=== PATIENT | male | born 1935 | race Caucasian/White ===

== ENCOUNTER 2016-07-23 10:57 | Observation (INO) | payer MEDICARE ==
[~2016-07-23] VITALS: Ht 170.2 cm; Wt 74.2 kg
[~2016-07-23 10:57] MED LIST: ACET325T PO; CARV3.12 PO; COUM5TAB PO; DHA100CA PO; LIPI20TA PO; MULT-135 PO; NIAC500T18 PO; PREV30CA11 PO; SYNT25TA PO; [UNRECOGNIZED DRUG - CODE] PO
[2016-07-23 10:58] VITALS: BP 136/75; PULSE 80; RESP 18; TEMP 98.3; O2SAT 98
[2016-07-23] MEDS ORDERED: ASPI1TAB69 PO (11:14)
--- NOTE | 2016-07-23 11:39 | PD ---
HPI Chief Complaint: Hip Injury Time Seen by Provider: 11:20 Travel History International Travel<30 days: No Contact w/Intl Traveler<30days: No Traveled to known affect area: No History of Present Illness HPI 81-year-old male complains of right hip pain. Patient states that the pain started about 2 months ago. Patient was seen by personal physician and had MRI done on the right hip. MRI shows mild arthritic pain. Patient was seen subsequently by Dr. Mcnamara for right hip injection and epidural injection without success of controlling the pain. Patient states the pain is sharp stabbing pain burning pain localized to posterior lateral aspect the right hip. Patient denies any pain radiation. Patient denies any direct trauma to right hip. Patient denies fever chills. Patient has history of atrial fibrillation and CAD and on Coumadin. Patient also has history of dyslipidemia and on Lipitor. Patient awaiting appointment with Dr. Everett for possible lumbar spine is the etiology of the right hip pain. On a scale of 1-10 the pain is a 10. Patient had CT scan of the lumbar spine and MRI of lumbar spine in May 2016 as outpatient. PFSH Past Medical History Anemia: Yes Arthritis: Yes Atrial Fibrillation: Yes Heart Rhythm Problems: Yes Cancer: Yes (PROSTATE ; COLON, BASAL CELL CARCINOMA FACE) Cardiac Catheterization: Yes Cardiovascular Problems: Yes (A FIB, CAD) High Cholesterol: Yes Chest Pain: Yes Coronary Artery Disease: Yes Diabetes: No Diminished Hearing: No Endocrine: Yes Gastrointestinal Disorders: Yes GERD: Yes Glaucoma: No Genitourinary: Yes Hepatitis: No Hypertension: Yes Immune Disorder: No Implanted Vascular Access Dvce: Yes Medical other: Yes (GERD) Musculoskeletal: Yes Neurologic: No Psychiatric: No Reproductive: No Respiratory: Yes Myocardial Infarction: Yes Thyroid Disease: Yes (HYPOTHYROIDISM) Influenza Vaccination: Yes PNEUMOCCOCAL Vaccine (Year): 2003 Past Surgical History Abdominal Surgery: Yes (COLON RESECTION) Cardiac Surgery: Yes (CABG, MITRAL VALVE REPAIR, CARDIAC ABLATION, PACEMAKER) Coronary Artery Bypass Graft: Yes (x 5) Ear Surgery: No Eye Surgery: No Genitourinary Surgery: Yes (PROSTATE SX ; SX ON TESTICLE (NOT SURE WHAT)) Gynecologic Surgery: Yes (PROSTATE SX ; SX ON TESTICLE (NOT SURE WHAT)) Oral Surgery: No Pacemaker: Yes Tonsillectomy: Yes Other Surgery: Yes (VARICOSE VEINS, BACK SURGERY) Social History Alcohol Use: Yes (DAILY) Tobacco Use: No Substance Use: No Allergies-Medications (Allergen,Severity, Reaction): Coded Allergies: Morphine (Unverified Allergy, Severe, Confusion, 07/23/16) Reported Meds & Prescriptions Reported Meds & Active Scripts Active Reported Aspirin 81 Mg Tabdr 81 Mg PO HS Lipitor (Atorvastatin Calcium) 20 Mg Tab 20 Mg PO HS Carvedilol 3.125 Mg Tab 3.125 Mg PO BID Dha [place] 3 (Docosahexaenoic Acid) 100 Mg Cap 1 Cap PO DAILY Synthroid (Levothyroxine Sodium) 25 Mcg Tab 25 Mcg PO DAILY Multi Vitamin (Multiple Vitamin) 1 Tab Tab 1 Tab PO DAILY Niacin (Niacinamide) 500 Mg Tab 1,000 Mg PO DAILY Betapace (Sotalol HCl) 120 Mg Tab 120 Mg PO BID Coumadin (Warfarin) 5 Mg Tab 6 Mg PO DAILY Review of Systems General / Constitutional: No: Fever Eyes: No: Visual changes HENT: No: Headaches Cardiovascular: No: Chest Pain or Discomfort Respiratory: No: Shortness of Breath Gastrointestinal: No: Abdominal Pain Genitourinary: No: Dysuria Musculoskeletal: Positive: Pain Skin: No Rash Neurologic: No: Weakness Psychiatric: No: Depression Endocrine: No: Polydipsia Hematologic/Lymphatic: No: Easy Bruising Physical Exam Narrative GENERAL: Well-nourished, well-developed patient. SKIN: Focused skin assessment warm/dry. HEAD: Normocephalic. EYES: No scleral icterus. No injection or drainage. NECK: Supple, trachea midline. No JVD or lymphadenopathy. CARDIOVASCULAR: Regular rate and rhythm without murmurs, gallops, or rubs. RESPIRATORY: Breath sounds equal bilaterally. No accessory muscle use. GASTROINTESTINAL: Abdomen soft, non-tender, nondistended. MUSCULOSKELETAL: No cyanosis, or edema. BACK: Nontender without obvious deformity. No CVA tenderness. Patient has moderate tenderness of patient lateral posterior aspect the right hip joint. Full range motion of right hip. Sensorimotor function distally intact. Data Data Last Documented VS Vital Signs Date Time Temp Pulse Resp B/P Pulse Ox O2 Delivery O2 Flow Rate FiO2 07/23/16 12:10 16 97 Room Air 07/23/16 10:58 98.3 80 136/75 Orders Electrocardiogram (07/23/16 11:32) Complete Blood Count With Diff (07/23/16 11:32) Comprehensive Metabolic Panel (07/23/16 11:32) Prothrombin Time / Inr (Pt) (07/23/16 11:32) Act Partial Throm Time (Ptt) (07/23/16 11:32) C-Reactive Protein (Crp) (07/23/16 11:32) Urinalysis - C+S If Indicated (07/23/16 11:32) Westergren Sedimentation Rate (07/23/16 11:32) Chest, Single Ap (07/23/16 11:32) Iv Access Insert/Monitor (07/23/16 11:32) Ecg Monitoring (07/23/16 11:32) Oximetry (07/23/16 11:32) Hydromorphone Pf Inj (Dilaudid Pf Inj) (07/23/16 11:45) Ondansetron Inj (Zofran Inj) (07/23/16 11:45) Ct Hip W/O Contrast (07/23/16 ) Consult Neurosurgery (07/23/16 ) (Hub Use Only)Inp Phy Cons/Ref (07/23/16 ) Labs Laboratory Tests Test 07/23/16 07/23/16 12:00 13:42 White Blood Count 6.9 TH/MM3 Red Blood Count 5.14 MIL/MM3 Hemoglobin 15.2 GM/DL Hematocrit 44.3 % Mean Corpuscular Volume 86.1 FL Mean Corpuscular Hemoglobin 29.6 PG Mean Corpuscular Hemoglobin 34.3 % Concent Red Cell Distribution Width 14.9 % Platelet Count 169 TH/MM3 Mean Platelet Volume 8.0 FL Neutrophils (%) (Auto) 74.7 % Lymphocytes (%) (Auto) 9.1 % Monocytes (%) (Auto) 15.8 % Eosinophils (%) (Auto) 0.2 % Basophils (%) (Auto) 0.2 % Neutrophils # (Auto) 5.1 TH/MM3 Lymphocytes # (Auto) 0.6 TH/MM3 Monocytes # (Auto) 1.1 TH/MM3 Eosinophils # (Auto) 0.0 TH/MM3 Basophils # (Auto) 0.0 TH/MM3 CBC Comment DIFF FINAL Differential Comment Erythrocyte Sedimentation Rate 2 mm/hr Prothrombin Time 28.3 SEC Prothromb Time International 2.5 RATIO Ratio Activated Partial 34.1 SEC Thromboplast Time Sodium Level 129 MEQ/L Potassium Level 4.3 MEQ/L Chloride Level 95 MEQ/L Carbon Dioxide Level 25.8 MEQ/L Anion Gap 8 MEQ/L Blood Urea Nitrogen 19 MG/DL Creatinine 0.79 MG/DL Estimat Glomerular Filtration 94 ML/MIN Rate Random Glucose 97 MG/DL Calcium Level 9.0 MG/DL Total Bilirubin 0.7 MG/DL Aspartate Amino Transf 21 U/L (AST/SGOT) Alanine Aminotransferase 35 U/L (ALT/SGPT) Alkaline Phosphatase 55 U/L C-Reactive Protein LESS THAN 0.29 MG/DL Total Protein 6.9 GM/DL Albumin 3.8 GM/DL Urine Color YELLOW Urine Turbidity CLEAR Urine pH 6.0 Urine Specific [place] 1.015 Urine Protein NEG mg/dL Urine Glucose (UA) NEG mg/dL Urine Ketones NEG mg/dL Urine Occult Blood NEG Urine Nitrite NEG Urine Bilirubin NEG Urine Urobilinogen LESS THAN 2.0 MG/DL Urine Leukocyte Esterase NEG Urine RBC 1 /hpf Urine WBC LESS THAN 1 /hpf Urine Bacteria RARE /hpf Urine Mucus FEW /lpf Microscopic Urinalysis Comment CULT NOT INDICATED MDM Medical Decision Making Medical Screen Exam Complete: Yes Emergency Medical Condition: Yes Interpretation(s) Last Impressions Chest X-Ray 07/23/16 1132 Signed Impressions: Service Date/Time: Saturday, July 23, 2016 11:42 - CONCLUSION: 1. Cardiomegaly. No acute pulmonary disease. Alhaji Hernandez MD 1538 PM. CBC within normal limit. Sedimentation rate 2. Sodium 129. C- reactive protein less than 0.29. INR 2.5. UA negative. Differential Diagnosis Differential diagnosis including bursitis, tendinitis, fracture, dislocation, radiculopathy. Narrative Course 81-year-old male with severe right hip pain. Dilaudid 0.5 mg IV. Zofran 4 mg IV. Diagnosis Primary Impression: Arthralgia of right hip Additional Impression: Lumbosacral radiculopathy due to degenerative joint disease of spine Admitting Information Admitting Physician Requests: Observation Anton Keller MD Jul 23, 2016 11:39
[2016-07-23] MEDS ORDERED: ONDANSETRON HCL 4 MG/2 ML VIAL IV PUSH ONE (11:45)
[2016-07-23] MEDS ORDERED: HYDROmorphone HCL PF 1 MG/ML VIAL IV PUSH ONE (11:45)
[2016-07-23 12:10] VITALS: RESP 16; O2SAT 97
[2016-07-23 12:21] LABS: AUTOMATED NEUTROPHIL # 5.1 TH/MM3 (1.8-7.7); BASOPHIL % 0.2 % (0.0-2.0); EOSINOPHIL % 0.2 % (0.0-4.0); HEMATOCRIT 44.3 % (39.0-51.0); HEMO FLAGS DIFF FINAL; LYMPH % 9.1 % (9.0-44.0); LYMPHOCYTE # 0.6 TH/MM3 (1.0-4.8); MEAN CELL VOLUME 86.1 FL (80.0-100.0); MEAN CORPUSCULAR HEMOGLOBIN 29.6 PG (27.0-34.0); MEAN CORPUSCULAR HGB CONC 34.3 % (32.0-36.0); MONO % 15.8 % (0.0-8.0); NEUT % 74.7 % (16.0-70.0); PLATELET COUNT 169 TH/MM3 (150-450); RED BLOOD COUNT 5.14 MIL/MM3 (4.50-5.90); RED CELL DISTRIBUTION WIDTH 14.9 % (11.6-17.2); WHITE BLOOD COUNT 6.9 TH/MM3 (4.0-11.0)
[2016-07-23 12:29] LABS: APTT (PATIENT) 34.1 SEC (24.3-30.1); INTERNATIONAL NORMALIZED RATIO 2.5 RATIO; PROTHROMBIN TIME - PATIENT 28.3 SEC (9.8-11.6)
--- NOTE | 2016-07-23 12:58 | RADRPT ---
EXAM DATE/TIME: 07/23/2016 11:42 [facility] COMPARISON: No previous studies available for comparison. INDICATIONS : Shortness of breath and right hip pain following lumbar injections. MEDICAL HISTORY : None. SURGICAL HISTORY : Pacemaker. Heart. ENCOUNTER: Initial ACUITY: 3 weeks PAIN SCORE: 0/10 LOCATION: Bilateral chest FINDINGS: The cardiac silhouette is normal in transverse diameter. Median sternotomy wires are present. A bipol ar pacemaker is in place via a left sided approach. The lungs are free of acute parenchymal opacity. No effusions are identified. CONCLUSION: 1. Cardiomegaly. No acute pulmonary disease. Alhaji Hernandez MD on July 23, 2016 at 12:54 Board Certified Radiologist. This report was verified electronically.
[2016-07-23 13:00] VITALS: BP 132/76; PULSE 72; RESP 16; O2SAT 95
[2016-07-23 13:06] LABS: ALT (GPT) 35 U/L (12-78); ANION GAP 8 MEQ/L (5-15); AST (GOT) 21 U/L (15-37); BICARBONATE 25.8 MEQ/L (21.0-32.0); BLOOD UREA NITROGEN 19 MG/DL (7-18); CHLORIDE 95 MEQ/L (98-107); GLOMERULAR FILTRATION RATE 94 ML/MIN (>89); POTASSIUM 4.3 MEQ/L (3.5-5.1); SODIUM (NA) 129 MEQ/L (136-145)
[2016-07-23 13:07] LABS: ALKALINE PHOSPHATASE 55 U/L (45-117); TOTAL BILIRUBIN ADULT 0.7 MG/DL (0.2-1.0)
--- NOTE | 2016-07-23 13:19 | PD.CONS ---
(Cornell Everett MD) HPI Consult Requested By Primary Care Physician Corazon Bearden MD (Cornell Everett MD) Service NRS Consult Requested By ED Physician Reason for Consult possible radiculopathy History of Present Illness Mr. Arteaga is a 81-year-old male who presents to the emergency department with intractable right hip pain. Mr. Arteaga has a history of previous L4 5 fusion and had done well following his surgery. He then developed progressive pain located in the right lateral hip. He recently underwent lumbar epidural steroid injections as well as right hip injections with his pain specialist Dr. Mcnamara without any improvement. Mr. Arteaga denies any recent falls or trauma. He reports his pain is located in the right lateral hip and slightly in the right upper thigh. He denies lumbar pain, paresthesias, bowel or bladder incontinence. He reports of generalized proximal weakness in the right leg due to his right hip pain. He underwent an MRI of the lumbar spine at [facility] in [facility] on 05/30/16 which showed multiple chronic compression fractures, and multilevel spondylosis. Neurosurgical evaluation was requested for possible radiculopathy. (Aishwarya Ramirez) Review of Systems Constitutional: DENIES: Fever Eyes: DENIES: Diplopia, Eye pain Respiratory: DENIES: Hemoptysis, Shortness of breath Cardiovascular: DENIES: Chest pain, Palpitations Genitourinary: DENIES: Urinary incontinence Musculoskeletal: COMPLAINS OF: Joint pain, DENIES: Back pain Neurologic: COMPLAINS OF: Abnormal gait, DENIES: Paresthesias Psychiatric: DENIES: Hallucinations (Aishwarya Ramirez) Past Family Social History Allergies: Coded Allergies: Morphine (Unverified Allergy, Severe, Confusion, 07/23/16) Past Medical History Hypertension Hyperlipidemia A. Fib Coronary Artery Disease Osteoarthritis Prostate CA Colon CA Skin CA GRED Hypothyroidism Past Surgical History Pacemaker CABG x 5 Mitral Valve repair Prostate surgery L4-5 fusion Reported Medications reviewed in EMR Family History noncontributory Social History daily alcohol use, denies tobacco or illicit drug use (Aishwarya Ramirez) Physical Exam Vital Signs Vital Signs Date Time Temp Pulse Resp B/P Pulse Ox O2 Delivery O2 Flow Rate FiO2 07/23/16 12:10 16 97 Room Air 07/23/16 10:58 98.3 80 18 136/75 98 Room Air Laboratory Laboratory Tests Test 07/23/16 12:00 White Blood Count 6.9 Red Blood Count 5.14 Hemoglobin 15.2 Hematocrit 44.3 Mean Corpuscular Volume 86.1 Mean Corpuscular Hemoglobin 29.6 Mean Corpuscular Hemoglobin 34.3 Concent Red Cell Distribution Width 14.9 Platelet Count 169 Mean Platelet Volume 8.0 Neutrophils (%) (Auto) 74.7 Lymphocytes (%) (Auto) 9.1 Monocytes (%) (Auto) 15.8 Eosinophils (%) (Auto) 0.2 Basophils (%) (Auto) 0.2 Neutrophils # (Auto) 5.1 Lymphocytes # (Auto) 0.6 Monocytes # (Auto) 1.1 Eosinophils # (Auto) 0.0 Basophils # (Auto) 0.0 CBC Comment DIFF FINAL Differential Comment Erythrocyte Sedimentation Rate 2 Prothrombin Time 28.3 Prothromb Time International 2.5 Ratio Activated Partial 34.1 Thromboplast Time Sodium Level 129 Potassium Level 4.3 Chloride Level 95 Carbon Dioxide Level 25.8 Anion Gap 8 Blood Urea Nitrogen 19 Creatinine 0.79 Estimat Glomerular Filtration 94 Rate Random Glucose 97 Calcium Level 9.0 Total Bilirubin 0.7 Aspartate Amino Transf 21 (AST/SGOT) Alanine Aminotransferase 35 (ALT/SGPT) Alkaline Phosphatase 55 C-Reactive Protein LESS THAN 0.29 Total Protein 6.9 Albumin 3.8 (Cornell Everett MD) Physical Exam Mr. Arteaga is alert, awake and oriented to time, place and person. Speech is fluent. Higher cognitive functions are normal. Cranial nerve examination demonstrates the pupils equal, round, and reactive to light. Extra-ocular movements are intact. Facial motor are normal and symmetrical. Sternocleidomastoid and trapezius muscles have normal and symmetrical strength. Other cranial nerves are intact. Neck is soft and supple. Muscle testing reveals normal bulk and tone overall without rigidity, spasticity , fasciculations, or atrophy. Muscle strength is 5/5 in all muscle groups of both upper extremities including deltoid, biceps, triceps, and process stripper. In the lower extremities, exam limited to right proximal lower extremity due to right hip pain, grossly 3/5 right iliopsoas, 5/5 left iliopsoas, 5/5 both quadriceps, hamstrings, plantar flexion, dorsiflexion, and extensor hallicus longus. Sensory examination is intact to light touch in both the upper and lower extremities, symmetrically. Severe pain elicited with palpation of the right lateral hip as well as range of motion examination. Deep tendon reflexes are 2+ and symmetrical in the biceps, triceps, and brachioradialis, bilaterally, in the upper extremities. In the lower extremities, the patellar and Achilles are 1+, bilaterally. There is a bilateral plantar flexion response. Hoffmanns sign is negative. There is no clonus or other abnormal reflexes noted. Cerebellar examination is intact to [id number] test. (Aishwarya Ramirez) Result Diagram: 07/23/16 1200 07/23/16 1200 Imaging Last Impressions Chest X-Ray 07/23/16 1132 Signed Impressions: Service Date/Time: Saturday, July 23, 2016 11:42 - CONCLUSION: 1. Cardiomegaly. No acute pulmonary disease. Alhaji Hernandez MD (Aishwarya Ramirez) Attending Statement I have reviewed his clinical and further studies. neuro checks in a serial fashion. Recommend CT or MRI of the hip to evaluate for fracture or ligamentous injury Respiratory. pulmonary toilette, nasotracheal suction, and breathing treatments with nebulizers. PT and OT eval Pneumonia. IV ABx permedical team Ileus NPO. Follow up xrays Nutrition. NPO Renal. monitor closely urine output, BUN and creatinine Endocrine. Monitor serial Acu checks and SSI for tight control ID monitor for signs of infection Protonix for stress ulcer prophylaxis Reyes hose and SCD's for DVT prophylaxis The exam, history, and the medical decision-making described in the above note were completed with the assistance of the mid-level provider. I reviewed and agree with the findings presented. I attest that I had a [id number] encounter with the patient on the same day, and personally performed and documented my assessment and findings in the medical record. (Cornell Everett MD) Cornell Everett MD Jul 23, 2016 13:19 Aishwarya Ramirez Jul 23, 2016 15:00
--- NOTE | 2016-07-23 13:37 | RADRPT ---
EXAM DATE/TIME: 07/23/2016 12:50 [facility] COMPARISON: No previous studies available for comparison. INDICATIONS : Right hip pain. No known trauma. RADIATION DOSE: 29.25 CTDIvol (mGy) MEDICAL HISTORY : Cardiovascular disease. Carcinoma, prostate. SURGICAL HISTORY : Fusion, lumbar. Pacemaker. Colon resection. CABG ENCOUNTER: Initial ACUITY: 3 weeks PAIN SCALE: 10/10 LOCATION: Right hip TECHNIQUE: Volumetric scanning of the hip was performed. Using automated exposure control and adjustment of the mA and/or kV according to patient size, radiation dose was kept as low as reasonably achievable to o btain optimal diagnostic quality images. FINDINGS: There is transpedicular fixation in the lower lumbar spine. Pelvis is osteopenic. There are degenerative changes present about both hips. There is a very small joint effusion on the right. Bone is articulating with bone with subchondral cyst formation evident. Moderate vascular calcifications are noted. CONCLUSION: Degenerative changes about the right hip without fracture. Jarvis Erwin MD FACR on July 23, 2016 at 13:31 Board Certified Radiologist. This report was verified electronically.
[2016-07-23 13:56] LABS: BACTERIA, URINE RARE /hpf; BLOOD, URINE NEG (NEG); COMMENT (UR) CULT NOT INDICATED; CULTURE IF INDICATED CULT NOT INDICATED; GLUCOSE,URINE NEG (NEG); KETONE, URINE NEG (NEG); MUCUS URINE FEW /lpf (OCC); NITRITE,URINE NEG (NEG); URINE COLOR YELLOW (YELLW/STRAW)
--- NOTE | 2016-07-23 16:01 | HHI.HP ---
[facility] Service Family Medicine Primary Care Physician Corazon Bearden MD Admission Diagnosis Diagnoses: International Travel<30 Days: No Contact w/Intl Traveler<30days: No Known Affected Area: No History of Present Illness Patient is a 81 year old male with a PMH significant for atrial fibrillation, CAD/CABG, hypothyroidism prostate cancer, colon cancer, who presents with chronic worsening right hip pain. Onset of pain was in March 2016; he states that he was coughing the day before and felt a twinge in his back which went away. The next day he woke up with excruciating right buttock and hip pain. Location: right buttock, goes down into groin around, and stops right above the knee. Is described as constant 10/10 pain. It sometimes last through the night but patient is able to sleep if he takes medication. He has tried hot and cold compresses, a TENS unit, Tylenol, NSAIDs. He has been seeing Dr. Mcnamara for workup of this pain recently. He has seen Dr. Mcnamara for work-up, has undergone "medication" by injection to right hip and subsequently lower back. Cortisone injection into the right hip was 9 days, cortisone injection into the spine was 7 days today. He was given a prescription for hydrocodone which does help the pain some. No recent falls or trauma remotely or acutely. The pain itself is better now than it was one week ago, but it sporadically worsens and makes him unable to walk.. He is able to walk around fine sometimes and then the pain "hits" him. Sometimes the pain lasts all day. It is worse when he walks around, and he requires a cane and states he drags the leg. Denies any back pain. Pain does not go down the back of the legs but does radiate to the front thigh sometimes. No bowel or bladder retention or incontinence. No numbness or tingling in the body. He does note night sweats for a while, not every day, not since the pain worsened. In the ED he was given Dilaudid 0.5 mg IV and this helped his pain. Has not been to Dr. Everett as outpatient, but Dr. Everett evaluated patient in ED for possible radiculopathy. Per notes in EMR, he underwent an MRI of the lumbar spine at [facility] in [facility] on 05/30/16 which showed multiple chronic compression fractures, and multilevel spondylosis. (Marily Lomas MD R1) Review of Systems Constitutional: DENIES: Fever, Chills Eyes: DENIES: Blurred vision, Vision loss Ears, nose, mouth, throat: DENIES: Tinnitus, Hearing loss Respiratory: DENIES: Cough Cardiovascular: DENIES: Chest pain, Palpitations Gastrointestinal: DENIES: Abdominal pain, Black stools, Bloody stools, Constipation, Diarrhea Genitourinary: DENIES: Urinary frequency, Urinary incontinence Musculoskeletal: COMPLAINS OF: Joint pain, Stiffness, DENIES: Back pain Integumentary: DENIES: Rash Neurologic: COMPLAINS OF: Paresthesias (numbness right hip), DENIES: Headache Psychiatric: DENIES: Confusion (Marily Lomas MD R1) Past Family Social History Past Medical History CAD - CABG x 5 2006 --> Pacemaker Atrial Fibrillation Colon Cancer - Resection Prostate Cancer - resection, reports normal PSA atrial fibrillation, CAD/CABG, hypothyroidism prostate cancer, colon cancer Past Surgical History CABG Pacemaker Reported Medications Reported Meds & Active Scripts Active Reported Aspirin 81 Mg Tabdr 81 Mg PO HS Lipitor (Atorvastatin Calcium) 20 Mg Tab 20 Mg PO HS Carvedilol 3.125 Mg Tab 3.125 Mg PO BID Dha [place] 3 (Docosahexaenoic Acid) 100 Mg Cap 1 Cap PO DAILY Synthroid (Levothyroxine Sodium) 25 Mcg Tab 25 Mcg PO DAILY Multi Vitamin (Multiple Vitamin) 1 Tab Tab 1 Tab PO DAILY Niacin (Niacinamide) 500 Mg Tab 1,000 Mg PO DAILY Betapace (Sotalol HCl) 120 Mg Tab 120 Mg PO BID Coumadin (Warfarin) 5 Mg Tab 6 Mg PO DAILY (Marily Lomas MD R1) Allergies: Coded Allergies: Morphine (Unverified Allergy, Severe, Confusion, 07/23/16) Active Ordered Medications Inpatient Medications Hydromorphone HCl (Dilaudid Pf Inj) 0.5 mg ONCE ONCE IV PUSH Last administered on 07/23/16 12:43; Start 07/23/16 at 11:45; Stop 07/23/16 at 11:46 ; Status DC Ondansetron HCl (Zofran Inj) 4 mg ONCE ONCE IV PUSH Last administered on 12:41; Start 07/23/16 at 11:45; Stop 07/23/16 at 11:46; Status DC Family History Family with "Heart, Cancer " Pancreatic cancer - sister Father - kidney disease "Brights" Social History Cigarettes = quit 53 years ago Alcohol = Daily 2-3 beers Illicits = None Uses walker to get pressure off Played golf up into March 2016 (Marily Lomas MD R1) Physical Exam Vital Signs Vital Signs Date Time Temp Pulse Resp B/P Pulse Ox O2 Delivery O2 Flow Rate FiO2 07/23/16 12:10 16 97 Room Air 07/23/16 10:58 98.3 80 18 136/75 98 Room Air Physical Exam GENERAL: This is a well-nourished, well-developed patient, in no apparent distress. SKIN: No rashes, ecchymoses or lesions. Warm and dry. HEAD: Atraumatic. Normocephalic. No temporal or scalp tenderness. EYES: Pupils equal round and reactive. Extraocular motions intact. No scleral icterus. No injection or drainage. ENT: Nose without bleeding, purulent drainage or septal hematoma. Throat without erythema, tonsillar hypertrophy or exudate. Uvula midline. Airway patent. NECK: Trachea midline. No JVD or lymphadenopathy. Supple, nontender, no meningeal signs. CARDIOVASCULAR: Irregularly irregular rhythm. No murmurs, gallops, or rubs. RESPIRATORY: Clear to auscultation. Breath sounds equal bilaterally. No wheezes , rales, or rhonchi. BACK: No spinal or paraspinal tenderness. No obvious bony abnormalities. GASTROINTESTINAL: Abdomen soft, non-tender, nondistended. No hepato-splenomegaly , or palpable masses. No guarding. MUSCULOSKELETAL: Kyphosis cervical spine. Strength normal aside from 4/5 with hip extension. Extremities without clubbing, cyanosis, or edema. No joint tenderness, effusion, or edema noted. No calf tenderness. Negative Homans sign bilaterally. NEUROLOGICAL: Awake and alert. Cranial nerves II through XII intact. Motor and sensory grossly within normal limits. Normal speech. Laboratory Laboratory Tests Test 07/23/16 07/23/16 12:00 13:42 White Blood Count 6.9 Red Blood Count 5.14 Hemoglobin 15.2 Hematocrit 44.3 Mean Corpuscular Volume 86.1 Mean Corpuscular Hemoglobin 29.6 Mean Corpuscular Hemoglobin 34.3 Concent Red Cell Distribution Width 14.9 Platelet Count 169 Mean Platelet Volume 8.0 Neutrophils (%) (Auto) 74.7 Lymphocytes (%) (Auto) 9.1 Monocytes (%) (Auto) 15.8 Eosinophils (%) (Auto) 0.2 Basophils (%) (Auto) 0.2 Neutrophils # (Auto) 5.1 Lymphocytes # (Auto) 0.6 Monocytes # (Auto) 1.1 Eosinophils # (Auto) 0.0 Basophils # (Auto) 0.0 CBC Comment DIFF FINAL Differential Comment Erythrocyte Sedimentation Rate 2 Prothrombin Time 28.3 Prothromb Time International 2.5 Ratio Activated Partial 34.1 Thromboplast Time Sodium Level 129 Potassium Level 4.3 Chloride Level 95 Carbon Dioxide Level 25.8 Anion Gap 8 Blood Urea Nitrogen 19 Creatinine 0.79 Estimat Glomerular Filtration 94 Rate Random Glucose 97 Calcium Level 9.0 Total Bilirubin 0.7 Aspartate Amino Transf 21 (AST/SGOT) Alanine Aminotransferase 35 (ALT/SGPT) Alkaline Phosphatase 55 C-Reactive Protein LESS THAN 0.29 Total Protein 6.9 Albumin 3.8 Urine Color YELLOW Urine Turbidity CLEAR Urine pH 6.0 Urine Specific [place] 1.015 Urine Protein NEG Urine Glucose (UA) NEG Urine Ketones NEG Urine Occult Blood NEG Urine Nitrite NEG Urine Bilirubin NEG Urine Urobilinogen LESS THAN 2.0 Urine Leukocyte Esterase NEG Urine RBC 1 Urine WBC LESS THAN 1 Urine Bacteria RARE Urine Mucus FEW Microscopic Urinalysis Comment CULT NOT INDICATED (Marily Lomas MD R1) Result Diagram: 07/23/16 1200 07/23/16 1200 Imaging Last Impressions Chest X-Ray 07/23/16 1132 Signed Impressions: Service Date/Time: Saturday, July 23, 2016 11:42 - CONCLUSION: 1. Cardiomegaly. No acute pulmonary disease. Alhaji Hernandez MD (Marily Lomas MD R1) Assessment and Plan Assessment and Plan 81-year-old male with a history of atrial fibrillation, CAD/CABG, pacemaker, hypothyroidism, prostate cancer, colon cancer who presents with acute on chronic right hip pain. He was admitted to observation for further workup. Code Status Full Code Discussed Condition With Dr. Atkins, Dr. Souza (Marily Lomas MD R1) Attending Attestation THIS CASE WAS DISCUSSED WITH THE RESIDENT PHYSICIAN. I HAVE REVIEWED THE RECORD AND AGREE WITH THE ABOVE NOTE AND PLAN OF CARE WAS DISCUSSED. I HAVE AUTHORIZED THE ORDER FOR PLACEMENT IN OUT-PATIENT OBSERVATION STATUS. (Michael Atkins MD) Problem List: (1) Right hip pain Status: Acute Plan: Patient with an acute exacerbation of right hip pain without evidence of trauma. Exam significant for pain, decreased pain. Neurosurgery evaluated patient, report low suspicion for radicular etiology. Orthopedic surgery consult per request of neurosurgery/ED physician for further evaluation. Notably , patient does have a history of prostate and colon cancer, and metastases cannot be definitively excluded without further workup. Differential diagnosis includes avascular necrosis, septic joint, bursitis. -Pain control with Percocet 5/325 for pain 15, Percocet 10/325 for pain 610 Dilaudid 0.5mg IV q4hr hours for breakthrough -MRI hip without contrast ordered - MRI safe pacemaker, needs [employer] rep evaluation -Right femur x-ray ordered -Neurosurgery consulted -Orthopedic consulted (2) Atrial fibrillation Status: Acute Plan: Continue home Coumadin at 6 mg, continue Sotalol outpatient dose -Atrial pacemaker noted on EKG, rate 73, QT 453, no evidence of ischemic event. -We will continue telemetry given cardiac history -Monitor INR (3) Hypothyroidism Status: Chronic Plan: Continue home dose Synthroid 25 g daily (4) Fluids/Electrolytes/Nutrition/Prophylaxis Status: Acute Plan: Fluids: tolerating PO Electrolytes: monitor and replete as needed, will monitor hyponatremia Nutrition: heart-healthy diet DVT Prophylaxis: On Coumadin GI Prophylaxis: Not indicated (Marily Lomas MD R1) Marily Lomas MD R1 Jul 23, 2016 16:01 Michael Atkins MD Jul 23, 2016 19:19
[2016-07-23] MEDS ORDERED: SODIUM CHLORIDE 0.9% FLUSH 10 ML FLUSH IV FLUSH PRN (16:45)
[2016-07-23] MEDS ORDERED: NALOXONE HCL 0.4 MG/ML AMP IV PRN ×2 (16:45→19:15)
[2016-07-23] MEDS ORDERED: PILL SPLITTER OTHER PRN (16:45)
[2016-07-23 17:00] VITALS: BP 134/78; PULSE 75; RESP 16; O2SAT 97
[2016-07-23] MEDS: WARFARIN SOD 6 MG TAB PO SCH (17:00)
[2016-07-23 17:35] VITALS: O2SAT 94
[2016-07-23] MEDS ORDERED: COUM3TAB PO (17:45)
--- NOTE | 2016-07-23 17:57 | RADRPT ---
EXAM DATE/TIME: 07/23/2016 17:46 [place] COMPARISON: No previous studies available for comparison. INDICATIONS : Right femur pain with no known injury. MEDICAL HISTORY : None. SURGICAL HISTORY : None. ENCOUNTER: Initial ACUITY: 3 months PAIN SCORE: 7/10 LOCATION: Right proximal femur. FINDINGS: Extensive vascular calcifications are seen. Degenerative changes are seen about the hip with bone ar ticulating with bone. There is no evidence for fracture or joint effusion. CONCLUSION: 1. Extensive vascular calcifications. 2. Bone articulating with bone right hip. Jarvis Erwin MD FACR on July 23, 2016 at 17:55 Board Certified Radiologist. This report was verified electronically.
--- NOTE | 2016-07-23 19:19 | HHI.HP ---
[facility] Service Family Medicine Primary Care Physician Corazon Bearden MD Admission Diagnosis Diagnoses: (1) Right hip pain (2) Atrial fibrillation (3) Hypothyroidism (4) Fluids/Electrolytes/Nutrition/Prophylaxis International Travel<30 Days: No Contact w/Intl Traveler<30days: No Known Affected Area: No History of Present Illness 81 yo M presenting to the ED with intractable right hip and thigh pain. He has been evaluated for this pain as an outpatient with a lumbar MRI and eventually receiving both epidural steroid injections and right hip injection without any benefit. His pain continued and progressed to the point that he has difficulty bearing weight due to the pain. The onset of this pain was 3 months ago and has slowly been progressing. He denies any trauma or injury, denies any trauma , denies any sudden worsening of pain. He also denies any saddle paresthesia or bowel/bladder incontinence or retention This pain is described as constant and rated as a 10 out of 10 at its worst. It sometimes lasts through the night but has been controlled with Ibuprofen and Hydrocodone. He has a PMH significant for atrial fibrillation, CAD/CABG, hypothyroidism prostate cancer, colon cancer, Per notes in EMR, he underwent an MRI of the lumbar spine at [facility] in [facility] on 05/30/16 which showed multiple chronic compression fractures, and multilevel spondylosis In the ED he was given Dilaudid 0.5 mg IV and this helped his pain. He was then evaluated by Dr. Everett of neurosurgery and this pain was not felt to be originating from his back. It was recommended that he be admitted for pain control and evaluation by orthopedics. Past Family Social History Past Medical History CAD - CABG x 5 2006 --> Pacemaker Atrial Fibrillation Colon Cancer - Resection Prostate Cancer - resection, reports normal PSA atrial fibrillation, CAD/CABG, hypothyroidism prostate cancer, colon cancer Past Surgical History CABG Pacemaker Allergies: Coded Allergies: Morphine (Unverified Allergy, Severe, Confusion, 07/23/16) Family History Family with "Heart, Cancer " Pancreatic cancer - sister Father - kidney disease "Brights Social History Cigarettes = quit 53 years ago Alcohol = Daily 2-3 beers Illicits = None Uses walker to get pressure off Played golf up into March 2016 Physical Exam Vital Signs Vital Signs Date Time Temp Pulse Resp B/P Pulse Ox O2 Delivery O2 Flow Rate FiO2 07/23/16 17:35 94 21 07/23/16 17:00 75 16 134/78 97 Room Air 07/23/16 13:00 72 16 132/76 95 Room Air 07/23/16 12:10 16 97 Room Air 07/23/16 10:58 98.3 80 18 136/75 98 Room Air Physical Exam GENERAL: Uncomfortable appearing male laying on his left side in bed SKIN: No rashes, ecchymoses or lesions. Warm and dry. NECK: No JVD or lymphadenopathy. Supple, nontender, no meningeal signs. CARDIOVASCULAR: Regular rate and rhythm with 2/6 systolic murmur RESPIRATORY: Clear to auscultation. Breath sounds equal bilaterally. No wheezes , rales, or rhonchi. BACK: No spinal or paraspinal tenderness. No obvious bony abnormalities. MUSCULOSKELETAL: Kyphosis cervical spine. Strength normal aside from 4/5 with hip extension due to pain. Extremities without clubbing, cyanosis, or edema. No joint tenderness, effusion, or edema noted. Limited exam for right hip flexion due to pain, but able to flex hip to 70 degrees and internally rotate with moderate pain. He does have some tenderness to palpation over anterior mid- thigh NEUROLOGICAL: Awake and alert. Laboratory Laboratory Tests Test 07/23/16 07/23/16 12:00 13:42 White Blood Count 6.9 Red Blood Count 5.14 Hemoglobin 15.2 Hematocrit 44.3 Mean Corpuscular Volume 86.1 Mean Corpuscular Hemoglobin 29.6 Mean Corpuscular Hemoglobin 34.3 Concent Red Cell Distribution Width 14.9 Platelet Count 169 Mean Platelet Volume 8.0 Neutrophils (%) (Auto) 74.7 Lymphocytes (%) (Auto) 9.1 Monocytes (%) (Auto) 15.8 Eosinophils (%) (Auto) 0.2 Basophils (%) (Auto) 0.2 Neutrophils # (Auto) 5.1 Lymphocytes # (Auto) 0.6 Monocytes # (Auto) 1.1 Eosinophils # (Auto) 0.0 Basophils # (Auto) 0.0 CBC Comment DIFF FINAL Differential Comment Erythrocyte Sedimentation Rate 2 Prothrombin Time 28.3 Prothromb Time International 2.5 Ratio Activated Partial 34.1 Thromboplast Time Sodium Level 129 Potassium Level 4.3 Chloride Level 95 Carbon Dioxide Level 25.8 Anion Gap 8 Blood Urea Nitrogen 19 Creatinine 0.79 Estimat Glomerular Filtration 94 Rate Random Glucose 97 Calcium Level 9.0 Total Bilirubin 0.7 Aspartate Amino Transf 21 (AST/SGOT) Alanine Aminotransferase 35 (ALT/SGPT) Alkaline Phosphatase 55 C-Reactive Protein LESS THAN 0.29 Total Protein 6.9 Albumin 3.8 Urine Color YELLOW Urine Turbidity CLEAR Urine pH 6.0 Urine Specific [place] 1.015 Urine Protein NEG Urine Glucose (UA) NEG Urine Ketones NEG Urine Occult Blood NEG Urine Nitrite NEG Urine Bilirubin NEG Urine Urobilinogen LESS THAN 2.0 Urine Leukocyte Esterase NEG Urine RBC 1 Urine WBC LESS THAN 1 Urine Bacteria RARE Urine Mucus FEW Microscopic Urinalysis Comment CULT NOT INDICATED Result Diagram: 07/23/16 1200 07/23/16 1200 Imaging Last 48 hours Impressions Chest X-Ray 07/23/16 1132 Signed Impressions: Service Date/Time: Saturday, July 23, 2016 11:42 - CONCLUSION: 1. Cardiomegaly. No acute pulmonary disease. Alhaji Hernandez MD Lower Extremity CT 07/23/16 0000 Signed Impressions: Service Date/Time: Saturday, July 23, 2016 12:50 - CONCLUSION: Degenerative changes about the right hip without fracture. Jarvis Erwin MD FACR Assessment and Plan Assessment and Plan 81-year-old male with a history of atrial fibrillation, CAD/CABG, pacemaker, hypothyroidism, prostate cancer, colon cancer who presents with acute on chronic right hip pain. He was admitted to observation for further workup. Problem List: (1) Right hip pain Status: Acute Plan: Patient with an acute exacerbation of right hip pain without evidence of trauma. Exam significant for pain, decreased pain. Neurosurgery evaluated patient, report low suspicion for radicular etiology. Orthopedic surgery consult per request of neurosurgery/ED physician for further evaluation. Notably , patient does have a history of prostate and colon cancer, and metastases cannot be definitively excluded without further workup. Differential diagnosis includes avascular necrosis, septic joint, bursitis. -Pain control with Percocet 5/325 for pain 15, Percocet 10/325 for pain 610 Dilaudid 0.5mg IV q4hr hours for breakthrough -MRI hip without contrast ordered - MRI safe pacemaker, needs [employer] rep evaluation -Right femur x-ray ordered -Neurosurgery consulted and recommend evaluation by orthopedics -Orthopedic consulted (2) Atrial fibrillation Status: Acute Plan: Continue home Coumadin at 6 mg, continue Sotalol outpatient dose -Atrial pacemaker noted on EKG, rate 73, QT 453, no evidence of ischemic event. -We will continue telemetry given cardiac history -Monitor INR (3) Hypothyroidism Status: Chronic Plan: Continue home dose Synthroid 25 g daily (4) Fluids/Electrolytes/Nutrition/Prophylaxis Status: Acute Plan: Fluids: tolerating PO Electrolytes: monitor and replete as needed, will monitor hyponatremia Nutrition: heart-healthy diet DVT Prophylaxis: On Coumadin GI Prophylaxis: Not indicated Michael Atkins MD Jul 23, 2016 19:19
[2016-07-23] MEDS: oxyCODONE/ACETAMINOPHEN 10 MG/325 MG TAB PO PRN (20:17)
[2016-07-23] MEDS: SOTALOL HCL 80 MG TAB PO SCH (20:34)
[2016-07-23] MEDS: ASPIRIN EC 81 MG TABEC PO SCH (20:35)
[2016-07-23] MEDS: NIACIN 500 MG EXTENDED RELEASE TAB PO SCH (20:35)
[2016-07-23] MEDS: ATORVASTATIN 20 MG TAB PO SCH (20:35)
[2016-07-23] MEDS: CARVEDILOL 3.125 MG TAB PO SCH (20:36)
[2016-07-23 20:45] VITALS: BP 126/70; PULSE 76; RESP 16; TEMP 97.9; O2SAT 95
[2016-07-23] MEDS: SODIUM CHLORIDE 0.9% FLUSH 10 ML FLUSH IV FLUSH SCH (21:00)
[2016-07-23] MEDS: HYDROmorphone HCL PF 1 MG/ML VIAL IV PRN (21:22)
[2016-07-24] VITALS (11 sets, daily range): BP systolic 131–165; BP diastolic 73–90; PULSE 79–97; RESP 16–22; TEMP 96.8–97.8; O2SAT 94–97
[2016-07-24] MEDS: oxyCODONE/ACETAMINOPHEN 10 MG/325 MG TAB PO PRN ×3 (05:44→17:46)
[2016-07-24] MEDS: LEVOTHYROXINE SODIUM 25 MCG TAB PO SCH (05:44)
[2016-07-24] MEDS: SOTALOL HCL 80 MG TAB PO SCH ×2 (08:46→20:36)
[2016-07-24] MEDS: CARVEDILOL 3.125 MG TAB PO SCH ×2 (08:46→20:36)
[2016-07-24] MEDS: MULTIVITAMIN TAB PO SCH (08:46)
[2016-07-24] MEDS: SODIUM CHLORIDE 0.9% FLUSH 10 ML FLUSH IV FLUSH SCH ×2 (08:47→20:37)
--- NOTE | 2016-07-24 08:47 | PD.ORT.PN ---
Subjective Subjective Remarks C4 dictated note. Intractable right hip pain, almost unable to ambulate Objective Vitals Vital Signs Date Time Temp Pulse Resp B/P Pulse Ox O2 Delivery O2 Flow Rate FiO2 07/24/16 08:22 96.8 79 20 158/81 96 07/24/16 04:59 97.5 79 16 142/90 94 07/24/16 01:13 82 07/24/16 00:13 97.7 88 16 165/89 97 07/23/16 20:45 97.9 76 16 126/70 95 07/23/16 17:35 94 21 07/23/16 17:00 75 16 134/78 97 Room Air 07/23/16 13:00 72 16 132/76 95 Room Air 07/23/16 12:10 16 97 Room Air 07/23/16 10:58 98.3 80 18 136/75 98 Room Air I/O 07/23/16 07/23/16 07/23/16 07/24/16 07/24/16 07/24/16 07:00 15:00 23:00 07:00 15:00 23:00 Intake Total 240 ml Output Total 300 ml 600 ml Balance -300 ml -360 ml Intake Oral 240 ml Output Urine Total 300 ml 600 ml # Bowel Movements 0 Result Diagram: 07/23/16 1200 07/23/16 1200 Other Results Laboratory Tests Test 07/23/16 12:00 Prothrombin Time 28.3 SEC (9.8-11.6) Prothromb Time International 2.5 RATIO Ratio Imaging Last 24 hours Impressions Chest X-Ray 07/23/16 1132 Signed Impressions: Service Date/Time: Saturday, July 23, 2016 11:42 - CONCLUSION: 1. Cardiomegaly. No acute pulmonary disease. Alhaji Hernandez MD Objective Remarks Right hip 10 flexion contracture. Severe pain with range of motion, especially with internal and external rotation. Pain is in the groin, lateral right hip and posterior right hip. Pain radiates toward the right knee. Straight leg raise negative. Motor examination 5/5. No calf tenderness. Negative Homans sign. Dorsalis pedis 2+ posterior tibialis 1+ Assessment & Plan Assessment and Plan Osteoarthritis right hip, severe. Status post lumbar laminectomy and fusion, stable. PLAN: I have reviewed x-rays showing severe arthritis of the right hip. This patient has had appropriate conservative care including anti-inflammatory medications, altered activity, injections of cortisone into the hip joint. He has failed now 3-4 months of conservative care. This patient is a candidate for right total hip replacement arthroplasty. We will tentatively scheduled for next Thursday. We will request cardiology evaluation while he is in the hospital. Possibly discharge later today or tomorrow. We will electively admit him on Thursday for anterior right total hip replacement arthroplasty, pending medical evaluation and clearance. Consent: There are risks with surgery including infection bleeding loss of motion, continued pain, need for further surgery, dislocation, neurologic or vascular injury. Walker and limited weightbearing on the right leg Rehan Sullivan MD Jul 24, 2016 08:47
[2016-07-24] MEDS ORDERED: DOCOSAHEXAENOIC ACID PO SCH (09:00)
[2016-07-24 09:06] LABS: AUTOMATED NEUTROPHIL # 3.6 TH/MM3 (1.8-7.7); BASOPHIL % 0.2 % (0.0-2.0); EOSINOPHIL % 0.2 % (0.0-4.0); HEMATOCRIT 46.7 % (39.0-51.0); HEMO FLAGS DIFF FINAL; LYMPH % 13.5 % (9.0-44.0); LYMPHOCYTE # 0.7 TH/MM3 (1.0-4.8); MEAN CELL VOLUME 86.2 FL (80.0-100.0); MEAN CORPUSCULAR HEMOGLOBIN 29.4 PG (27.0-34.0); MEAN CORPUSCULAR HGB CONC 34.1 % (32.0-36.0); MONO % 13.7 % (0.0-8.0); NEUT % 72.4 % (16.0-70.0); PLATELET COUNT 164 TH/MM3 (150-450); RED BLOOD COUNT 5.41 MIL/MM3 (4.50-5.90); RED CELL DISTRIBUTION WIDTH 15.2 % (11.6-17.2)
--- NOTE | 2016-07-24 09:23 | MB ---
cc: RIAZ ZAMBRANO M.D. DATE OF CONSULTATION 07/24/2016 REQUESTING PHYSICIAN MD Marguerite. REASON FOR CONSULTATION Severe right hip pain. HISTORY This is an 81-year-old white male who, over the last [id number] months, has had severe increasing right hip pain. The patient had an MRI scan of the right hip showing arthritic change in the right hip. The patient had previous surgical treatment by Dr. Everett for lumbar laminectomy and fusion at the L4-5 level. The patient has done well with that. The patient was admitted because he is having such severe pain. He was almost unable to ambulate. He is under the care of Dr. Franz from Cardiology. He has been treated for atrial fibrillation and is on Coumadin. The patient states his pain is at 10/10. He was admitted having had an MRI scan and CT of the lumbar spine recently as an outpatient. I have been asked see the patient in consultation regarding the same. PAST MEDICAL HISTORY 1. Anemia. 2. Arthritis. 3. Atrial fibrillation. 4. Dysrhythmia. 5. Prostate cancer. 6. Basal cell carcinoma of the face. 7. Cardiac catheterization. 8. Hypercholesterolemia. 9. History of chest pain. 10. Coronary artery disease. 11. Gastrointestinal disease/GERD. 12. Hypothyroid disease. PAST SURGICAL HISTORY 1. Previous colon resection. 2. Cardiac surgery with CABG. 3. Mitral valve repair. 4. Cardiac ablation surgery now with a pacemaker. 5. Coronary bypass surgery x 5. 6. Previous prostate surgery. 7. Surgery on the testicle. 8. Previous back surgery. 9. Varicose vein surgery. SOCIAL HISTORY Notes daily ethanol. Denies tobacco or substance abuse. ALLERGIES MORPHINE with confusion. MEDICATIONS BEFORE ADMISSION 1. Aspirin. 2. Lipitor. 3. Carvedilol. 4. [facility] 3. 5. Synthroid. 6. Multivitamin. 7. Niacin. 8. Coumadin. 9. Betapace. REVIEW OF SYSTEMS Essentially negative except for musculoskeletal with severe pain in the right hip. PHYSICAL EXAMINATION GENERAL: Alert, cooperative white male. He is almost unable to stand because of pain in the groin, lateral aspect of the hip and radiation toward the knee. He needs assistance to get out of the bed. THORACOLUMBAR SPINE: Well-healed incision, restricted motion. RIGHT HIP: Severe restricted range of motion with a 10-degree reflex contracture, severe pain with internal and external rotation. NEUROLOGIC EXAMINATION: Straight leg raise negative. Motor examination is 5/5. Sensation is normal. Dorsalis pedis 2+, posterior tibialis 1+. X-RAYS Reviewed. MRI SCAN Reviewed, shows evidence of severe osteoarthritis of the right hip. Periarticular osteophytes are seen. Some subtle changes of inflammatory changes were noted. IMPRESSION 1. Status post lumbar laminectomy and fusion, stable. 2. Osteoarthritis right hip, severe. PLAN This patient clearly is not going to well with nonsurgical care. He has had extensive care which includes altered activities, use of a gait aid, oral medications, injection of corticosteroids into the hip joint. The patient has failed conservative care and likely will come to hip replacement surgery. Consultation with Dr. Franz to evaluate the patient. We sort out whether he is a candidate for surgery for next week. The patient is on Coumadin, would have to come off that Coumadin and have the pro time checked the night before surgery. CONSENT There are risks with injury and surgery including infection, bleeding, loss of motion, continued pain, need for further surgery, neurologic or vascular injury, dislocation. The patient understands these issues and wishes to press on with the surgery as outlined above. MD IVONNE Light/PRANAV /8:52 AM /9:09 AM
[2016-07-24 09:27] LABS: BICARBONATE 27.5 MEQ/L (21.0-32.0); POTASSIUM 4.1 MEQ/L (3.5-5.1)
[2016-07-24] MEDS: HYDROmorphone HCL PF 1 MG/ML VIAL IV PRN (13:08)
--- NOTE | 2016-07-24 13:38 | RADRPT ---
EXAM DATE/TIME: 07/24/2016 11:24 [facility] COMPARISON: No previous studies available for comparison. INDICATIONS : Right hip pain. MEDICAL HISTORY : None. SURGICAL HISTORY : Colon resection. Pacemaker. Prostatectomy. Cataract and disc fusion. ENCOUNTER: Initial ACUITY: 3 months PAIN SCORE: 8/10 LOCATION: Right Hip. TECHNIQUE: Multiplanar, multisequence MRI examination was performed without contrast. FINDINGS: BONE/CARTILAGE: Moderate-sized osteophytes of the right hip. Moderate to severe diffuse superior articular cartilage thinning. LABRUM: Within normal limits. MUSCLES/TENDONS: All of the visualized muscles and tendons are intact. MISCELLANEOUS: No evidence of joint effusion. Postsurgical findings of the lumbar spine. CONCLUSION: Moderate severity right hip osteoarthritic findings. Rio Aldrich MD on July 24, 2016 at 13:18 Board Certified Radiologist. This report was verified electronically.
--- NOTE | 2016-07-24 13:39 | EKG ---
Date Performed: 07/23/2016 Time Performed: 12:41:49 PTAGE: 81 years EKG: ELECTRONIC ATRIAL PACEMAKER ELECTRONIC VENTRICULAR PACEMAKER ABNORMAL RHYTHM ECG PREVIOUS TRACING : 01/14/2007 11.19 Compared to prior tracing no significant change DOCTOR: Alhaji Lomas Interpretating Date/Time 07/24/2016 13:36:11
--- NOTE | 2016-07-24 15:20 | HHI.FPPN ---
Subjective Remarks Patient was seen and examined this afternoon. He feels great after taking IV pain medications. He worked with PT this morning. He denies fevers, chills, nausea, vomiting, shortness of breath, chest pain. MRI results were reviewed with patient and family. They are wondering when they will be able to go home. Objective Vitals Vital Signs Date Time Temp Pulse Resp B/P Pulse Ox O2 Delivery O2 Flow Rate FiO2 07/24/16 12:47 97.8 97 20 153/73 97 07/24/16 10:13 94 21 07/24/16 08:22 96.8 79 20 158/81 96 07/24/16 04:59 97.5 79 16 142/90 94 07/24/16 01:13 82 07/24/16 00:13 97.7 88 16 165/89 97 07/23/16 20:45 97.9 76 16 126/70 95 07/23/16 17:35 94 21 07/23/16 17:00 75 16 134/78 97 Room Air I/O 07/23/16 07/23/16 07/23/16 07/24/16 07/24/16 07/24/16 07:00 15:00 23:00 07:00 15:00 23:00 Intake Total 240 ml 600 ml Output Total 300 ml 600 ml Balance -300 ml -360 ml 600 ml Intake Oral 240 ml 600 ml Output Urine Total 300 ml 600 ml # Voids 6 # Bowel Movements 0 Result Diagram: 07/24/16 0755 07/24/16 0755 Objective Remarks GENERAL: Well-appearing male sitting up in bed. Family at bedside. SKIN: No rashes, ecchymoses or lesions. Warm and dry. NECK: No JVD or lymphadenopathy. Supple, nontender, no meningeal signs. CARDIOVASCULAR: Regular rate and rhythm with 2/6 systolic murmur RESPIRATORY: Clear to auscultation. Breath sounds equal bilaterally. No wheezes , rales, or rhonchi. BACK: No spinal or paraspinal tenderness. No obvious bony abnormalities. MUSCULOSKELETAL: Kyphosis cervical spine. Patient stands without pain. Extremities without clubbing, cyanosis, or edema. No joint tenderness, effusion , or edema noted. Minimal tenderness to palpation over lateral and anterior thigh. NEUROLOGICAL: Awake and alert. Medications and IVs Inpatient Medications Aspirin (Ecotrin Ec) 81 mg HS PO Last administered on 07/23/16 20:35; Start at 21:00 Atorvastatin Calcium (Lipitor) 20 mg HS PO Last administered on 07/23/16 20:35 ; Start 07/23/16 at 21:00 Carvedilol (Coreg) 3.125 mg BID PO Last administered on 07/24/16 08:46; Start 07/23/16 at 21:00 Hydromorphone HCl (Dilaudid Pf Inj) 0.5 mg Q4H PRN IV BREAKTHROUGH PAIN Last administered on 07/24/16 13:08; Start 07/23/16 at 19:15 Levothyroxine Sodium (Synthroid) 25 mcg DAILY@06 PO Last administered on 05:44; Start 07/24/16 at 06:00 Miscellaneous (Pill Splitter) 1 ea UNSCH PRN OTHER SEE LABEL COMMENTS; Start at 16:45 Multivitamins (Theragran) 1 tab DAILY PO Last administered on 07/24/16 08:46; Start 07/24/16 at 09:00 Naloxone HCl (Narcan Inj) 0.4 mg UNSCH PRN IV SEE LABEL COMMENTS; Start at 19:15 Niacin (Slo-Niacin) 1,000 mg DAILY@2100 PO Last administered on 07/23/16 20:35 ; Start 07/23/16 at 21:00 Non-Formulary Medication 1 cap DAILY PO ; Start 07/24/16 at 09:00; Stop at 09:00; Status DC Ondansetron HCl (Zofran Inj) 4 mg ONCE ONCE IV PUSH Last administered on 12:41; Start 07/23/16 at 11:45; Stop 07/23/16 at 11:46; Status DC Oxycodone/ Acetaminophen (Percocet 5-325 Mg) 1 tab Q6H PRN PO PAIN SCALE 3 TO 5; Start 07/23/16 at 19:15 Oxycodone/ Acetaminophen (Percocet 10-325 Mg) 1 tab Q6H PRN PO PAIN SCALE 6 TO 10 Last administered on 07/24/16 12:09; Start 07/23/16 at 19:15 Patient Medication Teaching (Coumadin Booklet) 1 ONCE ONCE OTHER ; Start at 16:00; Stop 07/24/16 at 16:01 Sodium Chloride (NS Flush) 2 ml BID IV FLUSH Last administered on 07/24/16 08: 47; Start 07/23/16 at 21:00 Sotalol HCl (Betapace) 120 mg BID PO Last administered on 07/24/16 08:46; Start 07/23/16 at 21:00 Warfarin Sodium (Coumadin) 6 mg DAILY@1600 PO ; Start 07/23/16 at 17:00 A/P Assessment and Plan 81-year-old male with a history of atrial fibrillation, CAD/CABG, pacemaker, hypothyroidism, prostate cancer, colon cancer who presents with acute on chronic right hip pain. He was admitted to observation for further workup. Discharge Planning Today vs. tomorrow. Pending cardiology inpatient consult with Dr. Gama Problem List: (1) Right hip pain Status: Acute Plan: Patient with an acute exacerbation of right hip pain without evidence of trauma. Exam significant for pain, decreased pain. Neurosurgery evaluated patient, report low suspicion for radicular etiology. Orthopedic surgery consult per request of neurosurgery/ED physician for further evaluation. Notably , patient does have a history of prostate and colon cancer, and metastases cannot be definitively excluded without further workup. Differential diagnosis includes avascular necrosis, septic joint, bursitis. -Continue Pain control with Percocet 5/325 for pain 15, Percocet 10/325 for pain 610 Dilaudid 0.5mg IV q4hr hours for breakthrough -MRI hip without contrast ordered (MRI safe pacemaker [employer]): showing moderate to severe osteoarthritis -Right femur x-ray ordered: no fractures, notable for osteoarthritis -Neurosurgery consulted and recommend evaluation by orthopedics -Orthopedic consulted; recommend preop evaluation for right hip replacement, possibly early next week, requires cardiology consult (2) Atrial fibrillation Status: Acute Plan: Continue home Coumadin at 6 mg, continue Sotalol outpatient dose -Atrial pacemaker noted on EKG, rate 73, QT 453, no evidence of ischemic event. -We will continue telemetry given cardiac history - no acute events -Monitor INR (3) Hypothyroidism Status: Chronic Plan: Continue home dose Synthroid 25 mcg daily (4) Fluids/Electrolytes/Nutrition/Prophylaxis Status: Acute Plan: Fluids: tolerating PO Electrolytes: monitor and replete as needed, will monitor hyponatremia Nutrition: heart-healthy diet DVT Prophylaxis: On Coumadin GI Prophylaxis: Not indicated Marily Lomas MD R1 Jul 24, 2016 15:20
[2016-07-24] MEDS: WARFARIN SOD 6 MG TAB PO SCH (16:30)
--- NOTE | 2016-07-24 16:50 | HHI.NSPN ---
(Aishwarya Ramirez) Note Status Status: Progress Note (Aishwarya Ramirez) Interval History Interval History Mr. Arteaga is a 81-year-old male who presents to the emergency department with intractable right hip pain. Mr. Arteaga has a history of previous L4 5 fusion and had done well following his surgery. He then developed progressive pain located in the right lateral hip. He recently underwent lumbar epidural steroid injections as well as right hip injections with his pain specialist Dr. Mcnamara without any improvement. Mr. Arteaga denies any recent falls or trauma. He reports his pain is located in the right lateral hip and slightly in the right upper thigh. He denies lumbar pain, paresthesias, bowel or bladder incontinence. He reports of generalized proximal weakness in the right leg due to his right hip pain. He underwent an MRI of the lumbar spine at [facility] in [facility] on 05/30/16 which showed multiple chronic compression fractures, and multilevel spondylosis. Neurosurgical evaluation was requested for possible radiculopathy. 07/24: orthopedic evaluation recommending right hip replacement (Aishwarya Ramirez) Labs, Micro, & Vital Signs Results Date Time Temp Pulse Resp B/P Pulse Ox O2 Delivery O2 Flow Rate FiO2 07/24/16 16:24 97.2 88 20 134/81 97 07/24/16 15:27 93 07/24/16 12:47 97.8 97 20 153/73 97 07/24/16 10:13 94 21 07/24/16 08:22 96.8 79 20 158/81 96 07/24/16 04:59 97.5 79 16 142/90 94 07/24/16 01:13 82 07/24/16 00:13 97.7 88 16 165/89 97 07/23/16 20:45 97.9 76 16 126/70 95 07/23/16 17:35 94 21 07/23/16 17:00 75 16 134/78 97 Room Air 07/24/16 07:00 Intake Total 240 ml Output Total 900 ml Balance -660 ml Constitutional Vital Signs Date Time Temp Pulse Resp B/P Pulse Ox O2 Delivery O2 Flow Rate FiO2 07/24/16 16:24 97.2 88 20 134/81 97 07/24/16 15:27 93 07/24/16 12:47 97.8 97 20 153/73 97 07/24/16 10:13 94 21 07/24/16 08:22 96.8 79 20 158/81 96 07/24/16 04:59 97.5 79 16 142/90 94 07/24/16 01:13 82 07/24/16 00:13 97.7 88 16 165/89 97 07/23/16 20:45 97.9 76 16 126/70 95 07/23/16 17:35 94 21 07/23/16 17:00 75 16 134/78 97 Room Air 07/24/16 07:00 Intake Total 240 ml Output Total 900 ml Balance -660 ml (Aishwarya Ramirez) Review of Systems/Exam Exam Mr. Arteaga is alert and oriented to time, place and person. Speech is fluent. Cranial nerve examination: pupils equal, round, and reactive to light. Extra- ocular movements are intact. Facial motor are normal and symmetrical. Neck is soft and supple. Motor: exam limited to right proximal lower extremity due to right hip pain, grossly 3/5 right iliopsoas, 5/5 left iliopsoas, 5/5 both quadriceps, hamstrings , plantar flexion, dorsiflexion, and extensor hallicus longus. Sensory examination is intact to light touch in lower extremities, symmetrically. Severe pain elicited with palpation of the right lateral hip as well as range of motion examination. Deep tendon reflexes: In the lower extremities, the patellar and Achilles are 1+ , bilaterally. There is a bilateral plantar flexion response. There is no clonus or other abnormal reflexes noted. (Aishwarya Ramirez) Medications Current Medications Current Medications Medications (Trade) Dose Ordered Sig/Fran Route PRN Reason Start Time Stop Time Status Last Admin Dose Admin Aspirin (Ecotrin Ec) 81 mg HS PO 07/23/16 21:00 07/23/16 20:35 Atorvastatin Calcium (Lipitor) 20 mg HS PO 07/23/16 21:00 07/23/16 20:35 Carvedilol (Coreg) 3.125 mg BID PO 07/23/16 21:00 07/24/16 08:46 Levothyroxine Sodium (Synthroid) 25 mcg DAILY@06 PO 07/24/16 06:00 07/24/16 05:44 Multivitamins (Theragran) 1 tab DAILY PO 07/24/16 09:00 07/24/16 08:46 Sotalol HCl (Betapace) 120 mg BID PO 07/23/16 21:00 07/24/16 08:46 Warfarin Sodium (Coumadin) 6 mg DAILY@1600 PO 07/23/16 17:00 07/24/16 16:30 Niacin (Slo-Niacin) 1,000 mg DAILY@2100 PO 07/23/16 21:00 07/23/16 20:35 Miscellaneous (Pill Splitter) 1 ea UNSCH PRN OTHER SEE LABEL COMMENTS 07/23/16 16:45 Sodium Chloride (NS Flush) 2 ml UNSCH PRN IV FLUSH FLUSH AFTER USING IV ACCESS 07/23/16 16:45 Sodium Chloride (NS Flush) 2 ml BID IV FLUSH 07/23/16 21:00 07/24/16 08:47 Oxycodone/ Acetaminophen (Percocet 5-325 Mg) 1 tab Q6H PRN PO PAIN SCALE 3 TO 5 07/23/16 19:15 Hydromorphone HCl (Dilaudid Pf Inj) 0.5 mg Q4H PRN IV BREAKTHROUGH PAIN 07/23/16 19:15 07/24/16 13:08 Naloxone HCl (Narcan Inj) 0.4 mg UNSCH PRN IV SEE LABEL COMMENTS 07/23/16 19:15 Oxycodone/ Acetaminophen (Percocet 10-325 Mg) 1 tab Q6H PRN PO PAIN SCALE 6 TO 10 07/23/16 19:15 07/24/16 12:09 (Aishwarya Ramirez) Medical Decision Making MDM Remarks 81 y/o male with intractable right hip pain (Aishwarya Ramirez) Plan Plan Remarks orthopedic eval appreciated recommending hip replacement tentative for early next week defer mgt of hip pain to orthopedics no NRS intervention planned at this time will sign off, call prn (Aishwarya Ramirez) Attending Statement The exam, history, and the medical decision-making described in the above note were completed with the assistance of the mid-level provider. I reviewed and agree with the findings presented. I attest that I had a [id number] encounter with the patient on the same day, and personally performed and documented my assessment and findings in the medical record. (Cornell Everett MD) Aishwarya Ramirez Jul 24, 2016 16:50 Cornell Everett MD Jul 31, 2016 11:18
[2016-07-24] MEDS: NIACIN 500 MG EXTENDED RELEASE TAB PO SCH (20:36)
[2016-07-24] MEDS: ASPIRIN EC 81 MG TABEC PO SCH (20:36)
[2016-07-24] MEDS: ATORVASTATIN 20 MG TAB PO SCH (20:36)
--- NOTE | 2016-07-24 22:16 | MB ---
cc: ALBA MANZANO,RIAZ WEBB,ALEX Gill MD DATE OF CONSULTATION 07/24/16 REASON FOR CONSULTATION Cardiac clearance for right hip surgery. HISTORY OF PRESENT ILLNESS Mr. Arteaga is a pleasant 80-year-old gentleman known to our practice with history of coronary artery disease, mitral regurgitation status post carotid artery bypass graft surgery, mitral valve repair and atrial fibrillation ablation in 2006, history of sick sinus syndrome status post permanent pacemaker placement in 2006 and a generator change in July of 2014. He comes in with intractable right hip pains and led to admission to the hospital and was found to have significant degenerative joint disease of the right hip and he is being planned for right hip surgery next week. Denies chest pain or shortness of breath. Denies palpitations, dizziness or syncope. Denies orthopnea, PND or leg swellings. He was playing golf up to 2 1/2 to 3 months ago with no chest pain or cardiac symptoms. PAST MEDICAL AND SURGICAL HISTORY As mentioned above. 1. Carotid artery disease. 2. Atrial fibrillation. 3. Sick sinus syndrome. 4. Coronary artery bypass graft and mitral valve repair and ablation 2006. 5. Pacemaker placement in 2006 and generator change July 2014. 6. Colon resection 1995. 7. Varicose vein surgery 1995. 8. Prostate CA prostatectomy in 1996. 9. Trigger finger surgery 1998. 10. Bilateral cataract surgery 2013. 11. Total meniscus of left knee surgery in 1999 SOCIAL HISTORY Used to smoke but stopped in 1962. He has nine pack year history of smoking. Denies ETOH abuse or recreational drug use. He drinks about two scotch daily, however. ALLERGIES "COQ 10". FAMILY HISTORY Positive for cancer and coronary artery disease. Negative for diabetes or hypertension. MEDICATIONS At home 1. Ecotrin 81 mg by mouth daily 2. Atorvastatin 20 mg by mouth q.h.s. 3. Carvedilol 3.125 mg by mouth b.i.d. 4. Centrum Silver multivitamins once daily 5. Ferrous fumarate 300 p.o. daily. 6. Levothyroxine 0.025 mg p.o. daily. 7. Niaspan ER 1000 mg p.o. daily, 8. Prevacid 30 mg by mouth daily, 9. Sotalol 120 mg by mouth b.i.d., 10. Warfarin 5 mg daily. REVIEW OF SYSTEMS 12-point system review was unremarkable except what is mentioned in the history of present illness. PHYSICAL EXAMINATION GENERAL: An 81-year-old gentleman lying in bed in no apparent distress, alert and oriented x3 answers questions appropriately. VITAL SIGNS: Blood pressure is 134/81 mmHg, pulse of 88 beats per minute and regular, respirations 14 per minute, afebrile. HEENT: Head is normocephalic. Pupils equal, active. Throat is within normal limits. NECK: Supple. No carotid bruit. No thyromegaly or jugular venous distension noted. LUNGS: Clear to auscultation and percussion. CARDIOVASCULAR: S1, S2 normal with an S4 gallop and 2/6 somewhat harsh systolic murmur across the precordium more at the left sternal border at right second intercostal space and that is unchanged from before. ABDOMEN: Lax, nontender. Normoactive bowel sounds. No organomegaly or masses felt. EXTREMITIES: No clubbing, cyanosis or edema. Varicose venules noted on both lower extremities. Pulses 2+ bilaterally and no bruit noted. NEUROLOGIC: Grossly intact with no focal deficits. RECTAL: Exam deferred. CARDIOLOGY STUDIES EKG shows dual-chamber pacing and capturing at 73 beats per minute unchanged from before. O2 sats of 94-97% on room air. LABORATORY DATA White count of 5.0, hemoglobin 15.9, platelets of 164. INR was 2.5. Chemistry shows a BUN of 20, creatinine 0.86, sodium 130 and potassium 4.1. LFTs are within normal limits. Carotid ultrasound February 2016 showed mild disease bilaterally, not hemodynamically significant. Pharmacological nuclear stress study March 2016 showed an LVEF 47% with mid to distal inferior distal lateral and apical scar. Mild ischemia in the anterolateral ladd which has not changed from his prior nuclear stress study of three years prior to that. Echocardiogram February 2016 showed borderline mild LVH and LVEF of 50%, mild aortic stenosis and trace to mild aortic insufficiency, status post mitral valve repair with no stenosis and trace to mild regurgitation. Mild pulmonary insufficiency and mild to moderate tricuspid regurgitation with a PA systolic pressure of 44 mmHg with linear echodensity in the right heart reflecting the pacemaker leads. ASSESSMENT/RECOMMENDATION 1. Coronary artery disease status post coronary artery bypass graft in 2006 with a mildly abnormal stress test four months ago. However, asymptomatic with low normal to slightly reduced LV systolic function stable on the current medical therapy that he is on and would continue. He was asymptomatic when he was ambulating prior to his hip problem which should lower his cardiac risks for postoperative cardiac events and with his current therapy of beta blockers he should be at an acceptable risks for postoperative cardiac events. Efforts, however, should be made to minimize excess IV fluid intake intraoperatively and in the postoperative period. Continue on the sotalol and the carvedilol through his surgery. His aspirin can be stopped if needed seven days prior. His Coumadin can be stopped 3-4 days prior and both should be resumed afterwards if deemed safe from the surgical standpoint. 2. Carotid disease, mild. 3. Status post mitral valve repair/mitral regurgitation and mild to moderate valvular heart disease. He is a candidate for SBE prophylaxis, stable. 4. Sick sinus syndrome status post permanent pacemaker placement. Has appropriate pacemaker function. 5. Atrial fibrillation status post ablation and now in sinus rhythm on sotalol, stable QTC interval (453 milliseconds on the EKG done on July 23, 2016 which is not significantly changed from his prior April 24, 2016 465 milliseconds. 6. Hyperlipidemia to be followed as an outpatient. I thank you for the consultation. MD RISHI Lee/ /7:32 PM /9:45 PM
[2016-07-25] VITALS: BP 132/72; PULSE 91; RESP 18; TEMP 98.8; O2SAT 98
[2016-07-25] MEDS: oxyCODONE/ACETAMINOPHEN 5 MG/325 MG TAB PO PRN ×2 (01:55→08:46)
[2016-07-25 04:00] VITALS: BP 104/79; PULSE 74; RESP 18; TEMP 97.7; O2SAT 97
[2016-07-25] MEDS: HYDROmorphone HCL PF 1 MG/ML VIAL IV PRN (04:53)
[2016-07-25] MEDS: LEVOTHYROXINE SODIUM 25 MCG TAB PO SCH (04:53)
[2016-07-25] MEDS ORDERED: OXYC1TAB63 PO (06:41)
--- NOTE | 2016-07-25 06:42 | HHI.DCPOC ---
Discharge Care Plan Diagnosis: (1) Right hip pain (2) Hypothyroidism (3) Atrial fibrillation (4) Arthralgia of right hip Goals to Promote Your Health Follow instructions of potato peeling machine operator regarding medication holds prior to surgery. Take all other medications as prescribed. Continue to eat a heart-healthy diet and ambulate as tolerated using assistive devices. Directions to Meet Your Goals Take your medications as prescribed Follow your dietary instruction Follow activity as directed Keep your appointments as scheduled Take your immunizations and boosters as scheduled If your symptoms worsen call your PCP, if no PCP go to Urgent Care Center or Emergency Room Smoking is Dangerous to Your Health. Avoid second hand smoke Call the 24-hour hour crisis hotline for domestic abuse at Marily Lomas MD R1 Jul 25, 2016 06:42
--- NOTE | 2016-07-25 06:47 | HHI.DS ---
Discharge Summary Admission Date Jul 23, 2016 at 16:11 Discharge Date: Jul 25, 2016 Admitting Diagnosis Right hip pain (1) Right hip pain Diagnosis: Principal Plan: Patient with an acute exacerbation of right hip pain without evidence of trauma. Exam significant for pain, decreased pain. Neurosurgery evaluated patient, report low suspicion for radicular etiology. Orthopedic surgery consult per request of neurosurgery/ED physician for further evaluation. Notably , patient does have a history of prostate and colon cancer, and metastases cannot be definitively excluded without further workup. Differential diagnosis includes avascular necrosis, septic joint, bursitis. -Continue Pain control with Percocet 5/325 for pain 15, Percocet 10/325 for pain 610 Dilaudid 0.5mg IV q4hr hours for breakthrough -MRI hip without contrast ordered (MRI safe pacemaker [employer]): showing moderate to severe osteoarthritis -Right femur x-ray ordered: no fractures, notable for osteoarthritis -Neurosurgery consulted and recommend evaluation by orthopedics -Orthopedic consulted; recommend preop evaluation for right hip replacement, possibly early next week, requires cardiology consult (2) Atrial fibrillation Diagnosis: Secondary Plan: Continue home Coumadin at 6 mg, continue Sotalol outpatient dose -Atrial pacemaker noted on EKG, rate 73, QT 453, no evidence of ischemic event. -We will continue telemetry given cardiac history - no acute events -Monitor INR (3) Hypothyroidism Diagnosis: Secondary Plan: Continue home dose Synthroid 25 mcg daily [facility], [facility] Brief History 81 yo M presenting to the ED with intractable right hip and thigh pain. He has been evaluated for this pain as an outpatient with a lumbar MRI and eventually receiving both epidural steroid injections and right hip injection without any benefit. His pain continued and progressed to the point that he has difficulty bearing weight due to the pain. The onset of this pain was 3 months ago and has slowly been progressing. He denies any trauma or injury, denies any trauma , denies any sudden worsening of pain. He also denies any saddle paresthesia or bowel/bladder incontinence or retention This pain is described as constant and rated as a 10 out of 10 at its worst. It sometimes lasts through the night but has been controlled with Ibuprofen and Hydrocodone. He has a PMH significant for atrial fibrillation, CAD/CABG, hypothyroidism prostate cancer, colon cancer, Per notes in EMR, he underwent an MRI of the lumbar spine at [facility] in [facility] on 05/30/16 which showed multiple chronic compression fractures, and multilevel spondylosis In the ED he was given Dilaudid 0.5 mg IV and this helped his pain. He was then evaluated by Dr. Everett of neurosurgery and this pain was not felt to be originating from his back. It was recommended that he be admitted for pain control and evaluation by orthopedics. CBC/BMP: 07/24/16 0755 07/24/16 0755 Significant Findings Laboratory Tests Test 07/23/16 07/23/16 07/24/16 12:00 13:42 07:55 Neutrophils (%) (Auto) 74.7 % 72.4 % (16.0-70.0) (16.0-70.0) Monocytes (%) (Auto) 15.8 % 13.7 % (0.0-8.0) (0.0-8.0) Lymphocytes # (Auto) 0.6 TH/MM3 0.7 TH/MM3 (1.0-4.8) (1.0-4.8) Monocytes # (Auto) 1.1 TH/MM3 (0-0.9) Prothrombin Time 28.3 SEC (9.8-11.6) Activated Partial 34.1 SEC Thromboplast Time (24.3-30.1) Sodium Level 129 MEQ/L 130 MEQ/L (136-145) (136-145) Chloride Level 95 MEQ/L 94 MEQ/L (98-107) (98-107) Blood Urea Nitrogen 19 MG/DL (7-18) 20 MG/DL (7-18) Urine Bacteria RARE /hpf (NONE) Urine Mucus FEW /lpf (OCC) Estimat Glomerular Filtration 85 ML/MIN (>89) Rate Imaging Last Impressions Hip MRI 07/24/16 0000 Signed Impressions: Service Date/Time: June 11:24 - CONCLUSION: Moderate severity right hip osteoarthritic findings. Rio Aldrich MD Chest X-Ray 07/23/16 1132 Signed Impressions: Service Date/Time: Saturday, July 23, 2016 11:42 - CONCLUSION: 1. Cardiomegaly. No acute pulmonary disease. Alhaji Hernandez MD Lower Extremity CT 07/23/16 0000 Signed Impressions: Service Date/Time: Saturday, July 23, 2016 12:50 - CONCLUSION: Degenerative changes about the right hip without fracture. Jarvis Erwin MD FACR PE at Discharge GENERAL: Well-appearing male sitting up in bed. Family at bedside. SKIN: No rashes, ecchymoses or lesions. Warm and dry. NECK: No JVD or lymphadenopathy. Supple, nontender, no meningeal signs. CARDIOVASCULAR: Regular rate and rhythm with 2/6 systolic murmur RESPIRATORY: Clear to auscultation. Breath sounds equal bilaterally. No wheezes , rales, or rhonchi. BACK: No spinal or paraspinal tenderness. No obvious bony abnormalities. MUSCULOSKELETAL: Kyphosis cervical spine. Patient stands without pain. Extremities without clubbing, cyanosis, or edema. No joint tenderness, effusion , or edema noted. Minimal tenderness to palpation over lateral and anterior thigh. NEUROLOGICAL: Awake and alert. Hospital Course 81 year old male with atrial fibrillation on ASA and sotalol and hypothyroidism admitted for work-up of worsening chronic right hip pain. ED work-up including labs which were unremarkable and imaging of the hip. Hip X-ray and MRI were performed; x-ray negative for fracture, MRI notable for moderate severity hip OA. Neurosurgery was consulted in ED and recommended ortho consult as pain not evidently neurological in etiology. Orthopedic surgery consult was place; Dr. Sullivan evaluated patient and recommended work-up and pre-operative planning for hip arthroplasty. Cardiology consult was placed by Orthopedic Surgery for medical clearance. Patient is known to Dr. Gama, and notation was placed in chart clearing him for surgery with recommendations regarding management of antiarrhythmics, fluids, and anticoagulation prior to and after surgery. He was discharged in stable condition to home on July 25. He required both IV and PO narcotics (i.e. Percocet and Dilaudid) for pain control. Pt Condition on Discharge: Stable Discharge Disposition: Discharge Home Discharge Instructions DIET: Follow Instructions for: Heart Healthy Diet Follow up Referrals: Orthopedics - 1 Week with Rehan Sullivan MD Continued Medications: Aspirin (Aspirin) 81 Mg Tabdr 81 MG PO HS TAB Atorvastatin (Lipitor) 20 Mg Tab 20 MG PO HS Cholesterol Management #30 Ref 0 TAB Carvedilol (Carvedilol) 3.125 Mg Tab 3.125 MG PO BID #60 Ref 0 TAB Levothyroxine (Synthroid) 25 Mcg Tab 25 MCG PO DAILY Thyroid #30 Ref 0 TAB Multiple Vitamin (Multi Vitamin) 1 Tab Tab 1 TAB PO DAILY TAB Sotalol (Betapace) 120 Mg Tab 120 MG PO BID Regulate Heart Beat #60 Ref 0 TAB Marily Lomas MD R1 Jul 25, 2016 06:47
--- NOTE | 2016-07-25 07:58 | PD.ORT.PN ---
Subjective Subjective Remarks MRI of the right hip is reviewed Intractable right hip pain, almost unable to ambulate Using a walker Objective Vitals Vital Signs Date Time Temp Pulse Resp B/P Pulse Ox O2 Delivery O2 Flow Rate FiO2 07/25/16 04:00 97.7 74 18 104/79 97 07/25/16 00:00 98.8 91 18 132/72 98 07/24/16 21:06 95 07/24/16 20:15 84 07/24/16 20:00 97.5 81 22 131/78 96 07/24/16 16:24 97.2 88 20 134/81 97 07/24/16 15:27 93 07/24/16 12:47 97.8 97 20 153/73 97 07/24/16 10:13 94 21 07/24/16 08:22 96.8 79 20 158/81 96 I/O 07/24/16 07/24/16 07/24/16 07/25/16 07/25/16 07/25/16 07:00 15:00 23:00 07:00 15:00 23:00 Intake Total 240 ml 600 ml 480 ml Output Total 600 ml Balance -360 ml 600 ml 480 ml Intake Oral 240 ml 600 ml 480 ml Output Urine Total 600 ml # Voids 6 1 4 # Bowel Movements 0 0 Result Diagram: 07/24/16 0755 07/24/16 0755 Imaging Last 24 hours Impressions Chest X-Ray 07/23/16 1132 Signed Impressions: Service Date/Time: Saturday, July 23, 2016 11:42 - CONCLUSION: 1. Cardiomegaly. No acute pulmonary disease. Alhaji Hernandez MD Objective Remarks Right hip 10 flexion contracture. Severe pain with range of motion, especially with internal and external rotation. Pain is in the groin, lateral right hip and posterior right hip. Pain radiates toward the right knee. Straight leg raise negative. Motor examination 5/5. No calf tenderness. Negative Homans sign. Dorsalis pedis 2+ posterior tibialis 1+ Assessment & Plan Assessment and Plan Osteoarthritis right hip, severe. Status post lumbar laminectomy and fusion, stable. PLAN: Cardiology evaluation reviewed. Stop Coumadin today. Discharge to home. Office visit on Thursday. We will review potential for surgical treatment at that time. Discussed the possibility of right total hip replacement arthroplasty on Xin Walker and limited weightbearing on the right leg Rehan Sullivan MD Jul 25, 2016 07:58
[2016-07-25] MEDS ORDERED: OXYC1TAB36 PO (08:14)
--- NOTE | 2016-07-25 08:15 | HHI.FPPN ---
Subjective Remarks Doing well pain is controlled with meds. Going to schedule for surgery on 2016. No fevers chills back pain or SOB. (Chip Souza MD R2) Objective Vitals Vital Signs Date Time Temp Pulse Resp B/P Pulse Ox O2 Delivery O2 Flow Rate FiO2 07/25/16 04:00 97.7 74 18 104/79 97 07/25/16 00:00 98.8 91 18 132/72 98 07/24/16 21:06 95 07/24/16 20:15 84 07/24/16 20:00 97.5 81 22 131/78 96 07/24/16 16:24 97.2 88 20 134/81 97 07/24/16 15:27 93 07/24/16 12:47 97.8 97 20 153/73 97 07/24/16 10:13 94 21 07/24/16 08:22 96.8 79 20 158/81 96 I/O 07/24/16 07/24/16 07/24/16 07/25/16 07/25/16 07/25/16 07:00 15:00 23:00 07:00 15:00 23:00 Intake Total 240 ml 600 ml 480 ml Output Total 600 ml Balance -360 ml 600 ml 480 ml Intake Oral 240 ml 600 ml 480 ml Output Urine Total 600 ml # Voids 6 1 4 # Bowel Movements 0 0 (Chip Souza MD R2) Result Diagram: 07/24/16 0755 07/24/16 0755 Imaging Last Impressions Hip MRI 07/24/16 0000 Signed Impressions: Service Date/Time: June 11:24 - CONCLUSION: Moderate severity right hip osteoarthritic findings. Rio Aldrich MD Chest X-Ray 07/23/16 1132 Signed Impressions: Service Date/Time: Saturday, July 23, 2016 11:42 - CONCLUSION: 1. Cardiomegaly. No acute pulmonary disease. Alhaji Hernandez MD Lower Extremity CT 07/23/16 0000 Signed Impressions: Service Date/Time: Saturday, July 23, 2016 12:50 - CONCLUSION: Degenerative changes about the right hip without fracture. Jarvis Erwin MD FACR Objective Remarks GENERAL: Well-appearing male sitting up in bed. Family at bedside. SKIN: No rashes, ecchymoses or lesions. Warm and dry. NECK: No JVD or lymphadenopathy. Supple, nontender, no meningeal signs. CARDIOVASCULAR: Regular rate and rhythm with 2/6 systolic murmur RESPIRATORY: Clear to auscultation. Breath sounds equal bilaterally. No wheezes , rales, or rhonchi. BACK: No spinal or paraspinal tenderness. No obvious bony abnormalities. MUSCULOSKELETAL: Kyphosis cervical spine. Patient stands without pain. Extremities without clubbing, cyanosis, or edema. No joint tenderness, effusion , or edema noted. Minimal tenderness to palpation over lateral and anterior thigh. NEUROLOGICAL: Awake and alert. (Chip Souza MD R2) A/P Assessment and Plan 81-year-old male with a history of atrial fibrillation, CAD/CABG, pacemaker, hypothyroidism, prostate cancer, colon cancer who presents with acute on chronic right hip pain. He was admitted to observation for further workup. Discharge Planning Today. Pending cardiology inpatient consult with Dr. Gama. (Chip Souza MD R2) Attending Attestation Pt. examined and case discussed with resident physicians I have read the above note and agree with the assessment/plan as discussed with me I was involved in all medical decision making for this patient Michael Atkins MD (Michael Atkins MD) Problem List: (1) Right hip pain Status: Acute Plan: Patient with an acute exacerbation of right hip pain without evidence of trauma. Exam significant for pain, decreased pain. Neurosurgery evaluated patient, report low suspicion for radicular etiology. Orthopedic surgery consult per request of neurosurgery/ED physician for further evaluation. Notably , patient does have a history of prostate and colon cancer, and metastases cannot be definitively excluded without further workup. Differential diagnosis includes avascular necrosis, septic joint, bursitis. -Continue Pain control with Percocet 5/325 for pain 15, Percocet 10/325 for pain 610 Dilaudid 0.5mg IV q4hr hours for breakthrough -MRI hip without contrast ordered (MRI safe pacemaker [employer]): showing moderate to severe osteoarthritis -Right femur x-ray ordered: no fractures, notable for osteoarthritis -Neurosurgery consulted and recommend evaluation by orthopedics -Orthopedic consulted; recommend preop evaluation for right hip replacement, possibly early next week, requires cardiology consult (2) Atrial fibrillation Status: Acute Plan: Continue home Coumadin at 6 mg, continue Sotalol and cearvedilol at outpatient dose -Atrial pacemaker noted on EKG, rate 73, QT 453, no evidence of ischemic event. -We will continue telemetry given cardiac history - no acute events -Monitor INR Dr. Franz recommended stopping anti-plt therapy (ASA) 7 days pre op and Coumadin 3-4 days pre-op COntinue with Sotalol and carvedilol throughout surgery, minimize IVF during post op period. We appreciate cardiology's advice and management. (3) Hypothyroidism Status: Chronic Plan: Continue home dose Synthroid 25 mcg daily (4) Fluids/Electrolytes/Nutrition/Prophylaxis Status: Acute Plan: Fluids: tolerating PO Electrolytes: monitor and replete as needed, will monitor hyponatremia Nutrition: heart-healthy diet DVT Prophylaxis: On Coumadin GI Prophylaxis: Not indicated wdw Dr. Atkins (Chip Souza MD R2) Chip Souza MD R2 Jul 25, 2016 08:15 Michael Atkins MD Jul 25, 2016 18:15
[2016-07-25 08:35] VITALS: BP 137/92; PULSE 87; RESP 18; TEMP 98; O2SAT 97
[2016-07-25] MEDS: MULTIVITAMIN TAB PO SCH (08:42)
[2016-07-25] MEDS: CARVEDILOL 3.125 MG TAB PO SCH (08:43)
[2016-07-25] MEDS: SOTALOL HCL 80 MG TAB PO SCH (08:43)
[2016-07-25] MEDS: SODIUM CHLORIDE 0.9% FLUSH 10 ML FLUSH IV FLUSH SCH (08:44)
[2016-07-25 10:29] VITALS: O2SAT 95
[2016-07-28] MEDS ORDERED: HYDR-3516 PO (09:04)
[2016-07-28] MEDS ORDERED: OMEGCAP PO (09:04)
[2016-07-28] MEDS ORDERED: LANS30CA PO (09:04)
== END 2016-07-25 10:58 | disposition home or self-care (01) ==
LOC: NEPE 10:57 → INTOOBSV 16:11 → NEDA 16:11 → N05B 20:02
PROVIDERS: ADMIT Family Medicine; ATTEND Family Medicine
DX: M16.11 Unilateral primary osteoarthritis, right hip (principal); G89.29 Other chronic pain; I48.91 Unspecified atrial fibrillation; E03.9 Hypothyroidism, unspecified; I25.10 Atherosclerotic heart disease of native coronary artery without angina pectoris; D64.9 Anemia, unspecified; K21.9 Gastro-esophageal reflux disease without esophagitis; M47.26 Other spondylosis with radiculopathy, lumbar region; I10 Essential (primary) hypertension; I25.2 Old myocardial infarction; E78.5 Hyperlipidemia, unspecified; Z95.1 Presence of aortocoronary bypass graft; Z85.46 Personal history of malignant neoplasm of prostate; Z85.038 Personal history of other malignant neoplasm of large intestine; Z79.82 Long term (current) use of aspirin; Z79.01 Long term (current) use of anticoagulants; Z87.891 Personal history of nicotine dependence; Z79.02 Long term (current) use of antithrombotics/antiplatelets; Z85.828 Personal history of other malignant neoplasm of skin; E78.00 Pure hypercholesterolemia, unspecified; Z88.5 Allergy status to narcotic agent; Z90.49 Acquired absence of other specified parts of digestive tract; Z95.0 Presence of cardiac pacemaker; Z98.1 Arthrodesis status
CPT/HCPCS: 71010; 73552; 73700; 73721; 80048; 80053; 81001; 82948; 85025; 85610; 85652; 85730; 86140; 93005; 96374; 96375; 97161; 97166; 99285; G0378; G8987; G8988; G8989; J1170; J2405

== ENCOUNTER 2016-07-28 16:41 | Inpatient (IN) | payer MEDICARE ==
[~2016-07-28] VITALS: Ht 170.2 cm; Wt 76.7 kg
[~2016-07-28 16:41] MED LIST changes: -DHA100CA PO; -HYDR-3583 PO; -MISC-163; -NIAC1TAB5 PO; -OXYC1TAB36 PO; -OXYC1TAB63 PO; -WALKER WHEELS/F1 MIS; -WARF-60 PO
[2016-07-29] MEDS ORDERED: NIAC1TAB5 PO (06:11)
[2016-07-29] MEDS ORDERED: WARF-60 PO ×2 (06:13)
[2016-07-29 06:21] VITALS: BP 151/86; PULSE 76; RESP 18; TEMP 98.1; O2SAT 97
[2016-07-29] MEDS ORDERED: SODIUM CHLOR 0.9% 250 ML INJ 250 ML ONE ×2 (06:22→06:29)
[2016-07-29] MEDS ORDERED: VANCOMYCIN HCL 1000 MG VIAL ONE ×2 (06:22→06:31)
--- NOTE | 2016-07-29 06:36 | MH ---
cc: RIAZ ZAMBRANO M.D. DATE OF ADMISSION: 07/29/2016 ADMISSION DIAGNOSIS Osteoarthritis right hip. HISTORY This patient is an 81-year-old white male who has had a previous lumbar fusion by another physician and had done well. Over the last four or five months he had begun to develop significant radiating right hip and leg pain. Investigative studies show evidence of advanced arthritis of the right hip. He was treated conservatively with medications and altered activities. He did not do well. He came to an injection of cortisone in the right hip which helped but very temporarily, only for a few days or so. Recently, the patient was admitted to [facility] and evaluated. The patient was almost unable to ambulate. Studies show evidence of severe arthritis of the right hip. Despite conservative care, he now presents for surgical treatment. PAST MEDICAL HISTORY, SOCIAL HISTORY, FAMILY HISTORY, REVIEW OF SYSTEMS See attached notes. PHYSICAL EXAMINATION GENERAL: An 81-year-old male in moderate distress with his right hip. HEENT: Normocephalic, atraumatic. Pupils equal, round, reactive to light and accommodation. Extraocular motions intact. NECK: Supple. CHEST: Clear. HEART: Regular rate and rhythm. ABDOMEN: Soft, nontender with normoactive bowel sounds. MUSCULOSKELETAL EXAMINATION: Right hip pain with range of motion, especially with internal and external rotation. Severe pain in the groin. Lateral hip discomfort is seen. NEUROLOGIC AND VASCULAR EXAMINATION: Within normal limits. IMAGING STUDIES MRI scan of the right hip shows moderate to advanced arthritis of the right hip. X-rays show evidence of the same. IMPRESSION Osteoarthritis of the right hip. PLAN Right total hip replacement arthroplasty, posterior exposure. CONSENT There are risks with surgery including infection, bleeding, loss of motion, continued pain, need for further surgery, neurologic and vascular injury. The patient understands these issues and wishes to press on with surgery as outlined above. MD IVONNE Light/PRANAV /9:37 PM /6:31 AM
[2016-07-29] MEDS ORDERED: LACTATED RINGER'S 1000 ML INJ 1,000 ML ONE (06:45)
[2016-07-29] MEDS ORDERED: GENTAMICIN SULFATE 80 MG/2 ML VIAL ONE (07:08)
[2016-07-29] MEDS ORDERED: MIDAZOLAM HCL 2 MG/2 ML VIAL ONE (07:09)
[2016-07-29] MEDS ORDERED: FAMOTIDINE 20 MG/2 ML VIAL ONE (07:09)
[2016-07-29] MEDS ORDERED: DEXAMETHASONE SOD PHOS 4 MG/ML VIAL ONE (07:09)
[2016-07-29] MEDS ORDERED: ACETAMINOPHEN 1000 MG/100 ML VIAL IV ONE (07:31)
[2016-07-29] MEDS ORDERED: ceFAZolin 2 GM PREMIX 50 ML ONE (07:35)
[2016-07-29] MEDS ORDERED: MISCELLANEOUS PHARMACY INFORMATION XX ONE (08:00)
[2016-07-29] MEDS ORDERED: ALUMINUM/MAGNESIUM/SIMETH 30 ML CUP PO PRN (08:00)
[2016-07-29] MEDS ORDERED: SODIUM CHLORIDE 0.9% IV SCH (08:00)
[2016-07-29] MEDS ORDERED: SODIUM CHLORIDE 0.9% FLUSH 5 ML FLUSH IVF PRN (08:00)
[2016-07-29] MEDS ORDERED: TRANEXAMIC ACID IV SCH (08:00)
[2016-07-29] MEDS ORDERED: MISCELLANEOUS NURSING INFORMATION XX PRN (08:00)
[2016-07-29] MEDS ORDERED: TEMAZEPAM 15 MG CAP PO PRN (08:00)
[2016-07-29] MEDS ORDERED: EXPAREL PERI-ARTICULAR INJECTION (TOTAL VOL. 60 ML) P-ARTICULR SCH ×4 (08:00→08:15)
[2016-07-29] MEDS ORDERED: POVIDONE IODINE 7.5% SCRUB 118 ML BOTTLE TOPICAL SCH (08:00)
[2016-07-29] MEDS ORDERED: ceFAZolin 2 GM PREMIX 50 ML IV SCH (08:00)
[2016-07-29] MEDS ORDERED: ACETAMINOPHEN/HYDROcodone 325 MG/10 MG TAB PO PRN (08:00)
[2016-07-29] MEDS ORDERED: NALOXONE HCL 0.4 MG/ML AMP IV PRN ×2 (08:00)
[2016-07-29] MEDS ORDERED: ONDANSETRON HCL 4 MG/2 ML VIAL IVP PRN (08:00)
[2016-07-29] MEDS ORDERED: Post-op Orders (for Pharmacy) MISC XX ONE (08:00)
[2016-07-29] MEDS ORDERED: VANCOMYCIN 1000 MG/NS 250 ML (for <70 kg) IV SCH ×2 (08:30)
[2016-07-29] MEDS ORDERED: WARFARIN SOD 5 MG TAB PO SCH ×2 (09:00→16:00)
[2016-07-29] MEDS ORDERED: HYDROmorphone HCL PCA 6 MG/30 ML IV SCH (09:00)
--- NOTE | 2016-07-29 09:12 | PD.OP ---
cc: Rehan Sullivan MD Operative Report Date of Surgery: Jul 29, 2016 Preoperative Diagnosis: Osteoarthritis right hip, severe Postoperative Diagnosis: Same. Fracture right acetabular rim Procedure: Right total hip replacement arthroplasty, posterior exposure Anesthesia: Gen. Surgeon: Rehan Sullivan Head Of Strategy(s): CLAUDIA Tierney Operation and Findings: EBL: 100 cc INDICATION: Gene is an 81-year-old male with debilitating right hip pain related to what is felt to be osteoarthritis. He's had conservative care including medications, altered activity, physical therapy, injection of cortisone. The patient is not doing well and presents now for surgical treatment. NOTE: Jana Tierney PA-C was present for the entire surgical procedure as my cutter first. In my medical opinion her skill and care was necessary for the proper management of this patient. COMPONENTS: COMPANY: [employer] CUP: [place], 54 mm, 100 series STEM: Size 7, high offset, Columbia pressfit HEAD: 36 mm, +5 12/14 taper ALTRX: 36, neutral PROCEDURE: This patient was brought to the operating room and anesthetized in the supine position and positioned on the routine table in the clean air suite. The patient was then rolled to a right side up lateral position and held with a Biomet hip positioner. The hip and leg was scrubbed with alcohol followed by Hibiclens followed by chloro prep and draped sterilely. A timeout was done and antibiotics were given within a routine time window. A 4 inch incision was made starting along the posterior one third of the greater trochanter. The iliotibial band was opened in line with the incision. The Charnley retractors were positioned. The posterior capsule and external rotators were taken down together in a sleeve. The neck was cut at the right location. The head was removed from the wound. The acetabulum was inspected. Deep retractors were positioned. There was evidence of a fracture of the cephalad rim of the acetabulum which was loose. This was excised creating an acetabular deficit. We placed a drill hole to the very bottom of the acetabulum and deepened as far as possible to the floor of the acetabulum, more than usual. The acetabulum was deepened down to the floor and started with a proper size reamer and reaming up to 53 mm. This was trialed with the same size trial. The overall fit was satisfactory. The rim was touched with the next size reamer. The cup was placed in approximately 40 of abduction and 30 of forward flexion. The final liner was positioned. Retractors were positioned allowing good visualization of the proximal femur. A box osteotome was utilized followed by a taper pin reamer followed by progressive broaching for the [place] stem. This was reamed and broached and eventually advanced to a size 7, high offset stem. A trial reduction showed satisfactory stability. Offset was satisfactory. Leg length was reestablished. At 90 of flexion it was stable to 50 of internal rotation. The hip could not be subluxed anteriorly. The final stem was inserted in approximately 15 of anteversion. The final head was impacted. The hip was reduced and stability, offset and leg length was as previously noted. The posterior capsule and external rotators were repaired through bone with interrupted #2 Tycron sutures. The piriformis muscle was repaired with the same. The iliotibial band with interrupted #1 Vicryl sutures. Subcutaneous tissue was approximated with 2-0 Vicryl suture and skin with running intradermal 3-0 Vicryl followed by Steri-Strips and benzoin. A sterile dressing was applied.. The sponge count needle counts and instrument counts were all correct. The patient was awakened and taken to the recovery room in satisfactory condition FINDINGS: There was evidence of a fracture of the acetabulum. Clearly that contributed to the patient's hip pathology. There was severe osteoarthritis with no articular cartilage left in the cephalad portion of the femoral head. The final solution was excellent. No complication was appreciated. Rehan Sullivan MD Jul 29, 2016 09:12
[2016-07-29] MEDS ORDERED: HYDR-3583 PO (09:14)
[2016-07-29] MEDS ORDERED: PILL SPLITTER OTHER PRN (09:30)
[2016-07-29] MEDS ORDERED: fentaNYL CITRATE 250 MCG/5 ML AMP ONE (09:51)
[2016-07-29] MEDS ORDERED: DO NOT ADM ANY ANTICOAGULANT DRUGS PRN (10:00)
[2016-07-29] MEDS: PANTOPRAZOLE SOD 40 MG DELAYED RELEASE TAB PO SCH (10:00)
[2016-07-29] MEDS: LACTATED RINGER'S 1000 ML INJ 1,000 ML IV SCH ×2 (10:00→20:57)
[2016-07-29] MEDS ORDERED: *HYDROmorphone PF 1 MG VIAL PERIprocedural Use ONLY ONE (10:16)
[2016-07-29 11:00] VITALS: BP 145/76; PULSE 81; RESP 18; TEMP 96.5; O2SAT 97
--- NOTE | 2016-07-29 11:44 | RADRPT ---
EXAM DATE/TIME: 07/29/2016 11:05 [facility] COMPARISON: FEMUR RIGHT (AP & LAT/2VWS), July 23, 2016, 17:46. INDICATIONS : Post op right hip replacement MEDICAL HISTORY : None. SURGICAL HISTORY : colon resection, prostatectomy, lumbar spine ENCOUNTER: Subsequent ACUITY: 1 day PAIN SCORE: 7/10 LOCATION: Right hip FINDINGS: The patient is status post right hip arthroplasty. The orthopedic hardware is in excellent position. There is no evidence of fracture. CONCLUSION: Right hip arthroplasty in excellent position. Carroll Erwin MD on July 29, 2016 at 11:42 Board Certified Radiologist. This report was verified electronically.
[2016-07-29] MEDS ORDERED: ePHEDrine/NS 25 MG/5 ML SYR IV ONE (12:00)
[2016-07-29] MEDS ORDERED: NEOSTIGMINE 3 MG/3 ML SYR IV ONE (12:00)
[2016-07-29] MEDS ORDERED: PHENYLEPH/NS 1000 MCG/10 ML SYR IV ONE (12:00)
[2016-07-29] MEDS ORDERED: SODIUM CHLORID 0.9% 500 ML INJ 500 ML IV ONE (12:00)
[2016-07-29] MEDS ORDERED: LACTATED RINGER'S 1000 ML INJ 1,000 ML IV ONE (12:00)
[2016-07-29] MEDS ORDERED: ONDANSETRON HCL 4 MG/2 ML VIAL IV PUSH ONE (12:00)
[2016-07-29] MEDS ORDERED: PROPOFOL 200 MG/20 ML AMP IV ONE (12:00)
[2016-07-29 13:05] LABS: PROTHROMBIN TIME - PATIENT 11.5 SEC (9.8-11.6)
[2016-07-29] MEDS: PCA - TOTAL MG DILAUDID DELIVERED PER SHIFT OTHER SCH ×2 (14:00→21:00)
[2016-07-29 14:56] VITALS: O2SAT 99
[2016-07-29 16:00] VITALS: BP 121/69; PULSE 79; RESP 18; TEMP 96; O2SAT 99
[2016-07-29] MEDS ORDERED: WARFARIN SOD 7.5 MG TAB PO SCH (16:00)
[2016-07-29] MEDS ORDERED: MISC-163 (16:09)
[2016-07-29] MEDS ORDERED: WALKER WHEELS/F1 MIS (16:09)
--- NOTE | 2016-07-29 16:11 | HHI.FF ---
Face to Face Verification Diagnosis: (1) Right hip pain (2) Osteoarthritis of right hip Physical Therapy Gait training, Safety evaluation, Transfer training, bed to chair Hip: Total hip, Protocol: Right, Progress to weight bearing Right LE Weight Bearing: WB as tolerated Additional Instructions PT 5 days/wk for 2 weeks. WBAT RLE. anterior COLIN protocol. Walker as needed. Gait training. Nursing RN Days per Week: 3 x Week(s): 1 Dressing Changes: Do not change dressing Additional Instructions vitals assessment, dressing assessment - do not change unless saturated. I have seen patient Rolando Arteaga on 07/29/16. My clinical findings support the need for the requested home health care services because: Limited ability to care for self High risk of falls I certify that my clinical findings support that this patient is homebound because: Post-op weakness Unsteady gait/balance Fawn Graves Jul 29, 2016 16:11
[2016-07-29 16:52] VITALS: O2SAT 99
[2016-07-29] MEDS ORDERED: BENZOCAINE 6 MG/MENTHOL 10 MG LOZENGE BUCCAL PRN (18:30)
[2016-07-29 20:50] VITALS: BP 124/72; PULSE 81; RESP 17; TEMP 97; O2SAT 96
[2016-07-29] MEDS: SENNOSIDES 8.6 MG TAB PO SCH (20:53)
[2016-07-29] MEDS: SOTALOL HCL 80 MG TAB PO SCH (20:54)
[2016-07-29] MEDS: SODIUM CHLORIDE 0.9% FLUSH 10 ML FLUSH IV FLUSH SCH (20:54)
[2016-07-29] MEDS: ATORVASTATIN 20 MG TAB PO SCH (20:55)
[2016-07-29] MEDS: MAGNESIUM HYDROXIDE SUSP 30 ML CUP PO SCH (20:55)
[2016-07-29] MEDS: CARVEDILOL 3.125 MG TAB PO SCH (20:57)
[2016-07-30 00:26] VITALS: BP 132/72; PULSE 83; RESP 17; TEMP 97.9; O2SAT 97
[2016-07-30 04:55] VITALS: BP 129/74; PULSE 79; RESP 17; TEMP 99.1; O2SAT 96
[2016-07-30] MEDS: LEVOTHYROXINE SODIUM 25 MCG TAB PO SCH (06:00)
[2016-07-30] MEDS: PCA - TOTAL MG DILAUDID DELIVERED PER SHIFT OTHER SCH (06:00)
[2016-07-30 07:08] LABS: HEMATOCRIT 38.6 % (39.0-51.0); REVIEW FLAG FINAL
[2016-07-30 07:16] LABS: PROTHROMBIN TIME - PATIENT 11.4 SEC (9.8-11.6)
[2016-07-30] MEDS: PANTOPRAZOLE SOD 40 MG DELAYED RELEASE TAB PO SCH (07:44)
[2016-07-30] MEDS: RIVAROXABAN 10 MG TAB PO SCH (07:46)
[2016-07-30] MEDS: MAGNESIUM HYDROXIDE SUSP 30 ML CUP PO SCH ×2 (07:46→20:46)
[2016-07-30] MEDS: CARVEDILOL 3.125 MG TAB PO SCH ×2 (07:46→20:45)
[2016-07-30] MEDS: SOTALOL HCL 80 MG TAB PO SCH ×2 (07:47→20:45)
--- NOTE | 2016-07-30 07:48 | PD.ORT.PN ---
Subjective Subjective Remarks Doing 'fairly well'. Moderate right hip pain but states its well controlled. No new radiating leg pain. No other concerns. Questions about discharge. No new CP or SOB. Objective Vitals Vital Signs Date Time Temp Pulse Resp B/P Pulse Ox O2 Delivery O2 Flow Rate FiO2 07/30/16 04:55 99.1 79 17 129/74 96 07/30/16 00:26 97.9 83 17 132/72 97 07/29/16 21:00 19 07/29/16 20:50 97.0 81 17 124/72 96 07/29/16 16:52 99 Nasal Cannula 3.00 07/29/16 16:00 96.0 79 18 121/69 99 07/29/16 14:56 99 Nasal Cannula 3.00 07/29/16 11:00 Nasal Cannula 2.00 07/29/16 11:00 96.5 81 18 145/76 97 07/29/16 10:35 98.1 74 17 119/72 99 Nasal Cannula 2 07/29/16 10:23 17 07/29/16 10:15 81 17 121/43 96 Nasal Cannula 2 07/29/16 10:00 76 15 119/71 96 Nasal Cannula 2 07/29/16 09:45 79 15 101/67 96 Nasal Cannula 3 07/29/16 09:42 98.2 88 15 109/74 97 Nasal Cannula 3 I/O 07/29/16 07/29/16 07/29/16 07/30/16 07/30/16 07/30/16 07:00 15:00 23:00 07:00 15:00 23:00 Intake Total 1752 ml 240 ml 120 ml Output Total 350 ml 1400 ml 1200 ml Balance 1402 ml -1160 ml -1080 ml Intake Oral 480 ml 240 ml 120 ml IV Total 772 ml Other 500 ml Output Urine Total 350 ml 1400 ml 1200 ml # Bowel Movements 0 0 Result Diagram: 07/30/16 0634 Other Results Laboratory Tests Test 07/29/16 07/30/16 12:41 06:23 Prothrombin Time 11.5 SEC 11.4 SEC (9.8-11.6) (9.8-11.6) Prothromb Time International 1.0 RATIO 1.0 RATIO Ratio Objective Remarks Sitting up in bed, NAD VSS RLE Dressing c/d/i, no new drainage, mild swelling, no erythema +motor at, +sens, +nvi calf supple, neg homans Assessment & Plan Ortho Post Op Day #: 1 Problem List: Assessment and Plan pod#1 s/p R COLIN, anterior 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 PT - WBAT RLE. Anterior colin precautions. Hold dressing changes unless saturated. Coumadin/xarelto for dvt prophylaxis D/C planning, [facility] or thu. DME written. Fawn Graves Jul 30, 2016 07:48
[2016-07-30 07:55] VITALS: BP 156/76; PULSE 68; RESP 16; TEMP 96.5; O2SAT 95
[2016-07-30] MEDS: SODIUM CHLORIDE 0.9% FLUSH 10 ML FLUSH IV FLUSH SCH ×2 (09:00→20:46)
[2016-07-30 11:50] VITALS: BP 121/66; PULSE 74; RESP 17; TEMP 98.5; O2SAT 96
[2016-07-30 16:15] VITALS: BP 144/63; PULSE 78; RESP 16; TEMP 97.4; O2SAT 98
[2016-07-30] MEDS: WARFARIN SOD 5 MG TAB PO SCH (16:40)
[2016-07-30] MEDS ORDERED: ACETAMINOPHEN/HYDROcodone 325 MG/5 MG TAB PO PRN (18:30)
[2016-07-30 19:51] VITALS: BP 138/63; PULSE 71; RESP 18; TEMP 98.5; O2SAT 96
[2016-07-30] MEDS: ATORVASTATIN 20 MG TAB PO SCH (20:45)
[2016-07-30] MEDS: SENNOSIDES 8.6 MG TAB PO SCH (20:46)
[2016-07-31] MEDS: ACETAMINOPHEN/HYDROcodone 325 MG/5 MG TAB PO PRN ×5 (00:13→21:50)
[2016-07-31 01:00] VITALS: BP 118/62; PULSE 78; RESP 18; TEMP 99.6; O2SAT 95
[2016-07-31 04:15] VITALS: BP 122/61; PULSE 79; RESP 17; TEMP 97.8; O2SAT 97
[2016-07-31 05:18] LABS: INTERNATIONAL NORMALIZED RATIO 1.3 RATIO; PROTHROMBIN TIME - PATIENT 14.6 SEC (9.8-11.6)
[2016-07-31] MEDS: LEVOTHYROXINE SODIUM 25 MCG TAB PO SCH (05:52)
[2016-07-31 07:46] VITALS: BP 133/70; PULSE 75; RESP 16; TEMP 98.8; O2SAT 94
[2016-07-31] MEDS: RIVAROXABAN 10 MG TAB PO SCH (08:02)
[2016-07-31] MEDS: CARVEDILOL 3.125 MG TAB PO SCH ×2 (08:02→20:20)
[2016-07-31] MEDS: SOTALOL HCL 80 MG TAB PO SCH ×2 (08:03→20:20)
[2016-07-31] MEDS: PANTOPRAZOLE SOD 40 MG DELAYED RELEASE TAB PO SCH (08:03)
[2016-07-31] MEDS: MAGNESIUM HYDROXIDE SUSP 30 ML CUP PO SCH ×2 (08:03→20:21)
[2016-07-31] MEDS: SODIUM CHLORIDE 0.9% FLUSH 10 ML FLUSH IV FLUSH SCH ×2 (09:00→20:20)
--- NOTE | 2016-07-31 09:22 | PD.ORT.PN ---
Subjective Subjective Remarks He continues to progress. He states his pain in bed is a '2' and when in chair a '4'. There was some concern over change in affect and forgetfullness yesterday so pain medication was decreased. He believes he is doing fine though he states his told him he was repeating himself yesterday. No new radiating leg pain. No other concerns. Questions about discharge, prefers home today. No new CP or SOB. Objective Vitals Vital Signs Date Time Temp Pulse Resp B/P Pulse Ox O2 Delivery O2 Flow Rate FiO2 07/31/16 07:46 98.8 75 16 133/70 94 07/31/16 04:15 97.8 79 17 122/61 97 07/31/16 01:00 99.6 78 18 118/62 95 07/30/16 19:51 98.5 71 18 138/63 96 07/30/16 16:15 97.4 78 16 144/63 98 07/30/16 11:50 98.5 74 17 121/66 96 I/O 07/30/16 07/30/16 07/30/16 07/31/16 07/31/16 07/31/16 07:00 15:00 23:00 07:00 15:00 23:00 Intake Total 120 ml 600 ml 240 ml 240 ml Output Total 1200 ml 150 ml 300 ml 800 ml Balance -1080 ml 450 ml -60 ml -560 ml Intake Oral 120 ml 600 ml 240 ml 240 ml Output Urine Total 1200 ml 150 ml 300 ml 800 ml # Voids 1 1 # Bowel Movements 0 0 0 Result Diagram: 07/30/16 0634 Other Results Laboratory Tests Test 07/31/16 04:39 Prothrombin Time 14.6 SEC (9.8-11.6) Prothromb Time International 1.3 RATIO Ratio Objective Remarks Sitting up in chair at bedside, NAD VSS RLE Dressing c/d/i, no new drainage, mild swelling, no erythema +motor at, +sens, +nvi calf supple, neg homans Assessment & Plan Ortho Post Op Day #: 2 Problem List: Assessment and Plan pod#2 s/p R COLIN, anterior He appears stable. He converses appropriately with no sign of irritability, forgetfullness or inappropriate commentary. Ok to d/c home w c later today after PT. PO pain meds as needed. PT - WBAT RLE. Anterior colin precautions. Hold dressing changes unless saturated. Coumadin/xarelto for dvt prophylaxis. INR was 1.3 today. Likely will dose with coumadin and xarelto today and tomorrow then coumadin only. F/U in 2 weeks as scheduled. DME written. Fawn Graves Jul 31, 2016 09:21
[2016-07-31] MEDS ORDERED: COUM5TAB PO (09:33)
--- NOTE | 2016-07-31 09:34 | HHI.DCPOC ---
Discharge Care Plan Diagnosis: (1) Right hip pain (2) Osteoarthritis of right hip Your Health Problems Are: Incision/Drains Swelling Goals to Promote Your Health * To prevent worsening of your condition and complications * To maintain your health at the optimal level Directions to Meet Your Goals Take your medications as prescribed Follow your dietary instruction Follow activity as directed Keep your appointments as scheduled Take your immunizations and boosters as scheduled If your symptoms worsen call your PCP, if no PCP go to Urgent Care Center or Emergency Room Smoking is Dangerous to Your Health. Avoid second hand smoke Call the 24-hour hour crisis hotline for domestic abuse at Fawn Graves Jul 31, 2016 09:34
--- NOTE | 2016-07-31 09:38 | HHI.DS ---
Discharge Summary Admission Date Jul 29, 2016 at 05:26 Discharge Date: Jul 31, 2016 Admitting Diagnosis see below Diagnosis: (1) Right hip pain Diagnosis: Principal (2) Osteoarthritis of right hip Diagnosis: Principal Procedures Right total hip arthroplasty, Anterior approach Brief History This is a 81 year old male patient who present to the ER a week ago for intractable right hip pain. He was seen by orthopaedics who diagnosed severe osteoarthritis right hip. He had been treated in the past with medications and injections. He was nonambulatory due to the pain. Surgical treatment was recommended on an outpatient basis. He presents now for surgical treatment. CBC/BMP: 07/30/16 0634 Significant Findings Laboratory Tests Test 07/30/16 07/31/16 06:34 04:39 Hematocrit 38.6 % (39.0-51.0) Prothrombin Time 14.6 SEC (9.8-11.6) PE at Discharge Sitting up in chair at bedside, NAD VSS RLE Dressing c/d/i, no new drainage, mild swelling, no erythema +motor at, +sens, +nvi calf supple, neg [facility] Course Surgical treatment was performed on the day of admission without complication. He recovered well in PACU and was transferred to the orthopaedic floor. Pain was controlled with IV and oral medications. DVT prophylaxis was initiated with coumadin and xarelto as he was on coumadin preop. He was compliant with physical therapy and all restrictions. After 2 days he was found to be stable and discharged home with home health care and instructed to take 5mg of coumadin daily and have his INR checked qmon/weds and also to continue PT and pursue a high fiber diet for 3-5 days. Pt Condition on Discharge: Stable Discharge Disposition: Disch w/ Home Health Serv Discharge Instructions Diet Instructions: As Tolerated, No Restrictions, High Fiber Diet Activities You Can Perform: Weight Bearing as Gustavo Additional Activity Instruc.: Anterior COLIN precautions New Medications: 3-in-1 Bedside Toilet (3-in-1 Bedside Toilet) 1 Mis Mis 1 EA .ROUTE DIRECTED #1 EA Walker with Front Wheels (Walker with Front Wheels) 1 Mis Mis 1 EA .ROUTE DIRECTED #1 Ref 0 EA Hydrocodone-Acetaminophen (Hydrocodone-Acetaminophen) 10-325 mg Tab 1 TAB PO Q4H PRN PAIN LESS THAN 5 ON SCALE #50 TAB Warfarin (Coumadin) 5 Mg Tab 5 MG PO DAILY@1600 dvt prophylaxis Days 30 TAB Continued Medications: Aspirin (Aspirin) 81 Mg Tabdr 81 MG PO HS TAB Atorvastatin (Lipitor) 20 Mg Tab 20 MG PO HS Cholesterol Management #30 Ref 0 TAB Carvedilol (Carvedilol) 3.125 Mg Tab 3.125 MG PO BID #60 Ref 0 TAB Fish Oil-Cholecalciferol ([place]-3 Fish Oil/Vitamin) 1,000-1,000 Mg Cap 1 CAP PO BID Nutritional Supplement Ref 0 CAP Hydrocodone-Acetaminophen (Hydrocodone-Acetaminophen) 5-325 mg Tab 1 TAB PO Q6H PRN PAIN Ref 0 TAB Lansoprazole (Lansoprazole) 30 Mg Capdr 30 MG PO DAILY Heartburn Management Ref 0 CAP Levothyroxine (Synthroid) 25 Mcg Tab 25 MCG PO DAILY Thyroid #30 Ref 0 TAB Multiple Vitamin (Multi Vitamin) 1 Tab Tab 1 TAB PO DAILY TAB Niacin ER (Niacin ER) 1,000 Mg Tab 1000 MG PO HS Cholesterol Management #30 Ref 0 TAB Sotalol (Betapace) 120 Mg Tab 120 MG PO BID Regulate Heart Beat #60 Ref 0 TAB Discontinued Medications: Warfarin (Warfarin) 6 Mg Tab 6 MG PO SUTUTHSA Blood Clot Prevention #30 Ref 0 TAB Warfarin (Warfarin) 6 Mg Tab 3 MG PO MOWEFR Blood Clot Prevention #30 Ref 0 TAB Fawn Graves Jul 31, 2016 09:38
[2016-07-31 12:56] VITALS: BP 110/59; PULSE 76; RESP 16; TEMP 99.3; O2SAT 97
[2016-07-31 16:00] VITALS: BP 106/64; PULSE 78; RESP 16; TEMP 98.9; TEMP 99.4; O2SAT 98
[2016-07-31] MEDS: WARFARIN SOD 5 MG TAB PO SCH (17:15)
[2016-07-31 19:56] VITALS: BP 127/70; PULSE 75; RESP 18; TEMP 99; O2SAT 96
[2016-07-31] MEDS: ATORVASTATIN 20 MG TAB PO SCH (20:20)
[2016-07-31] MEDS: SENNOSIDES 8.6 MG TAB PO SCH (20:21)
[2016-07-31] MEDS: LACTATED RINGER'S 1000 ML INJ 1,000 ML IV SCH (20:21)
[2016-08-01] VITALS: BP 112/58; PULSE 78; RESP 18; TEMP 99; O2SAT 98
[2016-08-01 04:00] VITALS: TEMP 98.8
[2016-08-01 04:02] LABS: INTERNATIONAL NORMALIZED RATIO 1.5 RATIO; PROTHROMBIN TIME - PATIENT 16.7 SEC (9.8-11.6)
[2016-08-01] MEDS: LEVOTHYROXINE SODIUM 25 MCG TAB PO SCH (05:14)
[2016-08-01] MEDS: ACETAMINOPHEN/HYDROcodone 325 MG/5 MG TAB PO PRN (05:14)
--- NOTE | 2016-08-01 07:56 | PD.ORT.PN ---
Subjective Subjective Remarks He ended up staying last night. His and daughter want him to go to SNF. His PT notes look positive but family has concerns over being able to help him. He continues to state his pain is well controlled on po pain meds. No new radiating leg pain. No other concerns. No new CP or SOB. Objective Vitals Vital Signs Date Time Temp Pulse Resp B/P Pulse Ox O2 Delivery O2 Flow Rate FiO2 08/01/16 04:00 Room Air 08/01/16 04:00 98.8 08/01/16 00:00 Room Air 08/01/16 00:00 99.0 78 18 112/58 98 07/31/16 20:00 Room Air 07/31/16 19:56 99.0 75 18 127/70 96 07/31/16 16:00 98.9 78 16 106/64 98 07/31/16 12:56 99.3 76 16 110/59 97 I/O 07/31/16 07/31/16 07/31/16 08/01/16 08/01/16 08/01/16 07:00 15:00 23:00 07:00 15:00 23:00 Intake Total 240 ml 720 ml 240 ml 240 ml Output Total 800 ml 300 ml 600 ml Balance -560 ml 420 ml 240 ml -360 ml Intake Oral 240 ml 720 ml 240 ml 240 ml Output Urine Total 800 ml 300 ml 600 ml # Voids 2 3 # Bowel Movements 0 4 3 0 Result Diagram: 07/30/16 0634 Other Results Laboratory Tests Test 08/01/16 03:42 Prothrombin Time 16.7 SEC (9.8-11.6) Prothromb Time International 1.5 RATIO Ratio Procedures Right total hip arthroplasty, Anterior approach Objective Remarks Sitting up in bed, NAD VSS RLE Dressing c/d/i, no new drainage, mild swelling, no erythema +motor at, +sens, +nvi calf supple, neg homans Assessment & Plan Ortho Post Op Day #: 3 Problem List: (1) Right hip pain (2) Osteoarthritis of right hip Assessment and Plan pod#3 s/p R COLIN, anterior Ortho stable. Ok to d/c to SNF today. PO pain meds as needed. PT - WBAT RLE. Anterior colin precautions. Hold dressing changes unless saturated. Coumadin/xarelto for dvt prophylaxis. INR was 1.5 today. Coumadin 5mg outpatient. F/U in 2 weeks as scheduled. DME written. [id number] signed. Fawn Graves Aug 01, 2016 07:56
[2016-08-01 08:00] VITALS: BP 128/65; PULSE 73; RESP 16; TEMP 99; O2SAT 94
[2016-08-01] MEDS: PANTOPRAZOLE SOD 40 MG DELAYED RELEASE TAB PO SCH (08:43)
[2016-08-01] MEDS: SOTALOL HCL 80 MG TAB PO SCH (08:44)
[2016-08-01] MEDS: RIVAROXABAN 10 MG TAB PO SCH (08:44)
[2016-08-01] MEDS: CARVEDILOL 3.125 MG TAB PO SCH (08:44)
== END 2016-08-01 13:11 | disposition home health service (06) | DRG 469 ==
LOC: HSDI 07-29 05:26 → EDSTATUS 07-29 09:30 → N06B 07-29 10:48
PROVIDERS: ADMIT Orthopaedic Surgery Orthopaedic Surgery of the Spine; ATTEND Orthopaedic Surgery Orthopaedic Surgery of the Spine
PROC: 0SR90JA Replacement of Right Hip Joint with Synthetic Substitute, Uncemented, Open Approach (ICD-10-PCS; principal; 2016-07-29 07:32)
DX: M16.11 Unilateral primary osteoarthritis, right hip (principal); S32.491A Other specified fracture of right acetabulum, initial encounter for closed fracture; Z95.1 Presence of aortocoronary bypass graft; I10 Essential (primary) hypertension; X58.XXXA Exposure to other specified factors, initial encounter; Y92.9 Unspecified place or not applicable; E78.5 Hyperlipidemia, unspecified; I25.10 Atherosclerotic heart disease of native coronary artery without angina pectoris; Z95.0 Presence of cardiac pacemaker; Z79.01 Long term (current) use of anticoagulants
CPT/HCPCS: 36415; 73502; 85014; 85018; 85610; 86850; 86900; 86901; 86920; 94150; C1776; C9290; J0131; J0690; J1100; J1170; J1580; J2250; J2370; J2405; J2710; J3010; J3370; J7040; J7050; J7120

== ENCOUNTER → 2016-07-28 | Outpatient (CLI) | payer MEDICARE ==
[~2016-07-28] MED LIST changes: -ACET325T PO; +ASPI1TAB69 PO; +COUM3TAB PO; +HYDR-3516 PO; +HYDR-3583 PO; +LANS30CA PO; +MISC-163; +NIAC1TAB5 PO; +OMEGCAP PO; +OXYC1TAB36 PO; +OXYC1TAB63 PO; -PREV30CA11 PO; +WALKER WHEELS/F1 MIS; +WARF-60 PO
[2016-07-28 15:48] LABS: INTERNATIONAL NORMALIZED RATIO 1.1 RATIO; PROTHROMBIN TIME - PATIENT 11.9 SEC (9.8-11.6)
== END ==
LOC: CLAB 15:09
PROVIDERS: ATTEND Orthopaedic Surgery Orthopaedic Surgery of the Spine
DX: Z79.01 Long term (current) use of anticoagulants (principal)
CPT/HCPCS: 36415; 85610

== ENCOUNTER 2018-01-21 10:38 | Inpatient (IN) ==
[2018-01-21] MEDS ORDERED: Sodium Chlor 0.9% Inj 500 ML IV.SIG ONE (11:39)
--- NOTE | 2018-01-21 11:46 | ED ---
HPI General Chief complaint: Back Pain/Injury Stated complaint: Back pain Time Seen by Provider: 01/21/18 11:11 Source: patient, family, RN notes reviewed and old records reviewed Mode of arrival: EMS Limitations: no limitations History of Present Illness HPI narrative: 82 year old male presents to the emergency department via EMS. Patient was taken first to triage and then brought back to the medical bed. Apparently, the patient was answering questions appropriately in triage. However, upon my exam, the patient is altered. He is consistently asking for his . He does not know his where he is and is rambling and not making sense. He will answer his name, but no other questions appropriately. He complains of pain. He does push my hand away when I palpate his belly. He had surgery on his lower back by Dr. Sullivan on January 14, 2018. Once his comes at bedside, more information is obtained. She states that he was not altered this morning, but this is new for him. She states that he has history of pacemaker, hypertension, colon resection, bypass surgery. He also has history of A. fib and is on Coumadin. He restarted his Coumadin on Thursday. The patient moves all extremities and follows commands. He denies any chest pain or shortness of breath. Moderate severity. Related Data Home Medications Medication Instructions Recorded Confirmed aspirin 81 mg PO DAILY 01/01/18 01/21/18 atorvastatin 20 mg PO DAILY 01/01/18 01/21/18 carvedilol 3.125 mg PO BID 01/01/18 01/21/18 levothyroxine 25 mcg PO DAILY 01/01/18 01/21/18 multivitamin 1 tab PO DAILY 01/01/18 01/21/18 sotalol 120 mg PO BID 01/01/18 01/21/18 calcium carbonate-vitamin D3 1 tab PO DAILY 01/12/18 01/21/18 [Calcium 600 + D(3)] [id number] oil [[place]-3 1 cap PO DAILY 01/12/18 01/21/18 Fish Oil] omeprazole 20 mg PO 3XW 01/12/18 01/21/18 warfarin [Coumadin] 3 mg PO 2XWEEK 01/12/18 01/21/18 warfarin [Coumadin] 6 mg PO [id number] 01/12/18 01/21/18 Previous Rx's Medication Instructions Recorded hydrocodone-acetaminophen [Cic[place]] 1 tab PO Q4H PRN #42 tab 01/14/18 Allergies Allergy/AdvReac Type Severity Reaction Status Date / Time morphine Allergy Severe Confusion Verified 01/21/18 11:27 Review of Systems ROS: all other systems reviewed are negative PMFSH Social History Social History Substance History: No History of Abuse Second Hand Smoke Exposure: No Smoking Status: Never smoker How Often Do You Have a Drink Containing Alcohol: Never Recent Travel in [facility] within the Last 8 Weeks: No Recent Out of Country Travel within the Last 8 Weeks: No Immunization History Tetanus Immunization: >5 Years Hx Influenza Vaccine This Season: Yes Exam Narrative Exam Narrative: GENERAL: Well-nourished, well-developed elderly male patient, afebrile. Patient appears confused, rambling, not making any sense. He will answer his name, but does not answer any other questions correctly. SKIN: Focused skin assessment warm/dry. HEAD: Normocephalic. Atraumatic peer EYES: No scleral icterus. No injection or drainage. NECK: Supple, trachea midline. No JVD or lymphadenopathy. CARDIOVASCULAR: Regular rate and rhythm without murmurs, gallops, or rubs. RESPIRATORY: Breath sounds equal bilaterally. No accessory muscle use. Lung sounds are clear to auscultation. GASTROINTESTINAL: Abdomen soft, non-tender, nondistended. MUSCULOSKELETAL: No cyanosis, or edema. Patient's right leg drifts within 5 seconds. Normal hand grasp bilaterally. Possible right arm slight drift. BACK: Nontender without obvious deformity. No CVA tenderness. Course Initial Documented Vital Signs Temperature 98.1 F 01/21/18 10:53 Pulse Rate 80 01/21/18 10:53 Respiratory Rate 19 01/21/18 10:53 Blood Pressure 137/71 01/21/18 10:53 Pulse Oximetry 97 01/21/18 10:53 Last Documented Vital Signs Temperature 98.1 F 01/21/18 16:20 Pulse Rate 75 01/21/18 20:00 Respiratory Rate 16 01/21/18 17:57 Blood Pressure 145/90 H 01/21/18 17:57 Pulse Oximetry 97 01/21/18 17:57 Critical Care Time Critical Care Time: Yes Total Critical Care Time: 35 Attestation: Aggregate critical care time was 35 minutes. Time to perform other separately billable procedures was not included in the critical care time. My time did not include minutes spent treating any other patients simultaneously or on activities that did not directly contribute to the patient's treatment. I did spend time speaking with consultants, the patient's , my MAJOR ASSEMBLER, spent some time at the bedside reassessing patient is well per The services I provided to this patient were to treat and/or prevent clinically significant deterioration that could result in: , disability, organ failure I provided critical care services requiring my management, as noted below: Chart data review, documentation time, medication orders and management, vital sign assessments/reviewing monitor data, ordering and reviewing lab tests, ordering and interpreting/reviewing x-rays and diagnostic studies, care of the patient and discussion of the patient with the admitting physicians. NIH Stroke Scale NIH Stroke Scale Level of Consciousness: 0-Alert Orientation Questions: 1-One task correct Responds to Commands: 0-Both tasks correct Gaze Eye Movement: 0-Horizontal movement WNL Visual Morrison: 0-No visual field defect Facial Movement: 0-Normal Motor Functions Arm LEFT: 0-No drift Motor Functions Arm RIGHT: 0-No drift Motor Functions Leg LEFT: 0-No drift Motor Functions Leg RIGHT: 2-Falls before 5 seconds Limb Ataxia: 0-No ataxia Sensory Loss: 0-No sensory loss Best Language: 0-Normal Articulation: 1-Mild dysarthia Extinction or Inattention Sensory: 0-Absent Total: 4 Medical Decision Making TRISTAN Attestation TRISTAN supervised visit: Yes Attestation: I, Dr. Hickey, have reviewed the advance practice practitioner's documentation and am in agreement, met with the patient face to face, made the diagnosis, and the medical decision making was done by me. *My assessment and Findings: Patient seen and examined by me in addition to Rylee BUSTAMANTE. This is a 82-year-old male on Coumadin for atrial fibrillation recently stopped his Coumadin for a laminectomy of his lumbar spine. He initially complained for back pain. He was triaged about 11:00 and was alert and awake and oriented and is able to speak in full sentences. I am being roomed into the emergency department the patient is now having difficulty finding words and speaking in full sentences. He certainly has an aphasia. Despite the patient being a poor candidate for TPA a stroke alert was activated on this patient. His total NIH stroke scale was 3. He was taken to CT scan under my eschar, a noncontrast CT of the head was negative. CTA was negative as well. He continued to have slurred speech. However the patient does have recent surgery and is on Coumadin his INR is 2.5 which are contraindications to TPA. He was evaluated by Dr. Ryder who agrees. The patient will be admitted to the hospital for further evaluation. GENERAL: Well-nourished, well-developed patient. SKIN: Focused skin assessment warm/dry. HEAD: Normocephalic. EYES: No scleral icterus. No injection or drainage. NECK: Supple, trachea midline. No JVD or lymphadenopathy. CARDIOVASCULAR: Regular rate and rhythm without murmurs, gallops, or rubs. RESPIRATORY: Breath sounds equal bilaterally. No accessory muscle use. GASTROINTESTINAL: Abdomen soft, non-tender, nondistended. MUSCULOSKELETAL: No cyanosis, or edema. BACK: Nontender without obvious deformity. No CVA tenderness. NEUROLOGIC: Patient is very dysarthric and difficulty speaking and finding words. Cranial nerves II through XII are grossly intact, some limitation of the exam secondary to the patient's ability to understand words. There certainly is some receptive aphasia as well. He moves all 4 extremities on command there is no drift. He does have some painful flexion of the hip. Total NIH stroke scale is 3 per MDM Narrative Medical decision making narrative: 82-year-old male presents to the emergency department, originally via EMS for back pain. He was seen in triage where he apparently answer questions appropriately. However, between triage and writing in his exam room, he became confused, rambling, not making any sense. The patient did have back surgery 1 week ago and was off his Coumadin. He restarted this on Thursday. His comes to bedside and states that this is not his baseline and not what he has been already. I spoke to my attending physician, Dr. Hickey, who also spoke to the patient. A stroke alert was called. He spoke to Dr. yRder at 1149 and the patient was taken to CT scan. EKG shows AV paced rhythm, heart rate 83. CBC shows no acute abnormality. CMP shows no acute abnormality. CK is 51. Troponin is less than 0.02. Magnesium is 1.7. PTT is 38.7. PT is 25.5. INR is 2.5. CT the brain shows no acute intracranial abnormality. CT of the neck shows no hemodynamically significant carotid artery stenosis identified, diminutive left vertebral which terminates in a PICA. CTA of the head shows intracranial vessels are all patent without aneurysmal or embolic disease. Chest x-ray shows basilar atelectasis, no effusion or pneumothorax, cardiomegaly, previous mitral valve replacement. CT abdomen/pelvis shows no acute findings. Nonacute findings include hiatal hernia , mild constipation, advanced degenerative disease of the spine with mild stable compression deformities, stable bilateral renal cyst, pacer leads in the right atrium and right ventricle. CT of the lumbar spine shows previous lumbar fusion across the L4-5 level stable compared to previous, Mild compression fractures involving T12, L1, L2, L3, L4 and L5. These are all stable compared to previous examination dated 09/13/2010.3, Degenerated disc with facet arthritis and disc bulges as above. Dr. Ryder, neurologist has examined patient in the ED. Possible CVA. Patient will be admitted. Medical Screen Exam Complete: Yes Emergency Medical Condition: Yes Lab Data Result diagrams: 01/21/18 11:40 01/21/18 11:40 Lab Results 01/21/18 01/21/18 01/21/18 Range/Units 11:40 11:40 11:40 WBC 6.5 (4.0-11.0) th/mm3 RBC 4.45 L (4.50-5.90) mil/mm3 Hgb 13.7 (13.0-17.0) gm/dL POC Hgb (Calc) (13.0-17.0) g/dL Hct 40.2 (39.0-51.0) % POC Hct (39-51.0) % MCV 90.3 (80.0-100.0) fL MCH 30.8 (27.0-34.0) pg MCHC 34.1 (32.0-36.0) % RDW 15.6 (11.6-17.2) % Plt Count 216 (150-450) th/mm3 MPV 7.4 (7.0-11.0) fL Neut % (Auto) 72.5 H (16.0-70.0) % Lymph % (Auto) 13.0 (9.0-44.0) % [place] % (Auto) 13.4 H (0.0-8.0) % Eos % (Auto) 0.8 (0.0-4.0) % Baso % (Auto) 0.3 (0.0-2.0) % Neut # (Auto) 4.7 (1.8-7.7) th/mm3 Lymph # (Auto) 0.8 L (1.0-4.8) th/mm3 [place] # (Auto) 0.9 (0.0-0.9) th/mm3 Eos # (Auto) 0.1 (0.0-0.4) th/mm3 Baso # (Auto) 0.0 (0.0-0.2) th/mm3 WBC Differential . Differential Comment Auto diff final PT 25.5 H D (9.8-11.6) sec INR 2.5 Ratio APTT 38.7 H (24.3-30.1) sec POC Sodium (137-144) mmol/L Sodium (136-145) meq/L POC Potassium (3.6-5.0) mmol/L Potassium (3.5-5.1) meq/L POC Chloride (102-111) mmol/L Chloride (98-107) meq/L Carbon Dioxide (21.0-32.0) meq/L Anion Gap (5-15) meq/L POC BUN (5-21) mg/dL BUN (7-18) mg/dL Creatinine (0.60-1.30) mg/dL POC Creatinine (0.6-1.3) mg/dL Estimated GFR (>89) mL/min POC Glucose (68-110) mg/dL Random Glucose (74-106) mg/dL Lactic Acid 1.5 (0.4-2.0) mmol/L Calcium (8.5-10.1) mg/dL Magnesium (1.5-2.5) mg/dL Total Bilirubin (0.2-1.0) mg/dL AST (15-37) U/L ALT (12-78) U/L Alkaline Phosphatase (45-117) U/L Total Creatine Kinase (39-308) U/L Troponin I (0.02-0.05) ng/mL Total Protein (6.4-8.2) g/dL Albumin (3.4-5.0) g/dL Urine Color (Yellw/Straw) Urine Clarity (Clear) Urine pH (5.0-8.5) Ur Specific [place] (1.002-1.035) Urine Protein (Neg-Trace) mg/dL Urine Glucose (UA) (Negative) mg/dL Urine Ketones (Negative) mg/dL Urine Occult Blood (Negative) Urine Nitrate (Negative) Urine Bilirubin (Negative) Urine Urobilinogen (Less than 2) mg/dL Ur Leukocyte Esterase (Negative) Urine RBC (0-3) /hpf Urine WBC (0-5) /hpf Urine Mucus (Occasional) /lpf Micro UA Comment Ur Microscopic Review Urine Culture Comments 01/21/18 01/21/18 01/21/18 Range/Units 11:40 11:40 11:40 WBC (4.0-11.0) th/mm3 RBC (4.50-5.90) mil/mm3 Hgb (13.0-17.0) gm/dL POC Hgb (Calc) 13.3 (13.0-17.0) g/dL Hct (39.0-51.0) % POC Hct 39.0 (39-51.0) % MCV (80.0-100.0) fL MCH (27.0-34.0) pg MCHC (32.0-36.0) % RDW (11.6-17.2) % Plt Count (150-450) th/mm3 MPV (7.0-11.0) fL Neut % (Auto) (16.0-70.0) % Lymph % (Auto) (9.0-44.0) % [place] % (Auto) (0.0-8.0) % Eos % (Auto) (0.0-4.0) % Baso % (Auto) (0.0-2.0) % Neut # (Auto) (1.8-7.7) th/mm3 Lymph # (Auto) (1.0-4.8) th/mm3 [place] # (Auto) (0.0-0.9) th/mm3 Eos # (Auto) (0.0-0.4) th/mm3 Baso # (Auto) (0.0-0.2) th/mm3 WBC Differential Differential Comment PT (9.8-11.6) sec INR Ratio APTT (24.3-30.1) sec POC Sodium 134 L (137-144) mmol/L Sodium 133 L (136-145) meq/L POC Potassium 3.5 L (3.6-5.0) mmol/L Potassium 3.5 (3.5-5.1) meq/L POC Chloride 94 L (102-111) mmol/L Chloride 95 L (98-107) meq/L Carbon Dioxide 26.1 (21.0-32.0) meq/L Anion Gap 12 (5-15) meq/L POC BUN 13 (5-21) mg/dL BUN 14 (7-18) mg/dL Creatinine 0.85 (0.60-1.30) mg/dL POC Creatinine 0.8 (0.6-1.3) mg/dL Estimated GFR 86 L (>89) mL/min POC Glucose 94 (68-110) mg/dL Random Glucose 89 (74-106) mg/dL Lactic Acid (0.4-2.0) mmol/L Calcium 9.4 (8.5-10.1) mg/dL Magnesium 1.7 (1.5-2.5) mg/dL Total Bilirubin 1.5 H (0.2-1.0) mg/dL AST 21 (15-37) U/L ALT 31 (12-78) U/L Alkaline Phosphatase 61 (45-117) U/L Total Creatine Kinase 51 (39-308) U/L Troponin I Less than 0.02 L (0.02-0.05) ng/mL Total Protein 7.5 (6.4-8.2) g/dL Albumin 4.0 (3.4-5.0) g/dL Urine Color (Yellw/Straw) Urine Clarity (Clear) Urine pH (5.0-8.5) Ur Specific [place] (1.002-1.035) Urine Protein (Neg-Trace) mg/dL Urine Glucose (UA) (Negative) mg/dL Urine Ketones (Negative) mg/dL Urine Occult Blood (Negative) Urine Nitrate (Negative) Urine Bilirubin (Negative) Urine Urobilinogen (Less than 2) mg/dL Ur Leukocyte Esterase (Negative) Urine RBC (0-3) /hpf Urine WBC (0-5) /hpf Urine Mucus (Occasional) /lpf Micro UA Comment Ur Microscopic Review Urine Culture Comments 01/21/18 01/21/18 Range/Units 11:49 12:45 WBC (4.0-11.0) th/mm3 RBC (4.50-5.90) mil/mm3 Hgb (13.0-17.0) gm/dL POC Hgb (Calc) (13.0-17.0) g/dL Hct (39.0-51.0) % POC Hct (39-51.0) % MCV (80.0-100.0) fL MCH (27.0-34.0) pg MCHC (32.0-36.0) % RDW (11.6-17.2) % Plt Count (150-450) th/mm3 MPV (7.0-11.0) fL Neut % (Auto) (16.0-70.0) % Lymph % (Auto) (9.0-44.0) % [place] % (Auto) (0.0-8.0) % Eos % (Auto) (0.0-4.0) % Baso % (Auto) (0.0-2.0) % Neut # (Auto) (1.8-7.7) th/mm3 Lymph # (Auto) (1.0-4.8) th/mm3 [place] # (Auto) (0.0-0.9) th/mm3 Eos # (Auto) (0.0-0.4) th/mm3 Baso # (Auto) (0.0-0.2) th/mm3 WBC Differential Differential Comment PT (9.8-11.6) sec INR Ratio APTT (24.3-30.1) sec POC Sodium (137-144) mmol/L Sodium (136-145) meq/L POC Potassium (3.6-5.0) mmol/L Potassium (3.5-5.1) meq/L POC Chloride (102-111) mmol/L Chloride (98-107) meq/L Carbon Dioxide (21.0-32.0) meq/L Anion Gap (5-15) meq/L POC BUN (5-21) mg/dL BUN (7-18) mg/dL Creatinine (0.60-1.30) mg/dL POC Creatinine (0.6-1.3) mg/dL Estimated GFR (>89) mL/min POC Glucose 103 (68-110) mg/dL Random Glucose (74-106) mg/dL Lactic Acid (0.4-2.0) mmol/L Calcium (8.5-10.1) mg/dL Magnesium (1.5-2.5) mg/dL Total Bilirubin (0.2-1.0) mg/dL AST (15-37) U/L ALT (12-78) U/L Alkaline Phosphatase (45-117) U/L Total Creatine Kinase (39-308) U/L Troponin I (0.02-0.05) ng/mL Total Protein (6.4-8.2) g/dL Albumin (3.4-5.0) g/dL Urine Color Yellow (Yellw/Straw) Urine Clarity Clear (Clear) Urine pH 8.0 (5.0-8.5) Ur Specific [place] 1.015 (1.002-1.035) Urine Protein Negative (Neg-Trace) mg/dL Urine Glucose (UA) Negative (Negative) mg/dL Urine Ketones Trace H (Negative) mg/dL Urine Occult Blood Negative (Negative) Urine Nitrate Negative (Negative) Urine Bilirubin Negative (Negative) Urine Urobilinogen Less than 2 (Less than 2) mg/dL Ur Leukocyte Esterase Negative (Negative) Urine RBC Less than 1 (0-3) /hpf Urine WBC Less than 1 (0-5) /hpf Urine Mucus Few H (Occasional) /lpf Micro UA Comment Cath-culture not ind Ur Microscopic Review Not Reportable Urine Culture Comments Cath-cult not ind Imaging Data Radiologist's impression: Abdomen/Pelvis CT 01/21/18 11:31 CONCLUSION: 1. No acute findings. Nonacute findings include hiatal hernia, mild constipation, advanced degenerative disease in the spine with stable mild compression deformities. 2. Stable bilateral renal cysts. Pacer leads in right atrium and right ventricle. Chest X-Ray 01/21/18 11:31 CONCLUSION: Basilar atelectasis. No effusion or pneumothorax. Cardiomegaly. Previous mitral valve replacement. Head CT 01/21/18 11:31 CONCLUSION: 1. No acute intracranial abnormality. Report was called by [Dr. Deepak Erwin to Dr. Perdomo ] Lumbar Spine CT 01/21/18 11:39 CONCLUSION: 1. Previous lumbar fusion across the L4-5 level stable compared to previous. 2. Mild compression fractures involving T12, L1, L2, L3, L4 and L5. These are all stable compared to previous examination dated 09/13/2010. 3. Degenerated disc with facet arthritis and disc bulges as above. Head CTA 01/21/18 12:01 CONCLUSION: Intracranial vessels are all patent without aneurysmal or embolic disease. Neck CTA 01/21/18 12:01 CONCLUSION: 1. No hemodynamically significant carotid artery stenosis identified. 2. Diminutive left vertebral which terminates in a PICA. Discharge Plan Discharge Disposition Patient Disposition: 30 Still Patient Discharge Details Diagnosis: Altered mental status Physicians Team ED Provider: Uday Hickey ED Midlevel Provider: Rylee Dacosta Primary Care Provider: Corazon Peck Attending Provider: Brady Hamilton Other Providers: Zelalem Ryder Mark C Status ED Status: Left Department Discharge Information Discharge Date/Time: 01/21/18 19:21
[2018-01-21 12:03] LABS: Baso % (Auto) 0.3 % (0.0-2.0); Eos # (Auto) 0.1 th/mm3 (0.0-0.4); Eos % (Auto) 0.8 % (0.0-4.0); Hematocrit 40.2 % (39.0-51.0); Hemoglobin 13.7 gm/dL (13.0-17.0); Lymph # (Auto) 0.8 th/mm3 (1.0-4.8); Mean Corpuscular HGB Conc 34.1 % (32.0-36.0); Mean Corpuscular Hemoglobin 30.8 pg (27.0-34.0); Mean Corpuscular Volume 90.3 fL (80.0-100.0); Mean Platelet Volume 7.4 fL (7.0-11.0); Mono # (Auto) 0.9 th/mm3 (0.0-0.9); Mono % (Auto) 13.4 % (0.0-8.0); Neut # (Auto) 4.7 th/mm3 (1.8-7.7); Neut % (Auto) 72.5 % (16.0-70.0); Platelet Count 216 th/mm3 (150-450); Red Blood Count 4.45 mil/mm3 (4.50-5.90); Red Cell Distribution Width 15.6 % (11.6-17.2); White Blood Count 6.5 th/mm3 (4.0-11.0)
[2018-01-21 12:14] LABS: Activated Partial Thrombo Time 38.7 sec (24.3-30.1); INR 2.5 Ratio; Prothrombin Time 25.5 sec (9.8-11.6)
--- NOTE | 2018-01-21 12:15 | CT ---
EXAM DATE: 01/21/2018 11:57 AM EDT AGE/SEX: 82 years / Male INDICATIONS: Sudden onset difficulty speaking CLINICAL DATA: This is the patient's initial encounter. Patient reports that signs and symptoms have been present for 1 day and indicates a pain score of 0/10. MEDICAL/SURGICAL HISTORY: Non-responsive. Non-responsive. RADIATION DOSE: 57.94 CTDI (mGy) COMPARISON: No prior exams available for comparison. TECHNIQUE: CT of the head without contrast. Using automated exposure control and adjustment of the mA and/or kV according to patient size, radiation dose was kept as low as reasonably achievable to ob tain optimal diagnostic quality images. DICOM format image data is available electronically for revi ew and comparison. FINDINGS: Cerebrum: The ventricles are normal for age. No evidence of midline shift, mass lesion, hemorrhage or acute infarction. No extraaxial fluid collections are seen. Posterior Fossa: The cerebellum and brainstem are intact. The 4th ventricle is midline. The cerebe llopontine angle is unremarkable. Extracranial: The visualized portion of the orbits is intact. Skull: The calvaria is intact. No evidence of skull fracture. CONCLUSION: 1. No acute intracranial abnormality. Report was called by [Dr. Deepak Erwin to Dr. Perdomo ] Electronically signed by: Carroll Erwin MD 01/21/2018 12:13 PM EDT
--- NOTE | 2018-01-21 12:36 | CT ---
EXAM DATE: 01/21/2018 12:03 PM EDT AGE/SEX: 82 years / Male INDICATIONS: Stroke alert, sudden onset of difficulty speaking. CLINICAL DATA: This is the patient's initial encounter. Patient reports that signs and symptoms have been present for 1 day and indicates a pain score of Nonresponsive. MEDICAL/SURGICAL HISTORY: Non-responsive. Non-responsive. RADIATION DOSE: 28.21 CTDI (mGy) ; Combined studies COMPARISON: [facility] [place], CT HEAD W/O CONTRAST, 01/21/2018. . TECHNIQUE: Volumetric scanning was performed using a multi-row detector CT scanner during bolus infu gisela of 100 ml Visipaque 320 (iodixanol) nonionic water-soluble contrast as a cumulative dose for mu ltiple exams. The data was post processed with a variety of visualization algorithms including full volume maximum intensity projection, multi-planar sliding thin slab reformation, curved planar refor mation, and surface rendering techniques. Using automated exposure control and adjustment of the mA and/or kV according to patient size, radiation dose was kept as low as reasonably achievable to obtai n optimal diagnostic quality images. DICOM format image data is available electronically for review and comparison. FINDINGS: There is excellent visualization of the major intracranial arteries out to the second-order branch ve ssels. There is no evidence for aneurysm, vessel truncation or stenosis, and no evidence for vascula r malformation. CONCLUSION: Intracranial vessels are all patent without aneurysmal or embolic disease. Electronically signed by: Aleksey Waite MD 01/21/2018 12:34 PM EDT
[2018-01-21 12:41] LABS: Alanine Aminotransferase 31 U/L (12-78); Anion Gap 12 meq/L (5-15); Aspartate Aminotransferase 21 U/L (15-37); Blood Urea Nitrogen 14 mg/dL (7-18); Calcium 9.4 mg/dL (8.5-10.1); Carbon Dioxide 26.1 meq/L (21.0-32.0); Chloride 95 meq/L (98-107); Glomerular Filtration Rate 86 mL/min (>89); Glucose,Random 89 mg/dL (74-106); Potassium 3.5 meq/L (3.5-5.1); Sodium 133 meq/L (136-145)
[2018-01-21 12:45] LABS: Alkaline Phosphatase 61 U/L (45-117); Total Protein 7.5 g/dL (6.4-8.2)
[2018-01-21 12:52] LABS: Creatine Kinase 51 U/L (39-308)
--- NOTE | 2018-01-21 13:00 | CT ---
EXAM DATE: 01/21/2018 12:03 PM EDT AGE/SEX: 82 years / Male INDICATIONS: Stroke alert, sudden onset of difficulty speaking. CLINICAL DATA: This is the patient's initial encounter. Patient reports that signs and symptoms have been present for 1 day and indicates a pain score of Nonresponsive. MEDICAL/SURGICAL HISTORY: Non-responsive. Non-responsive. RADIATION DOSE: 28.21 CTDI (mGy) ; Combined studies COMPARISON: No prior exams available for comparison. TECHNIQUE: Volumetric scanning was performed using a multirow detector CT scanner during bolus infus ion of 100 ml Visipaque 320 (iodixanol) nonionic water-soluble contrast as a cumulative dose for mul tiple exams. The data was postprocessed with a variety of visualization algorithms including full-v olume maximum intensity projection, multiplanar sliding thin-slab reformation, curved-planar reformat ion, and surface-rendering techniques. Using automated exposure control and adjustment of the mA and /or kV according to patient size, radiation dose was kept as low as reasonably achievable to obtain o ptimal diagnostic quality images. DICOM format image data is available electronically for review and comparison. Percent stenosis is calculated using the diameter of the stenotic region over the diameter of the nor mal distal internal carotid artery. FINDINGS: Aortic arch: There is normal anatomic branching of the great vessels from the arch. The origins of th e great vessels are widely patent. Right carotid: The right common carotid is widely patent. There is mild atherosclerotic plaquing at t he bifurcation. The internal carotid and external carotid appear adequate in caliber throughout their course. There is some mild motion artifact just above the bifurcation. Left carotid: The left common carotid is widely patent. There is mild calcified plaquing at the bifur cation. The internal carotid Carotid appear widely patent throughout their course. Vertebral circulation: The left vertebral is diminutive in caliber. The right vertebral is dominant b lood supply to the posterior fossa. It is widely patent. The left vertebral terminates in a PICA. The basilar is widely patent. CONCLUSION: 1. No hemodynamically significant carotid artery stenosis identified. 2. Diminutive left vertebral which terminates in a PICA. Electronically signed by: Carroll Erwin MD 01/21/2018 12:58 PM EDT
--- NOTE | 2018-01-21 13:14 | CT ---
EXAM DATE: 01/21/2018 11:57 AM EDT AGE/SEX: 82 years / Male INDICATIONS: Abdominal and back pain. CLINICAL DATA: This is the patient's initial encounter. Patient reports that signs and symptoms have been present for 1 day and indicates a pain score of 10/10. MEDICAL/SURGICAL HISTORY: Non-responsive. Non-responsive. ORAL CONTRAST: No oral contrast ingested. RADIATION DOSE: 15.21 CTDI (mGy) COMPARISON: [facility], CT ABDOMEN AND PELVIS W/ CONTRAST, 05/02/2016. . TECHNIQUE: Multiple contiguous axial images were obtained through the abdomen and pelvis following b olus infusion of 100 ml Visipaque 320 (iodixanol) nonionic water-soluble contrast as a cumulative d ose for multiple exams. No oral contrast ingested. Using automated exposure control and adjustment o f the mA and/or kV according to patient size, radiation dose was kept as low as reasonably achievable to obtain optimal diagnostic quality images. DICOM format image data is available electronically fo r review and comparison. FINDINGS: Lung bases clear except for some dependent atelectasis. Pacer leads in right atrium and right ventric le. Bilateral renal cysts measuring up to 7.5 cm on the right and 3 cm on the left similar to prior CT fr om April 2016. No acute findings in the liver, spleen, adrenals or pancreas. No calcified gallstones or biliary duct al dilatation. No pelvic mass or adenopathy. Mild constipation. Previous right hip replacement. Previous fusion lowe r lumbar spine at L4 and L5. Mild compression deformities in the lumbar spine not significantly yuen ed since April 2016. CONCLUSION: 1. No acute findings. Nonacute findings include hiatal hernia, mild constipation, advanced degenerat mingo disease in the spine with stable mild compression deformities. 2. Stable bilateral renal cysts. Pacer leads in right atrium and right ventricle. Electronically signed by: Elian Renner MD 01/21/2018 1:13 PM EDT
--- NOTE | 2018-01-21 13:15 | XR ---
EXAM DATE: 01/21/2018 11:31 AM EDT AGE/SEX: 82 years / Male INDICATIONS: Stroke alert. CLINICAL DATA: This is the patient's initial encounter. Patient reports that signs and symptoms have been present for 1 day and indicates a pain score of 0/10. MEDICAL/SURGICAL HISTORY: None. None. COMPARISON: [facility] [place], CHEST SINGLE AP, 07/23/2016. . FINDINGS: Pacer leads in right atrium and right ventricle. Previous sternotomy and valve replacement. Basilar a telectasis. No effusion or pneumothorax. CONCLUSION: Basilar atelectasis. No effusion or pneumothorax. Cardiomegaly. Previous mitral valve replacement. Electronically signed by: Elian Renner MD 01/21/2018 1:13 PM EDT
--- NOTE | 2018-01-21 13:28 | CT ---
EXAM DATE: 01/21/2018 11:57 AM EDT AGE/SEX: 82 years / Male INDICATIONS: Abdominal and back pain. CLINICAL DATA: This is the patient's initial encounter. Patient reports that signs and symptoms have been present for 1 day and indicates a pain score of 10/10. MEDICAL/SURGICAL HISTORY: Non-responsive. Non-responsive. RADIATION DOSE: . CTDI (mGy) ; Reconstructed from previous dataset, no dose COMPARISON: [facility] – [place], [place] LUMBAR SPINE W CONTRAST, 09/13/2010. . TECHNIQUE: Contiguous axial images were acquired with a multirow detector CT scanner after intraveno us administration of 100 ml Omnipaque 350 (iohexol) nonionic water-soluble contrast as a cumulative dose for multiple exams. Multiplanar reconstructions in the sagittal and coronal plane were also per formed. Using automated exposure control and adjustment of the mA and/or kV according to patient size , radiation dose was kept as low as reasonably achievable to obtain optimal diagnostic quality images . DICOM format image data is available electronically for review and comparison. FINDINGS: Sagittal and coronal reformats demonstrate previous lumbar fusion across the L4/5 level. There are pa ired transpedicular screws. The hardware appears well positioned. There are mild compression fractures involving L1, L2 and L3. There is no evidence of bony retropulsi on. Comparison is made to a previous dated 09/13/2010. The mild compression fractures are unchanged. T he hardware is unchanged in alignment. T12-L1: There is minimal disc bulge. There is mild facet arthritis bilaterally. The thecal space and foramina are adequate. L1-L2: There is a degenerated disc with broad-based disc bulge and osteophytic ridging. This effaces the ventral thecal sac. There is moderate facet arthritis bilaterally with degenerative facet hypert rophy. The exam would suggest at least a mild degree of spinal stenosis at this level. L2-L3: There is a degenerated disc with broad-based disc bulge and osteophytic ridging which effaces the ventral thecal sac. There is moderate facet arthritis bilaterally. There has been laminectomy on the right side at this level. L3-L4: There is a degenerated disc with broad-based disc protrusion and osteophytic ridging effacing the ventral thecal sac. The facet joints demonstrate moderate arthritic changes bilaterally. There h as been decompressive laminotomy on the right. There is encroachment of disc bulge on the lateral rec ess and foramina bilaterally. L4-L5: This level is fused. The spacing material hardware appear intact. L5-S1: There is a small broad-based, predominantly right-sided disc bulge. This effaces the ventral thecal sac. There is encroachment of disc bulge on the lateral recess and foraminal on the right. The re is mild facet arthritis bilaterally. CONCLUSION: 1. Previous lumbar fusion across the L4-5 level stable compared to previous. 2. Mild compression fractures involving T12, L1, L2, L3, L4 and L5. These are all stable compared to previous examination dated 09/13/2010. 3. Degenerated disc with facet arthritis and disc bulges as above. Electronically signed by: Carroll Erwin MD 01/21/2018 1:26 PM EDT
[2018-01-21 13:30] LABS: Bilirubin,Urine Negative (Negative); Clarity,Urine Clear (Clear); Color,Urine Yellow (Yellw/Straw); Glucose,Urine (UA) Negative (Negative); Leukocyte Esterase,Urine Negative (Negative); Mucus,Urine Few /lpf (Occasional); Nitrite,Urine Negative (Negative); Specific Gravity,Urine 1.015 (1.002-1.035)
[2018-01-21] MEDS ORDERED: Bisacodyl 10 MG Supp RECTAL PRN (14:06)
[2018-01-21] MEDS ORDERED: Warfarin Consult Pharmacy OTHER PRN (14:15)
--- NOTE | 2018-01-21 14:25 | MB ---
cc: Zelalem Ryder MD, PhD DATE: 01/21/2018 REASON FOR CONSULTATION: Stroke alert. HISTORY OF PRESENT ILLNESS: Mr. Arteaga is an 82-year-old right-handed white male who had lumbar surgery about a week ago. He has atrial fibrillation. He was in the emergency room today because of severe low back pain. While in the ER, suddenly had a change in mental status, became very confused with difficulty with his speech. A stroke alert was called. Initial NIH stroke scale was 3. Serum glucose is normal. The patient has since gone for a CT of the brain as well as CT angiogram. PAST MEDICAL HISTORY: Remarkable for atrial fibrillation. He has a history of recent lumbar spine surgery about a week ago. His Coumadin was on hold for that, but has resumed his Coumadin. INR about a week ago was 1.4. He has a pacemaker, hypertension, colon resection, cardiac bypass surgery. MEDICATIONS: 1. Omeprazole 20 mg daily. 2. Coumadin 6 mg Thursday, , Thursday, Thursday, 3 mg 2 days a week. 3. Calcium carbonate. 4. Hydrocodone as needed for pain. 5. Multivitamin. 6. Atorvastatin 20 mg daily. 7. Sotalol 120 mg b.i.d. 8. Carvedilol 3.125 mg b.i.d. 9. Aspirin 81 mg daily. 10. Levothyroxine 25 mcg daily. PHYSICAL EXAMINATION: VITAL SIGNS: Blood pressure 137/71, pulse is 80, respirations are 19, temperature 98.1 degrees. NEUROLOGIC: Higher cortical function, the patient is alert. He has got right-sided neglect. Orients mainly to the left. He has what appears to be mainly a receptive aphasia. Has difficulty following commands. He makes paraphasic errors with his speech. He cannot repeat simple phrases. Cranial nerves are intact. Again, he has got more orientation to the left. On motor exam, he appears to have some weakness in the right arm compared with the left with a mild drift, although difficult to fully ascertain because of the comprehension deficit. Reflexes are symmetric. IMAGING STUDIES: CT of the brain, no acute change. CT angiogram of the brain shows no evidence of any large vessel occlusion. LABORATORY DATA: His INR currently is 2.5. His PT 25.5, APTT 38.7. Sodium is 134, potassium 3.5, chloride is 94, CO2 is 26.1, the BUN is 13, creatinine 0.85, glucose is 103, AST is 21, ALT 31. CPK less than 0.29. His white count is 6500, hemoglobin 13.7, hematocrit 40.2%, platelet count 216,000. Sedimentation rate is 2. IMPRESSION: Probable left hemisphere stroke with Wernicke's aphasia. He appears to have some mild right-sided weakness. He is not a TPA candidate because of the INR being 2.5 as well as the recent lumbar surgery. There is no evidence of any large vessel occlusion for intervention. This was discussed with interventional radiology. RECOMMENDATION: Continue Coumadin, IV fluids, normal saline 70 mL an hour. Maintain bedrest with head of bed flat status. Zelalem Ryder MD, PhD ASAF/james , 12:45 PM , 12:54 PM
--- NOTE | 2018-01-21 14:47 | P.HP ---
History of Present Illness Service: Hospitalist Primary Care Physician: Corazon Peck MD Chief Complaint: Altered mental status. History of Present Illness: Mr. Arteaga is an 82-year-old male with a recent history of laminectomy, mitral valve repair, CABG x5, atrial fibrillation who presents to the emergency department for back pain evaluation. Per [facility], patient was initially alert and oriented. However, later on patient was found to have difficulty finding words and speaking in full sentences. He had expressive dysphasia. Stroke alert was activated. Patient was evaluated by neurologist. Patient is not a candidate for TPA administration. Patient underwent CT studies which did not reveal any acute hemorrhage. Patient's INR is 2.5. Other studies including UA , chest x-ray are unremarkable for any acute findings. At the time of this interview, patient wakes up on verbal commands but not very cooperative. He is somewhat annoyed by my questions. However he follows commands appropriately. No chest pain, shortness of breath, fever or chills. No changes in bowel or bladder habits. Past medical history: CAD status post CABG x5, mitral valve repair, atrial fibrillation, colon cancer, prostate cancer. Past surgical history: Mitral valve repair, colon cancer surgery, prostate cancer surgery, hip replacement. Social history: Patient denies using tobacco. He drinks about 1-2 drinks per night per his . No illicit drug use. Family history: No family history of Alzheimer's or Parkinson's. - Diagnosis (1) Atrial fibrillation (2) CAD (coronary artery disease) (3) Lumbar spinal stenosis (4) Altered mental status Review of Systems All other systems reviewed negative except as stated in HPI ON LICENSE OF [facility] - History History Provided By: Patient - Medical History Medical History: Medical History (Last Reviewed 01/21/18 @ 11:29 by Kate Nunes) Atrial fibrillation GERD (gastroesophageal reflux disease) Hearing loss History of Clostridium difficile infection History of cellulitis History of sepsis Hypercholesteremia Hypothyroid Osteoarthritis - Surgical History Surgical History: Surgical History (Last Reviewed 01/21/18 @ 11:29 by Kate Nunes) H/O heart bypass surgery History of arthroscopic knee surgery History of back surgery History of cataract extraction with lens replacement History of colon resection History of prostatectomy Hx of CABG S/P hip replacement - Tobacco History Second Hand Smoke Exposure: No Smoking Status: Never smoker - Alcohol History How Often Do You Have a Drink Containing Alcohol: Never - Substance Use History Substance History: No History of Abuse - Travel History Recent Travel in the [place] Within the Last 8 Weeks: No Recent Travel Out of the Country Within the Last 8 Weeks: No - Immunization History Tetanus Immunization: >5 Years Hx Influenza Vaccine This Season: Yes Medications and Allergies Active Medications: Active Medications Acetaminophen (Tylenol) 650 mg PO Q4H PRN PRN Reason: Headache, fever, pain 1-4 Al Hydroxide/Mg Hydroxide (Milk Of Magnesia Liq) 30 ml PO Q12H PRN PRN Reason: Mild Constipation Aspirin (Aspirin Chew) 81 mg PO DAILY YANNA Atorvastatin Calcium (Lipitor) 20 mg PO DAILY YANNA Bisacodyl (Dulcolax Supp) 10 mg RECTAL DAILY PRN PRN Reason: SEVERE CONSITIPATION Carvedilol (Coreg) 3.125 mg PO BID YANNA Lactulose (Lactulose Liq) 30 ml PO DAILY PRN PRN Reason: SEVERE CONSITIPATION Non-Formulary Medication (Calcium Carbonate-Vitamin D3 [Calcium 600 + D(3)]) 1 tab PO DAILY YANNA Non-Formulary Medication (Levothyroxine [Levothyroxine]) 25 mcg PO DAILY YANNA Non-Formulary Medication (Sotalol [Sotalol]) 120 mg PO BID YANNA Non-Formulary Medication (Omeprazole [Omeprazole]) 20 mg PO 3XW YANNA Ondansetron HCl (Zofran Inj) 4 mg IV.PUSH Q6H PRN PRN Reason: NAUSEA OR VOMITING Pharmacy Profile Note (Coumadin Consult Pharmacy) 1 each OTHER UNSCH PRN PRN Reason: PHARMACY DOCUMENTATION Sennosides (Senokot) 17.2 mg PO Q12H PRN PRN Reason: Moderate Constipation Sodium Chloride (Ns Flush) 2 ml IV.FLUSH PRN PRN PRN Reason: FLUSH AFTER USING IV ACCESS Allergies Allergy/AdvReac Type Severity Reaction Status Date / Time morphine Allergy Severe Confusion Verified 01/21/18 11:27 Home Medications Medication Instructions Recorded Confirmed Type aspirin 81 mg PO DAILY 01/01/18 01/21/18 History atorvastatin 20 mg PO DAILY 01/01/18 01/21/18 History carvedilol 3.125 mg PO BID 01/01/18 01/21/18 History levothyroxine 25 mcg PO DAILY 01/01/18 01/21/18 History multivitamin 1 tab PO DAILY 01/01/18 01/21/18 History sotalol 120 mg PO BID 01/01/18 01/21/18 History calcium carbonate-vitamin D3 1 tab PO DAILY 01/12/18 01/21/18 History [Calcium 600 + D(3)] [id number] oil [Alba-3 1 cap PO DAILY 01/12/18 01/21/18 History Fish Oil] omeprazole 20 mg PO 3XW 01/12/18 01/21/18 History warfarin [Coumadin] 3 mg PO 2XWEEK 01/12/18 01/21/18 History warfarin [Coumadin] 6 mg PO [id number] 01/12/18 01/21/18 History Exam Vital signs: Vital Signs 01/21/18 10:53 01/21/18 11:24 01/21/18 11:42 Temperature 98.1 F Pulse Rate 80 85 80 Respiratory Rate 19 18 Blood Pressure 137/71 174/85 H Pulse Oximetry 97 99 97 01/21/18 11:51 01/21/18 12:30 01/21/18 13:54 Temperature Pulse Rate 84 76 Respiratory Rate 20 18 Blood Pressure 184/69 H 137/90 Pulse Oximetry 98 99 97 Intake & Output 01/20/18 01/21/18 01/21/18 18:59 06:59 18:59 Intake Total 500 / 500 Output Total 700 / 700 Balance -200 / -200 Weight 74.843 kg Intake: IV 500 / 500 NS Inj 500 ML @ Wide Open IV. 500 / 500 SIG BOLUS ONE Rx#:[id number] Output: Urine Amount (Catheter) 700 / 700 Straight 700 / 700 Narrative: GENERAL: This is a well-nourished, well-developed patient, in no apparent distress. SKIN: No rashes, ecchymoses or lesions. Warm and dry. HEAD: Atraumatic. Normocephalic. No temporal or scalp tenderness. EYES: Pupils equal round and reactive. No injection or drainage. ENT: Nose without bleeding, purulent drainage or septal hematoma. Airway patent. NECK: Trachea midline. No lymphadenopathy. Supple, nontender, no meningeal signs. CARDIOVASCULAR: Regular rate and rhythm without murmurs, gallops, or rubs. No JVD. RESPIRATORY: Clear to auscultation. Breath sounds equal bilaterally. No wheezes , rales, or rhonchi. GASTROINTESTINAL: Abdomen soft, non-tender, nondistended. No guarding. MUSCULOSKELETAL: Extremities without clubbing, cyanosis, or edema. NEUROLOGICAL: Awake and alert. Cranial nerves II through XII intact. No focal neurological deficits. Normal speech. Results - Labs CBC & Chem 7: 01/21/18 11:40 01/21/18 11:40 Labs: Laboratory Results - last 24 hr 01/21/18 01/21/18 01/21/18 11:40 11:40 11:40 WBC 6.5 RBC 4.45 L Hgb 13.7 POC Hgb (Calc) Hct 40.2 POC Hct MCV 90.3 MCH 30.8 MCHC 34.1 RDW 15.6 Plt Count 216 MPV 7.4 Neut % (Auto) 72.5 H Lymph % (Auto) 13.0 [place] % (Auto) 13.4 H Eos % (Auto) 0.8 Baso % (Auto) 0.3 Neut # (Auto) 4.7 Lymph # (Auto) 0.8 L [place] # (Auto) 0.9 Eos # (Auto) 0.1 Baso # (Auto) 0.0 WBC Differential . Differential Comment Auto diff final PT 25.5 H D INR 2.5 APTT 38.7 H POC Sodium Sodium POC Potassium Potassium POC Chloride Chloride Carbon Dioxide Anion Gap POC BUN BUN Creatinine POC Creatinine Estimated GFR POC Glucose Random Glucose Lactic Acid 1.5 Calcium Magnesium Total Bilirubin AST ALT Alkaline Phosphatase Total Creatine Kinase Troponin I Total Protein Albumin Urine Color Urine Clarity Urine pH Ur Specific [place] Urine Protein Urine Glucose (UA) Urine Ketones Urine Occult Blood Urine Nitrate Urine Bilirubin Urine Urobilinogen Ur Leukocyte Esterase Urine RBC Urine WBC Urine Mucus Micro UA Comment Ur Microscopic Review Urine Culture Comments 01/21/18 01/21/18 01/21/18 11:40 11:40 11:40 WBC RBC Hgb POC Hgb (Calc) 13.3 Hct POC Hct 39.0 MCV MCH MCHC RDW Plt Count MPV Neut % (Auto) Lymph % (Auto) [place] % (Auto) Eos % (Auto) Baso % (Auto) Neut # (Auto) Lymph # (Auto) [place] # (Auto) Eos # (Auto) Baso # (Auto) WBC Differential Differential Comment PT INR APTT POC Sodium 134 L Sodium 133 L POC Potassium 3.5 L Potassium 3.5 POC Chloride 94 L Chloride 95 L Carbon Dioxide 26.1 Anion Gap 12 POC BUN 13 BUN 14 Creatinine 0.85 POC Creatinine 0.8 Estimated GFR 86 L POC Glucose 94 Random Glucose 89 Lactic Acid Calcium 9.4 Magnesium 1.7 Total Bilirubin 1.5 H AST 21 ALT 31 Alkaline Phosphatase 61 Total Creatine Kinase 51 Troponin I Less than 0.02 L Total Protein 7.5 Albumin 4.0 Urine Color Urine Clarity Urine pH Ur Specific [place] Urine Protein Urine Glucose (UA) Urine Ketones Urine Occult Blood Urine Nitrate Urine Bilirubin Urine Urobilinogen Ur Leukocyte Esterase Urine RBC Urine WBC Urine Mucus Micro UA Comment Ur Microscopic Review Urine Culture Comments 01/21/18 01/21/18 11:49 12:45 WBC RBC Hgb POC Hgb (Calc) Hct POC Hct MCV MCH MCHC RDW Plt Count MPV Neut % (Auto) Lymph % (Auto) [place] % (Auto) Eos % (Auto) Baso % (Auto) Neut # (Auto) Lymph # (Auto) [place] # (Auto) Eos # (Auto) Baso # (Auto) WBC Differential Differential Comment PT INR APTT POC Sodium Sodium POC Potassium Potassium POC Chloride Chloride Carbon Dioxide Anion Gap POC BUN BUN Creatinine POC Creatinine Estimated GFR POC Glucose 103 Random Glucose Lactic Acid Calcium Magnesium Total Bilirubin AST ALT Alkaline Phosphatase Total Creatine Kinase Troponin I Total Protein Albumin Urine Color Yellow Urine Clarity Clear Urine pH 8.0 Ur Specific [place] 1.015 Urine Protein Negative Urine Glucose (UA) Negative Urine Ketones Trace H Urine Occult Blood Negative Urine Nitrate Negative Urine Bilirubin Negative Urine Urobilinogen Less than 2 Ur Leukocyte Esterase Negative Urine RBC Less than 1 Urine WBC Less than 1 Urine Mucus Few H Micro UA Comment Cath-culture not ind Ur Microscopic Review Not Reportable Urine Culture Comments Cath-cult not ind - Imaging Impressions Abdomen/Pelvis CT 01/21/18 11:31 CONCLUSION: 1. No acute findings. Nonacute findings include hiatal hernia, mild constipation, advanced degenerative disease in the spine with stable mild compression deformities. 2. Stable bilateral renal cysts. Pacer leads in right atrium and right ventricle. Chest X-Ray 01/21/18 11:31 CONCLUSION: Basilar atelectasis. No effusion or pneumothorax. Cardiomegaly. Previous mitral valve replacement. Head CT 01/21/18 11:31 CONCLUSION: 1. No acute intracranial abnormality. Report was called by [Dr. Deepak Erwin to Dr. Perdomo ] Lumbar Spine CT 01/21/18 11:39 CONCLUSION: 1. Previous lumbar fusion across the L4-5 level stable compared to previous. 2. Mild compression fractures involving T12, L1, L2, L3, L4 and L5. These are all stable compared to previous examination dated 09/13/2010. 3. Degenerated disc with facet arthritis and disc bulges as above. Head CTA 01/21/18 12:01 CONCLUSION: Intracranial vessels are all patent without aneurysmal or embolic disease. Neck CTA 01/21/18 12:01 CONCLUSION: 1. No hemodynamically significant carotid artery stenosis identified. 2. Diminutive left vertebral which terminates in a PICA. Caprini VTE Risk Assessment Caprini VTE Risk Assessment: Moderate/High Risk (score >= 2) Caprini Risk Assessment Model: Point Value = 1 Point Value = 2 Point Value = 3 Point Value = 5 Age 41-60 Minor surgery BMI > 25 kg/m2 Swollen legs Varicose veins or History of unexplained or recurrent spontaneous Oral contraceptives or hormone replacement Sepsis (< 1 month) Serious lung disease, including pneumonia (< 1 month) Abnormal pulmonary function Acute myocardial infarction Congestive heart failure (< 1 month) History of inflammatory bowel disease Medical patient at bed rest Age 61-74 Arthroscopic surgery Major open surgery (> 45 min) Laparoscopic surgery (> 45 min) Malignancy Confined to bed (> 72 hours) Immobilizing plaster cast Central venous access Age >= 75 History of VTE Family history of VTE Factor V Leiden Prothrombin [id number] Lupus anticoagulant Anticardiolipin antibodies Elevated serum homocysteine Heparin-induced thrombocytopenia Other congenital or acquired thrombophilia Stroke (< 1 month) Elective arthroplasty Hip, pelvis, or leg fracture Acute spinal cord injury (< 1 month) Prophylaxis Regimen: Total Risk Factor Score Risk Level Prophylaxis Regimen 0-1 Low Early ambulation 2 Moderate Order ONE of the following: *Sequential Compression Device (SCD) *Heparin 5000 units SQ BID 3-4 Higher Order ONE of the following medications: *Heparin 5000 units SQ TID *Enoxaparin/Lovenox 40 mg SQ daily (WT < 150 kg, CrCl > 30 mL/min) *Enoxaparin/Lovenox 30 mg SQ daily (WT < 150 kg, CrCl > 10-29 mL/min) *Enoxaparin/Lovenox 30 mg SQ BID (WT < 150 kg, CrCl > 30 mL/min) AND/OR *Sequential Compression Device (SCD) 5 or more Highest Order ONE of the following medications: *Heparin 5000 units SQ TID (Preferred with Epidurals) *Enoxaparin/Lovenox 40 mg SQ daily (WT < 150 kg, CrCl > 30 mL/min) *Enoxaparin/Lovenox 30 mg SQ daily (WT < 150 kg, CrCl > 10-29 mL/min) *Enoxaparin/Lovenox 30 mg SQ BID (WT < 150 kg, CrCl > 30 mL/min) AND *Sequential Compression Device (SCD) Assessment and Plan - Assessment (1) Atrial fibrillation Code(s): I48.91 - Unspecified atrial fibrillation Status: Acute (2) CAD (coronary artery disease) Code(s): I25.10 - Atherosclerotic heart disease of [place] coronary artery without angina pectoris Status: Acute (3) Lumbar spinal stenosis Code(s): M48.061 - Spinal stenosis, lumbar region without neurogenic claudication Status: Acute (4) Altered mental status Code(s): R41.82 - Altered mental status, unspecified Status: Acute - Plan Mr. Arteaga is a pleasant 82-year-old male with a history of CAD status post CABG x5, mitral valve repair, atrial fibrillation on Coumadin who presents to the emergency department today due to intractable back pain. Patient recently underwent laminectomy by Dr. Rehan Jarrell. During ED evaluation, patient was found to have altered mental status. He displayed expressive dysphasia as well as disorientation. Stroke alert was not initiated. Patient was evaluated by neurology. Acute intractable pain -Recent laminectomy. -Pt is allergic to Morphine. Will give him Dilaudid 0.5mg IV now. -Will keep patient on PO and IV pain meds. -Will consult Dr. Jarrell. Acute encephalopathy Possible ischemic stroke -Appreciate neurology evaluation. Patient is not a candidate for TPA. -May need MRI studies. -Patient's encephalopathy could also be related to pain. CAD s/p CABG x 5 Atrial fibrillation Hx of Mitral valve repair -Currently on Warfarin. INR today 2.5. -Will continue carvedilol 3.125 mg p.o. twice daily, sotalol 120 mg p.o. twice daily. -Patient follows up with photostatic copy maker Dr. Jackson. -Continue aspirin 81 mg, Lipitor 20mg Qday. Hypothyroidism GERD -continue levothyroxine 25 mcg p.o. daily. -Continue Protonix 20 mg p.o. q. other day. Full code. Warfarin. INR 2.5. (4) Altered mental status Qualifiers: Altered mental status type: unspecified Qualified Code(s): R41.82 - Altered mental status, unspecified
[2018-01-21] MEDS ORDERED: HYDROmorphone PF Inj 0.5 MG/0.5 ML Syringe IV.PUSH PRN ×2 (15:12→16:24)
[2018-01-21] MEDS: HYDROmorphone PF Inj 2 MG/ML Vial IV.PUSH PRN (22:54)
[2018-01-22] MEDS: HYDROmorphone PF Inj 2 MG/ML Vial IV.PUSH PRN (04:03)
--- NOTE | 2018-01-22 08:04 | P.CONOP ---
[facility] Orthopedics Consult Note - [facility] Consult date: 01/22/18 Consult reason: low back pain Chief complaint: ams Narrative: Mr. Arteaga is an 82-year-old male with a recent history of laminectomy at L2-3 and L3-4. The patient had a previous laminectomy fusion at L4-5 which is stable. 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 In addition, mitral valve repair, CABG x5, atrial fibrillation who presents to the emergency department for back pain evaluation. Per [facility], patient was initially alert and oriented. However, later on patient was found to have difficulty finding words and speaking in full sentences. He had expressive dysphasia. Stroke alert was activated. Patient was evaluated by neurologist. Patient is not a candidate for TPA administration. Patient underwent CT studies which did not reveal any acute hemorrhage. Patient's INR is 2.5. Other studies including UA , chest x-ray are unremarkable for any acute findings. At the time of this interview, patient wakes up on verbal commands but not very cooperative. He is somewhat annoyed by my questions. However he follows commands appropriately. No chest pain, shortness of breath, fever or chills. No changes in bowel or bladder habits. Past medical history: CAD status post CABG x5, mitral valve repair, atrial fibrillation, colon cancer, prostate cancer. Past surgical history: Mitral valve repair, colon cancer surgery, prostate cancer surgery, hip replacement. Social history: Patient denies using tobacco. He drinks about 1-2 drinks per night per his . No illicit drug use. Family history: No family history of Alzheimer's or Parkinson's. Review of Systems All other systems reviewed negative except as stated in [facility] - History History Provided By: Patient - Medical History Medical History: Medical History (Last Reviewed 01/21/18 @ 11:29 by Kate Nunes) Atrial fibrillation GERD (gastroesophageal reflux disease) Hearing loss History of Clostridium difficile infection History of cellulitis History of sepsis Hypercholesteremia Hypothyroid Osteoarthritis - Surgical History Surgical History: Surgical History (Last Reviewed 01/21/18 @ 11:29 by Kate Nunes) H/O heart bypass surgery History of arthroscopic knee surgery History of back surgery History of cataract extraction with lens replacement History of colon resection History of prostatectomy Hx of CABG S/P hip replacement - Tobacco History Second Hand Smoke Exposure: No Smoking Status: Never smoker - Alcohol History How Often Do You Have a Drink Containing Alcohol: Never - Substance Use History Substance History: No History of Abuse - Travel History Recent Travel in the [place] Within the Last 8 Weeks: No Recent Travel Out of the Country Within the Last 8 Weeks: No - Immunization History Tetanus Immunization: >5 Years Hx Influenza Vaccine This Season: Yes Medications and Allergies Active Medications: Active Medications Acetaminophen (Tylenol) 650 mg PO Q4H PRN PRN Reason: Headache, fever, pain 1-4 Hydrocodone Bitart/Acetaminophen ([place] 5/325) 1 tab PO Q6H PRN PRN Reason: Pain 5-10 Last Admin: 01/22/18 02:15 Dose: 1 tab Al Hydroxide/Mg Hydroxide (Milk Of Magnesia Liq) 30 ml PO Q12H PRN PRN Reason: Mild Constipation Aspirin (Aspirin Chew) 81 mg PO DAILY [facility] Atorvastatin Calcium (Lipitor) 20 mg PO DAILY [facility] Bisacodyl (Dulcolax Supp) 10 mg RECTAL DAILY PRN PRN Reason: SEVERE CONSITIPATION Calcium/Vitamin D (Oscal With D 250/125 Mg) 2 tab PO DAILY [facility] Carvedilol (Coreg) 3.125 mg PO BID [facility] Last Admin: 01/21/18 20:35 Dose: 3.125 mg Hydromorphone HCl (Dilaudid Pf Inj) 0.5 mg IV.PUSH Q4H PRN PRN Reason: BREAKTHROUGH PAIN Last Admin: 01/22/18 04:03 Dose: 0.5 mg Lactulose (Lactulose Liq) 30 ml PO DAILY PRN PRN Reason: SEVERE CONSITIPATION Levothyroxine Sodium (Synthroid) 25 mcg PO DAILY@0600 [facility] Last Admin: 01/22/18 05:55 Dose: 25 mcg Miscellaneous (Pill Splitter) 1 each OTHER DAILY [facility] Ondansetron HCl (Zofran Inj) 4 mg IV.PUSH Q6H PRN PRN Reason: NAUSEA OR VOMITING Pantoprazole Sodium (Protonix) 20 mg PO EVERY OTHER DAY [facility] Pharmacy Profile Note (Coumadin Consult Pharmacy) 1 each OTHER UNSCH PRN PRN Reason: PHARMACY DOCUMENTATION Sennosides (Senokot) 17.2 mg PO Q12H PRN PRN Reason: Moderate Constipation Sodium Chloride (Ns Flush) 2 ml IV.FLUSH PRN PRN PRN Reason: FLUSH AFTER USING IV ACCESS Sotalol HCl (Betapace) 120 mg PO BID [facility] Last Admin: 01/21/18 20:34 Dose: 120 mg Warfarin Sodium (Coumadin) 5 mg PO DAILY@1600 [facility] Last Admin: 01/21/18 18:10 Dose: Not Given Allergies Allergy/AdvReac Type Severity Reaction Status Date / Time morphine Allergy Severe Confusion Verified 01/21/18 11:27 Home Medications Medication Instructions Recorded Confirmed Type aspirin 81 mg PO DAILY 01/01/18 01/21/18 History atorvastatin 20 mg PO DAILY 01/01/18 01/21/18 History carvedilol 3.125 mg PO BID 01/01/18 01/21/18 History levothyroxine 25 mcg PO DAILY 01/01/18 01/21/18 History multivitamin 1 tab PO DAILY 01/01/18 01/21/18 History sotalol 120 mg PO BID 01/01/18 01/21/18 History calcium carbonate-vitamin D3 1 tab PO DAILY 01/12/18 01/21/18 History [Calcium 600 + D(3)] [id number] oil [Usk-3 1 cap PO DAILY 01/12/18 01/21/18 History Fish Oil] omeprazole 20 mg PO 3XW 01/12/18 01/21/18 History warfarin [Coumadin] 3 mg PO 2XWEEK 01/12/18 01/21/18 History warfarin [Coumadin] 6 mg PO [id number] 01/12/18 01/21/18 History Exam Vital signs: Vital Signs 01/21/18 10:53 01/21/18 11:24 01/21/18 11:42 Temperature 98.1 F Pulse Rate 80 85 80 Respiratory Rate 19 18 Blood Pressure 137/71 174/85 H Pulse Oximetry 97 99 97 01/21/18 11:51 01/21/18 12:30 01/21/18 13:54 Temperature Pulse Rate 84 76 Respiratory Rate 20 18 Blood Pressure 184/69 H 137/90 Pulse Oximetry 98 99 97 01/21/18 16:20 01/21/18 17:57 01/21/18 20:00 Temperature 98.1 F 96.4 F L Pulse Rate 76 78 74 Respiratory Rate 18 16 20 Blood Pressure 154/70 H 145/90 H 141/69 H Pulse Oximetry 96 97 95 01/22/18 00:00 01/22/18 04:00 Temperature 98.0 F 98.0 F Pulse Rate 80 83 Respiratory Rate 20 20 Blood Pressure 126/66 131/64 Pulse Oximetry 95 96 Intake & Output 01/21/18 01/22/18 01/22/18 18:59 06:59 18:59 Intake Total 500 / 500 240 / 240 Output Total 1500 / 1500 800 / 800 Balance -1000 / -1000 -560 / -560 Weight 0 g 78.6 kg Intake: IV 500 / 500 NS Inj 500 ML @ Wide Open IV. 500 / 500 SIG BOLUS ONE Rx#:[id number] Oral 240 / 240 Output: Urine 800 / 800 Urine Amount (Catheter) 1500 / 1500 Straight 1500 / 1500 Other: Weight On Admission 0 g Narrative: HEENT: Normocephalic atraumatic pupils equal round reactive. NECK: Supple. No abnormal masses. Full range of motion. CHEST: Clear to auscultation with no rales or rhonchi's or wheezes. HEART: Regular rate and irregular rhythm. No murmurs. ABDOMEN: Soft, nontender, no masses. Normal active bowel sounds. GENITOURINARY: Deferred MUSCULOSKELETAL: Incision looks fine. No signs of infection. Significant swelling and ecchymosis surrounding his entire low lumbar spine consistent with postoperative bleeding. Lower extremity: Motor examination 5/5 for quadriceps, anterior tibialis, extensor houses longus and gastrocsoleus. No radiating leg pain Results - Labs Result Diagrams: 01/21/18 11:40 01/21/18 11:40 Labs: Laboratory Results - last 24 hr 01/21/18 01/21/18 01/21/18 11:40 11:40 11:40 WBC 6.5 RBC 4.45 L Hgb 13.7 POC Hgb (Calc) Hct 40.2 POC Hct MCV 90.3 MCH 30.8 MCHC 34.1 RDW 15.6 Plt Count 216 MPV 7.4 Neut % (Auto) 72.5 H Lymph % (Auto) 13.0 [place] % (Auto) 13.4 H Eos % (Auto) 0.8 Baso % (Auto) 0.3 Neut # (Auto) 4.7 Lymph # (Auto) 0.8 L [place] # (Auto) 0.9 Eos # (Auto) 0.1 Baso # (Auto) 0.0 WBC Differential . Differential Comment Auto diff final PT 25.5 H D INR 2.5 APTT 38.7 H POC Sodium Sodium POC Potassium Potassium POC Chloride Chloride Carbon Dioxide Anion Gap POC BUN BUN Creatinine POC Creatinine Estimated GFR POC Glucose Random Glucose Lactic Acid 1.5 Calcium Magnesium Total Bilirubin AST ALT Alkaline Phosphatase Total Creatine Kinase Troponin I Total Protein Albumin Urine Color Urine Clarity Urine pH Ur Specific [place] Urine Protein Urine Glucose (UA) Urine Ketones Urine Occult Blood Urine Nitrate Urine Bilirubin Urine Urobilinogen Ur Leukocyte Esterase Urine RBC Urine WBC Urine Mucus Micro UA Comment Ur Microscopic Review Urine Culture Comments 01/21/18 01/21/18 01/21/18 11:40 11:40 11:40 WBC RBC Hgb POC Hgb (Calc) 13.3 Hct POC Hct 39.0 MCV MCH MCHC RDW Plt Count MPV Neut % (Auto) Lymph % (Auto) [place] % (Auto) Eos % (Auto) Baso % (Auto) Neut # (Auto) Lymph # (Auto) [place] # (Auto) Eos # (Auto) Baso # (Auto) WBC Differential Differential Comment PT INR APTT POC Sodium 134 L Sodium 133 L POC Potassium 3.5 L Potassium 3.5 POC Chloride 94 L Chloride 95 L Carbon Dioxide 26.1 Anion Gap 12 POC BUN 13 BUN 14 Creatinine 0.85 POC Creatinine 0.8 Estimated GFR 86 L POC Glucose 94 Random Glucose 89 Lactic Acid Calcium 9.4 Magnesium 1.7 Total Bilirubin 1.5 H AST 21 ALT 31 Alkaline Phosphatase 61 Total Creatine Kinase 51 Troponin I Less than 0.02 L Total Protein 7.5 Albumin 4.0 Urine Color Urine Clarity Urine pH Ur Specific [place] Urine Protein Urine Glucose (UA) Urine Ketones Urine Occult Blood Urine Nitrate Urine Bilirubin Urine Urobilinogen Ur Leukocyte Esterase Urine RBC Urine WBC Urine Mucus Micro UA Comment Ur Microscopic Review Urine Culture Comments 01/21/18 01/21/18 11:49 12:45 WBC RBC Hgb POC Hgb (Calc) Hct POC Hct MCV MCH MCHC RDW Plt Count MPV Neut % (Auto) Lymph % (Auto) [place] % (Auto) Eos % (Auto) Baso % (Auto) Neut # (Auto) Lymph # (Auto) [place] # (Auto) Eos # (Auto) Baso # (Auto) WBC Differential Differential Comment PT INR APTT POC Sodium Sodium POC Potassium Potassium POC Chloride Chloride Carbon Dioxide Anion Gap POC BUN BUN Creatinine POC Creatinine Estimated GFR POC Glucose 103 Random Glucose Lactic Acid Calcium Magnesium Total Bilirubin AST ALT Alkaline Phosphatase Total Creatine Kinase Troponin I Total Protein Albumin Urine Color Yellow Urine Clarity Clear Urine pH 8.0 Ur Specific [place] 1.015 Urine Protein Negative Urine Glucose (UA) Negative Urine Ketones Trace H Urine Occult Blood Negative Urine Nitrate Negative Urine Bilirubin Negative Urine Urobilinogen Less than 2 Ur Leukocyte Esterase Negative Urine RBC Less than 1 Urine WBC Less than 1 Urine Mucus Few H Micro UA Comment Cath-culture not ind Ur Microscopic Review Not Reportable Urine Culture Comments Cath-cult not ind - Diagnostic results Imaging: Impressions Abdomen/Pelvis CT 01/21/18 11:31 CONCLUSION: 1. No acute findings. Nonacute findings include hiatal hernia, mild constipation, advanced degenerative disease in the spine with stable mild compression deformities. 2. Stable bilateral renal cysts. Pacer leads in right atrium and right ventricle. Chest X-Ray 01/21/18 11:31 CONCLUSION: Basilar atelectasis. No effusion or pneumothorax. Cardiomegaly. Previous mitral valve replacement. Head CT 01/21/18 11:31 CONCLUSION: 1. No acute intracranial abnormality. Report was called by [Dr. Deepak Erwin to Dr. Perdomo ] Lumbar Spine CT 01/21/18 11:39 CONCLUSION: 1. Previous lumbar fusion across the L4-5 level stable compared to previous. 2. Mild compression fractures involving T12, L1, L2, L3, L4 and L5. These are all stable compared to previous examination dated 09/13/2010. 3. Degenerated disc with facet arthritis and disc bulges as above. My review of the CT shows evidence of decompression bilaterally from the right at L2-3 and L3-4. The decompression appears to be satisfactory. No obvious instability. There has been a previous decompression and fusion at L4-5 which is unchanged compared to previous studies no complication is appreciated Head CTA 01/21/18 12:01 CONCLUSION: Intracranial vessels are all patent without aneurysmal or embolic disease. Neck CTA 01/21/18 12:01 CONCLUSION: 1. No hemodynamically significant carotid artery stenosis identified. 2. Diminutive left vertebral which terminates in a PICA. Assessment and Plan - Assessment and Plan Status post lumbar laminectomy L2-3 and L3-4, stable. Coumadin coagulopathy. History of atrial fibrillation. Likely TIA versus CVA. PLAN: I reviewed his CT of the lumbar spine which looks fine. I would recommend decreasing INR to below 2.0 for 1 week and then resume to his normal preoperative dose. The patient is having bleeding related to Coumadin coagulopathy. Likely that bleeding has caused this patient's severe back pain for which he presented to the emergency room. I will defer to medical with regard to treatment of TIA versus CVA. If it is not advisable to decrease Coumadin, consider using ice and other conservative measures to control bleeding from region of recent surgery from Coumadin coagulopathy. Lumbar brace when out of bed. The patient should have this but I did not see that when I examined the patient today. No further studies from orthopedic surgical standpoint. Allowed to be out of bed with assistance and ambulating as tolerated. Stable orthopedically
[2018-01-22 08:14] LABS: INR 2.3 Ratio
--- NOTE | 2018-01-22 09:00 | P.PNIM ---
Subjective Interval history: in no acute distress. has some back pain. no focal weakness. Physical Exam Vital signs: Vital Signs 01/21/18 10:53 01/21/18 11:24 01/21/18 11:42 Temperature 98.1 F Pulse Rate 80 85 80 Respiratory Rate 19 18 Blood Pressure 137/71 174/85 H Pulse Oximetry 97 99 97 01/21/18 11:51 01/21/18 12:30 01/21/18 13:54 Temperature Pulse Rate 84 76 Respiratory Rate 20 18 Blood Pressure 184/69 H 137/90 Pulse Oximetry 98 99 97 01/21/18 16:20 01/21/18 17:57 01/21/18 20:00 Temperature 98.1 F 96.4 F L Pulse Rate 76 78 74 Respiratory Rate 18 16 20 Blood Pressure 154/70 H 145/90 H 141/69 H Pulse Oximetry 96 97 95 01/22/18 00:00 01/22/18 04:00 01/22/18 08:00 Temperature 98.0 F 98.0 F 98.2 F Pulse Rate 80 83 80 Respiratory Rate 20 20 22 Blood Pressure 126/66 131/64 142/93 H Pulse Oximetry 95 96 98 Intake & Output 01/21/18 01/22/18 01/22/18 18:59 06:59 18:59 Intake Total 500 / 500 240 / 240 Output Total 1500 / 1500 800 / 800 Balance -1000 / -1000 -560 / -560 Weight 0 g 78.6 kg Intake: IV 500 / 500 NS Inj 500 ML @ Wide Open IV. 500 / 500 SIG BOLUS ONE Rx#:[id number] Oral 240 / 240 Output: Urine 800 / 800 Urine Amount (Catheter) 1500 / 1500 Straight 1500 / 1500 Other: Weight On Admission 0 g - Constitutional no acute distress - Routine Respiratory Exam Present: CTA bilaterally - Routine Cardiovascular Exam Present: RRR - Routine Abdominal Exam Present: soft - Routine Extremities Exam Comments: no pedal edema. - Routine Neurological Exam Present: alert, oriented X3 (with no focal weakness.) - Urinary Catheter Management Straight Cath placed during this visit: yes Reason for continuing: Acute urinary retention Insertion date: 01/21/18 Insertion time: 14:10 Indwelling Urethral Catheter Cath placed during this visit: no Reason for continuing: Acute urinary retention Results - Labs CBC & Chem 7: 01/21/18 11:40 01/21/18 11:40 Laboratory Results - last 24 hr 01/21/18 01/21/18 01/21/18 11:40 11:40 11:40 WBC 6.5 RBC 4.45 L Hgb 13.7 POC Hgb (Calc) Hct 40.2 POC Hct MCV 90.3 MCH 30.8 MCHC 34.1 RDW 15.6 Plt Count 216 MPV 7.4 Neut % (Auto) 72.5 H Lymph % (Auto) 13.0 [place] % (Auto) 13.4 H Eos % (Auto) 0.8 Baso % (Auto) 0.3 Neut # (Auto) 4.7 Lymph # (Auto) 0.8 L [place] # (Auto) 0.9 Eos # (Auto) 0.1 Baso # (Auto) 0.0 WBC Differential . Differential Comment Auto diff final PT 25.5 H D INR 2.5 APTT 38.7 H POC Sodium Sodium POC Potassium Potassium POC Chloride Chloride Carbon Dioxide Anion Gap POC BUN BUN Creatinine POC Creatinine Estimated GFR POC Glucose Random Glucose Lactic Acid 1.5 Calcium Magnesium Total Bilirubin AST ALT Alkaline Phosphatase Total Creatine Kinase Troponin I Total Protein Albumin Urine Color Urine Clarity Urine pH Ur Specific [place] Urine Protein Urine Glucose (UA) Urine Ketones Urine Occult Blood Urine Nitrate Urine Bilirubin Urine Urobilinogen Ur Leukocyte Esterase Urine RBC Urine WBC Urine Mucus Micro UA Comment Ur Microscopic Review Urine Culture Comments 01/21/18 01/21/18 01/21/18 11:40 11:40 11:40 WBC RBC Hgb POC Hgb (Calc) 13.3 Hct POC Hct 39.0 MCV MCH MCHC RDW Plt Count MPV Neut % (Auto) Lymph % (Auto) [place] % (Auto) Eos % (Auto) Baso % (Auto) Neut # (Auto) Lymph # (Auto) [place] # (Auto) Eos # (Auto) Baso # (Auto) WBC Differential Differential Comment PT INR APTT POC Sodium 134 L Sodium 133 L POC Potassium 3.5 L Potassium 3.5 POC Chloride 94 L Chloride 95 L Carbon Dioxide 26.1 Anion Gap 12 POC BUN 13 BUN 14 Creatinine 0.85 POC Creatinine 0.8 Estimated GFR 86 L POC Glucose 94 Random Glucose 89 Lactic Acid Calcium 9.4 Magnesium 1.7 Total Bilirubin 1.5 H AST 21 ALT 31 Alkaline Phosphatase 61 Total Creatine Kinase 51 Troponin I Less than 0.02 L Total Protein 7.5 Albumin 4.0 Urine Color Urine Clarity Urine pH Ur Specific [place] Urine Protein Urine Glucose (UA) Urine Ketones Urine Occult Blood Urine Nitrate Urine Bilirubin Urine Urobilinogen Ur Leukocyte Esterase Urine RBC Urine WBC Urine Mucus Micro UA Comment Ur Microscopic Review Urine Culture Comments 01/21/18 01/21/18 01/22/18 11:49 12:45 06:40 WBC RBC Hgb POC Hgb (Calc) Hct POC Hct MCV MCH MCHC RDW Plt Count MPV Neut % (Auto) Lymph % (Auto) [place] % (Auto) Eos % (Auto) Baso % (Auto) Neut # (Auto) Lymph # (Auto) [place] # (Auto) Eos # (Auto) Baso # (Auto) WBC Differential Differential Comment PT 23.0 H INR 2.3 APTT POC Sodium Sodium POC Potassium Potassium POC Chloride Chloride Carbon Dioxide Anion Gap POC BUN BUN Creatinine POC Creatinine Estimated GFR POC Glucose 103 Random Glucose Lactic Acid Calcium Magnesium Total Bilirubin AST ALT Alkaline Phosphatase Total Creatine Kinase Troponin I Total Protein Albumin Urine Color Yellow Urine Clarity Clear Urine pH 8.0 Ur Specific [place] 1.015 Urine Protein Negative Urine Glucose (UA) Negative Urine Ketones Trace H Urine Occult Blood Negative Urine Nitrate Negative Urine Bilirubin Negative Urine Urobilinogen Less than 2 Ur Leukocyte Esterase Negative Urine RBC Less than 1 Urine WBC Less than 1 Urine Mucus Few H Micro UA Comment Cath-culture not ind Ur Microscopic Review Not Reportable Urine Culture Comments Cath-cult not ind - Imaging Impressions Abdomen/Pelvis CT 01/21/18 11:31 CONCLUSION: 1. No acute findings. Nonacute findings include hiatal hernia, mild constipation, advanced degenerative disease in the spine with stable mild compression deformities. 2. Stable bilateral renal cysts. Pacer leads in right atrium and right ventricle. Chest X-Ray 01/21/18 11:31 CONCLUSION: Basilar atelectasis. No effusion or pneumothorax. Cardiomegaly. Previous mitral valve replacement. Head CT 01/21/18 11:31 CONCLUSION: 1. No acute intracranial abnormality. Report was called by [Dr. Deepak Erwin to Dr. Perdomo ] Lumbar Spine CT 01/21/18 11:39 CONCLUSION: 1. Previous lumbar fusion across the L4-5 level stable compared to previous. 2. Mild compression fractures involving T12, L1, L2, L3, L4 and L5. These are all stable compared to previous examination dated 09/13/2010. 3. Degenerated disc with facet arthritis and disc bulges as above. Head CTA 01/21/18 12:01 CONCLUSION: Intracranial vessels are all patent without aneurysmal or embolic disease. Neck CTA 01/21/18 12:01 CONCLUSION: 1. No hemodynamically significant carotid artery stenosis identified. 2. Diminutive left vertebral which terminates in a PICA. Assessment and Plan - Assessment (1) Atrial fibrillation Code(s): I48.91 - Unspecified atrial fibrillation Status: Acute (2) CAD (coronary artery disease) Code(s): I25.10 - Atherosclerotic heart disease of [place] coronary artery without angina pectoris Status: Acute (3) Lumbar spinal stenosis Code(s): M48.061 - Spinal stenosis, lumbar region without neurogenic claudication Status: Acute (4) Altered mental status Code(s): R41.82 - Altered mental status, unspecified Status: Acute - Plan Acute intractable pain -Recent laminectomy. -Pt is allergic to Morphine. on Dilaudid 0.5mg IV now. -Will keep patient on PO and IV pain meds. - consulted Dr. Jarrell; stable from orthopaedic surgery. Acute encephalopathy Possible ischemic stroke -Appreciate neurology evaluation. Patient was not a candidate for TPA. -Patient's encephalopathy could also be related to pain. -continue Coumadin CAD s/p CABG x 5 Atrial fibrillation Hx of Mitral valve repair -Currently on Warfarin. -Will continue carvedilol 3.125 mg p.o. twice daily, sotalol 120 mg p.o. twice daily. -Patient follows up with lens coater Dr. Jackson. -Continue aspirin 81 mg, Lipitor 20mg Qday. Hypothyroidism GERD -continue levothyroxine 25 mcg p.o. daily. -Continue Protonix 20 mg p.o. q. other day. Full code. Warfarin. INR 2.5. Discharge Planning: awaiting PT evaluation and neurology f/u and recommendations. (4) Altered mental status Qualifiers: Altered mental status type: unspecified Qualified Code(s): R41.82 - Altered mental status, unspecified
[2018-01-22] MEDS: Calcium/Vitamin D 250/125 MG Tablet PO SCH (09:32)
--- NOTE | 2018-01-22 15:24 | ECG ---
Date Performed: 01/21/2018 Time Performed: 11:51:35 PTAGE: 82 years EKG: ELECTRONIC ATRIAL PACEMAKER ELECTRONIC VENTRICULAR PACEMAKER ABNORMAL RHYTHM ECG Since the PREVIOUS TRACING , no significant change noted PREVIOUS TRACIN01/14/2018 08.41 DOCTOR: Herminia Suero Interpretating Date/Time 01/22/2018 15:17:37
--- NOTE | 2018-01-22 18:48 | P.PNNEU ---
Subjective Subjective Comments: speech improved, but still confused Active Medications: Active Medications Acetaminophen (Tylenol) 650 mg PO Q4H PRN PRN Reason: Headache, fever, pain 1-4 Hydrocodone Bitart/Acetaminophen ([place] 5/325) 1 tab PO Q6H PRN PRN Reason: Pain 5-10 Last Admin: 01/22/18 11:47 Dose: 1 tab Al Hydroxide/Mg Hydroxide (Milk Of Magnesia Liq) 30 ml PO Q12H PRN PRN Reason: Mild Constipation Aspirin (Aspirin Chew) 81 mg PO DAILY [facility] Last Admin: 01/22/18 09:32 Dose: 81 mg Atorvastatin Calcium (Lipitor) 20 mg PO DAILY [facility] Last Admin: 01/22/18 09:32 Dose: 20 mg Bisacodyl (Dulcolax Supp) 10 mg RECTAL DAILY PRN PRN Reason: SEVERE CONSITIPATION Calcium/Vitamin D (Oscal With D 250/125 Mg) 2 tab PO DAILY [facility] Last Admin: 01/22/18 09:32 Dose: 2 tab Carvedilol (Coreg) 3.125 mg PO BID [facility] Last Admin: 01/22/18 09:32 Dose: 3.125 mg Hydromorphone HCl (Dilaudid Pf Inj) 0.5 mg IV.PUSH Q4H PRN PRN Reason: BREAKTHROUGH PAIN Last Admin: 01/22/18 04:03 Dose: 0.5 mg Lactulose (Lactulose Liq) 30 ml PO DAILY PRN PRN Reason: SEVERE CONSITIPATION Levothyroxine Sodium (Synthroid) 25 mcg PO DAILY@0600 [facility] Last Admin: 01/22/18 05:55 Dose: 25 mcg Miscellaneous (Pill Splitter) 1 each OTHER DAILY [facility] Last Admin: 01/22/18 09:34 Dose: 1 each Ondansetron HCl (Zofran Inj) 4 mg IV.PUSH Q6H PRN PRN Reason: NAUSEA OR VOMITING Pantoprazole Sodium (Protonix) 20 mg PO EVERY OTHER DAY [facility] Pharmacy Profile Note (Coumadin Consult Pharmacy) 1 each OTHER UNSCH PRN PRN Reason: PHARMACY DOCUMENTATION Sennosides (Senokot) 17.2 mg PO Q12H PRN PRN Reason: Moderate Constipation Sodium Chloride (Ns Flush) 2 ml IV.FLUSH PRN PRN PRN Reason: FLUSH AFTER USING IV ACCESS Sotalol HCl (Betapace) 120 mg PO BID [facility] Last Admin: 01/22/18 09:32 Dose: 120 mg Warfarin Sodium (Coumadin) 5 mg PO DAILY@1600 [facility] Last Admin: 01/22/18 17:20 Dose: 5 mg Allergies/Adverse Reactions: Allergies Allergy/AdvReac Type Severity Reaction Status Date / Time morphine Allergy Severe Confusion Verified 01/21/18 11:27 Physical Exam Vital signs: Vital Signs 01/21/18 20:00 01/22/18 00:00 01/22/18 04:00 Temperature 96.4 F L 98.0 F 98.0 F Pulse Rate 74 80 83 Respiratory Rate 20 20 20 Blood Pressure 141/69 H 126/66 131/64 Pulse Oximetry 95 95 96 01/22/18 08:00 01/22/18 12:00 01/22/18 13:50 Temperature 98.2 F 98.2 F Pulse Rate 83 75 Respiratory Rate 22 22 Blood Pressure 142/93 H 97/64 L Pulse Oximetry 98 98 98 01/22/18 16:00 Temperature 98.0 F Pulse Rate 77 Respiratory Rate 22 Blood Pressure 103/66 Pulse Oximetry 98 Intake & Output 01/21/18 01/22/18 01/22/18 18:59 06:59 18:59 Intake Total 500 / 500 240 / 240 720 / 720 Output Total 1500 / 1500 800 / 800 1100 / 1100 Balance -1000 / -1000 -560 / -560 -380 / -380 Weight 0 g 78.6 kg Intake: IV 500 / 500 NS Inj 500 ML @ Wide Open IV. 500 / 500 SIG BOLUS ONE Rx#:[id number] Oral 240 / 240 720 / 720 Output: Urine 800 / 800 1100 / 1100 Urine Amount (Catheter) 1500 / 1500 Straight 1500 / 1500 Other: Weight On Admission 0 g - Routine Neurological Exam alert, speech is now fluent, but he is disoriented to [place] and place. follows commands CN intact MOTOR 5/5 BUE and BLE - Urinary Catheter Management Straight Cath placed during this visit: yes Reason for continuing: Acute urinary retention Insertion date: 01/21/18 Insertion time: 14:10 Indwelling Urethral Catheter Cath placed during this visit: no Reason for continuing: Acute urinary retention Objective Laboratory Results - last 24 hr 01/22/18 06:40 PT 23.0 H INR 2.3 Review/Management - Diagnosis (1) CVA (cerebral vascular accident) Code(s): I63.9 - Cerebral infarction, unspecified Status: Acute Current Visit: Yes - Review/Management Plan: continue coumadin MRI brain. He has Pacemaker that is MRI compatible. WIll need to coordinate MRI with pacemaker tech
[2018-01-22] MEDS ORDERED: Haloperidol Inj 5 MG/ML Ampul IV.PUSH ONE (21:20)
[2018-01-23 06:36] LABS: INR 2.6 Ratio; Prothrombin Time 26.2 sec (9.8-11.6)
--- NOTE | 2018-01-23 08:08 | P.PNOP ---
Subjective Interval history: No new complaints. Neurology notes reviewed. MRI brain pending. A little confused today Physical Exam Vital signs: Vital Signs 01/22/18 12:00 01/22/18 13:50 01/22/18 16:00 Temperature 98.2 F 98.0 F Pulse Rate 75 77 Respiratory Rate 22 22 Blood Pressure 97/64 L 103/66 Pulse Oximetry 98 98 98 01/22/18 20:00 01/23/18 00:00 01/23/18 04:00 Temperature 98.7 F 97.9 F 97.9 F Pulse Rate 76 73 82 Respiratory Rate 17 18 18 Blood Pressure 154/68 H 125/78 130/76 Pulse Oximetry 98 95 Intake & Output 01/22/18 01/23/18 01/23/18 18:59 06:59 18:59 Intake Total 720 / 720 Output Total 1100 / 1100 900 / 900 Balance -380 / -380 -900 / -900 Weight 78.5 kg Intake: Oral 720 / 720 Output: Urine 1100 / 1100 900 / 900 Narrative: MUSCULOSKELETAL: Incision looks fine. No signs of infection. Significant swelling and ecchymosis surrounding his entire low lumbar spine consistent with postoperative bleeding. Lower extremity: Motor examination 5/5 for quadriceps, anterior tibialis, extensor houses longus and gastrocsoleus. No radiating leg pain - Urinary Catheter Management Straight Cath placed during this visit: yes Reason for continuing: Acute urinary retention Insertion date: 01/21/18 Insertion time: 14:10 Indwelling Urethral Catheter Cath placed during this visit: no Reason for continuing: Acute urinary retention Results - Labs CBC & Chem 7: 01/21/18 11:40 01/21/18 11:40 Laboratory Results - last 24 hr 01/22/18 01/23/18 06:40 05:50 PT 23.0 H 26.2 H INR 2.3 2.6 Assessment and Plan - Assessment and Plan Status post lumbar laminectomy L2-3 and L3-4, stable. Coumadin coagulopathy. History of atrial fibrillation. Likely TIA versus CVA. PLAN: INR 2.6. Would prefer to keep INR at 2.0. Ecchymosis and swelling and back pain is related to Coumadin coagulopathy. Out of bed with brace. Dressing change daily. Orthopedically stable
[2018-01-23] MEDS: Calcium/Vitamin D 250/125 MG Tablet PO SCH (09:07)
[2018-01-23] MEDS: Pantoprazole Sodium 20 MG DR Tablet PO SCH (09:07)
--- NOTE | 2018-01-23 09:54 | P.PNIM ---
Subjective Interval history: in no acute distress. but confused. reportedly had a fall earlier this morning- but with no obvious injury. placed on restraints. d/w the RN. Physical Exam Vital signs: Vital Signs 01/22/18 12:00 01/22/18 13:50 01/22/18 16:00 Temperature 98.2 F 98.0 F Pulse Rate 75 77 Respiratory Rate 22 22 Blood Pressure 97/64 L 103/66 Pulse Oximetry 98 98 98 01/22/18 20:00 01/23/18 00:00 01/23/18 04:00 Temperature 98.7 F 97.9 F 97.9 F Pulse Rate 76 73 82 Respiratory Rate 17 18 18 Blood Pressure 154/68 H 125/78 130/76 Pulse Oximetry 98 95 01/23/18 08:00 01/23/18 08:31 Temperature 98.3 F 98.3 F Pulse Rate 75 75 Respiratory Rate 22 22 Blood Pressure 150/72 H 150/72 H Pulse Oximetry 97 97 Intake & Output 01/22/18 01/23/18 01/23/18 18:59 06:59 18:59 Intake Total 720 / 720 Output Total 1100 / 1100 900 / 900 Balance -380 / -380 -900 / -900 Weight 78.5 kg Intake: Oral 720 / 720 Output: Urine 1100 / 1100 900 / 900 - Constitutional no acute distress - Routine Respiratory Exam Present: CTA bilaterally - Routine Cardiovascular Exam Present: RRR - Routine Abdominal Exam Present: soft - Routine Extremities Exam Comments: no pedal edema. - Routine Neurological Exam Present: alert (but confused.) - Urinary Catheter Management Straight Cath placed during this visit: yes Reason for continuing: Acute urinary retention Insertion date: 01/21/18 Insertion time: 14:10 Indwelling Urethral Catheter Cath placed during this visit: no Reason for continuing: Acute urinary retention Results - Labs CBC & Chem 7: 01/21/18 11:40 01/21/18 11:40 Laboratory Results - last 24 hr 01/23/18 05:50 PT 26.2 H INR 2.6 Assessment and Plan - Assessment (1) Atrial fibrillation Code(s): I48.91 - Unspecified atrial fibrillation Status: Acute (2) CAD (coronary artery disease) Code(s): I25.10 - Atherosclerotic heart disease of [place] coronary artery without angina pectoris Status: Acute (3) Lumbar spinal stenosis Code(s): M48.061 - Spinal stenosis, lumbar region without neurogenic claudication Status: Acute (4) Altered mental status Code(s): R41.82 - Altered mental status, unspecified Status: Acute - Plan Acute intractable pain -Recent laminectomy. -Pt is allergic to Morphine. on Dilaudid 0.5mg IV now. -Will keep patient on PO and IV pain meds. - consulted Dr. Jarrell; stable from orthopaedic surgery. Acute encephalopathy Possible ischemic stroke fall ( 01/23) -Appreciate neurology evaluation. Patient was not a candidate for TPA. -Patient's encephalopathy could also be related to pain. -MRI brain pending. -check echo. -continue Coumadin -fall precautions CAD s/p CABG x 5 Atrial fibrillation Hx of Mitral valve repair -Currently on Warfarin. -Will continue carvedilol 3.125 mg p.o. twice daily, sotalol 120 mg p.o. twice daily. -Patient follows up with gyn physician Dr. Jackson. -Continue aspirin 81 mg, Lipitor 20mg Qday. Hypothyroidism GERD -continue levothyroxine 25 mcg p.o. daily. -Continue Protonix 20 mg p.o. q. other day. Full code. Warfarin. Discharge Planning: dc planning; SNF-awaiting work-up. (4) Altered mental status Qualifiers: Altered mental status type: unspecified Qualified Code(s): R41.82 - Altered mental status, unspecified
[2018-01-24 04:33] LABS: INR 3.1 Ratio; Prothrombin Time 31.4 sec (9.8-11.6)
[2018-01-24 05:03] LABS: Chol/HDL Ratio 2.84 Ratio; HDL Cholesterol 44.6 mg/dL (40.0-60.0)
[2018-01-24] MEDS ORDERED: Ketorolac Inj 30 MG/ML (IVP) Vial IV.PUSH ONE (05:35)
--- NOTE | 2018-01-24 08:19 | P.PNOP ---
Subjective Interval history: pt confused and not responding appropriately tech at bedside to perform echo Physical Exam Vital signs: Vital Signs 01/23/18 08:31 01/23/18 09:31 01/23/18 10:31 Temperature 98.3 F 98.1 F 98.4 F Pulse Rate 75 77 75 Respiratory Rate 22 23 20 Blood Pressure 150/72 H 160/74 H 150/76 H Pulse Oximetry 97 96 95 01/23/18 11:31 01/23/18 12:00 01/23/18 15:31 Temperature 97.9 F 98.2 F 97.7 F Pulse Rate 76 75 80 Respiratory Rate 20 23 Blood Pressure 147/78 H 112/59 L 142/77 H Pulse Oximetry 97 97 97 01/23/18 16:00 01/23/18 20:00 01/24/18 00:00 Temperature 97.8 F 98.5 F 97.9 F Pulse Rate 74 98 H 88 Respiratory Rate 22 20 20 Blood Pressure 105/64 146/91 H 149/92 H Pulse Oximetry 97 97 96 01/24/18 04:00 Temperature 97.9 F Pulse Rate 90 Respiratory Rate 20 Blood Pressure 123/72 Pulse Oximetry 96 Intake & Output 01/23/18 01/24/18 01/24/18 18:59 06:59 18:59 Intake Total 480 / 480 630 / 630 Output Total 400 / 400 Balance 480 / 480 230 / 230 Intake: Oral 480 / 480 630 / 630 Output: Urine 400 / 400 Other: Post Void Residual 600 Date of Last Bowel Movement 01/23/18 # Bowel Movements 1 Narrative: also seen and examined by Dr. Rehan Sullivan lumbar wound healing well, moderate degree of ecchymosis to lower back, no active drainage - Urinary Catheter Management Straight Cath placed during this visit: yes Reason for continuing: Acute urinary retention Insertion date: 01/21/18 Insertion time: 14:10 Indwelling Urethral Catheter Cath placed during this visit: yes, but has since been removed by the nurse Reason for continuing: Acute urinary retention Insertion date: 01/23/18 Insertion time: 22:45 Removal date: 01/24/18 Removal time: 04:30 Results - Labs CBC & Chem 7: 01/21/18 11:40 01/21/18 11:40 Laboratory Results - last 24 hr 01/24/18 01/24/18 03:55 03:55 PT 31.4 H INR 3.1 Triglycerides 72 Cholesterol 127 LDL Cholesterol, Calc 68 HDL Cholesterol 44.6 Cholesterol/HDL Ratio 2.84 Assessment and Plan - Assessment and Plan Status post lumbar laminectomy L2-3 and L3-4, stable. Coumadin coagulopathy. History of atrial fibrillation. Likely TIA versus CVA. PLAN: continue cardiology management- patient was about to undergo echocardiogram at bedside Would prefer to keep INR at 2.0. Ecchymosis and swelling and back pain is related to Coumadin coagulopathy. Out of bed with brace. Dressing change daily. Orthopedically stable
--- NOTE | 2018-01-24 09:01 | P.PNIM ---
Subjective Interval history: in no acute distress. mildly lethargic and easily arousable. noted that still on restraints. no fever. reportedly had some hematuria earlier which has improved. Physical Exam Vital signs: Vital Signs 01/23/18 09:31 01/23/18 10:31 01/23/18 11:31 Temperature 98.1 F 98.4 F 97.9 F Pulse Rate 77 75 76 Respiratory Rate 23 20 20 Blood Pressure 160/74 H 150/76 H 147/78 H Pulse Oximetry 96 95 97 01/23/18 12:00 01/23/18 15:31 01/23/18 16:00 Temperature 98.2 F 97.7 F 97.8 F Pulse Rate 75 80 74 Respiratory Rate 23 22 Blood Pressure 112/59 L 142/77 H 105/64 Pulse Oximetry 97 97 97 01/23/18 20:00 01/24/18 00:00 01/24/18 04:00 Temperature 98.5 F 97.9 F 97.9 F Pulse Rate 98 H 88 90 Respiratory Rate 20 20 20 Blood Pressure 146/91 H 149/92 H 123/72 Pulse Oximetry 97 96 96 Intake & Output 01/23/18 01/24/18 01/24/18 18:59 06:59 18:59 Intake Total 480 / 480 630 / 630 Output Total 400 / 400 Balance 480 / 480 230 / 230 Intake: Oral 480 / 480 630 / 630 Output: Urine 400 / 400 Other: Post Void Residual 600 Date of Last Bowel Movement 01/23/18 # Bowel Movements 1 - Constitutional no acute distress - Routine Respiratory Exam Present: CTA bilaterally - Routine Cardiovascular Exam Present: RRR - Routine Abdominal Exam Present: soft - Routine Extremities Exam Comments: no pedal edema. - Routine Neurological Exam mildly lethargic but easily arousable. - Urinary Catheter Management Straight Cath placed during this visit: yes Reason for continuing: Acute urinary retention Insertion date: 01/21/18 Insertion time: 14:10 Indwelling Urethral Catheter Cath placed during this visit: yes, but has since been removed by the nurse Reason for continuing: Acute urinary retention Insertion date: 01/23/18 Insertion time: 22:45 Removal date: 01/24/18 Removal time: 04:30 Results - Labs CBC & Chem 7: 01/21/18 11:40 01/21/18 11:40 Laboratory Results - last 24 hr 01/24/18 01/24/18 03:55 03:55 PT 31.4 H INR 3.1 Triglycerides 72 Cholesterol 127 LDL Cholesterol, Calc 68 HDL Cholesterol 44.6 Cholesterol/HDL Ratio 2.84 Assessment and Plan - Assessment (1) Atrial fibrillation Code(s): I48.91 - Unspecified atrial fibrillation Status: Acute (2) CAD (coronary artery disease) Code(s): I25.10 - Atherosclerotic heart disease of [place] coronary artery without angina pectoris Status: Acute (3) Lumbar spinal stenosis Code(s): M48.061 - Spinal stenosis, lumbar region without neurogenic claudication Status: Acute (4) Altered mental status Code(s): R41.82 - Altered mental status, unspecified Status: Acute - Plan Acute intractable pain -Recent laminectomy. -Pt is allergic to Morphine. on Dilaudid 0.5mg IV now. -Will continue with pain control. - consulted Dr. Jarrell; stable from orthopaedic surgery. Acute encephalopathy Possible ischemic stroke fall ( 01/23) -Appreciate neurology evaluation. Patient was not a candidate for TPA. -Patient's encephalopathy could also be related to pain. -MRI brain pending. -echo pending. -continue Coumadin ( hold today and repeat the INR tomorrow) -repeat UA today. -fall precautions CAD s/p CABG x 5 Atrial fibrillation- s/p pacemaker placement Hx of Mitral valve repair -Currently on Warfarin. -Will continue carvedilol 3.125 mg p.o. twice daily, sotalol 120 mg p.o. twice daily. -Patient follows up with wood crew supervisor Dr. Jackson. -Continue aspirin 81 mg, Lipitor . Hypothyroidism GERD -continue levothyroxine 25 mcg p.o. daily. -Continue Protonix 20 mg p.o. q. other day. Hematuria; urology consulted- coumadin on hold today. Full code. Warfarin. Discharge Planning: dc planning; SNF-awaiting work-up/ neurology f/u. still on restraints. (4) Altered mental status Qualifiers: Altered mental status type: unspecified Qualified Code(s): R41.82 - Altered mental status, unspecified
[2018-01-24] MEDS: Calcium/Vitamin D 250/125 MG Tablet PO SCH (10:34)
--- NOTE | 2018-01-24 14:50 | P.PNADD ---
Addendum to Inpatient Note Reason for Addendum: Additional Documentation (d/w the family at the bedside; they were given an update; per my d/w the and the daughter, code status will be changed to DNR and palliative care will be consulted. will hold oral meds for today and start on IV fluid- MRI brain pending.)
[2018-01-24] MEDS: Sod Chloride 0.9% Inj 1,000 ML IV.CONT SCH (18:21)
[2018-01-24] MEDS: Sodium Chloride 0.9% 2 ML Flush BID IV.FLUSH SCH (22:41)
[2018-01-24 23:56] LABS: Bilirubin,Urine Negative (Negative); Clarity,Urine Cloudy (Clear); Color,Urine Red (Yellw/Straw); Glucose,Urine (UA) Negative (Negative); Hyaline Casts,Urine 18 /lpf (0-3); Leukocyte Esterase,Urine Negative (Negative); Mucus,Urine Few /lpf (Occasional); Nitrite,Urine Negative (Negative); Specific Gravity,Urine 1.025 (1.002-1.035)
[2018-01-25 05:02] LABS: Baso % (Auto) 0.5 % (0.0-2.0); Eos % (Auto) 0.4 % (0.0-4.0); Hematocrit 37.3 % (39.0-51.0); Hemoglobin 12.9 gm/dL (13.0-17.0); Lymph # (Auto) 0.8 th/mm3 (1.0-4.8); Lymph % (Auto) 11.7 % (9.0-44.0); Mean Corpuscular HGB Conc 34.5 % (32.0-36.0); Mean Corpuscular Hemoglobin 31.2 pg (27.0-34.0); Mean Corpuscular Volume 90.5 fL (80.0-100.0); Mean Platelet Volume 7.4 fL (7.0-11.0); Mono # (Auto) 0.9 th/mm3 (0.0-0.9); Mono % (Auto) 12.8 % (0.0-8.0); Neut % (Auto) 74.6 % (16.0-70.0); Platelet Count 168 th/mm3 (150-450); Red Blood Count 4.12 mil/mm3 (4.50-5.90); Red Cell Distribution Width 15.2 % (11.6-17.2); White Blood Count 6.6 th/mm3 (4.0-11.0)
[2018-01-25 05:07] LABS: INR 3.5 Ratio; Prothrombin Time 34.8 sec (9.8-11.6)
[2018-01-25 05:16] LABS: Anion Gap 11 meq/L (5-15); Blood Urea Nitrogen 21 mg/dL (7-18); Calcium 8.5 mg/dL (8.5-10.1); Carbon Dioxide 23.8 meq/L (21.0-32.0); Chloride 100 meq/L (98-107); Glomerular Filtration Rate Greater Than 89 mL/min (>89); Glucose,Random 81 mg/dL (74-106); Potassium 3.9 meq/L (3.5-5.1); Sodium 135 meq/L (136-145)
[2018-01-25] MEDS: Sod Chloride 0.9% Inj 1,000 ML IV.CONT SCH ×2 (05:27→17:32)
[2018-01-25] MEDS: Calcium/Vitamin D 250/125 MG Tablet PO SCH (08:39)
[2018-01-25] MEDS: Sodium Chloride 0.9% 2 ML Flush BID IV.FLUSH SCH ×2 (08:40→20:48)
[2018-01-25] MEDS: Pantoprazole Sodium 20 MG DR Tablet PO SCH (08:40)
--- NOTE | 2018-01-25 10:48 | P.CONPAL ---
Consult Service: Palliative Care Requesting Physician: Le Doan Reason for Consult: a. To assist with evaluation and management of symptoms including: Altered mental status, pain b. To assist medical decision maker(s) with: better understanding of current medical conditions; weighing benefits/burdens of medical treatment options; making medical treatment decisions. Primary Care Provider: Corazon Bearden MD History of Present Illness History of Present Illness: Mr. Arteaga is a 82-year-old male with a medical history of atrial fibrillation on Coumadin, coronary artery disease S/P CABG x5 vessels, mitral valve repair and pacemaker, hypertension, cellulitis, history of colon cancer, prostate cancer, hypothyroidism and hearing loss. Patient recently underwent laminectomy surgery in his lower back by Dr. Garza on January 14, 2018 and his Coumadin was stopped at that time for procedure. Patient presented to the emergency room on 01/21/18 complaining of back pain. Upon arrival to the ER patient was awake and oriented and later on developed altered mentation, difficulty finding words and slurred speech. Stroke alert was initiated. Neurologist Dr. Ryder was consulted on 01/21/18. Patient was not a candidate of TPA due to INR of 2.5 which is a contraindication and recent lumbar surgery. ER course: * Vital signs: Temperature 98.1 F, pulse 80, respiration 19, BP 137/71, O2 saturation 97% * Laboratory workup revealed WBC 6.5, hemoglobin 13.7, hematocrit 40.2, platelet count 216, PT 25.5, INR 2.5, APTT 38.7, sodium 133, potassium 3.4, BUN/ creatinine 14/0.85, troponin less than 0.02, total protein 7.5, albumin 4.0 * EKG-electronic atrial pacemaker electronic ventricular pacemaker. * Chest x-ray revealed basilar atelectasis. Cardiomegaly and no effusion or pneumothorax. Previous mitral valve replacement. * Urinalysis negative for leukocyte esterase and nitrates, culture not indicated * Head CT revealed no acute intracranial abnormality * Head CTA revealed patent intracranial vessels with aneurysmal or embolic disease. * Next CTA revealed no hemodynamically significant carotid artery stenosis and diminutive left vertebral which terminates in a PICA. * Abdomen/pelvis CT revealed no acute findings-noted was a hiatal hernia, mild constipation, advanced degenerative disease in the spine with stable mild compression deformities. * Lumbar spine CT revealed previous lumbar fusion across 11 4-5 level stable, mild compression fracture involving T12, L1, L2, L3, L4 and L5-which appear stable. Neurologist recommended continuing Coumadin and maintenance IV fluids and maintain bedrest with head of bed flat status. Orthopedic consulted on 01/22/18 for management of patient with low back pain status post 2 recent laminectomy, recommending decreasing INR to below 2.0 for 1 week and then resume to his normal preoperative dose. Per orthopedic surgeon, ecchymosis , swelling and pain is related to Coumadin coagulopathy. Patient fell on 01/23 and required temporary use of soft restraints. Family () changed CODE STATUS to DNR on 01/24/18. Clinical course complicated with altered mental status, slurred speech and pain. MRI brain pending. Palliative care consulted to assist with symptom management and establishment of goals of medical treatment. Patient seen and examined in his room in the presence of his , son and daughter. ECG been done. Patient is sitting up in a recliner - has brace on. Patient is alert, oriented to self, place, time and partly situation. Patient endorsing achy back pain, aggravated with movement, denies numbness or tingling sensation to his lower extremities. Family acknowledges that patient`s mentation has significantly improved though they still remained concerned about what caused metal changes in the first place. During this first visit, introduced palliative care and its role in symptom management and establishment of goals of medical treatment. Obtained psychosocial, past medical history and events leading to this hospitalization. Per patient`s spouse, and son -patient has completed advance directives in the past. He has Durable Power of [place] including Healthcare (DPOA) and he designated his Rocío Arteaga as his DPOA and his son Rolando Arteaga as his alternate DPOA. Family also mentioned that patient has a living will. Patient`s states that she has discussed in the past with patient and he has expressed that he would not want to be kept alive on mentions and have prolonged suffering. Patient`s spouse with the support of her children made patient DNR/DNI on 01/24/18. At this time family is hoping for patient`s recovery and maybe rehabilitation. Patient has been independent of all his ADLs and started ambulating with a walker 2 weeks prior to his recent back surgery. Palliative care contact information provided to patient`s family. Function/Cognitive Trajectory: Patient lives at home with his . Prior to recent surgery, patient was independent of all his ADLs-played golf. He started using a walker approximately 2-3 weeks ago due to back pain. Patient was also able to make his needs known. Review of Systems Constitutional: Reports weakness, Denies fatigue, Denies increased appetite, Denies lack of energy, Denies weight loss Eyes: Denies blurry vision, Denies loss of vision Ears, Nose, Mouth, and Throat: Denies difficulty swallowing, Denies hearing loss , Denies sore throat Cardiovascular: Reports rapid, pounding, or irregular heartbeat, Denies chest pain, Denies leg swelling, Denies shortness of breath Respiratory: Denies chest congestion, Denies shortness of breath Gastrointestinal: Denies abdominal pain, Denies constipation, Denies difficulty swallowing, Denies loose stools, Denies nausea, Denies vomiting Genitourinary: Denies blood in urine, Denies urinary incontinence Musculoskeletal: Reports back pain Skin/Breast: Reports unusual bruising Neurologic: Reports frequent falls (recently fell ), Reports lack of coordination, Denies abnormal speech, Denies headache(s), Denies loss of vision , Denies seizure-like activity, Denies tingling/numbness/burning sensations Psychiatric: Reports confusion, Denies anxiety Endocrine: Denies increased thirst, Denies increased urination Hematologic/Lymphatic: Reports easy bruising PMFSH - History History Provided By: Patient - Medical History Medical History: Medical History (Last Reviewed 01/25/18 @ 09:08 by [employer]) Atrial fibrillation GERD (gastroesophageal reflux disease) Hearing loss History of Clostridium difficile infection History of cellulitis History of sepsis Hypercholesteremia Hypothyroid Osteoarthritis - Surgical History Surgical History: Surgical History (Last Reviewed 01/25/18 @ 09:08 by [employer]) H/O heart bypass surgery History of arthroscopic knee surgery History of back surgery History of cataract extraction with lens replacement History of colon resection History of prostatectomy Hx of CABG S/P hip replacement - Family History Family History: Family History (Last Updated 01/25/18 @ 13:04 by Sylvia Ortega) Brother Heart attack Sister Pancreatic cancer Alcohol abuse Father Kidney disease - Social History I have reviewed the patient's Social History: Yes - Tobacco History Second Hand Smoke Exposure: No Smoking Status: Never smoker - Alcohol History How Often Do You Have a Drink Containing Alcohol: 4 or more times a week (has not drank since 2 weeks prior to back surgery) - Substance Use History Substance History: No History of Abuse - Travel History Recent Travel in the [place] Within the Last 8 Weeks: No Recent Travel Out of the Country Within the Last 8 Weeks: No - Immunization History Tetanus Immunization: >5 Years Hx Influenza Vaccine This Season: Yes Medications and Allergies Active Medications: Active Medications Acetaminophen (Tylenol) 650 mg PO Q4H PRN PRN Reason: Headache, fever, pain 1-4 Hydrocodone Bitart/Acetaminophen ([place] 5/325) 1 tab PO Q6H PRN PRN Reason: Pain 5-10 Last Admin: 01/23/18 21:10 Dose: 1 tab Al Hydroxide/Mg Hydroxide (Milk Of Magnesia Liq) 30 ml PO Q12H PRN PRN Reason: Mild Constipation Aspirin (Aspirin Chew) 81 mg PO DAILY [facility] Last Admin: 01/25/18 08:40 Dose: 81 mg Atorvastatin Calcium (Lipitor) 20 mg PO DAILY [facility] Last Admin: 01/25/18 08:40 Dose: 20 mg Bisacodyl (Dulcolax Supp) 10 mg RECTAL DAILY PRN PRN Reason: SEVERE CONSITIPATION Calcium/Vitamin D (Oscal With D 250/125 Mg) 2 tab PO DAILY [facility] Last Admin: 01/25/18 08:39 Dose: 2 tab Carvedilol (Coreg) 3.125 mg PO BID [facility] Last Admin: 01/25/18 08:40 Dose: 3.125 mg Hydromorphone HCl (Dilaudid Pf Inj) 0.5 mg IV.PUSH Q4H PRN PRN Reason: BREAKTHROUGH PAIN Last Admin: 01/22/18 04:03 Dose: 0.5 mg Sodium Chloride (Ns Inj) 1,000 mls @ 84 mls/hr IV.CONT .[id number] [facility] Last Admin: 01/25/18 05:27 Dose: 84 mls/hr Lactulose (Lactulose Liq) 30 ml PO DAILY PRN PRN Reason: SEVERE CONSITIPATION Levothyroxine Sodium (Synthroid) 25 mcg PO DAILY@0600 [facility] Last Admin: 01/25/18 05:27 Dose: 25 mcg Miscellaneous (Pill Splitter) 1 each OTHER DAILY [facility] Last Admin: 01/25/18 08:40 Dose: 1 each Ondansetron HCl (Zofran Inj) 4 mg IV.PUSH Q6H PRN PRN Reason: NAUSEA OR VOMITING Pantoprazole Sodium (Protonix) 20 mg PO EVERY OTHER DAY [facility] Last Admin: 01/25/18 08:40 Dose: 20 mg Pharmacy Profile Note (Coumadin Consult Pharmacy) 1 each OTHER UNSCH PRN PRN Reason: PHARMACY DOCUMENTATION Sennosides (Senokot) 17.2 mg PO Q12H PRN PRN Reason: Moderate Constipation Sodium Chloride (Ns Flush) 2 ml IV.FLUSH PRN PRN PRN Reason: FLUSH AFTER USING IV ACCESS Sodium Chloride (Ns Flush) 2 ml IV.FLUSH BID [facility] Last Admin: 01/25/18 08:40 Dose: 2 ml Sotalol HCl (Betapace) 120 mg PO BID [facility] Last Admin: 01/25/18 08:39 Dose: 120 mg Warfarin Sodium (Coumadin) 5 mg PO DAILY@1600 [facility] Last Admin: 01/23/18 16:09 Dose: 5 mg Allergies Allergy/AdvReac Type Severity Reaction Status Date / Time morphine Allergy Severe Confusion Verified 01/21/18 11:27 Home Medications Medication Instructions Recorded Confirmed Type aspirin 81 mg PO DAILY 01/01/18 01/21/18 History atorvastatin 20 mg PO DAILY 01/01/18 01/21/18 History carvedilol 3.125 mg PO BID 01/01/18 01/21/18 History levothyroxine 25 mcg PO DAILY 01/01/18 01/21/18 History multivitamin 1 tab PO DAILY 01/01/18 01/21/18 History sotalol 120 mg PO BID 01/01/18 01/21/18 History calcium carbonate-vitamin D3 1 tab PO DAILY 01/12/18 01/21/18 History [Calcium 600 + D(3)] [id number] oil [[place]-3 1 cap PO DAILY 01/12/18 01/21/18 History Fish Oil] omeprazole 20 mg PO 3XW 01/12/18 01/21/18 History warfarin [Coumadin] 3 mg PO 2XWEEK 01/12/18 01/21/18 History warfarin [Coumadin] 6 mg PO [id number] 01/12/18 01/21/18 History Advance Directives Living Will: Yes (Not made available) Power of [place]: Yes Power of [place] Name: Stated by family: DPOA-Rocío Arteaga(spouse) Alt DPOA: Rolando Arteaga(son) Power of [place] Relationship to Patient: Spouse ( will bring copy of DPOA , Living will) Physical Exam Vital Signs: Vital Signs - 24 hr 01/24/18 12:00 01/24/18 16:00 01/24/18 20:00 Temperature 99.0 F 99.2 F 98.5 F Pulse Rate 81 79 83 Respiratory Rate 22 21 18 Blood Pressure 97/57 L 150/65 H 129/61 Pulse Oximetry 94 L 97 94 L 01/24/18 20:27 01/24/18 22:40 01/25/18 00:00 Temperature 98.8 F Pulse Rate 82 Respiratory Rate 18 19 Blood Pressure 126/74 Pulse Oximetry 94 L 97 01/25/18 04:00 01/25/18 08:00 Temperature 99.4 F 98.1 F Pulse Rate 80 69 Respiratory Rate 19 17 Blood Pressure 150/82 H 157/97 H Pulse Oximetry 94 L 96 I&O: Intake & Output 01/23/18 01/24/18 01/25/18 01/26/18 06:59 06:59 06:59 06:59 Intake Total 720 / 720 1110 / 1110 1240 / 1240 Output Total 1999 / 1999 400 / 400 450 / 450 Balance -1280 / -1280 710 / 710 790 / 790 Weight 78.5 kg 73.9 kg Physical Exam: CONSTITUTIONAL/GENERAL: This is an adequately nourished patient, in no apparent distress. TUBES/LINES/DRAINS: SKIN: No jaundice, rashes, or lesions. Ecchymoses on upper extremities. Posterior Surgical wound to lower back with dressing intact. Skin temperature appropriate. Not diaphoretic. HEAD: Atraumatic. Normocephalic. EYES: Pupils equal and round and reactive. Extraocular motions intact. No scleral icterus. No injection or drainage. Fundi not examined. ENT: Hearing grossly normal. Nose without bleeding or purulent drainage. Moist oral mucosa. NECK: Trachea midline. Supple, nontender. CARDIOVASCULAR: Irregular rate and rhythm without murmurs, gallops, or rubs. No JVD. Peripheral pulses symmetric. RESPIRATORY/CHEST: Symmetric, unlabored respirations. Clear to auscultation. Breath sounds equal bilaterally. No wheezes, rales, or rhonchi. GASTROINTESTINAL: Abdomen soft, non-tender, nondistended. No guarding. Bowel sounds present. GENITOURINARY: Without palpable bladder distension. MUSCULOSKELETAL: Extremities without clubbing, cyanosis, or edema. No joint tenderness or effusion noted. No calf tenderness. No mottling or clubbing. NEUROLOGICAL: Awake, alert and partially oriented. Motor and sensory grossly within normal limits. Follows commands. Moves all extremities. PSYCHIATRIC: No obvious anxiety/depression. no apparent hallucinations or other psychotic thought process. Diagnostic Tests Laboratory: Laboratory Results - last 72 hr 01/23/18 01/24/18 01/24/18 05:50 03:55 03:55 WBC RBC Hgb Hct MCV MCH MCHC RDW Plt Count MPV Neut % (Auto) Lymph % (Auto) [place] % (Auto) Eos % (Auto) Baso % (Auto) Neut # (Auto) Lymph # (Auto) [place] # (Auto) Eos # (Auto) Baso # (Auto) WBC Differential Differential Comment PT 26.2 H 31.4 H INR 2.6 3.1 Sodium Potassium Chloride Carbon Dioxide Anion Gap BUN Creatinine Estimated GFR Random Glucose Calcium Triglycerides 72 Cholesterol 127 LDL Cholesterol, Calc 68 HDL Cholesterol 44.6 Cholesterol/HDL Ratio 2.84 Urine Color Urine Clarity Urine pH Ur Specific [place] Urine Protein Urine Glucose (UA) Urine Ketones Urine Occult Blood Urine Nitrate Urine Bilirubin Urine Urobilinogen Ur Leukocyte Esterase Urine RBC Urine WBC Hyaline Casts Urine Mucus Micro UA Comment Ur Microscopic Review Urine Culture Comments 01/24/18 01/25/18 01/25/18 22:30 04:15 04:15 WBC 6.6 RBC 4.12 L Hgb 12.9 L Hct 37.3 L MCV 90.5 MCH 31.2 MCHC 34.5 RDW 15.2 Plt Count 168 MPV 7.4 Neut % (Auto) 74.6 H Lymph % (Auto) 11.7 [place] % (Auto) 12.8 H Eos % (Auto) 0.4 Baso % (Auto) 0.5 Neut # (Auto) 5.0 Lymph # (Auto) 0.8 L [place] # (Auto) 0.9 Eos # (Auto) 0.0 Baso # (Auto) 0.0 WBC Differential . Differential Comment Auto diff final PT 34.8 H INR 3.5 Sodium Potassium Chloride Carbon Dioxide Anion Gap BUN Creatinine Estimated GFR Random Glucose Calcium Triglycerides Cholesterol LDL Cholesterol, Calc HDL Cholesterol Cholesterol/HDL Ratio Urine Color Red Urine Clarity Cloudy H Urine pH 5.0 Ur Specific [place] 1.025 Urine Protein 100 H Urine Glucose (UA) Negative Urine Ketones 20 Urine Occult Blood Moderate H Urine Nitrate Negative Urine Bilirubin Negative Urine Urobilinogen Less than 2 Ur Leukocyte Esterase Negative Urine RBC Urine WBC 9 H Hyaline Casts 18 Urine Mucus Few H Micro UA Comment Culture indicated Ur Microscopic Review Not Reportable Urine Culture Comments Culture indicated 01/25/18 04:15 WBC RBC Hgb Hct MCV MCH MCHC RDW Plt Count MPV Neut % (Auto) Lymph % (Auto) [place] % (Auto) Eos % (Auto) Baso % (Auto) Neut # (Auto) Lymph # (Auto) [place] # (Auto) Eos # (Auto) Baso # (Auto) WBC Differential Differential Comment PT INR Sodium 135 L Potassium 3.9 Chloride 100 Carbon Dioxide 23.8 Anion Gap 11 BUN 21 H Creatinine 0.55 L Estimated GFR Greater than 89 Random Glucose 81 Calcium 8.5 Triglycerides Cholesterol LDL Cholesterol, Calc HDL Cholesterol Cholesterol/HDL Ratio Urine Color Urine Clarity Urine pH Ur Specific [place] Urine Protein Urine Glucose (UA) Urine Ketones Urine Occult Blood Urine Nitrate Urine Bilirubin Urine Urobilinogen Ur Leukocyte Esterase Urine RBC Urine WBC Hyaline Casts Urine Mucus Micro UA Comment Ur Microscopic Review Urine Culture Comments Result Diagrams: 01/25/18 04:15 01/25/18 04:15 Imaging: Abdomen/Pelvis CT 01/21/18 11:31 CONCLUSION: 1. No acute findings. Nonacute findings include hiatal hernia, mild constipation, advanced degenerative disease in the spine with stable mild compression deformities. 2. Stable bilateral renal cysts. Pacer leads in right atrium and right ventricle. Chest X-Ray 01/21/18 11:31 CONCLUSION: Basilar atelectasis. No effusion or pneumothorax. Cardiomegaly. Previous mitral valve replacement. Head CT 01/21/18 11:31 CONCLUSION: 1. No acute intracranial abnormality. Report was called by [Dr. Deepak Erwin to Dr. Perdomo ] Lumbar Spine CT 01/21/18 11:39 CONCLUSION: 1. Previous lumbar fusion across the L4-5 level stable compared to previous. 2. Mild compression fractures involving T12, L1, L2, L3, L4 and L5. These are all stable compared to previous examination dated 09/13/2010. 3. Degenerated disc with facet arthritis and disc bulges as above. Head CTA 01/21/18 12:01 CONCLUSION: Intracranial vessels are all patent without aneurysmal or embolic disease. Neck CTA 01/21/18 12:01 CONCLUSION: 1. No hemodynamically significant carotid artery stenosis identified. 2. Diminutive left vertebral which terminates in a PICA. Patient/Family Conference Family Conference Location: Bedside Issues Discussed: * Palliative care role, purpose, approach * Additional medical, psychosocial, and spiritual history * Patients general health, functional status, and cognitive changes in the months leading up to the current hospitalization * Patient/family understanding of the current medical problems * Patient/family understanding of prognosis * Patients goals of care as best understood from advance directives and/or conversations and/or values * Current medical treatment options and benefits/burdens of those options * Likely scenarios comparing ongoing aggressive care with a transition to comfort measures only * Questions answered to the best of my ability * Palliative care contact information provided Assessment and Plan - Disease Oriented Problem List (1) Lumbar spinal stenosis (2) Atrial fibrillation (3) CAD (coronary artery disease) (4) Hypertension (5) Hypothyroidism - Symptom Scale (1) Pain 0-10 Scale: 4 Comment: Recent laminectomy on 01/14/18. Patient complaining of achy lower back pain. (2) Altered mental status 0-10 Scale: Unable to quantify Comment: Developed altered mentation in the emergency room. 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 Pertinent Non-Medical Issues: Psychosocial:Patient is originally from [place]. 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 He moved to [place] temporarily in 1991 and permanently in 2001. Patient has been to his Rocío Arteaga for 60 years. They have 3 adult children 2 daughters and 1 son. Patient served in the [employer]. Patient enjoys playing golf. Spiritual: Patient is Mandaen-Family would like a roofing subcontractor to visit with patient during hospitalization. Legal:Per , patient has Durable Power of [place] including Healthcare. Ethical issues impacting care: None identified at this time Important Contacts: Spouse- ANA LAURAOA- ArteagaSepidehRocío [phone] home/[phone] cellphone Son- Alternate DPOA-Rolando Arteaga [phone] Prognosis: Mr. Arteaga is a 82-year-old male with a medical history of atrial fibrillation on Coumadin, coronary artery disease S/P CABG x5 vessels, mitral valve repair and pacemaker, hypertension, cellulitis, history of colon cancer, prostate cancer, hypothyroidism and hearing loss. Patient recently underwent laminectomy surgery in his lower back by Dr. Garza on January 14, 2018 and his Coumadin was stopped at that time for procedure. Patient presented to the emergency room on 01/21/18 complaining of back pain. Clinical course complicated with altered mental status, slurred speech and pain. Given multiple ongoing comorbidities, patient remains at risk for further complications, deterioration and decline. Code Status: No Code DNR Plan: PLAN: Legal decision maker: Patient is currently oriented to self and partly situation with some confusion. At this time it is unknown if he will regain capacity to participate in medical decision making. Patient's self stated DPOA is his spouse Rocío Arteaga and his alternate DPOA is his son Rolando Arteaga. Goals: Aggressive short of no code. Patient`s spouse with the support of her children made patient DNR/DNI on 01/24/18. At this time family is hoping for patient`s recovery and maybe rehabilitation. Patient has been independent of all his ADLs and started ambulating with a walker 2 weeks prior to his recent back surgery. CODE STATUS: No code DNR/DNI SYMPTOMS: * Altered mental status: Patient developed altered mentation in the emergency room after coming in with a complain of back pain s/p laminectomy on 01/14. 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 MRI brain pending. Per family patient`s mentation has significantly improved though he still has some confusion. Continue with neuro assessments. * Pain: Patient recently had laminectomy surgery on 01/14/18. Developed achy pain to his back. 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 Pain managed with Hydrocodone/acetaminophen 5/ 325 every 6 hours as needed pain. Pain appears to be adequately managed at this time. Palliative care will continue to follow the patient during hospital course as condition evolves, to assist patient/decision-maker with understanding of their medical conditions, weighing benefits/burdens of treatment options, for clarification of goals of treatment. Additionally will assist with any symptoms of palliative concern Appreciation Thank you for the opportunity to participate in the care of Rolando Arteaga. Attestation Attestation: To help prompt me to consider important information that might be impacting today's encounter and assessment, information from prior notes written by myself or my colleagues may have been "brought forward" into today's note. My signature on this note, however, is an attestation that I personally performed the exam, history, and/or decision-making noted today, and, unless otherwise indicated, the interactions with patient, family, and staff as well as the review of records all occurred today. I also attest that the listed assessment and stated plan reflect my best clinical judgment today based on the combination of historical information, prior notes, and today's exam/ interactions. When time spent is documented, it refers only to time spent today by the signer, or if indicated, combined time spent today by collaborating physician/nurse practitioner.
--- NOTE | 2018-01-25 14:27 | CT ---
EXAM DATE: 01/25/2018 1:07 PM EDT AGE/SEX: 82 years / Male INDICATIONS: Falls Altered mental status CLINICAL DATA: This is the patient's initial encounter. Patient reports that signs and symptoms have been present for 1 day and indicates a pain score of 7/10. MEDICAL/SURGICAL HISTORY: Cardiovascular disease. A-fib CABG. Pacemaker. RADIATION DOSE: 56.35 CTDI (mGy) COMPARISON: [facility] [place], CTA HEAD W CONTRAST W 3D, 01/21/2018. [facility] [place], [place] HEAD W/O CONTRAST, 01/21/2018. . TECHNIQUE: CT of the head without contrast. Using automated exposure control and adjustment of the mA and/or kV according to patient size, radiation dose was kept as low as reasonably achievable to ob tain optimal diagnostic quality images. DICOM format image data is available electronically for revi ew and comparison. FINDINGS: Cerebrum: Diffuse cerebral atrophy is noted. Moderate periventricular and subcortical white matter s mall vessel ischemic changes are noted. There is no acute infarct, acute hemorrhage, mass effect or e xtra-axial fluid collections. Posterior Fossa: The brainstem is intact. Old lacunar infarct is noted within the right cerebral he misphere. The 4th ventricle is midline. The cerebellopontine angle is unremarkable. Extracranial: The visualized portion of the orbits is intact. Mild mucosal thickening is noted withi n the maxillary sinuses bilaterally. Skull: The calvaria is intact. No evidence of skull fracture. CONCLUSION: 1. Moderate periventricular and subcortical white matter small vessel ischemic changes bilaterally. 2. Diffuse cerebral atrophy. 3. 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 4. Mild mucosal thickening within maxillary sinuses bilaterally. . Electronically signed by: Uday Singh MD 01/25/2018 2:26 PM EDT
--- NOTE | 2018-01-25 14:29 | ECHRPT ---
Indication: CVA/TIA CONCLUSIONS The left ventricular systolic function is rdxizcpw-nx-izlarub reduced with an estimated ejection fra ction in the range of 35-40%. Normal left ventricular size. Moderate concentric left ventricular hypertrophy. No regional wall motion abnormalities are present. The left atrial size is mildly dilated. Moderate thickening of the mitral valve leaflets. Calcification of both mitral valve leaflets. Trace mitral valve regurgitation. Moderate mitral annular calcification. Mild mitral valve stenosis. Mitral valve mean gradient is 3 mmHg. The mitral valve area by Pressure Halftime Method is 1.21 cm. Mild thickening of the aortic valve leaflets. Diffuse calcification of the aortic valve. Mild aortic valve stenosis. Aortic valve area is 0.79 cm. Aortic valve mean gradient is 21 mmHg. There is trace tricuspid valve regurgitation. The estimated pulmonary arterial pressure is 29.5 mmHg. The inferior vena cava was not well visualized. BP: / HR: Rhythm: Sinus MEASUREMENTS (Male / Female) Normal Values Technical Quality:Good 2D ECHO LV Diastolic Diameter PLAX 4.7 cm 4.2 - 5.9 / 3.9 - 5.3 cm LV Systolic Diameter PLAX 4.0 cm IVS Diastolic Thickness 1.5 cm 0.6 - 1.0 / 0.6 - 0.9 cm LVPW Diastolic Thickness 1.5 cm 0.6 - 1.0 / 0.6 - 0.9 cm LV Relative Wall Thickness 0.6 RV Internal Dim ED PLAX 3.2 cm LVOT Diameter 2.1 cm LA Systolic Diameter LX 4.2 cm 3.0 - 4.0 / 2.7 - 3.8 cm LV Ejection Fraction MOD 4C 44.3 % LV Ejection Fraction 4C AL 44.2 % M-MODE Aortic Root Diameter MM 2.2 cm LA Systolic Diameter MM 4.2 cm LA Ao Ratio MM 1.9 AV Cusp Separation MM 1.0 cm DOPPLER AV Peak Velocity 314.0 cm/s AV Peak Gradient 39.4 mmHg AV Mean Gradient 21.0 mmHg AV Velocity Time Integral 65.7 cm LVOT Peak Velocity 91.7 cm/s LVOT Peak Gradient 3.4 mmHg LVOT Velocity Time Integral 15.0 cm AV Area Cont Eq vti 0.8 cm AV Area Cont Eq pk 1.0 cm MV Peak Velocity 152.0 cm/s MV Peak Gradient 9.2 mmHg MV Mean Velocity 85.0 cm/s MV Mean Gradient 3.0 mmHg MV Area PHT 2.0 cm Mitral E Point Velocity 138.0 cm/s Mitral A Point Velocity 65.2 cm/s Mitral E to A Ratio 2.1 LV E' Lateral Velocity 7.0 cm/s Mitral E to LV E' Lateral Ratio 19.7 LV E' Septal Velocity 4.0 cm/s Mitral E to LV E' Septal Ratio 34.5 TR Peak Velocity 221.0 cm/s TR Peak Gradient 19.5 mmHg Right Atrial Pressure 10.0 mmHg Pulmonary Artery Systolic Pressu 29.5 mmHg Right Ventricular Systolic Press 29.5 mmHg PV Peak Velocity 141.0 cm/s PV Peak Gradient 8.0 mmHg FINDINGS LEFT VENTRICLE The left ventricular systolic function is phosbtsq-km-nyrqkwp reduced with an estimated ejection fra ction in the range of 35-40%. Normal left ventricular size. Moderate concentric left ventricular hypertrophy. No regional wall motion abnormalities are present. RIGHT VENTRICLE Normal right ventricular size and systolic function. LEFT ATRIUM The left atrial size is mildly dilated. RIGHT ATRIUM The right atrial size is normal. ATRIAL SEPTUM Normal atrial septal thickness without atrial level shunting by limited color doppler interrogation. AORTA The aortic root and proximal ascending aorta are normal in size on limited imaging. MITRAL VALVE Moderate thickening of the mitral valve leaflets. Calcification of both mitral valve leaflets. Trace mitral valve regurgitation. Moderate mitral annular calcification. Mild mitral valve stenosis. Mitral valve mean gradient is 3 mmHg. The mitral valve area by Pressure Halftime Method is 121 cm. AORTIC VALVE Trileaflet aortic valve. Mild thickening of the aortic valve leaflets. Diffuse calcification of the aortic valve. Mild aortic valve stenosis. Aortic valve area is 0.79 cm. Aortic valve mean gradient is 21 mmHg. TRICUSPID VALVE Structurally normal tricuspid valve. There is trace tricuspid valve regurgitation. The estimated pulmonary arterial pressure is 29.5 mmHg. PULMONARY VALVE No pulmonary valve regurgitation or stenosis. VESSELS The inferior vena cava was not well visualized. PERICARDIUM No pericardial effusion. Al Walls MD, FACC, [facility] [place] (Electronically Signed) Final Date:25 January 2018 14:27
[2018-01-25] MEDS ORDERED: Phytonadione 5 MG/SWFI 5 ML Oral Syringe PO ONE (15:00)
--- NOTE | 2018-01-25 15:22 | P.PNIM ---
Subjective Interval history: Patient says he is feeling right. Denies any chest pain shortness of breath. He reports back pain continues. at bedside, says that his mental status is 80% back to normal. Physical Exam Vital signs: Vital Signs 01/24/18 16:00 01/24/18 20:00 01/24/18 20:27 Temperature 99.2 F 98.5 F Pulse Rate 79 83 Respiratory Rate 21 18 Blood Pressure 150/65 H 129/61 Pulse Oximetry 97 94 L 94 L 01/24/18 22:40 01/25/18 00:00 01/25/18 04:00 Temperature 98.8 F 99.4 F Pulse Rate 82 80 Respiratory Rate 18 19 19 Blood Pressure 126/74 150/82 H Pulse Oximetry 97 94 L 01/25/18 08:00 01/25/18 12:00 Temperature 98.1 F 97.8 F Pulse Rate 73 76 Respiratory Rate 17 17 Blood Pressure 157/97 H 100/61 Pulse Oximetry 96 99 Intake & Output 01/24/18 01/25/18 01/25/18 18:59 06:59 18:59 Intake Total 0 / 0 1240 / 1240 Output Total 450 / 450 Balance 0 / 0 790 / 790 Weight 73.9 kg Intake: IV 1000 / 1000 NS Inj 1,000 ML @ 84 mls/hr IV. 1000 / 1000 CONT .[id number] [facility] Rx#:[id number] Oral 0 / 0 240 / 240 Output: Urine 450 / 450 Other: # Incontinent Voids 4 1 Date of Last Bowel Movement 01/23/18 01/23/18 01/25/18 Narrative: GENERAL: Patient sitting up in bed. Appears comfortable. SKIN: Warm and dry. HEAD: Normocephalic. EYES: No scleral icterus. No injection or drainage. NECK: Supple, trachea midline. No JVD CARDIOVASCULAR: Regular rate and rhythm without murmurs, gallops, or rubs. RESPIRATORY: Breath sounds equal bilaterally. No accessory muscle use. GASTROINTESTINAL: Abdomen soft, non-tender, nondistended. MUSCULOSKELETAL: No cyanosis, or edema. BACK: Nontender without obvious deformity. No CVA tenderness. - Urinary Catheter Management Straight Cath placed during this visit: yes Reason for continuing: Acute urinary retention Insertion date: 01/21/18 Insertion time: 14:10 Indwelling Urethral Catheter Cath placed during this visit: yes, but has since been removed by the nurse Reason for continuing: Acute urinary retention Insertion date: 01/23/18 Insertion time: 22:45 Removal date: 01/24/18 Removal time: 04:30 Results - Labs CBC & Chem 7: 01/25/18 04:15 01/25/18 04:15 Laboratory Results - last 24 hr 01/24/18 01/25/18 01/25/18 22:30 04:15 04:15 WBC 6.6 RBC 4.12 L Hgb 12.9 L Hct 37.3 L MCV 90.5 MCH 31.2 MCHC 34.5 RDW 15.2 Plt Count 168 MPV 7.4 Neut % (Auto) 74.6 H Lymph % (Auto) 11.7 [place] % (Auto) 12.8 H Eos % (Auto) 0.4 Baso % (Auto) 0.5 Neut # (Auto) 5.0 Lymph # (Auto) 0.8 L [place] # (Auto) 0.9 Eos # (Auto) 0.0 Baso # (Auto) 0.0 WBC Differential . Differential Comment Auto diff final PT 34.8 H INR 3.5 Sodium Potassium Chloride Carbon Dioxide Anion Gap BUN Creatinine Estimated GFR Random Glucose Calcium Urine Color Red Urine Clarity Cloudy H Urine pH 5.0 Ur Specific [place] 1.025 Urine Protein 100 H Urine Glucose (UA) Negative Urine Ketones 20 Urine Occult Blood Moderate H Urine Nitrate Negative Urine Bilirubin Negative Urine Urobilinogen Less than 2 Ur Leukocyte Esterase Negative Urine RBC Urine WBC 9 H Hyaline Casts 18 Urine Mucus Few H Micro UA Comment Culture indicated Ur Microscopic Review Not Reportable Urine Culture Comments Culture indicated 01/25/18 04:15 WBC RBC Hgb Hct MCV MCH MCHC RDW Plt Count MPV Neut % (Auto) Lymph % (Auto) [place] % (Auto) Eos % (Auto) Baso % (Auto) Neut # (Auto) Lymph # (Auto) [place] # (Auto) Eos # (Auto) Baso # (Auto) WBC Differential Differential Comment PT INR Sodium 135 L Potassium 3.9 Chloride 100 Carbon Dioxide 23.8 Anion Gap 11 BUN 21 H Creatinine 0.55 L Estimated GFR Greater than 89 Random Glucose 81 Calcium 8.5 Urine Color Urine Clarity Urine pH Ur Specific [place] Urine Protein Urine Glucose (UA) Urine Ketones Urine Occult Blood Urine Nitrate Urine Bilirubin Urine Urobilinogen Ur Leukocyte Esterase Urine RBC Urine WBC Hyaline Casts Urine Mucus Micro UA Comment Ur Microscopic Review Urine Culture Comments - Imaging Impressions Head CT 01/25/18 00:00 CONCLUSION: 1. Moderate periventricular and subcortical white matter small vessel ischemic changes bilaterally. 2. Diffuse cerebral atrophy. 3. 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 4. Mild mucosal thickening within maxillary sinuses bilaterally. . Assessment and Plan - Assessment (1) Atrial fibrillation Code(s): I48.91 - Unspecified atrial fibrillation Status: Acute (2) CAD (coronary artery disease) Code(s): I25.10 - Atherosclerotic heart disease of [place] coronary artery without angina pectoris Status: Acute (3) Lumbar spinal stenosis Code(s): M48.061 - Spinal stenosis, lumbar region without neurogenic claudication Status: Acute (4) Altered mental status Code(s): R41.82 - Altered mental status, unspecified Status: Acute - Plan //Acute intractable pain -Recent laminectomy. -Pt is allergic to Morphine. on Dilaudid 0.5mg IV now. -Will continue with pain control. - consulted Dr. Jarrell; stable from orthopaedic surgery. = R3.5 today. We will partially reverse INR with 1 mg vitamin K today. //Acute encephalopathy //Possible ischemic stroke fall ( 01/23) -Appreciate neurology evaluation. Patient was not a candidate for TPA. -Patient's encephalopathy could also be related to pain. -MRI brain pending. -echo pending. -continue Coumadin ( hold today and repeat the INR tomorrow) -repeat UA today. 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 Discussed I discussed with radiology, reports no changes from admission. //CAD s/p CABG x 5 //Atrial fibrillation- s/p pacemaker placement //Hx of Mitral valve repair -Currently on Warfarin. -Will continue carvedilol 3.125 mg p.o. twice daily, sotalol 120 mg p.o. twice daily. 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 Jackson. -Continue aspirin 81 mg, Lipitor . //Hypothyroidism //GERD -continue levothyroxine 25 mcg p.o. daily. -Continue Protonix 20 mg p.o. q. other day. //Hematuria; urology consulted- coumadin on hold //Full code. DVT prophy. Warfarin. Discussed Condition With: Patient, nurse Discharge Planning: Will need neurology clearance Still in restraints Pending cardiology evaluation for pacer (4) Altered mental status Qualifiers: Altered mental status type: unspecified Qualified Code(s): R41.82 - Altered mental status, unspecified
--- NOTE | 2018-01-25 15:47 | ECG ---
Date Performed: 01/25/2018 Time Performed: 11:38:00 PTAGE: 82 years EKG: Atrial Fibrillation With rapid ventricular response Right bundle branch block PREVIOUS TRACING : @11.15 Compared to previous tracing, prior EKG showed a pace d rhythm, the patient now appears to be in atrial fibrillation With rapid ventricular response with R ight bundle branch block. DOCTOR: Tomer Jaffe Interpretating Date/Time 01/25/2018 15:45:35
--- NOTE | 2018-01-25 15:47 | ECG ---
Date Performed: 01/25/2018 Time Performed: 11:39:24 PTAGE: 82 years EKG: Possible atrial flutter with rapid ventricular response. Rightward axis IV conduction defec t Anterolateral infarct - age undetermined Inferior ST-T changes may be due to myocardial ischemia Ab normal ECG PREVIOUS TRACING : 01/21/2018 11.51 Compared to previous tracing, adair now appears raheem in a trial flutter with 2:1 heart block. Possible paced ventricular rhythm DOCTOR: Tomer Jaffe Interpretating Date/Time 01/25/2018 15:46:27
--- NOTE | 2018-01-25 20:31 | P.CONCA ---
History of Present Illness Service: Cardiology Consult date: 01/25/18 Requesting Physician: Brady Hamilton Reason for Consult: irregular heart beat Primary Care Provider: Corazon Peck MD Family Provider: Corazon Peck MD Chief Complaint: Altered mental status. History of Present Illness: Patient reportedly had back surgery one week prior to his admission on 2017. Came in for severe back pain. He has history of a fib with a pacemaker and has been anticoagulated on warfarin prior to surgery. He has also had altered mental status and is in process of workup for Stroke. He is currently somewhat confused resting in bed. Knows where he is and why he is here but is confused to time. Thinks it is February 25, 2018. He does deny chest pain, shortness of breath, does complain of back pain. Denies edema, palpitations. Review of Systems All other systems reviewed negative except as stated in HPI PMFSH - History History Provided By: Patient, Medical Record - Medical History Medical History: Medical History (Last Reviewed 01/25/18 @ 09:08 by [employer]) Atrial fibrillation GERD (gastroesophageal reflux disease) Hearing loss History of Clostridium difficile infection History of cellulitis History of sepsis Hypercholesteremia Hypothyroid Osteoarthritis - Surgical History Surgical History: Surgical History (Last Reviewed 01/25/18 @ 09:08 by [employer]) H/O heart bypass surgery History of arthroscopic knee surgery History of back surgery History of cataract extraction with lens replacement History of colon resection History of prostatectomy Hx of CABG S/P hip replacement - Family History Family History: Family History (Last Updated 01/25/18 @ 13:04 by Sylvia Ortega) Brother Heart attack Sister Pancreatic cancer Alcohol abuse Father Kidney disease - Tobacco History Second Hand Smoke Exposure: No Smoking Status: Never smoker - Alcohol History How Often Do You Have a Drink Containing Alcohol: 4 or more times a week (has not drank since 2 weeks prior to back surgery) - Substance Use History Substance History: No History of Abuse - Travel History Recent Travel in the [place] Within the Last 8 Weeks: No Recent Travel Out of the Country Within the Last 8 Weeks: No - Immunization History Tetanus Immunization: >5 Years Hx Influenza Vaccine This Season: Yes Medications and Allergies Active Medications: Active Medications Acetaminophen (Tylenol) 650 mg PO Q4H PRN PRN Reason: Headache, fever, pain 1-4 Hydrocodone Bitart/Acetaminophen ([place] 5/325) 1 tab PO Q6H PRN PRN Reason: Pain 5-10 Last Admin: 01/23/18 21:10 Dose: 1 tab Al Hydroxide/Mg Hydroxide (Milk Of Magnesia Liq) 30 ml PO Q12H PRN PRN Reason: Mild Constipation Aspirin (Aspirin Chew) 81 mg PO DAILY [facility] Last Admin: 01/25/18 08:40 Dose: 81 mg Atorvastatin Calcium (Lipitor) 20 mg PO DAILY [facility] Last Admin: 01/25/18 08:40 Dose: 20 mg Bisacodyl (Dulcolax Supp) 10 mg RECTAL DAILY PRN PRN Reason: SEVERE CONSITIPATION Calcium/Vitamin D (Oscal With D 250/125 Mg) 2 tab PO DAILY [facility] Last Admin: 01/25/18 08:39 Dose: 2 tab Carvedilol (Coreg) 3.125 mg PO BID [facility] Last Admin: 01/25/18 08:40 Dose: 3.125 mg Hydromorphone HCl (Dilaudid Pf Inj) 0.5 mg IV.PUSH Q4H PRN PRN Reason: BREAKTHROUGH PAIN Last Admin: 01/22/18 04:03 Dose: 0.5 mg Sodium Chloride (Ns Inj) 1,000 mls @ 84 mls/hr IV.CONT .[id number] [facility] Last Admin: 01/25/18 17:32 Dose: 84 mls/hr Lactulose (Lactulose Liq) 30 ml PO DAILY PRN PRN Reason: SEVERE CONSITIPATION Levothyroxine Sodium (Synthroid) 25 mcg PO DAILY@0600 [facility] Last Admin: 01/25/18 05:27 Dose: 25 mcg Miscellaneous (Pill Splitter) 1 each OTHER DAILY [facility] Last Admin: 01/25/18 08:40 Dose: 1 each Ondansetron HCl (Zofran Inj) 4 mg IV.PUSH Q6H PRN PRN Reason: NAUSEA OR VOMITING Pantoprazole Sodium (Protonix) 20 mg PO EVERY OTHER DAY [facility] Last Admin: 01/25/18 08:40 Dose: 20 mg Sennosides (Senokot) 17.2 mg PO Q12H PRN PRN Reason: Moderate Constipation Sodium Chloride (Ns Flush) 2 ml IV.FLUSH PRN PRN PRN Reason: FLUSH AFTER USING IV ACCESS Sodium Chloride (Ns Flush) 2 ml IV.FLUSH BID [facility] Last Admin: 01/25/18 08:40 Dose: 2 ml Sotalol HCl (Betapace) 120 mg PO BID [facility] Last Admin: 01/25/18 08:39 Dose: 120 mg Warfarin Sodium (Coumadin) 5 mg PO DAILY@1600 [facility] Last Admin: 01/23/18 16:09 Dose: 5 mg Allergies Allergy/AdvReac Type Severity Reaction Status Date / Time morphine Allergy Severe Confusion Verified 01/21/18 11:27 Home Medications Medication Instructions Recorded Confirmed Type aspirin 81 mg PO DAILY 01/01/18 01/21/18 History atorvastatin 20 mg PO DAILY 01/01/18 01/21/18 History carvedilol 3.125 mg PO BID 01/01/18 01/21/18 History levothyroxine 25 mcg PO DAILY 01/01/18 01/21/18 History multivitamin 1 tab PO DAILY 01/01/18 01/21/18 History sotalol 120 mg PO BID 01/01/18 01/21/18 History calcium carbonate-vitamin D3 1 tab PO DAILY 01/12/18 01/21/18 History [Calcium 600 + D(3)] [id number]-fish oil [Allgood-3 1 cap PO DAILY 01/12/18 01/21/18 History Fish Oil] omeprazole 20 mg PO 3XW 01/12/18 01/21/18 History warfarin [Coumadin] 3 mg PO 2XWEEK 01/12/18 01/21/18 History warfarin [Coumadin] 6 mg PO [id number] 01/12/18 01/21/18 History Exam Vital signs: Vital Signs 01/24/18 20:27 01/24/18 22:40 01/25/18 00:00 Temperature 98.8 F Pulse Rate 82 Respiratory Rate 18 19 Blood Pressure 126/74 Pulse Oximetry 94 L 97 01/25/18 04:00 01/25/18 08:00 01/25/18 12:00 Temperature 99.4 F 98.1 F 97.8 F Pulse Rate 80 73 76 Respiratory Rate 19 17 17 Blood Pressure 150/82 H 157/97 H 100/61 Pulse Oximetry 94 L 96 99 01/25/18 16:00 Temperature 98.0 F Pulse Rate 82 Respiratory Rate 18 Blood Pressure 106/74 Pulse Oximetry 95 Intake & Output 01/25/18 01/25/18 01/26/18 06:59 18:59 06:59 Intake Total 1240 / 1240 1720 / 1720 Output Total 450 / 450 Balance 790 / 790 1720 / 1720 Weight 73.9 kg Intake: IV 1000 / 1000 1000 / 1000 NS Inj 1,000 ML @ 84 mls/hr IV. 1000 / 1000 1000 / 1000 CONT .[id number] [facility] Rx#:[id number] Oral 240 / 240 720 / 720 Output: Urine 450 / 450 Other: # Voids 1 # Incontinent Voids 1 1 Date of Last Bowel Movement 01/23/18 01/25/18 # Bowel Movements 0 - Constitutional no acute distress - Routine HEENT Exam Head: Present: normocephalic, atraumatic Eye: Present: EOMI ENT: Present: mucous membranes moist - Routine Neck Exam Present: supple. Absent: JVD - Routine Chest/Breast/Axilla Exam Chest wall: Present: pacemaker - Routine Respiratory Exam Present: decreased breath sounds - Routine Cardiovascular Exam Present: S1, S2, murmur, irregular rhythm, irregularly irregular Comments: 2/5 systolic murmur noted over precordium more on left sternal border. - Routine Abdominal Exam Present: soft, normoactive bowel sounds - Routine Extremities Exam Present: pulses intact, normal capillary refill - Routine Skin Exam Present: intact, ecchymosis Comments: soft hematoma noted to base of back. - Routine Neurological Exam Present: alert oriented to person and place but not time. Results 01/25/18 04:15 01/25/18 04:15 Coagulation 01/24/18 01/25/18 Range/Units 03:55 04:15 PT 31.4 H 34.8 H (9.8-11.6) sec Lipids 01/24/18 Range/Units 03:55 Triglycerides 72 (42-150) mg/dL Cholesterol 127 (120-200) mg/dL HDL Cholesterol 44.6 (40.0-60.0) mg/dL Cholesterol/HDL Ratio 2.84 Ratio CBC 01/25/18 Range/Units 04:15 WBC 6.6 (4.0-11.0) th/mm3 RBC 4.12 L (4.50-5.90) mil/mm3 Hgb 12.9 L (13.0-17.0) gm/dL Hct 37.3 L (39.0-51.0) % Plt Count 168 (150-450) th/mm3 Neut # (Auto) 5.0 (1.8-7.7) th/mm3 Lymph # (Auto) 0.8 L (1.0-4.8) th/mm3 [place] # (Auto) 0.9 (0.0-0.9) th/mm3 Eos # (Auto) 0.0 (0.0-0.4) th/mm3 Baso # (Auto) 0.0 (0.0-0.2) th/mm3 Comprehensive Metabolic Panel 01/25/18 Range/Units 04:15 Sodium 135 L (136-145) meq/L Potassium 3.9 (3.5-5.1) meq/L Chloride 100 (98-107) meq/L Carbon Dioxide 23.8 (21.0-32.0) meq/L BUN 21 H (7-18) mg/dL Creatinine 0.55 L (0.60-1.30) mg/dL Calcium 8.5 (8.5-10.1) mg/dL Intake and Output 01/25/18 01/25/18 01/25/18 06:59 14:59 22:59 Intake Total 1240 / 1240 1720 / 1720 Output Total 450 / 450 Balance 790 / 790 1720 / 1720 Intake: IV 1000 / 1000 1000 / 1000 NS Inj 1,000 ML @ 84 mls/hr IV. 1000 / 1000 1000 / 1000 CONT .[id number] [facility] Rx#:[id number] Oral 240 / 240 720 / 720 Output: Urine 450 / 450 Other: # Voids 1 # Incontinent Voids 1 1 Date of Last Bowel Movement 01/25/18 # Bowel Movements 0 Weight 73.9 kg - Imaging and Cardiology Imaging: Impressions Head CT 01/25/18 00:00 CONCLUSION: 1. Moderate periventricular and subcortical white matter small vessel ischemic changes bilaterally. 2. Diffuse cerebral atrophy. 3. 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 4. Mild mucosal thickening within maxillary sinuses bilaterally. . Assessment and Plan - Plan see dictated portion of note Code Status: dnr Discussed Condition With: on phone (Dr Franz)
--- NOTE | 2018-01-25 23:48 | MB ---
cc: Sebastián Franz MD, Ashraf S MD Fredette-Huffman, Patricia J MD DATE: 01/25/2018 The patient was seen, examined and plan has been discussed with him and also with his on the phone. Please refer to the bulk of the history and physical per the note placed by Cedric Shikha DIANNA Moscoso. ASSESSMENT AND RECOMMENDATIONS: 1. Sick sinus syndrome, status post permanent pacemaker placement and atrial fibrillation with RVR intermittently. Status post atrial fibrillation ablation. 2. Recurrent atrial fibrillation likely related to medications being missed at times either at home or in between the surgical intervention. At this point, we will continue on the sotalol and low-dose carvedilol. It is currently maintaining him in sinus/pacing. If he continues to breakthrough then we will consider either increasing the sotalol dose or switching to amiodarone. 3. INR is supratherapeutic at the present time and Coumadin has been on hold/cut down and I would avoid giving vitamin K because they develop antibodies and becomes difficult to anticoagulate. I agree with cutting down the dose of the Coumadin. Follow the INR on a daily basis. 4. Change of mental status. His mental status appears slowly improving. Overall, workup is negative so far. This could have been some degree of ischemic stroke; however, no significant new findings on the testings done. Continue with warfarin and INR, keep between 2.0-3.0. 5. Coronary artery disease, status post coronary artery bypass grafting. 6. Denies angina. 7. Cardiomyopathy and aortic stenosis. This will need to be further as at rest as an outpatient. I have discussed this with him and his , Rocío. 8. Hyperlipidemia. 9. Continue on Lipitor. 10. Check a complete set of electrolytes as well as a TSH and free T4 levels. Thank you for the consultation. MD RISHI Lee/emeka/ , 08:24 PM , 08:32 PM
[2018-01-26] MEDS: Sod Chloride 0.9% Inj 1,000 ML IV.CONT SCH ×2 (03:19→15:12)
[2018-01-26 05:50] LABS: INR 1.5 Ratio; Prothrombin Time 15.1 sec (9.8-11.6)
[2018-01-26] MEDS ORDERED: Warfarin Consult Pharmacy OTHER PRN (08:45)
--- NOTE | 2018-01-26 09:38 | P.PNIM ---
Subjective Interval history: Sitting up in nursing station. Says he is feeling comfortable, with exception of low back pain which continues. Denies any chest pain or shortness of breath. Denies nausea or vomiting. Eating breakfast. Physical Exam Vital signs: Vital Signs 01/25/18 12:00 01/25/18 16:00 01/25/18 20:00 Temperature 97.8 F 98.0 F Pulse Rate 76 82 72 Respiratory Rate 17 18 Blood Pressure 100/61 106/74 Pulse Oximetry 99 95 01/25/18 20:43 01/26/18 00:00 01/26/18 04:00 Temperature 98.1 F Pulse Rate 74 74 Respiratory Rate 18 Blood Pressure 130/85 Pulse Oximetry 96 95 01/26/18 07:39 01/26/18 08:00 Temperature 97.9 F Pulse Rate 80 Respiratory Rate 16 Blood Pressure 141/66 H Pulse Oximetry 95 95 Intake & Output 01/25/18 01/26/18 01/26/18 18:59 06:59 18:59 Intake Total 1720 / 1720 1000 / 1000 Balance 1720 / 1720 1000 / 1000 Intake: IV 1000 / 1000 1000 / 1000 NS Inj 1,000 ML @ 84 mls/hr IV. 1000 / 1000 1000 / 1000 CONT .[id number] [facility] Rx#:[id number] Oral 720 / 720 Other: # Voids 1 # Incontinent Voids 1 Date of Last Bowel Movement 01/25/18 # Bowel Movements 0 Narrative: GENERAL: Patient sitting up in bed. Appears comfortable. SKIN: Warm and dry. HEAD: Normocephalic. EYES: No scleral icterus. No injection or drainage. NECK: Supple, trachea midline. No JVD CARDIOVASCULAR: Regular rate and rhythm without murmurs, gallops, or rubs. RESPIRATORY: Breath sounds equal bilaterally. No accessory muscle use. GASTROINTESTINAL: Abdomen soft, non-tender, nondistended. MUSCULOSKELETAL: No cyanosis, or edema. Lumbar spine with large area of ecchymosis as before. No broken skin. BACK: Nontender without obvious deformity. No CVA tenderness. - Urinary Catheter Management Straight Cath placed during this visit: yes Reason for continuing: Acute urinary retention Insertion date: 01/21/18 Insertion time: 14:10 Indwelling Urethral Catheter Cath placed during this visit: yes, but has since been removed by the nurse Reason for continuing: Acute urinary retention Insertion date: 01/23/18 Insertion time: 22:45 Removal date: 01/24/18 Removal time: 04:30 Results - Labs CBC & Chem 7: 01/25/18 04:15 01/25/18 04:15 Laboratory Results - last 24 hr 01/26/18 04:30 PT 15.1 H D INR 1.5 - Imaging Impressions Head CT 01/25/18 00:00 CONCLUSION: 1. Moderate periventricular and subcortical white matter small vessel ischemic changes bilaterally. 2. Diffuse cerebral atrophy. 3. 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 4. Mild mucosal thickening within maxillary sinuses bilaterally. . Assessment and Plan - Assessment (1) Atrial fibrillation Code(s): I48.91 - Unspecified atrial fibrillation Status: Acute (2) CAD (coronary artery disease) Code(s): I25.10 - Atherosclerotic heart disease of campo coronary artery without angina pectoris Status: Acute (3) Lumbar spinal stenosis Code(s): M48.061 - Spinal stenosis, lumbar region without neurogenic claudication Status: Acute (4) Altered mental status Code(s): R41.82 - Altered mental status, unspecified Status: Acute - Plan //Acute intractable pain -Recent laminectomy. -Pt is allergic to Morphine. on Dilaudid 0.5mg IV now. -Will continue with pain control. - consulted Dr. Jarrell; stable from orthopaedic surgery. = R3.5 today. We will partially reverse INR with 1 mg vitamin K today. = 10. INR 1.5 today. Due to ecchymosis and subcutaneous hematoma of lower back, as well as hematuria, will hold off on warfarin for now. //Acute encephalopathy //Possible ischemic stroke fall ( 01/23) -Appreciate neurology evaluation. Patient was not a candidate for TPA. -Patient's encephalopathy could also be related to pain. -MRI brain pending. -echo pending. -continue Coumadin ( hold today and repeat the INR tomorrow) -repeat UA today. 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 Discussed I discussed with radiology, reports no changes from admission. //CAD s/p CABG x 5 //Atrial fibrillation- s/p pacemaker placement //Hx of Mitral valve repair -Currently on Warfarin. -Will continue carvedilol 3.125 mg p.o. twice daily, sotalol 120 mg p.o. twice daily. -Patient follows up with process pumper Dr. Jackson. -Continue aspirin 81 mg, Lipitor . = Appreciate cardiology assistance //Hypothyroidism //GERD -continue levothyroxine 25 mcg p.o. daily. -Continue Protonix 20 mg p.o. q. other day. //Hematuria; urology consulted- coumadin on hold = 01/26. Follow-up urology recommendations. BMP pending. Appreciate assistance. //Full code. DVT prophy. INR 1.5. Discharge Planning: Will need neurology clearance Out of restraints Pending urology consultation. Appreciate assistance. (4) Altered mental status Qualifiers: Altered mental status type: unspecified Qualified Code(s): R41.82 - Altered mental status, unspecified
[2018-01-26] MEDS: Calcium/Vitamin D 250/125 MG Tablet PO SCH (09:40)
[2018-01-26] MEDS: Sodium Chloride 0.9% 2 ML Flush BID IV.FLUSH SCH ×2 (09:40→21:03)
[2018-01-26 10:58] LABS: Free T4 (Free Thyroxine) 1.28 ng/dL (0.76-1.46); Thyroid Stimulating Hormone 2.5 uIU/mL (0.358-3.740)
[2018-01-26 12:44] LABS: Anion Gap 12 meq/L (5-15); Blood Urea Nitrogen 13 mg/dL (7-18); Calcium 8.9 mg/dL (8.5-10.1); Carbon Dioxide 25.2 meq/L (21.0-32.0); Chloride 97 meq/L (98-107); Glomerular Filtration Rate Greater Than 89 mL/min (>89); Glucose,Random 132 mg/dL (74-106); Potassium 3.7 meq/L (3.5-5.1); Sodium 134 meq/L (136-145)
--- NOTE | 2018-01-26 13:11 | P.PNPAL ---
Reason for Visit Reason for visit: a. To assist with evaluation and management of symptoms including: Altered mental status, pain b. To assist medical decision maker(s) with: better understanding of current medical conditions; weighing benefits/burdens of medical treatment options; making medical treatment decisions. Subjective Subjective/Interval History: Follow-up medically necessary for symptom management and finding of [facility] DNR. Patient currently sitting up in a recliner chair by the nurses station. Patient's and son have just arrived. Pushed patient back to his room. Patient is alert, oriented to self only confused to place,time and situation. Patient is pleasantly confused. He is able to identify his and his son. Patient [place] and that the month is February. Patient denies pain at this time. States that pain is aggravated with movement. Unable to rate pain at this time. Cardiology Dr. Franz consulted on 01/25/18, recommended continuing patient on sotalol and low-dose carvedilol, checking INR daily, continue Coumadin and keep INR between 2.0-3.0. Urine culture collected on 01/24/18 preliminary results growing group D enterococcus Patient`s spouse Rocío concerned that patient has not yet been evaluated by urology. Bedside RN placing a courtesy call to urology. Patient`s spouse signed [place] D[place] today. She forgot to bring in copies of Durable Power of Dental Sales Representative today. Signed [place] placed on patient`s chart. Family/Friend Interactions: See interval note. Advance Directives Living Will: Completed, but not made available Health Care Surrogate: Completed, but not made available Durable Power of Dental Sales Representative: Completed, but not made available Health Care Surrogate Name and Number: DPOA-Rocío Arteaga(spouse) Alt DPOA: Rolando Arteaga(son) Objective Vital Signs: Vital Signs 01/25/18 16:00 01/25/18 20:00 01/25/18 20:43 Temperature 98.0 F Pulse Rate 82 72 Respiratory Rate 18 Blood Pressure 106/74 Pulse Oximetry 95 96 01/26/18 00:00 01/26/18 04:00 01/26/18 07:39 Temperature 98.1 F Pulse Rate 74 74 Respiratory Rate 18 Blood Pressure 130/85 Pulse Oximetry 95 95 01/26/18 08:00 Temperature 97.9 F Pulse Rate 80 Respiratory Rate 16 Blood Pressure 141/66 H Pulse Oximetry 95 Intake & Output 01/25/18 01/26/18 01/26/18 18:59 06:59 18:59 Intake Total 1720 / 1720 1000 / 1000 Balance 1720 / 1720 1000 / 1000 Intake: IV 1000 / 1000 1000 / 1000 NS Inj 1,000 ML @ 84 mls/hr IV. 1000 / 1000 1000 / 1000 CONT .[id number] [facility] Rx#:[id number] Oral 720 / 720 Other: # Voids 1 # Incontinent Voids 1 Date of Last Bowel Movement 01/25/18 01/25/18 # Bowel Movements 0 Physical Exam: CONSTITUTIONAL/GENERAL: This is an adequately nourished patient, in no apparent distress. TUBES/LINES/DRAINS:PIV SKIN: No jaundice, rashes, or lesions. Ecchymoses on upper extremities. Posterior Surgical wound to lower back with dressing intact. Skin temperature appropriate. Not diaphoretic. HEAD: Atraumatic. Normocephalic. EYES: PERRLA. Extraocular motions intact. No scleral icterus. No injection or drainage. Fundi not examined. ENT: Hearing grossly normal. Nose without bleeding or purulent drainage. Moist oral mucosa. NECK: Trachea midline. Supple, nontender. CARDIOVASCULAR: Irregular rate and rhythm without murmurs, gallops, or rubs. No JVD. Peripheral pulses symmetric. RESPIRATORY/CHEST: Symmetric, unlabored respirations. Clear to auscultation. Breath sounds equal bilaterally. No wheezes, rales, or rhonchi. GASTROINTESTINAL: Abdomen soft, non-tender, nondistended. No guarding. Bowel sounds present. GENITOURINARY: Without palpable bladder distension. MUSCULOSKELETAL: Extremities without clubbing, cyanosis, or edema. No joint tenderness or effusion noted. No calf tenderness. No mottling or clubbing. NEUROLOGICAL: Awake, alert and partially oriented. Motor and sensory grossly within normal limits. Follows commands. Moves all extremities. PSYCHIATRIC: No obvious anxiety/depression. no apparent hallucinations or other psychotic thought process. Diagnostic Tests Laboratory: Laboratory Results - last 72 hr 01/24/18 01/24/18 01/24/18 03:55 03:55 22:30 WBC RBC Hgb Hct MCV MCH MCHC RDW Plt Count MPV Neut % (Auto) Lymph % (Auto) [place] % (Auto) Eos % (Auto) Baso % (Auto) Neut # (Auto) Lymph # (Auto) [place] # (Auto) Eos # (Auto) Baso # (Auto) WBC Differential Differential Comment PT 31.4 H INR 3.1 Sodium Potassium Chloride Carbon Dioxide Anion Gap BUN Creatinine Estimated GFR Random Glucose Calcium Triglycerides 72 Cholesterol 127 LDL Cholesterol, Calc 68 HDL Cholesterol 44.6 Cholesterol/HDL Ratio 2.84 TSH Free T4 Urine Color Red Urine Clarity Cloudy H Urine pH 5.0 Ur Specific [place] 1.025 Urine Protein 100 H Urine Glucose (UA) Negative Urine Ketones 20 Urine Occult Blood Moderate H Urine Nitrate Negative Urine Bilirubin Negative Urine Urobilinogen Less than 2 Ur Leukocyte Esterase Negative Urine RBC Urine WBC 9 H Hyaline Casts 18 Urine Mucus Few H Micro UA Comment Culture indicated Ur Microscopic Review Not Reportable Urine Culture Comments Culture indicated 01/25/18 01/25/18 01/25/18 04:15 04:15 04:15 WBC 6.6 RBC 4.12 L Hgb 12.9 L Hct 37.3 L MCV 90.5 MCH 31.2 MCHC 34.5 RDW 15.2 Plt Count 168 MPV 7.4 Neut % (Auto) 74.6 H Lymph % (Auto) 11.7 [place] % (Auto) 12.8 H Eos % (Auto) 0.4 Baso % (Auto) 0.5 Neut # (Auto) 5.0 Lymph # (Auto) 0.8 L [place] # (Auto) 0.9 Eos # (Auto) 0.0 Baso # (Auto) 0.0 WBC Differential . Differential Comment Auto diff final PT 34.8 H INR 3.5 Sodium 135 L Potassium 3.9 Chloride 100 Carbon Dioxide 23.8 Anion Gap 11 BUN 21 H Creatinine 0.55 L Estimated GFR Greater than 89 Random Glucose 81 Calcium 8.5 Triglycerides Cholesterol LDL Cholesterol, Calc HDL Cholesterol Cholesterol/HDL Ratio TSH Free T4 Urine Color Urine Clarity Urine pH Ur Specific [place] Urine Protein Urine Glucose (UA) Urine Ketones Urine Occult Blood Urine Nitrate Urine Bilirubin Urine Urobilinogen Ur Leukocyte Esterase Urine RBC Urine WBC Hyaline Casts Urine Mucus Micro UA Comment Ur Microscopic Review Urine Culture Comments 01/26/18 01/26/18 04:30 09:55 WBC RBC Hgb Hct MCV MCH MCHC RDW Plt Count MPV Neut % (Auto) Lymph % (Auto) [place] % (Auto) Eos % (Auto) Baso % (Auto) Neut # (Auto) Lymph # (Auto) [place] # (Auto) Eos # (Auto) Baso # (Auto) WBC Differential Differential Comment PT 15.1 H D INR 1.5 Sodium Potassium Chloride Carbon Dioxide Anion Gap BUN Creatinine Estimated GFR Random Glucose Calcium Triglycerides Cholesterol LDL Cholesterol, Calc HDL Cholesterol Cholesterol/HDL Ratio TSH 2.500 Free T4 1.28 Urine Color Urine Clarity Urine pH Ur Specific [place] Urine Protein Urine Glucose (UA) Urine Ketones Urine Occult Blood Urine Nitrate Urine Bilirubin Urine Urobilinogen Ur Leukocyte Esterase Urine RBC Urine WBC Hyaline Casts Urine Mucus Micro UA Comment Ur Microscopic Review Urine Culture Comments Result Diagrams: 01/25/18 04:15 01/25/18 04:15 Microbiology: Microbiology 01/24/18 22:30 Urine Culture - Preliminary Clean Catch Urine Group D Enterococcus Imaging: Abdomen/Pelvis CT 01/21/18 11:31 CONCLUSION: 1. No acute findings. Nonacute findings include hiatal hernia, mild constipation, advanced degenerative disease in the spine with stable mild compression deformities. 2. Stable bilateral renal cysts. Pacer leads in right atrium and right ventricle. Chest X-Ray 01/21/18 11:31 CONCLUSION: Basilar atelectasis. No effusion or pneumothorax. Cardiomegaly. Previous mitral valve replacement. Lumbar Spine CT 01/21/18 11:39 CONCLUSION: 1. Previous lumbar fusion across the L4-5 level stable compared to previous. 2. Mild compression fractures involving T12, L1, L2, L3, L4 and L5. These are all stable compared to previous examination dated 09/13/2010. 3. Degenerated disc with facet arthritis and disc bulges as above. Head CTA 01/21/18 12:01 CONCLUSION: Intracranial vessels are all patent without aneurysmal or embolic disease. Neck CTA 01/21/18 12:01 CONCLUSION: 1. No hemodynamically significant carotid artery stenosis identified. 2. Diminutive left vertebral which terminates in a PICA. Head CT 01/25/18 00:00 CONCLUSION: 1. Moderate periventricular and subcortical white matter small vessel ischemic changes bilaterally. 2. Diffuse cerebral atrophy. 3. 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 4. Mild mucosal thickening within maxillary sinuses bilaterally. . Assessment and Plan - Disease Oriented Problem List (1) Lumbar spinal stenosis (2) Atrial fibrillation (3) CAD (coronary artery disease) (4) Hypertension (5) Hypothyroidism - Symptom Scale (1) Pain 0-10 Scale: Unable to quantify (Patient states pain is aggravated with movement but currently denies pain.) Comment: Recent laminectomy on 01/14/18. Patient complaining of achy lower back pain. (2) Altered mental status 0-10 Scale: Unable to quantify Comment: Developed altered mentation in the emergency room. 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 Pertinent Non-Medical Issues: Psychosocial:Patient is originally from [place]. 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 He moved to [place] temporarily in 1991 and permanently in 2001. Patient has been to his Rocío Arteaga for 60 years. They have 3 adult children 2 daughters and 1 son. Patient served in the [employer]. Patient enjoys playing golf. Spiritual: Patient is Anabaptism-Family would like a scrap separator to visit with patient during hospitalization. Legal:Per , patient has Durable Power of Dental Sales Representative including Healthcare. Ethical issues impacting care: None identified at this time Important Contacts: Spouse- DPOA- Rocío Arteaga [phone] home/[phone] cellphone Son- Alternate DPOA-Rolando Arteaga [phone] Prognosis: Mr. Arteaga is a 82-year-old male with a medical history of atrial fibrillation on Coumadin, coronary artery disease S/P CABG x5 vessels, mitral valve repair and pacemaker, hypertension, cellulitis, history of colon cancer, prostate cancer, hypothyroidism and hearing loss. Patient recently underwent laminectomy surgery in his lower back by Dr. Garza on January 14, 2018 and his Coumadin was stopped at that time for procedure. Patient presented to the emergency room on 01/21/18 complaining of back pain. Clinical course complicated with altered mental status, slurred speech and pain. Given multiple ongoing comorbidities, patient remains at risk for further complications, deterioration and decline. Code Status: No Code DNR Plan: PLAN: Legal decision maker: Patient is currently oriented to self and partly situation with some confusion. At this time it is unknown if he will regain capacity to participate in medical decision making. Patient's self stated DPOA is his spouse Rocío Arteaga and his alternate DPOA is his son Rolando Arteaga. Goals: Remain aggressive short of no code. Patient`s spouse with the support of her children made patient DNR/DNI on 01/24/18. Patient`s spouse signed [place] DNR today. She forgot to bring in copies of Durable Power of Dental Sales Representative today. Signed [place] DNR placed on patient`s chart. Family still remains hopeful for patient`s recovery and maybe rehabilitation. Patient has been independent of all his ADLs and started ambulating with a walker 2 weeks prior to his recent back surgery. CODE STATUS: No code DNR/DNI SYMPTOMS: * Altered mental status: Patient developed altered mentation in the emergency room after coming in with a complain of back pain s/p laminectomy on 01/14. 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 MRI brain pending. Patient is more confused today compared to yesterday. Urine culture collected 01/24 preliminary results growing group D enterococcus. Last WBC on =6.6. Continue with neuro assessments. * Pain: Patient recently had laminectomy surgery on 01/14/18. Developed achy pain to his back. 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 Pain managed with Hydrocodone/acetaminophen 5/ 325 every 6 hours as needed pain. Pain appears to be adequately managed at this time. Palliative care will continue to follow the patient during hospital course as condition evolves, to assist patient/decision-maker with understanding of their medical conditions, weighing benefits/burdens of treatment options, for clarification of goals of treatment. Additionally will assist with any symptoms of palliative concern Attestation Attestation: To help prompt me to consider important information that might be impacting today's encounter and assessment, information from prior notes written by myself or my colleagues may have been "brought forward" into today's note. My signature on this note, however, is an attestation that I personally performed the exam, history, and/or decision-making noted today, and, unless otherwise indicated, the interactions with patient, family, and staff as well as the review of records all occurred today. I also attest that the listed assessment and stated plan reflect my best clinical judgment today based on the combination of historical information, prior notes, and today's exam/ interactions. When time spent is documented, it refers only to time spent today by the signer, or if indicated, combined time spent today by collaborating physician/nurse practitioner.
--- NOTE | 2018-01-26 15:02 | MB ---
cc: Andrea Menard MD DATE: 01/24/2018 UROLOGY CONSULT DATE OF SERVICE: 01/24/2018. REASON FOR CONSULTATION: 1. Gross hematuria, status post traumatic Rene catheter removal. 2. History of prostate cancer. HISTORY OF PRESENT ILLNESS: The patient is an 82-year-old male with a recent history of laminectomy, CABG x5, atrial fibrillation on Coumadin, who presented to the emergency room department for evaluation of severe back pain. During evaluation he was found to have trouble finding his words and speaking in full sentences and started having expressive dysphasia. A stroke alert was activated and was evaluated by a neurologist. The patient's INR at that time was 2.5. The patient had a Rene catheter placed and subsequently he removed it on his own. It was replaced and he subsequently again removed it on his own traumatically and started to have blood in his urine. Urology was consulted for this blood in urine. Currently, he is not at his baseline mental status and is very confused and most of the history is obtained from the records and nursing staff. Since the catheter has been out he has been having blood in his urine, but he has been emptying his bladder and wetting his bed linens. Recent PVR was in the 200 mL range. He reportedly had prostate cancer in the past, which required his prostate removed. There is no evidence of any kidney stones, urinary tract infections in the past. He currently takes Coumadin for atrial fibrillation. PAST MEDICAL HISTORY: Significant for coronary artery disease, atrial fibrillation, prostate cancer, colon cancer. PAST SURGICAL HISTORY: Mitral valve repair, radical prostatectomy, hip replacement, colon cancer surgery. SOCIAL HISTORY: Denies using tobacco, occasional alcohol; no illicit drug use per his . FAMILY HISTORY: Denies urolithiasis or genitourinary disease. REVIEW OF SYSTEMS: Unobtainable due to the patient's mental condition. HOME MEDICATIONS: Include: 1. Aspirin 81 mg p.o. daily. 2. Atorvastatin 20 mg p.o. daily. 3. Carvedilol 3.125 mg p.o. b.i.d. 4. Synthroid 25 mcg p.o. daily. 5. Coumadin 3 mg p.o. 2 times a week, 6 mg p.o. Thursday, , Thursday, Thursday. 6. Omeprazole 20 mg 3 times a week. ALLERGIES: MORPHINE. PHYSICAL EXAMINATION: VITAL SIGNS: Temperature 99, pulse 79, respiratory rate 22, BP 97/57, saturating 94% on room air. GENERAL: He is arousable, but confused; not oriented to person, place, time. HEENT: Head is normocephalic, atraumatic. Eyes: No scleral icterus. Extraocular muscles intact. NECK: Supple. Trachea is midline. No JVD. LUNGS: Clear to auscultation bilaterally. No wheezes, rales, rhonchi. HEART: Irregularly irregular rate, irregular rhythm. No murmurs, gallops, rubs. ABDOMEN: Soft, nontender, nondistended, positive bowel sounds. GENITOURINARY: His phallus is uncircumcised. Testes descended bilaterally; normal in size and consistency; has some blood at the meatus. RECTAL: Exam not indicated at this time. EXTREMITIES: Nontender. No clubbing, cyanosis or edema. PSYCHIATRIC: Flat affect. NEUROLOGIC: Cranial nerves II-XII intact. Strength 4/5 in all 4 extremities. SKIN: Warm and dry. No ulcers or rashes. LABORATORY DATA: Labs show a white count 6.5, hemoglobin 13.7, hematocrit 40.2, platelet count 216. INR 3.1. Chemistry: Sodium 134, potassium 3.5, chloride 94, bicarbonate 23, BUN 13, creatinine 0.8, glucose 94. His urine showed trace ketones, few mucus plugs. Negative for nitrites, blood or white blood cells. IMAGING STUDIES: He had a CT abdomen and pelvis with IV contrast, which showed stable bilateral renal cysts. No evidence of hydronephrosis, stones. ASSESSMENT: The patient is an 82-year-old male with history of prostate cancer, status post radical prostatectomy; admitted with stroke with supratherapeutic INR, presents with gross hematuria following traumatic catheter removal. PLAN: 1. Recommend conservative management at this time as his vitals are stable and he seems to be voiding well. 2. Discussed with nurse that she will attach a condom catheter to the patient to monitor I's and O's. 3. As long as he is not in full blown urinary retention and he seems to be having adequate urine output, would not replace the Rene catheter. 4. From urology standpoint, okay to restart Coumadin once his INR is in the therapeutic range. He then can followup as an outpatient for cystoscopy. Please call with any questions. MD NOEL Strong/prince/juan , 01:16 PM , 01:30 PM
--- NOTE | 2018-01-26 18:05 | P.PNNEU ---
Subjective Subjective Comments: pt is more confused today. He has had no focal deficits Denies headache Active Medications: Active Medications Acetaminophen (Tylenol) 650 mg PO Q4H PRN PRN Reason: Headache, fever, pain 1-4 Hydrocodone Bitart/Acetaminophen ([place] 5/325) 1 tab PO Q6H PRN PRN Reason: Pain 5-10 Last Admin: 01/23/18 21:10 Dose: 1 tab Al Hydroxide/Mg Hydroxide (Milk Of Magnesia Liq) 30 ml PO Q12H PRN PRN Reason: Mild Constipation Amoxicillin (Amoxil) 875 mg PO Q12HR [facility] Aspirin (Aspirin Chew) 81 mg PO DAILY [facility] Last Admin: 01/26/18 09:39 Dose: 81 mg Atorvastatin Calcium (Lipitor) 20 mg PO DAILY [facility] Last Admin: 01/26/18 09:39 Dose: 20 mg Bisacodyl (Dulcolax Supp) 10 mg RECTAL DAILY PRN PRN Reason: SEVERE CONSITIPATION Calcium/Vitamin D (Oscal With D 250/125 Mg) 2 tab PO DAILY [facility] Last Admin: 01/26/18 09:40 Dose: 2 tab Carvedilol (Coreg) 3.125 mg PO BID [facility] Last Admin: 01/26/18 09:40 Dose: 3.125 mg Hydromorphone HCl (Dilaudid Pf Inj) 0.5 mg IV.PUSH Q4H PRN PRN Reason: BREAKTHROUGH PAIN Last Admin: 01/22/18 04:03 Dose: 0.5 mg Sodium Chloride (Ns Inj) 1,000 mls @ 84 mls/hr IV.CONT .[id number] [facility] Last Infusion: 01/26/18 17:38 Dose: Infused Lactulose (Lactulose Liq) 30 ml PO DAILY PRN PRN Reason: SEVERE CONSITIPATION Levothyroxine Sodium (Synthroid) 25 mcg PO DAILY@0600 [facility] Last Admin: 01/26/18 05:58 Dose: 25 mcg Miscellaneous (Pill Splitter) 1 each OTHER DAILY [facility] Last Admin: 01/26/18 09:40 Dose: 1 each Ondansetron HCl (Zofran Inj) 4 mg IV.PUSH Q6H PRN PRN Reason: NAUSEA OR VOMITING Pantoprazole Sodium (Protonix) 20 mg PO EVERY OTHER DAY [facility] Last Admin: 01/25/18 08:40 Dose: 20 mg Sennosides (Senokot) 17.2 mg PO Q12H PRN PRN Reason: Moderate Constipation Sodium Chloride (Ns Flush) 2 ml IV.FLUSH PRN PRN PRN Reason: FLUSH AFTER USING IV ACCESS Sodium Chloride (Ns Flush) 2 ml IV.FLUSH BID [facility] Last Admin: 01/26/18 09:40 Dose: 2 ml Sotalol HCl (Betapace) 120 mg PO BID [facility] Last Admin: 01/26/18 09:40 Dose: 120 mg Warfarin Sodium (Coumadin) 5 mg PO DAILY@1600 [facility] Last Admin: 01/23/18 16:09 Dose: 5 mg Allergies/Adverse Reactions: Allergies Allergy/AdvReac Type Severity Reaction Status Date / Time morphine Allergy Severe Confusion Verified 01/21/18 11:27 Physical Exam Vital signs: Vital Signs 01/25/18 20:00 01/25/18 20:43 01/26/18 00:00 Temperature 98.1 F Pulse Rate 72 74 Respiratory Rate 18 Blood Pressure 130/85 Pulse Oximetry 96 95 01/26/18 04:00 01/26/18 07:39 01/26/18 08:00 Temperature 97.9 F Pulse Rate 74 80 Respiratory Rate 16 Blood Pressure 141/66 H Pulse Oximetry 95 95 01/26/18 12:00 01/26/18 16:06 Temperature 99.1 F 99.4 F Pulse Rate 79 74 Respiratory Rate 16 16 Blood Pressure 121/65 123/60 Pulse Oximetry 96 Intake & Output 01/25/18 01/26/18 01/26/18 18:59 06:59 18:59 Intake Total 1720 / 1720 1000 / 1000 1000 / 1000 Balance 1720 / 1720 1000 / 1000 1000 / 1000 Intake: IV 1000 / 1000 1000 / 1000 1000 / 1000 NS Inj 1,000 ML @ 84 mls/hr IV. 1000 / 1000 1000 / 1000 1000 / 1000 CONT .[id number] [facility] Rx#:[id number] Oral 720 / 720 Other: # Voids 1 # Incontinent Voids 1 Date of Last Bowel Movement 01/25/18 01/25/18 # Bowel Movements 0 - Routine Neurological Exam alert, disoriented to place and date. can follow simple commands CN intact MOTOR 5/5 BUE and BLE - Urinary Catheter Management Straight Cath placed during this visit: yes Reason for continuing: Acute urinary retention Insertion date: 01/21/18 Insertion time: 14:10 Indwelling Urethral Catheter Cath placed during this visit: yes, but has since been removed by the nurse Reason for continuing: Acute urinary retention Insertion date: 01/23/18 Insertion time: 22:45 Removal date: 01/24/18 Removal time: 04:30 Objective Laboratory Results - last 24 hr 01/24/18 01/26/18 01/26/18 22:30 04:30 09:55 PT 15.1 H D INR 1.5 Sodium Potassium Chloride Carbon Dioxide Anion Gap BUN Creatinine Estimated GFR Random Glucose Calcium TSH 2.500 Free T4 1.28 Urine Color Red Urine Clarity Cloudy H Urine pH 5.0 Ur Specific [place] 1.025 Urine Protein 100 H Urine Glucose (UA) Negative Urine Ketones 20 Urine Occult Blood Moderate H Urine Nitrate Negative Urine Bilirubin Negative Urine Urobilinogen Less than 2 Ur Leukocyte Esterase Negative Urine RBC Urine WBC 9 H Hyaline Casts 18 Urine Mucus Few H Micro UA Comment Culture indicated Urine Culture Comments Culture indicated 01/26/18 09:55 PT INR Sodium 134 L Potassium 3.7 Chloride 97 L Carbon Dioxide 25.2 Anion Gap 12 BUN 13 Creatinine 0.79 Estimated GFR Greater than 89 Random Glucose 132 H Calcium 8.9 TSH Free T4 Urine Color Urine Clarity Urine pH Ur Specific [place] Urine Protein Urine Glucose (UA) Urine Ketones Urine Occult Blood Urine Nitrate Urine Bilirubin Urine Urobilinogen Ur Leukocyte Esterase Urine RBC Urine WBC Hyaline Casts Urine Mucus Micro UA Comment Urine Culture Comments Microbiology 01/24/18 22:30 Urine Culture - Preliminary Clean Catch Urine Group D Enterococcus Review/Management - Diagnosis (1) CVA (cerebral vascular accident) Code(s): I63.9 - Cerebral infarction, unspecified Status: Acute Current Visit: Yes - Review/Management Plan: No evidence of acute cva on follow up ct and he has no focal deficits to indicate stroke. Probably metabolic encephalopathy. Possible dementia. will follow up eeg
[2018-01-27] MEDS: HYDROmorphone PF Inj 2 MG/ML Vial IV.PUSH PRN (03:15)
[2018-01-27] MEDS: Sod Chloride 0.9% Inj 1,000 ML IV.CONT SCH ×3 (03:16→22:59)
[2018-01-27 06:35] LABS: INR 1.1 Ratio; Prothrombin Time 11.5 sec (9.8-11.6)
[2018-01-27 06:43] LABS: Magnesium 1.4 mg/dL (1.5-2.5); Phosphorus 2.6 mg/dL (2.5-4.9)
[2018-01-27] MEDS ORDERED: Vancomycin Consult Pharmacy OTHER PRN (09:43)
[2018-01-27] MEDS ORDERED: Vancomycin Inj 1,000 MG in Sodium Chlor 0.9% Inj 250 ML IV.SIG ONE (09:44)
[2018-01-27] MEDS ORDERED: Sodium Chlor 0.9% Inj 250 ML IV.SIG ONE (09:49)
[2018-01-27] MEDS ORDERED: Acetaminophen Inj 650 MG/65 ML VIAL IV.SIG PRN (09:50)
[2018-01-27] MEDS ORDERED: Mag Sulf 1 gm/100 ml Premix 100 ML IV.SIG ONE (09:51)
--- NOTE | 2018-01-27 10:14 | P.PNIM ---
Subjective Interval history: Patient this morning appears uncomfortable. Answering simple questions. Refuses to open eyes. moves all extremities d/w nurse. fever 102. Physical Exam Vital signs: Vital Signs 01/26/18 12:00 01/26/18 16:06 01/26/18 18:00 Temperature 99.1 F 99.4 F Pulse Rate 79 74 75 Respiratory Rate 16 16 Blood Pressure 121/65 123/60 Pulse Oximetry 96 01/26/18 19:00 01/26/18 20:00 01/27/18 00:00 Temperature 97.7 F 98.7 F Pulse Rate 76 76 83 Respiratory Rate 16 18 Blood Pressure 139/63 148/71 H Pulse Oximetry 99 01/27/18 04:00 01/27/18 08:00 Temperature 99.1 F Pulse Rate 86 85 Respiratory Rate 18 18 Blood Pressure 159/77 H Pulse Oximetry 97 Intake & Output 01/26/18 01/27/18 01/27/18 18:59 06:59 18:59 Intake Total 1480 / 1480 Balance 1480 / 1480 Weight 74 kg Intake: IV 1000 / 1000 NS Inj 1,000 ML @ 84 mls/hr IV. 1000 / 1000 CONT .[id number] [facility] Rx#:[id number] Oral 480 / 480 Other: # Voids 2 # Urine Diapers 1 Date of Last Bowel Movement 01/25/18 01/25/18 # Bowel Movements 0 Narrative: GENERAL: Patient lying in bed. appears uncomfortable. refuses to open eyes. Moves all extremities voluntarily. Tells me 'No" when asked questions SKIN: Warm and dry. HEAD: Normocephalic. EYES: No scleral icterus. No injection or drainage. . NECK: Supple, trachea midline. No JVD CARDIOVASCULAR: Regular rate and rhythm without murmurs, gallops, or rubs. RESPIRATORY: Breath sounds equal bilaterally. No accessory muscle use. GASTROINTESTINAL: Abdomen soft, non-tender, nondistended. MUSCULOSKELETAL: No cyanosis, or edema. Lumbar spine with large area of ecchymosis as before there are no change today. No broken skin. BACK: Nontender without obvious deformity. No CVA tenderness. - Urinary Catheter Management Straight Cath placed during this visit: yes Reason for continuing: Acute urinary retention Insertion date: 01/21/18 Insertion time: 14:10 Indwelling Urethral Catheter Cath placed during this visit: yes, but has since been removed by the nurse Reason for continuing: Acute urinary retention Insertion date: 01/23/18 Insertion time: 22:45 Removal date: 01/24/18 Removal time: 04:30 Results - Labs CBC & Chem 7: 01/25/18 04:15 01/26/18 09:55 Laboratory Results - last 24 hr 01/24/18 01/26/18 01/26/18 22:30 09:55 09:55 PT INR Sodium 134 L Potassium 3.7 Chloride 97 L Carbon Dioxide 25.2 Anion Gap 12 BUN 13 Creatinine 0.79 Estimated GFR Greater than 89 Random Glucose 132 H Calcium 8.9 Phosphorus Magnesium TSH 2.500 Free T4 1.28 Urine Color Red Urine Clarity Cloudy H Urine pH 5.0 Ur Specific [place] 1.025 Urine Protein 100 H Urine Glucose (UA) Negative Urine Ketones 20 Urine Occult Blood Moderate H Urine Nitrate Negative Urine Bilirubin Negative Urine Urobilinogen Less than 2 Ur Leukocyte Esterase Negative Urine RBC Urine WBC 9 H Hyaline Casts 18 Urine Mucus Few H Micro UA Comment Culture indicated Urine Culture Comments Culture indicated 01/27/18 01/27/18 05:22 05:22 PT 11.5 INR 1.1 Sodium Potassium Chloride Carbon Dioxide Anion Gap BUN Creatinine Estimated GFR Random Glucose Calcium Phosphorus 2.6 Magnesium 1.4 L TSH Free T4 Urine Color Urine Clarity Urine pH Ur Specific [place] Urine Protein Urine Glucose (UA) Urine Ketones Urine Occult Blood Urine Nitrate Urine Bilirubin Urine Urobilinogen Ur Leukocyte Esterase Urine RBC Urine WBC Hyaline Casts Urine Mucus Micro UA Comment Urine Culture Comments Microbiology 01/24/18 22:30 Clean Catch Urine Urine Culture - Preliminary Group D Enterococcus Assessment and Plan - Assessment (1) Atrial fibrillation Code(s): I48.91 - Unspecified atrial fibrillation Status: Acute (2) CAD (coronary artery disease) Code(s): I25.10 - Atherosclerotic heart disease of [place] coronary artery without angina pectoris Status: Acute (3) Lumbar spinal stenosis Code(s): M48.061 - Spinal stenosis, lumbar region without neurogenic claudication Status: Acute (4) Altered mental status Code(s): R41.82 - Altered mental status, unspecified Status: Acute - Plan //Suspected sepsis -Heart rate in the 90s. Fever of 102. Stat labs ordered. Chest x-ray and repeat urinalysis, blood cultures ordered. -Patient with positive enterococcus on urine. -Patient with no meningeal signs. = We will start on broad-spectrum antibiotics with vancomycin and Zosyn. Will consult infectious disease. //Enterococcus UTI Started on antibiotics 01/26. Switch to broad-spectrum antibiotics due to fever on 01/27. Follow-up cultures and sensitivities. //Acute intractable pain -Recent laminectomy. -Pt is allergic to Morphine. on Dilaudid 0.5mg IV now. -Will continue with pain control. - consulted Dr. Jarrell; stable from orthopaedic surgery. = R3.5 today. We will partially reverse INR with 1 mg vitamin K today. = 01/26. INR 1.5 today. Due to ecchymosis and subcutaneous hematoma of lower back, as well as hematuria, will hold off on warfarin for now. = 01/27. INR 1.1. Restart warfarin. //Acute encephalopathy //Possible ischemic stroke fall ( 01/23) -Appreciate neurology evaluation. Patient was not a candidate for TPA. -Patient's encephalopathy could also be related to pain. -MRI brain pending. -echo pending. -continue Coumadin ( hold today and repeat the INR tomorrow) -repeat UA today. 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 I discussed with radiology, reports no changes from admission. = 01/27. Likely metabolic encephalopathy secondary to infection. //CAD s/p CABG x 5 //Atrial fibrillation- s/p pacemaker placement //Hx of Mitral valve repair -Currently on Warfarin. -Will continue carvedilol 3.125 mg p.o. twice daily, sotalol 120 mg p.o. twice daily. -Patient follows up with monogram operator Dr. Jackson. -Continue aspirin 81 mg, Lipitor . = Appreciate cardiology assistance //Hypothyroidism //GERD -continue levothyroxine 25 mcg p.o. daily. -Continue Protonix 20 mg p.o. q. other day. //Hematuria; urology consulted- coumadin on hold = 01/26. Follow-up urology recommendations. BMP pending. Appreciate assistance. = 01/27. Hematuria appears to have resolved. Repeat urine pending. //Full code. DVT prophy. INR 1.5. Discharge Planning: Continues inpatient treatment for suspected sepsis. (4) Altered mental status Qualifiers: Altered mental status type: unspecified Qualified Code(s): R41.82 - Altered mental status, unspecified
[2018-01-27] MEDS: Calcium/Vitamin D 250/125 MG Tablet PO SCH (10:35)
[2018-01-27] MEDS: Magnesium Oxide 400 MG Tablet PO SCH ×2 (10:35→20:26)
[2018-01-27] MEDS: Sodium Chloride 0.9% 2 ML Flush BID IV.FLUSH SCH ×2 (10:36→20:32)
[2018-01-27] MEDS: Pantoprazole Sodium 20 MG DR Tablet PO SCH (10:39)
[2018-01-27 10:51] LABS: Bilirubin,Urine Negative (Negative); Clarity,Urine Clear (Clear); Color,Urine Yellow (Yellw/Straw); Glucose,Urine (UA) Negative (Negative); Leukocyte Esterase,Urine Negative (Negative); Mucus,Urine Few /lpf (Occasional); Nitrite,Urine Negative (Negative); Squamous Epithelial Cell,Urine <1 /hpf (0-5); Urobilinogen,Urine 4 or Greater mg/dL (Less than 2)
[2018-01-27 11:20] LABS: Hematocrit 33.1 % (39.0-51.0); Hemoglobin 11.6 gm/dL (13.0-17.0); Mean Corpuscular HGB Conc 35.2 % (32.0-36.0); Mean Corpuscular Hemoglobin 31.2 pg (27.0-34.0); Mean Corpuscular Volume 88.5 fL (80.0-100.0); Platelet Count 168 th/mm3 (150-450); Red Blood Count 3.73 mil/mm3 (4.50-5.90); Red Cell Distribution Width 15.2 % (11.6-17.2); White Blood Count 5.5 th/mm3 (4.0-11.0)
[2018-01-27 11:47] LABS: Albumin 3.2 g/dL (3.4-5.0); Anion Gap 11 meq/L (5-15); Aspartate Aminotransferase 22 U/L (15-37); Blood Urea Nitrogen 8 mg/dL (7-18); Calcium 8.4 mg/dL (8.5-10.1); Carbon Dioxide 25.6 meq/L (21.0-32.0); Chloride 94 meq/L (98-107); Glomerular Filtration Rate Greater Than 89 mL/min (>89); Glucose,Random 90 mg/dL (74-106); Potassium 3.4 meq/L (3.5-5.1); Sodium 131 meq/L (136-145)
[2018-01-27 11:48] LABS: Alanine Aminotransferase 25 U/L (12-78)
[2018-01-27 11:50] LABS: Alkaline Phosphatase 56 U/L (45-117); Total Protein 6.4 g/dL (6.4-8.2)
--- NOTE | 2018-01-27 11:51 | XR ---
EXAM DATE: 01/27/2018 12:00 AM EDT AGE/SEX: 82 years / Male INDICATIONS: Short of breath and atelectasis. CLINICAL DATA: This is the patient's subsequent encounter. Patient reports that signs and symptoms h ave been present for 4 - 6 days and indicates a pain score of 0/10. MEDICAL/SURGICAL HISTORY: Alzheimer's disease. CABG. Pacemaker. COMPARISON: [facility] – [place], CHEST 1V SINGLE AP, 01/21/2018. . FINDINGS: Pacemaker left chest. Sternal wires from previous bypass. Moderate cardiomegaly. No signifi cant interstitial edema. No pleural effusion. No pneumothorax. CONCLUSION: Pacemaker cardiomegaly. I don't see significant failure. Electronically signed by: Jarvis Erwin MD 01/27/2018 11:50 AM EDT
[2018-01-27] MEDS ORDERED: Vancomycin Inj 1,250 MG in Sodium Chlor 0.9% Inj 250 ML IV.SIG ONE (12:00)
[2018-01-27] MEDS: Piperacil/Tazo 3.375 GM Premix 50 ML IV.SIG SCH ×3 (13:12→22:59)
--- NOTE | 2018-01-27 13:34 | P.CONID ---
History of Present Illness Service: Infectious Disease Consult date: 01/27/18 Requesting Physician: Eric Luevano Reason for Consult: Evaluation and Mment of Primary Care Provider: Corazon Peck MD Family Provider: Corazon Peck MD Chief Complaint: Altered mental status. History of Present Illness: Most of the history was obtained by review of medical records. Mr. Arteaga is in 82-year-old male with past medical history significant for recent history of laminectomy approximately 2 weeks prior to admission. Patient also has a history of mitral valve repair, CABG x5, atrial fibrillation. With this background patient presents to the emergency department for evaluation of back pain. Per triage patient was initially alert and oriented. However during his stay he was found to have word finding difficulties and speaking in full sentences. He has had expressive dysphasia- like symptoms as well. A stroke alert was activated. Neurologist saw the patient and it was determined patient was not a candidate for TPA. Patient underwent CT of the brain which did not reveal any acute hemorrhage. Patient's was in the room and reports that patient had a fall recently has not had bruising and hematoma on the back close to the surgical site. Patient' s INR was 2.5 at admission. Patient underwent workup for sepsis and currently all cultures are pending. At the time of my evaluation patient wakes up on verbal commands but is not very cooperative. He was able to identify his son as well as his . It was a little difficult to arouse but once awake was able to answer some of these questions. She was being treated for possible UTI and subsequently he still had fevers and therefore infectious disease was consulted. Upon discussion with patient's as well as the nurse it appears that patient had retention of urine initially requiring Rene catheterization which was traumatic at one point. Patient's son reports that he had some blood-tinged urine off and on. Patient has been evaluated by Dr. Jarrell of orthopedics and at the present time there is no plan for further surgical intervention. Past medical history: CAD status post CABG x5, mitral valve repair, atrial fibrillation, colon cancer, prostate cancer. Past surgical history: Mitral valve repair, colon cancer surgery, prostate cancer surgery, hip replacement. Social history: Patient denies using tobacco. He drinks about 1-2 drinks per night per his . No illicit drug use. Family history: No family history of Alzheimer's or Parkinson's. Review of Systems unobtainable due to mental condition [facility] - History History Provided By: Patient, Medical Record - Medical History Medical History: Medical History (Last Reviewed 01/26/18 @ 10:45 by Madelin Fonseca) Atrial fibrillation GERD (gastroesophageal reflux disease) Hearing loss History of Clostridium difficile infection History of cellulitis History of sepsis Hypercholesteremia Hypothyroid Osteoarthritis - Surgical History Surgical History: Surgical History (Last Reviewed 01/26/18 @ 10:45 by Madelin Fonseca) H/O heart bypass surgery History of arthroscopic knee surgery History of back surgery History of cataract extraction with lens replacement History of colon resection History of prostatectomy Hx of CABG S/P hip replacement - Family History Family History: Family History (Last Updated 01/25/18 @ 13:04 by Sylvia Ortega) Brother Heart attack Sister Pancreatic cancer Alcohol abuse Father Kidney disease - Tobacco History Second Hand Smoke Exposure: No Smoking Status: Never smoker - Alcohol History How Often Do You Have a Drink Containing Alcohol: 4 or more times a week (has not drank since 2 weeks prior to back surgery) - Substance Use History Substance History: No History of Abuse - Travel History Recent Travel in the [place] Within the Last 8 Weeks: No Recent Travel Out of the Country Within the Last 8 Weeks: No - Immunization History Tetanus Immunization: >5 Years Hx Influenza Vaccine This Season: Yes Medications and Allergies Active Medications: Active Medications Acetaminophen (Tylenol) 650 mg PO Q4H PRN PRN Reason: Headache, fever, pain 1-4 Hydrocodone Bitart/Acetaminophen ([place] 5/325) 1 tab PO Q6H PRN PRN Reason: Pain 5-10 Last Admin: 01/23/18 21:10 Dose: 1 tab Al Hydroxide/Mg Hydroxide (Milk Of Pradeep Liq) 30 ml PO Q12H PRN PRN Reason: Mild Constipation Aspirin (Aspirin Chew) 81 mg PO DAILY [facility] Last Admin: 01/27/18 10:34 Dose: Not Given Atorvastatin Calcium (Lipitor) 20 mg PO DAILY [facility] Last Admin: 01/27/18 10:35 Dose: Not Given Bisacodyl (Dulcolax Supp) 10 mg RECTAL DAILY PRN PRN Reason: SEVERE CONSITIPATION Calcium/Vitamin D (Oscal With D 250/125 Mg) 2 tab PO DAILY [facility] Last Admin: 01/27/18 10:35 Dose: Not Given Carvedilol (Coreg) 3.125 mg PO BID [facility] Last Admin: 01/27/18 10:35 Dose: Not Given Hydromorphone HCl (Dilaudid Pf Inj) 0.5 mg IV.PUSH Q4H PRN PRN Reason: BREAKTHROUGH PAIN Last Admin: 01/27/18 03:15 Dose: 0.5 mg Sodium Chloride (Ns Inj) 1,000 mls @ 84 mls/hr IV.CONT .[id number] [facility] Last Admin: 01/27/18 03:16 Dose: Not Given Piperacillin/Tazobactam/Dextrose (Zosyn 3.375 Gm Premix) 50 mls @ 100 mls/hr IV.SIG Q6H [facility] Last Admin: 01/27/18 13:12 Dose: 100 mls/hr Acetaminophen (Ofirmev Inj) 650 mg in 65 mls @ 400 mls/hr IV.SIG Q6H PRN PRN Reason: PAIN SCALE 1 TO 10 Last Infusion: 01/27/18 12:41 Dose: Infused Lactulose (Lactulose Liq) 30 ml PO DAILY PRN PRN Reason: SEVERE CONSITIPATION Levothyroxine Sodium (Synthroid) 25 mcg PO DAILY@0600 [facility] Last Admin: 01/27/18 05:46 Dose: 25 mcg Magnesium Oxide (Mag-Ox) 400 mg PO BID [facility] Last Admin: 01/27/18 10:35 Dose: Not Given Miscellaneous (Pill Splitter) 1 each OTHER DAILY [facility] Last Admin: 01/27/18 10:35 Dose: 1 each Ondansetron HCl (Zofran Inj) 4 mg IV.PUSH Q6H PRN PRN Reason: NAUSEA OR VOMITING Pantoprazole Sodium (Protonix) 20 mg PO EVERY OTHER DAY [facility] Last Admin: 01/27/18 10:39 Dose: Not Given Pharmacy Profile Note (Vancomycin Consult Pharmacy) 1 each OTHER UNSCH PRN PRN Reason: Pharmacy to dose Sennosides (Senokot) 17.2 mg PO Q12H PRN PRN Reason: Moderate Constipation Sodium Chloride (Ns Flush) 2 ml IV.FLUSH PRN PRN PRN Reason: FLUSH AFTER USING IV ACCESS Sodium Chloride (Ns Flush) 2 ml IV.FLUSH BID [facility] Last Admin: 01/27/18 10:36 Dose: 2 ml Sotalol HCl (Betapace) 120 mg PO BID [facility] Last Admin: 01/27/18 10:35 Dose: Not Given Warfarin Sodium (Coumadin) 5 mg PO DAILY@1600 [facility] Last Admin: 01/23/18 16:09 Dose: 5 mg Warfarin Sodium (Coumadin) 5 mg PO ONCE ONE Stop: 01/27/18 16:01 Allergies Allergy/AdvReac Type Severity Reaction Status Date / Time morphine Allergy Severe Confusion Verified 01/21/18 11:27 Home Medications Medication Instructions Recorded Confirmed Type aspirin 81 mg PO DAILY 01/01/18 01/21/18 History atorvastatin 20 mg PO DAILY 01/01/18 01/21/18 History carvedilol 3.125 mg PO BID 01/01/18 01/21/18 History levothyroxine 25 mcg PO DAILY 01/01/18 01/21/18 History multivitamin 1 tab PO DAILY 01/01/18 01/21/18 History sotalol 120 mg PO BID 01/01/18 01/21/18 History calcium carbonate-vitamin D3 1 tab PO DAILY 01/12/18 01/21/18 History [Calcium 600 + D(3)] [id number] oil [[place]-3 1 cap PO DAILY 01/12/18 01/21/18 History Fish Oil] omeprazole 20 mg PO 3XW 01/12/18 01/21/18 History warfarin [Coumadin] 3 mg PO 2XWEEK 01/12/18 01/21/18 History warfarin [Coumadin] 6 mg PO [id number] 01/12/18 01/21/18 History Exam Vital signs: Vital Signs 01/26/18 16:06 01/26/18 18:00 01/26/18 19:00 Temperature 99.4 F 97.7 F Pulse Rate 74 75 76 Respiratory Rate 16 16 Blood Pressure 123/60 139/63 Pulse Oximetry 01/26/18 20:00 01/27/18 00:00 01/27/18 04:00 Temperature 98.7 F 99.1 F Pulse Rate 76 83 86 Respiratory Rate 18 18 Blood Pressure 148/71 H 159/77 H Pulse Oximetry 99 97 01/27/18 08:00 01/27/18 12:00 Temperature Pulse Rate 85 81 Respiratory Rate 18 Blood Pressure Pulse Oximetry Intake & Output 10/06/1401/27/18 01/27/18 18:59 06:59 18:59 Intake Total 1480 / 1480 415 / 415 Balance 1480 / 1480 415 / 415 Weight 74 kg Intake: IV 1000 / 1000 415 / 415 NS Inj 1,000 ML @ 84 mls/hr IV. 1000 / 1000 CONT .[id number] YANNA Rx#:[id number] Ofirmev Inj 650 mg In 65 ml @ 65 / 65 400 mls/hr IV.SIG Q6H PRN Rx#: [id number] Magnesium Sulfate 1 gm/D5W 100 100 / 100 ml Premix 100 ML @ 100 mls/hr IV.SIG ONCE ONE Rx#:[id number] NS Inj 250 ML @ Wide Open IV. 250 / 250 SIG BOLUS ONE Rx#:[id number] Oral 480 / 480 Other: # Voids 2 # Urine Diapers 1 Date of Last Bowel Movement 01/25/18 01/25/18 # Bowel Movements 0 Narrative: GENERAL: Well-nourished well-developed, not in acute distress SKIN: Cool and dry, no generalized rash HEAD: Atraumatic. Normocephalic. No temporal or scalp tenderness. EYES: Pupils equal round and reactive. Scleral icterus. No injection or drainage. No petechia ENT: Nothing abnormal detected NECK: Trachea midline. Supple, nontender, no meningeal signs. CARDIOVASCULAR: HS audible. RESPIRATORY: Clear to auscultation bilaterally. GASTROINTESTINAL: Abdomen soft nontender. MUSCULOSKELETAL: Extremities without clubbing, cyanosis. NEUROLOGICAL: Confused. Nonfocal. Back examination surgical site intact but there was a large area of ecchymosis on his back at the site of surgical site. Psych cooperative IV line sites ok. Results - Labs CBC & Chem 7: 01/27/18 10:57 01/27/18 10:57 Labs: Laboratory Results - last 24 hr 01/27/18 01/27/18 01/27/18 05:22 05:22 10:16 WBC RBC Hgb Hct MCV MCH MCHC RDW Plt Count MPV PT 11.5 INR 1.1 Sodium Potassium Chloride Carbon Dioxide Anion Gap BUN Creatinine Estimated GFR Random Glucose Lactic Acid Calcium Phosphorus 2.6 Magnesium 1.4 L Total Bilirubin AST ALT Alkaline Phosphatase Total Protein Albumin Urine Color Yellow Urine Clarity Clear Urine pH 6.0 Ur Specific [place] 1.010 Urine Protein Negative Urine Glucose (UA) Negative Urine Ketones Negative Urine Occult Blood Moderate H Urine Nitrate Negative Urine Bilirubin Negative Urine Urobilinogen 4 or greater Ur Leukocyte Esterase Negative Urine RBC 54 H Urine WBC 13 H Ur Squamous Epith Cells <1 Urine Mucus Few H Ur Microscopic Review Not Reportable 01/27/18 01/27/18 01/27/18 10:57 10:57 10:57 WBC 5.5 RBC 3.73 L Hgb 11.6 L Hct 33.1 L MCV 88.5 MCH 31.2 MCHC 35.2 RDW 15.2 Plt Count 168 MPV 7.0 PT INR Sodium 131 L Potassium 3.4 L Chloride 94 L Carbon Dioxide 25.6 Anion Gap 11 BUN 8 Creatinine 0.66 Estimated GFR Greater than 89 Random Glucose 90 Lactic Acid 1.0 Calcium 8.4 L Phosphorus Magnesium Total Bilirubin 1.3 H AST 22 ALT 25 Alkaline Phosphatase 56 Total Protein 6.4 D Albumin 3.2 L Urine Color Urine Clarity Urine pH Ur Specific [place] Urine Protein Urine Glucose (UA) Urine Ketones Urine Occult Blood Urine Nitrate Urine Bilirubin Urine Urobilinogen Ur Leukocyte Esterase Urine RBC Urine WBC Ur Squamous Epith Cells Urine Mucus Ur Microscopic Review - Imaging Impressions Chest X-Ray 01/27/18 00:00 CONCLUSION: Pacemaker cardiomegaly. I don't see significant failure. Assessment and Plan - Plan Possible sepsis Source likely secondary to UTI history of transient catheterization History of retention of urine Enterococcus faecalis UTI History of laminectomy at risk for secondary infection Recommendations: Continue Zosyn IV Continue Vanco IV target trough 15-20 Follow cultures Follow clinically Discussed with Dr. Luevano low index of suspicion for meningitis but if mental status changes continue to be present may need to consider an LP after discussion with Dr. Jarrell as this is a recent postop case. Discussed with patient's as well as son were present in the room: Plan for the day as well as possible need of LP if mentation continues to be an issue.
--- NOTE | 2018-01-27 13:54 | MG ---
cc: Zelalem Ryder MD, PhD DATE OF STUDY: 01/27/2018. TEST NUMBER: [id number]. TECHNIQUE: A 17-channel EEG. DESCRIPTION: The background rhythm shows generalized slowing in the theta frequency at about 6 Hz. Prominent muscle artifact is identified. There are no lateralizing features are identified. No epileptiform features are identified. Photic stimulation resulted in a poor driving response. INTERPRETATION: Abnormal study consistent with a moderate degree of encephalopathy given the generalized slowing. No epileptiform features are seen. Zelalem Ryder MD, PhD ASAF/prince , 01:39 PM , 01:44 PM
--- NOTE | 2018-01-27 13:55 | US ---
EXAM DATE: 01/27/2018 12:00 AM EDT AGE/SEX: 82 years / Male INDICATIONS: Right upper quadrant pain. CLINICAL DATA: This is the patient's initial encounter. Patient reports that signs and symptoms have been present for 1 day and indicates a pain score of 0/10. MEDICAL/SURGICAL HISTORY: Gastroesophageal reflux disease. Hypercholesterolemia. Atrial fibril lation. Hearing loss. Cellulitis. C-diff. Sepsis. Osteoarthritis. CABG. Arthroscopy. Prostatectomy . Back surgery. Cataract extraction. Colon resection. Hip replacement. COMPARISON: [facility] [place], CT ABDOMEN & PELVIS W CONTRAST, 01/21/2018. . MEASUREMENTS: Liver:__ 12.9 cm. Common Bile Duct:__ 7mm. FINDINGS: Liver: Normal echotexture without focal lesion or ductal dilatation. Portal Vein: Hepatopedal flow seen in portal vein. Common Duct: No intraluminal mass or stone visualized. Gallbladder: Sludge and debris in the gallbladder without definite stone. No wall thickening. Pancreas: Not well visualized. Right Kidney: Normal echotexture and cortical thickness. No mass or hydronephrosis. Other: No ascites CONCLUSION: 1. Sludge and debris in gallbladder without gallstones or gallbladder wall thickening. 2. Normal common duct Electronically signed by: Jarvis Erwin MD 01/27/2018 1:54 PM EDT
--- NOTE | 2018-01-27 19:59 | P.PNNEU ---
Subjective Subjective Comments: pt has been lethargic today Active Medications: Active Medications Acetaminophen (Tylenol) 650 mg PO Q4H PRN PRN Reason: Headache, fever, pain 1-4 Hydrocodone Bitart/Acetaminophen ([place] 5/325) 1 tab PO Q6H PRN PRN Reason: Pain 5-10 Last Admin: 01/23/18 21:10 Dose: 1 tab Al Hydroxide/Mg Hydroxide (Milk Of Magnesia Liq) 30 ml PO Q12H PRN PRN Reason: Mild Constipation Aspirin (Aspirin Chew) 81 mg PO DAILY [facility] Last Admin: 01/27/18 10:34 Dose: Not Given Atorvastatin Calcium (Lipitor) 20 mg PO DAILY [facility] Last Admin: 01/27/18 10:35 Dose: Not Given Bisacodyl (Dulcolax Supp) 10 mg RECTAL DAILY PRN PRN Reason: SEVERE CONSITIPATION Calcium/Vitamin D (Oscal With D 250/125 Mg) 2 tab PO DAILY [facility] Last Admin: 01/27/18 10:35 Dose: Not Given Carvedilol (Coreg) 3.125 mg PO BID [facility] Last Admin: 01/27/18 10:35 Dose: Not Given Hydromorphone HCl (Dilaudid Pf Inj) 0.5 mg IV.PUSH Q4H PRN PRN Reason: BREAKTHROUGH PAIN Last Admin: 01/27/18 03:15 Dose: 0.5 mg Sodium Chloride (Ns Inj) 1,000 mls @ 84 mls/hr IV.CONT .[id number] [facility] Last Admin: 01/27/18 15:56 Dose: 84 mls/hr Piperacillin/Tazobactam/Dextrose (Zosyn 3.375 Gm Premix) 50 mls @ 100 mls/hr IV.SIG Q6H [facility] Last Infusion: 01/27/18 16:54 Dose: Infused Acetaminophen (Ofirmev Inj) 650 mg in 65 mls @ 400 mls/hr IV.SIG Q6H PRN PRN Reason: PAIN SCALE 1 TO 10 Last Infusion: 01/27/18 12:41 Dose: Infused Vancomycin HCl 1,000 mg/ (Sodium Chloride) 250 mls @ 250 mls/hr IV.SIG Q12H [facility] Lactulose (Lactulose Liq) 30 ml PO DAILY PRN PRN Reason: SEVERE CONSITIPATION Levothyroxine Sodium (Synthroid) 25 mcg PO DAILY@0600 [facility] Last Admin: 01/27/18 05:46 Dose: 25 mcg Magnesium Oxide (Mag-Ox) 400 mg PO BID [facility] Last Admin: 01/27/18 10:35 Dose: Not Given Miscellaneous (Pill Splitter) 1 each OTHER DAILY [facility] Last Admin: 01/27/18 10:35 Dose: 1 each Miscellaneous Information [place] [place] Info) 0 each OTHER ONCE ONE Stop: 01/29/18 01:46 Ondansetron HCl (Zofran Inj) 4 mg IV.PUSH Q6H PRN PRN Reason: NAUSEA OR VOMITING Pantoprazole Sodium (Protonix) 20 mg PO EVERY OTHER DAY [facility] Last Admin: 01/27/18 10:39 Dose: Not Given Pharmacy Profile Note (Vancomycin Consult Pharmacy) 1 each OTHER UNSCH PRN PRN Reason: Pharmacy to dose Sennosides (Senokot) 17.2 mg PO Q12H PRN PRN Reason: Moderate Constipation Sodium Chloride (Ns Flush) 2 ml IV.FLUSH PRN PRN PRN Reason: FLUSH AFTER USING IV ACCESS Sodium Chloride (Ns Flush) 2 ml IV.FLUSH BID [facility] Last Admin: 01/27/18 10:36 Dose: 2 ml Sotalol HCl (Betapace) 120 mg PO BID [facility] Last Admin: 01/27/18 10:35 Dose: Not Given Warfarin Sodium (Coumadin) 5 mg PO DAILY@1600 [facility] Last Admin: 01/23/18 16:09 Dose: 5 mg Allergies/Adverse Reactions: Allergies Allergy/AdvReac Type Severity Reaction Status Date / Time morphine Allergy Severe Confusion Verified 01/21/18 11:27 Physical Exam Vital signs: Vital Signs 01/26/18 20:00 01/27/18 00:00 01/27/18 04:00 Temperature 98.7 F 99.1 F Pulse Rate 76 83 86 Respiratory Rate 18 18 Blood Pressure 148/71 H 159/77 H Pulse Oximetry 99 97 01/27/18 08:00 01/27/18 12:00 01/27/18 16:00 Temperature 102.0 F H 102.2 F H Pulse Rate 91 H 78 92 H Respiratory Rate 20 18 Blood Pressure 112/75 142/66 H Pulse Oximetry 96 96 01/27/18 16:05 01/27/18 19:18 Temperature 98.2 F 97.8 F Pulse Rate 90 80 Respiratory Rate 16 16 Blood Pressure 102/61 135/64 Pulse Oximetry Intake & Output 01/27/18 01/27/18 01/28/18 06:59 18:59 06:59 Intake Total 777.5 / 777.5 Balance 777.5 / 777.5 Weight 74 kg Intake: IV 777.5 / 777.5 Ofirmev Inj 650 mg In 65 ml @ 65 / 65 400 mls/hr IV.SIG Q6H PRN Rx#: [id number] Magnesium Sulfate 1 gm/D5W 100 100 / 100 ml Premix 100 ML @ 100 mls/hr IV.SIG ONCE ONE Rx#:[id number] Zosyn 3.375 GM Premix 50 ML @ 100 / 100 100 mls/hr IV.SIG Q6H YANNA Rx#: [id number] NS Inj 250 ML @ Wide Open IV. 250 / 250 SIG BOLUS ONE Rx#:[id number] Vancomycin Inj 1,250 MG In NS 262.5 / 262.5 Inj 250 ML @ 250 mls/hr IV.SIG ONCE ONE Rx#:[id number] Other: Date of Last Bowel Movement 01/27/18 - Routine Neurological Exam lethargic but arousable follows simple commands CN intact MOTOR 4/5 BUE and BLE Neck supple without meningismus - Urinary Catheter Management Straight Cath placed during this visit: yes Reason for continuing: Acute urinary retention Insertion date: 01/21/18 Insertion time: 14:10 Indwelling Urethral Catheter Cath placed during this visit: yes, but has since been removed by the nurse Reason for continuing: Acute urinary retention Insertion date: 01/23/18 Insertion time: 22:45 Removal date: 01/24/18 Removal time: 04:30 Objective Laboratory Results - last 24 hr 01/27/18 01/27/18 01/27/18 05:22 05:22 10:16 WBC RBC Hgb Hct MCV MCH MCHC RDW Plt Count MPV PT 11.5 INR 1.1 Sodium Potassium Chloride Carbon Dioxide Anion Gap BUN Creatinine Estimated GFR Random Glucose Lactic Acid Calcium Phosphorus 2.6 Magnesium 1.4 L Total Bilirubin AST ALT Alkaline Phosphatase Total Protein Albumin Urine Color Yellow Urine Clarity Clear Urine pH 6.0 Ur Specific [place] 1.010 Urine Protein Negative Urine Glucose (UA) Negative Urine Ketones Negative Urine Occult Blood Moderate H Urine Nitrate Negative Urine Bilirubin Negative Urine Urobilinogen 4 or greater Ur Leukocyte Esterase Negative Urine RBC 54 H Urine WBC 13 H Ur Squamous Epith Cells <1 Urine Mucus Few H Ur Microscopic Review Not Reportable 01/27/18 01/27/18 01/27/18 10:57 10:57 10:57 WBC 5.5 RBC 3.73 L Hgb 11.6 L Hct 33.1 L MCV 88.5 MCH 31.2 MCHC 35.2 RDW 15.2 Plt Count 168 MPV 7.0 PT INR Sodium 131 L Potassium 3.4 L Chloride 94 L Carbon Dioxide 25.6 Anion Gap 11 BUN 8 Creatinine 0.66 Estimated GFR Greater than 89 Random Glucose 90 Lactic Acid 1.0 Calcium 8.4 L Phosphorus Magnesium Total Bilirubin 1.3 H AST 22 ALT 25 Alkaline Phosphatase 56 Total Protein 6.4 D Albumin 3.2 L Urine Color Urine Clarity Urine pH Ur Specific [place] Urine Protein Urine Glucose (UA) Urine Ketones Urine Occult Blood Urine Nitrate Urine Bilirubin Urine Urobilinogen Ur Leukocyte Esterase Urine RBC Urine WBC Ur Squamous Epith Cells Urine Mucus Ur Microscopic Review Microbiology 01/24/18 22:30 Urine Culture - Final Clean Catch Urine Enterococcus faecalis Review/Management - Diagnosis (1) CVA (cerebral vascular accident) Code(s): I63.9 - Cerebral infarction, unspecified Status: Acute Current Visit: Yes - Review/Management Plan: encephalopathy--?related to sepsis. Recommend LP
--- NOTE | 2018-01-27 20:58 | ECG ---
Date Performed: 01/27/2018 Time Performed: 06:51:42 PTAGE: 82 years EKG: ELECTRONIC ATRIAL PACEMAKER ELECTRONIC VENTRICULAR PACEMAKER ABNORMAL RHYTHM ECG PREVIOUS TRACING : 01/25/2018 11.39 Compared to previous tracing, paced rhythm now present DOCTOR: Dustin Luz Interpretating Date/Time 01/27/2018 20:57:33
[2018-01-28] MEDS: Vancomycin Inj 1,000 MG in Sodium Chlor 0.9% Inj 250 ML IV.SIG SCH ×2 (01:34→13:49)
[2018-01-28] MEDS: Sod Chloride 0.9% Inj 1,000 ML IV.CONT SCH ×2 (03:04→14:30)
[2018-01-28] MEDS: Piperacil/Tazo 3.375 GM Premix 50 ML IV.SIG SCH ×4 (05:10→23:45)
--- NOTE | 2018-01-28 06:26 | P.PNOP ---
Subjective Interval history: Patient looks better today. Talking, appropriate, oriented. The patient recognizes me. He has no complaints of significant back or leg pain. Physical Exam Vital signs: Vital Signs 01/27/18 08:00 01/27/18 12:00 01/27/18 16:00 Temperature 102.0 F H 102.2 F H Pulse Rate 91 H 78 92 H Respiratory Rate 20 18 Blood Pressure 112/75 142/66 H Pulse Oximetry 96 96 01/27/18 16:05 01/27/18 19:18 01/27/18 20:00 Temperature 98.2 F 97.8 F Pulse Rate 90 80 81 Respiratory Rate 16 16 Blood Pressure 102/61 135/64 Pulse Oximetry 01/28/18 00:00 01/28/18 04:00 Temperature 97.5 F L 99.5 F Pulse Rate 79 82 Respiratory Rate 18 18 Blood Pressure 107/68 144/68 H Pulse Oximetry 98 97 Intake & Output 01/27/18 01/27/18 01/28/18 06:59 18:59 06:59 Intake Total 777.5 / 777.5 1790 / 1790 Output Total 400 / 400 Balance 777.5 / 777.5 1390 / 1390 Weight 74 kg 74.3 kg Intake: IV 777.5 / 777.5 1350 / 1350 NS Inj 1,000 ML @ 84 mls/hr IV. 1000 / 1000 CONT .[id number] [facility] Rx#:[id number] Ofirmev Inj 650 mg In 65 ml @ 65 / 65 400 mls/hr IV.SIG Q6H PRN Rx#: [id number] Magnesium Sulfate 1 gm/D5W 100 100 / 100 ml Premix 100 ML @ 100 mls/hr IV.SIG ONCE ONE Rx#:[id number] Zosyn 3.375 GM Premix 50 ML @ 100 / 100 100 / 100 100 mls/hr IV.SIG Q6H [facility] Rx#: [id number] NS Inj 250 ML @ Wide Open IV. 250 / 250 SIG BOLUS ONE Rx#:[id number] Vancomycin Inj 1,000 MG In NS 250 / 250 Inj 250 ML @ 250 mls/hr IV.SIG Q12H [facility] Rx#:[id number] Vancomycin Inj 1,250 MG In NS 262.5 / 262.5 Inj 250 ML @ 250 mls/hr IV.SIG ONCE ONE Rx#:[id number] Oral 440 / 440 Output: Urine 400 / 400 Other: Date of Last Bowel Movement 01/27/18 01/27/18 # Bowel Movements 0 Narrative: Motor exam both legs normal. Lumbar incision looks fine. No redness. Moderate swelling in the region of the incision and just above likely related to hematoma from coagulopathy and postoperative bleeding. - Urinary Catheter Management Straight Cath placed during this visit: yes Reason for continuing: Acute urinary retention Insertion date: 01/21/18 Insertion time: 14:10 Indwelling Urethral Catheter Cath placed during this visit: yes, but has since been removed by the nurse Reason for continuing: Acute urinary retention Insertion date: 01/23/18 Insertion time: 22:45 Removal date: 01/24/18 Removal time: 04:30 Results - Labs CBC & Chem 7: 01/27/18 10:57 01/27/18 10:57 Laboratory Results - last 24 hr 01/27/18 01/27/18 01/27/18 05:22 05:22 10:16 WBC RBC Hgb Hct MCV MCH MCHC RDW Plt Count MPV PT 11.5 INR 1.1 Sodium Potassium Chloride Carbon Dioxide Anion Gap BUN Creatinine Estimated GFR Random Glucose Lactic Acid Calcium Phosphorus 2.6 Magnesium 1.4 L Total Bilirubin AST ALT Alkaline Phosphatase Total Protein Albumin Urine Color Yellow Urine Clarity Clear Urine pH 6.0 Ur Specific [place] 1.010 Urine Protein Negative Urine Glucose (UA) Negative Urine Ketones Negative Urine Occult Blood Moderate H Urine Nitrate Negative Urine Bilirubin Negative Urine Urobilinogen 4 or greater Ur Leukocyte Esterase Negative Urine RBC 54 H Urine WBC 13 H Ur Squamous Epith Cells <1 Urine Mucus Few H Ur Microscopic Review Not Reportable 01/27/18 01/27/18 01/27/18 10:57 10:57 10:57 WBC 5.5 RBC 3.73 L Hgb 11.6 L Hct 33.1 L MCV 88.5 MCH 31.2 MCHC 35.2 RDW 15.2 Plt Count 168 MPV 7.0 PT INR Sodium 131 L Potassium 3.4 L Chloride 94 L Carbon Dioxide 25.6 Anion Gap 11 BUN 8 Creatinine 0.66 Estimated GFR Greater than 89 Random Glucose 90 Lactic Acid 1.0 Calcium 8.4 L Phosphorus Magnesium Total Bilirubin 1.3 H AST 22 ALT 25 Alkaline Phosphatase 56 Total Protein 6.4 D Albumin 3.2 L Urine Color Urine Clarity Urine pH Ur Specific [place] Urine Protein Urine Glucose (UA) Urine Ketones Urine Occult Blood Urine Nitrate Urine Bilirubin Urine Urobilinogen Ur Leukocyte Esterase Urine RBC Urine WBC Ur Squamous Epith Cells Urine Mucus Ur Microscopic Review Microbiology 01/24/18 22:30 Clean Catch Urine Urine Culture - Final Enterococcus faecalis - Imaging Impressions Chest X-Ray 01/27/18 00:00 CONCLUSION: Pacemaker cardiomegaly. I don't see significant failure. Gallbladder Ultrasound 01/27/18 00:00 CONCLUSION: 1. Sludge and debris in gallbladder without gallstones or gallbladder wall thickening. 2. Normal common duct Assessment and Plan - Assessment and Plan Status post lumbar laminectomy L2-3 and L3-4, stable. Coumadin coagulopathy. History of atrial fibrillation. Likely TIA versus CVA. PLAN: Would prefer to keep INR at 2.0. Ecchymosis and swelling and back pain is related to Coumadin coagulopathy. Out of bed with brace. Dressing change daily. Dr. Ryedr recommends lumbar puncture. I would recommend staying away from the surgical incision. A low lumbar puncture at L5-S1 is reasonable, if felt to be clinically necessary. The patient has instrumentation from a previous surgery by another surgeon at L4-5 Orthopedically stable
[2018-01-28 08:43] LABS: Baso % (Auto) 0.2 % (0.0-2.0); Eos % (Auto) 0.1 % (0.0-4.0); Hematocrit 33.8 % (39.0-51.0); Hemoglobin 11.8 gm/dL (13.0-17.0); Lymph # (Auto) 0.4 th/mm3 (1.0-4.8); Lymph % (Auto) 10.3 % (9.0-44.0); Mean Corpuscular Hemoglobin 31.1 pg (27.0-34.0); Mean Corpuscular Volume 88.8 fL (80.0-100.0); Mean Platelet Volume 7.4 fL (7.0-11.0); Mono # (Auto) 0.4 th/mm3 (0.0-0.9); Mono % (Auto) 10.7 % (0.0-8.0); Neut # (Auto) 3.1 th/mm3 (1.8-7.7); Neut % (Auto) 78.7 % (16.0-70.0); Platelet Count 173 th/mm3 (150-450); Red Blood Count 3.81 mil/mm3 (4.50-5.90); Red Cell Distribution Width 15.5 % (11.6-17.2)
[2018-01-28 08:53] LABS: INR 1.1 Ratio; Prothrombin Time 11.4 sec (9.8-11.6)
[2018-01-28 09:09] LABS: Albumin 3.2 g/dL (3.4-5.0); Anion Gap 10 meq/L (5-15); Blood Urea Nitrogen 8 mg/dL (7-18); Calcium 8.5 mg/dL (8.5-10.1); Carbon Dioxide 28.1 meq/L (21.0-32.0); Chloride 92 meq/L (98-107); Glomerular Filtration Rate Greater Than 89 mL/min (>89); Glucose,Random 92 mg/dL (74-106); Magnesium 1.6 mg/dL (1.5-2.5); Phosphorus 2.9 mg/dL (2.5-4.9); Potassium 3.1 meq/L (3.5-5.1); Sodium 130 meq/L (136-145)
[2018-01-28] MEDS: Magnesium Oxide 400 MG Tablet PO SCH ×2 (09:24→21:27)
[2018-01-28] MEDS: Sodium Chloride 0.9% 2 ML Flush BID IV.FLUSH SCH ×2 (09:25→21:27)
[2018-01-28] MEDS: Calcium/Vitamin D 250/125 MG Tablet PO SCH (09:25)
[2018-01-28] MEDS: Acetaminophen 325 MG Tablet PO PRN (09:26)
--- NOTE | 2018-01-28 12:28 | P.PNPAL ---
Reason for Visit Reason for visit: a. To assist with evaluation and management of symptoms including: Altered mental status, pain b. To assist medical decision maker(s) with: better understanding of current medical conditions; weighing benefits/burdens of medical treatment options; making medical treatment decisions. Subjective Subjective/Interval History: Follow-up medically necessary for symptom management. Patient seen and examined in his room. Patient is lying with no signs of acute distress. Patient is alert, oriented to self, place and situation with no confusion today. Patient requesting assistance with getting out of bed and ambulating to the toilet. With the assistance of a certified nursing staffing coordinator, helped patient with donning back brace and he required minimal assistance with transferring out of bed and ambulating to the toilet using a rolling walker. Patient moved bowels and small amount of hematuria noted. Patient complaining of pain to his lower back which is exacerbated with with movement. Patient had significant change of mentation with fevers on 01/27/18. Neurology recommending a lumbar puncture. Infectious disease Dr. Antony Davila consulted on 01/27/18 to evaluate and manage a patient with fever and urinary tract infection, recommended continuing Zosyn and vancomycin and consider lumbar puncture to rule out meningitis due to change in mentation. Aerobic blood culture preliminary results positive for pseudomonas aeruginosa and anaerobic blood culture showing no growth in 1 day. EEG on 01/27/18. Patient's and son arrived during assistance with transferring patient back to bed. Family confirmed that patient`s mentation has significantly improved today as compared to yesterday. Updated family with patient`s medical condition. Patient`s would like patient to be discharged home with home health care and physical therapy. Physical therapy following with patient. Family/Friend Interactions: See interval note. . Advance Directives Living Will: Completed, but not made available Health Care Surrogate: Completed, but not made available Durable Power of Assistant Clinical Director: Completed, but not made available Health Care Surrogate Name and Number: DPOA-Rocío Arteaga(spouse) Alt DPOA: Rolando Arteaga(son) Objective Vital Signs: Vital Signs 01/27/18 16:00 01/27/18 16:05 01/27/18 19:18 Temperature 98.2 F 97.8 F Pulse Rate 92 H 90 80 Respiratory Rate 16 16 Blood Pressure 102/61 135/64 Pulse Oximetry 01/27/18 20:00 01/28/18 00:00 01/28/18 04:00 Temperature 97.5 F L 99.5 F Pulse Rate 81 79 82 Respiratory Rate 18 18 Blood Pressure 107/68 144/68 H Pulse Oximetry 98 97 01/28/18 08:00 Temperature 99.9 F H Pulse Rate 85 Respiratory Rate 22 Blood Pressure 121/65 Pulse Oximetry 98 Intake & Output 01/27/18 01/28/18 01/28/18 18:59 06:59 18:59 Intake Total 777.5 / 777.5 1790 / 1790 Output Total 400 / 400 Balance 777.5 / 777.5 1390 / 1390 Weight 74.3 kg Intake: IV 777.5 / 777.5 1350 / 1350 NS Inj 1,000 ML @ 84 mls/hr IV. 1000 / 1000 CONT .[id number] [facility] Rx#:[id number] Ofirmev Inj 650 mg In 65 ml @ 65 / 65 400 mls/hr IV.SIG Q6H PRN Rx#: [id number] Magnesium Sulfate 1 gm/D5W 100 100 / 100 ml Premix 100 ML @ 100 mls/hr IV.SIG ONCE ONE Rx#:[id number] Zosyn 3.375 GM Premix 50 ML @ 100 / 100 100 / 100 100 mls/hr IV.SIG Q6H [facility] Rx#: [id number] NS Inj 250 ML @ Wide Open IV. 250 / 250 SIG BOLUS ONE Rx#:[id number] Vancomycin Inj 1,000 MG In NS 250 / 250 Inj 250 ML @ 250 mls/hr IV.SIG Q12H [facility] Rx#:[id number] Vancomycin Inj 1,250 MG In NS 262.5 / 262.5 Inj 250 ML @ 250 mls/hr IV.SIG ONCE ONE Rx#:[id number] Oral 440 / 440 Output: Urine 400 / 400 Other: Date of Last Bowel Movement 01/27/18 01/27/18 # Bowel Movements 0 Physical Exam: CONSTITUTIONAL/GENERAL: This is an adequately nourished patient, in no apparent distress. TUBES/LINES/DRAINS:PIV SKIN: No jaundice, rashes, or lesions. Ecchymoses on upper extremities and to posterior lower back. Posterior Surgical wound to lower back with dressing intact. HEAD: Atraumatic. Normocephalic. EYES: PERRLA. Extraocular motions intact. No scleral icterus. No injection or drainage. Fundi not examined. ENT: Hearing grossly normal. Nose without bleeding or purulent drainage. Moist oral mucosa. CARDIOVASCULAR: Irregular rate and rhythm without murmurs, gallops, or rubs. No JVD. Peripheral pulses symmetric. RESPIRATORY/CHEST: Symmetric, unlabored respirations. Clear to auscultation. Breath sounds equal bilaterally. No wheezes, rales, or rhonchi. GASTROINTESTINAL: Abdomen soft, non-tender, nondistended. No guarding. Bowel sounds present. GENITOURINARY: Without palpable bladder distension. Hematuria noted MUSCULOSKELETAL: Extremities without clubbing, cyanosis, or edema. No joint tenderness or effusion noted. No calf tenderness. No mottling or clubbing. NEUROLOGICAL: Awake, alert and oriented to self, place and situation. Motor and sensory grossly within normal limits. Follows commands. Moves all extremities. PSYCHIATRIC: No obvious anxiety/depression. no apparent hallucinations or other psychotic thought process. Diagnostic Tests Laboratory: Laboratory Results - last 72 hr 01/24/18 01/26/18 01/26/18 22:30 04:30 09:55 WBC RBC Hgb Hct MCV MCH MCHC RDW Plt Count MPV Neut % (Auto) Lymph % (Auto) [place] % (Auto) Eos % (Auto) Baso % (Auto) Neut # (Auto) Lymph # (Auto) [place] # (Auto) Eos # (Auto) Baso # (Auto) WBC Differential Differential Comment PT 15.1 H D INR 1.5 Sodium Potassium Chloride Carbon Dioxide Anion Gap BUN Creatinine Estimated GFR Random Glucose Lactic Acid Calcium Phosphorus Magnesium Total Bilirubin AST ALT Alkaline Phosphatase Total Protein Albumin TSH 2.500 Free T4 1.28 Urine Color Red Urine Clarity Cloudy H Urine pH 5.0 Ur Specific [place] 1.025 Urine Protein 100 H Urine Glucose (UA) Negative Urine Ketones 20 Urine Occult Blood Moderate H Urine Nitrate Negative Urine Bilirubin Negative Urine Urobilinogen Less than 2 Ur Leukocyte Esterase Negative Urine RBC Urine WBC 9 H Ur Squamous Epith Cells Hyaline Casts 18 Urine Mucus Few H Micro UA Comment Culture indicated Ur Microscopic Review Urine Culture Comments Culture indicated 01/26/18 01/27/18 01/27/18 09:55 05:22 05:22 WBC RBC Hgb Hct MCV MCH MCHC RDW Plt Count MPV Neut % (Auto) Lymph % (Auto) [place] % (Auto) Eos % (Auto) Baso % (Auto) Neut # (Auto) Lymph # (Auto) [place] # (Auto) Eos # (Auto) Baso # (Auto) WBC Differential Differential Comment PT 11.5 INR 1.1 Sodium 134 L Potassium 3.7 Chloride 97 L Carbon Dioxide 25.2 Anion Gap 12 BUN 13 Creatinine 0.79 Estimated GFR Greater than 89 Random Glucose 132 H Lactic Acid Calcium 8.9 Phosphorus 2.6 Magnesium 1.4 L Total Bilirubin AST ALT Alkaline Phosphatase Total Protein Albumin TSH Free T4 Urine Color Urine Clarity Urine pH Ur Specific [place] Urine Protein Urine Glucose (UA) Urine Ketones Urine Occult Blood Urine Nitrate Urine Bilirubin Urine Urobilinogen Ur Leukocyte Esterase Urine RBC Urine WBC Ur Squamous Epith Cells Hyaline Casts Urine Mucus Micro UA Comment Ur Microscopic Review Urine Culture Comments 01/27/18 01/27/18 01/27/18 10:16 10:57 10:57 WBC 5.5 RBC 3.73 L Hgb 11.6 L Hct 33.1 L MCV 88.5 MCH 31.2 MCHC 35.2 RDW 15.2 Plt Count 168 MPV 7.0 Neut % (Auto) Lymph % (Auto) [place] % (Auto) Eos % (Auto) Baso % (Auto) Neut # (Auto) Lymph # (Auto) [place] # (Auto) Eos # (Auto) Baso # (Auto) WBC Differential Differential Comment PT INR Sodium 131 L Potassium 3.4 L Chloride 94 L Carbon Dioxide 25.6 Anion Gap 11 BUN 8 Creatinine 0.66 Estimated GFR Greater than 89 Random Glucose 90 Lactic Acid Calcium 8.4 L Phosphorus Magnesium Total Bilirubin 1.3 H AST 22 ALT 25 Alkaline Phosphatase 56 Total Protein 6.4 D Albumin 3.2 L TSH Free T4 Urine Color Yellow Urine Clarity Clear Urine pH 6.0 Ur Specific [place] 1.010 Urine Protein Negative Urine Glucose (UA) Negative Urine Ketones Negative Urine Occult Blood Moderate H Urine Nitrate Negative Urine Bilirubin Negative Urine Urobilinogen 4 or greater Ur Leukocyte Esterase Negative Urine RBC 54 H Urine WBC 13 H Ur Squamous Epith Cells <1 Hyaline Casts Urine Mucus Few H Micro UA Comment Ur Microscopic Review Not Reportable Urine Culture Comments 01/27/18 01/28/18 01/28/18 10:57 06:50 06:50 WBC 4.0 RBC 3.81 L Hgb 11.8 L Hct 33.8 L MCV 88.8 MCH 31.1 MCHC 35.0 RDW 15.5 Plt Count 173 MPV 7.4 Neut % (Auto) 78.7 H Lymph % (Auto) 10.3 [place] % (Auto) 10.7 H Eos % (Auto) 0.1 Baso % (Auto) 0.2 Neut # (Auto) 3.1 Lymph # (Auto) 0.4 L [place] # (Auto) 0.4 Eos # (Auto) 0.0 Baso # (Auto) 0.0 WBC Differential . Differential Comment Auto diff final PT 11.4 INR 1.1 Sodium Potassium Chloride Carbon Dioxide Anion Gap BUN Creatinine Estimated GFR Random Glucose Lactic Acid 1.0 Calcium Phosphorus Magnesium Total Bilirubin AST ALT Alkaline Phosphatase Total Protein Albumin TSH Free T4 Urine Color Urine Clarity Urine pH Ur Specific [place] Urine Protein Urine Glucose (UA) Urine Ketones Urine Occult Blood Urine Nitrate Urine Bilirubin Urine Urobilinogen Ur Leukocyte Esterase Urine RBC Urine WBC Ur Squamous Epith Cells Hyaline Casts Urine Mucus Micro UA Comment Ur Microscopic Review Urine Culture Comments 01/28/18 06:50 WBC RBC Hgb Hct MCV MCH MCHC RDW Plt Count MPV Neut % (Auto) Lymph % (Auto) [place] % (Auto) Eos % (Auto) Baso % (Auto) Neut # (Auto) Lymph # (Auto) [place] # (Auto) Eos # (Auto) Baso # (Auto) WBC Differential Differential Comment PT INR Sodium 130 L Potassium 3.1 L Chloride 92 L Carbon Dioxide 28.1 Anion Gap 10 BUN 8 Creatinine 0.81 Estimated GFR Greater than 89 Random Glucose 92 Lactic Acid Calcium 8.5 Phosphorus 2.9 Magnesium 1.6 Total Bilirubin AST ALT Alkaline Phosphatase Total Protein Albumin 3.2 L TSH Free T4 Urine Color Urine Clarity Urine pH Ur Specific [place] Urine Protein Urine Glucose (UA) Urine Ketones Urine Occult Blood Urine Nitrate Urine Bilirubin Urine Urobilinogen Ur Leukocyte Esterase Urine RBC Urine WBC Ur Squamous Epith Cells Hyaline Casts Urine Mucus Micro UA Comment Ur Microscopic Review Urine Culture Comments Result Diagrams: 01/28/18 06:50 01/28/18 06:50 Microbiology: Microbiology 01/27/18 10:57 Aerobic Blood Culture - Preliminary Blood - Peripheral Pseudomonas aeruginosa Anaerobic Blood Culture - Preliminary No growth in 1 day 01/27/18 10:50 Aerobic Blood Culture - Preliminary Blood - Peripheral gram negative rods Anaerobic Blood Culture - Preliminary No growth in 1 day 01/24/18 22:30 Urine Culture - Final Clean Catch Urine Enterococcus faecalis Imaging: Abdomen/Pelvis CT 01/21/18 11:31 CONCLUSION: 1. No acute findings. Nonacute findings include hiatal hernia, mild constipation, advanced degenerative disease in the spine with stable mild compression deformities. 2. Stable bilateral renal cysts. Pacer leads in right atrium and right ventricle. Lumbar Spine CT 01/21/18 11:39 CONCLUSION: 1. Previous lumbar fusion across the L4-5 level stable compared to previous. 2. Mild compression fractures involving T12, L1, L2, L3, L4 and L5. These are all stable compared to previous examination dated 09/13/2010. 3. Degenerated disc with facet arthritis and disc bulges as above. Head CTA 01/21/18 12:01 CONCLUSION: Intracranial vessels are all patent without aneurysmal or embolic disease. Neck CTA 01/21/18 12:01 CONCLUSION: 1. No hemodynamically significant carotid artery stenosis identified. 2. Diminutive left vertebral which terminates in a PICA. Head CT 01/25/18 00:00 CONCLUSION: 1. Moderate periventricular and subcortical white matter small vessel ischemic changes bilaterally. 2. Diffuse cerebral atrophy. 3. 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 4. Mild mucosal thickening within maxillary sinuses bilaterally. . Chest X-Ray 01/27/18 00:00 CONCLUSION: Pacemaker cardiomegaly. I don't see significant failure. Gallbladder Ultrasound 01/27/18 00:00 CONCLUSION: 1. Sludge and debris in gallbladder without gallstones or gallbladder wall thickening. 2. Normal common duct Assessment and Plan - Disease Oriented Problem List (1) Lumbar spinal stenosis (2) Atrial fibrillation (3) CAD (coronary artery disease) (4) Hypertension (5) Hypothyroidism - Symptom Scale (1) Pain 0-10 Scale: 3 (Will) Comment: Recent laminectomy on 01/14/18. Patient complaining of achy lower back pain. (2) Altered mental status 0-10 Scale: Unable to quantify Comment: Developed altered mentation in the emergency room. 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 Pertinent Non-Medical Issues: Psychosocial:Patient is originally from [place]. 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 He moved to [place] temporarily in 1991 and permanently in 2001. Patient has been to his Rocío Arteaga for 60 years. They have 3 adult children 2 daughters and 1 son. Patient served in the [employer]. Patient enjoys playing golf. Spiritual: Patient is Judaism-Family would like a associate media director to visit with patient during hospitalization. Legal:Per , patient has Durable Power of Assistant Clinical Director including Healthcare. Ethical issues impacting care: None identified at this time Important Contacts: Spouse- DPOA- Rocío Arteaga [phone] home/[phone] cellphone Son- Alternate DPOA-Rolando Arteaga [phone] Prognosis: Mr. Arteaga is a 82-year-old male with a medical history of atrial fibrillation on Coumadin, coronary artery disease S/P CABG x5 vessels, mitral valve repair and pacemaker, hypertension, cellulitis, history of colon cancer, prostate cancer, hypothyroidism and hearing loss. Patient recently underwent laminectomy surgery in his lower back by Dr. Garza on January 14, 2018 and his Coumadin was stopped at that time for procedure. Patient presented to the emergency room on 01/21/18 complaining of back pain. Clinical course complicated with altered mental status, slurred speech and pain. Given multiple ongoing comorbidities, patient remains at risk for further complications, deterioration and decline. Code Status: No Code DNR Plan: PLAN: Legal decision maker: Patient is currently oriented to self and partly situation with some confusion. At this time it is unknown if he will regain capacity to participate in medical decision making. Patient's self stated DPOA is his spouse Rocío Arteaga and his alternate DPOA is his son Rolando Arteaga. Goals: Remain aggressive short of no code. [facility] DNR. Patient`s would like patient to be discharged home with home health care and physical therapy. CODE STATUS: No code DNR/DNI. [facility] DNR signed and placed on patient. SYMPTOMS: * Altered mental status: Patient developed altered mentation in the emergency room after coming in with a complain of back pain s/p laminectomy on 01/14. 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 MRI brain pending. Patient is more confused today compared to yesterday. Significant change in mentation on 01/27/18. ID consulted. Neurology and ID recommending lumbar puncture to evaluate patient for meningitis. Mentation significantly improved 01/28/18. Continue with neuro assessments. * Pain: Patient recently had laminectomy surgery on 01/14/18. Developed achy pain to his back. 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 Pain managed with Hydrocodone/acetaminophen 5/ 325 every 6 hours as needed pain. Patient complaining of pain which is mostly exacerbated with movement. Rating pain is 3 out of 10. Pain appears to be adequately managed at this time. Palliative care will continue to follow the patient during hospital course as condition evolves, to assist patient/decision-maker with understanding of their medical conditions, weighing benefits/burdens of treatment options, for clarification of goals of treatment. Additionally will assist with any symptoms of palliative concern Attestation Attestation: To help prompt me to consider important information that might be impacting today's encounter and assessment, information from prior notes written by myself or my colleagues may have been "brought forward" into today's note. My signature on this note, however, is an attestation that I personally performed the exam, history, and/or decision-making noted today, and, unless otherwise indicated, the interactions with patient, family, and staff as well as the review of records all occurred today. I also attest that the listed assessment and stated plan reflect my best clinical judgment today based on the combination of historical information, prior notes, and today's exam/ interactions. When time spent is documented, it refers only to time spent today by the signer, or if indicated, combined time spent today by collaborating physician/nurse practitioner.
--- NOTE | 2018-01-28 13:26 | P.PNIM ---
Subjective Interval history: Patient says he is feeling well well today. Reports low back pain continues but has not worsened. Denies any chest pain or shortness of breath. Denies abdominal pain. Denies any dysuria. Hematuria has resolved. Still with difficulty controlling urine. Physical Exam Vital signs: Vital Signs 01/27/18 16:00 01/27/18 16:05 01/27/18 19:18 Temperature 98.2 F 97.8 F Pulse Rate 92 H 90 80 Respiratory Rate 16 16 Blood Pressure 102/61 135/64 Pulse Oximetry 01/27/18 20:00 01/28/18 00:00 01/28/18 04:00 Temperature 97.5 F L 99.5 F Pulse Rate 81 79 82 Respiratory Rate 18 18 Blood Pressure 107/68 144/68 H Pulse Oximetry 98 97 01/28/18 08:00 Temperature 99.9 F H Pulse Rate 85 Respiratory Rate 22 Blood Pressure 121/65 Pulse Oximetry 98 Intake & Output 01/27/18 01/28/18 01/28/18 18:59 06:59 18:59 Intake Total 777.5 / 777.5 1790 / 1790 1050 / 1050 Output Total 400 / 400 Balance 777.5 / 777.5 1390 / 1390 1050 / 1050 Weight 74.3 kg Intake: IV 777.5 / 777.5 1350 / 1350 1050 / 1050 NS Inj 1,000 ML @ 84 mls/hr IV. 1000 / 1000 1000 / 1000 CONT .[id number] YANNA Rx#:[id number] Ofirmev Inj 650 mg In 65 ml @ 65 / 65 400 mls/hr IV.SIG Q6H PRN Rx#: [id number] Magnesium Sulfate 1 gm/D5W 100 100 / 100 ml Premix 100 ML @ 100 mls/hr IV.SIG ONCE ONE Rx#:[id number] Zosyn 3.375 GM Premix 50 ML @ 100 / 100 100 / 100 50 / 50 100 mls/hr IV.SIG Q6H YANNA Rx#: [id number] NS Inj 250 ML @ Wide Open IV. 250 / 250 SIG BOLUS ONE Rx#:[id number] Vancomycin Inj 1,000 MG In NS 250 / 250 Inj 250 ML @ 250 mls/hr IV.SIG Q12H YANNA Rx#:[id number] Vancomycin Inj 1,250 MG In NS 262.5 / 262.5 Inj 250 ML @ 250 mls/hr IV.SIG ONCE ONE Rx#:[id number] Oral 440 / 440 Output: Urine 400 / 400 Other: Date of Last Bowel Movement 01/27/18 01/27/18 # Bowel Movements 0 Narrative: GENERAL: Patient sitting up in recliner. Appears comfortable. Alert SKIN: Warm and dry. HEAD: Normocephalic. EYES: No scleral icterus. No injection or drainage. NECK: Supple, trachea midline. No JVD. CARDIOVASCULAR: Regular rate and rhythm without murmurs, gallops, or rubs. RESPIRATORY: Breath sounds equal bilaterally. No accessory muscle use. GASTROINTESTINAL: Abdomen soft, non-tender, nondistended. MUSCULOSKELETAL: No cyanosis, or edema. BACK: Nontender without obvious deformity. No CVA tenderness. - Urinary Catheter Management Straight Cath placed during this visit: yes Reason for continuing: Acute urinary retention Insertion date: 01/21/18 Insertion time: 14:10 Indwelling Urethral Catheter Cath placed during this visit: yes, but has since been removed by the nurse Reason for continuing: Acute urinary retention Insertion date: 01/23/18 Insertion time: 22:45 Removal date: 01/24/18 Removal time: 04:30 Results - Labs CBC & Chem 7: 01/28/18 06:50 01/28/18 06:50 Laboratory Results - last 24 hr 01/28/18 01/28/18 01/28/18 06:50 06:50 06:50 WBC 4.0 RBC 3.81 L Hgb 11.8 L Hct 33.8 L MCV 88.8 MCH 31.1 MCHC 35.0 RDW 15.5 Plt Count 173 MPV 7.4 Neut % (Auto) 78.7 H Lymph % (Auto) 10.3 [place] % (Auto) 10.7 H Eos % (Auto) 0.1 Baso % (Auto) 0.2 Neut # (Auto) 3.1 Lymph # (Auto) 0.4 L [place] # (Auto) 0.4 Eos # (Auto) 0.0 Baso # (Auto) 0.0 WBC Differential . Differential Comment Auto diff final PT 11.4 INR 1.1 Sodium 130 L Potassium 3.1 L Chloride 92 L Carbon Dioxide 28.1 Anion Gap 10 BUN 8 Creatinine 0.81 Estimated GFR Greater than 89 Random Glucose 92 Calcium 8.5 Phosphorus 2.9 Magnesium 1.6 Albumin 3.2 L Microbiology 01/27/18 10:57 Blood - Peripheral Aerobic Blood Culture - Preliminary Pseudomonas aeruginosa 01/27/18 10:57 Blood - Peripheral Anaerobic Blood Culture - Preliminary No growth in 1 day 01/27/18 10:50 Blood - Peripheral Aerobic Blood Culture - Preliminary gram negative rods 01/27/18 10:50 Blood - Peripheral Anaerobic Blood Culture - Preliminary No growth in 1 day 01/24/18 22:30 Clean Catch Urine Urine Culture - Final Enterococcus faecalis - Imaging Impressions Gallbladder Ultrasound 01/27/18 00:00 CONCLUSION: 1. Sludge and debris in gallbladder without gallstones or gallbladder wall thickening. 2. Normal common duct Assessment and Plan - Assessment (1) Atrial fibrillation Code(s): I48.91 - Unspecified atrial fibrillation Status: Acute (2) CAD (coronary artery disease) Code(s): I25.10 - Atherosclerotic heart disease of [place] coronary artery without angina pectoris Status: Acute (3) Lumbar spinal stenosis Code(s): M48.061 - Spinal stenosis, lumbar region without neurogenic claudication Status: Acute (4) Altered mental status Code(s): R41.82 - Altered mental status, unspecified Status: Acute - Plan //Suspected sepsis //Gram-negative bacteremia //Pseudomonas bacteremia -Heart rate in the 90s. Fever of 102. Stat labs ordered. Chest x-ray and repeat urinalysis, blood cultures ordered. -Patient with positive enterococcus on urine. -Patient with no meningeal signs. = We will start on broad-spectrum antibiotics with vancomycin and Zosyn. Will consult infectious disease. =01/28. Pseudomonas positive in blood. Repeat cultures pending. Follow-up sensitivities. Continue broad-spectrum antibiotics as per infectious disease. Appreciate assistance. Patient without any meningeal signs. Will cancel lumbar puncture. //Enterococcus UTI Started on antibiotics 01/26. Switch to broad-spectrum antibiotics due to fever on 01/27. Follow-up cultures and sensitivities. = Continue on antibiotics as per infectious disease. //Acute intractable pain -Recent laminectomy. -Pt is allergic to Morphine. on Dilaudid 0.5mg IV now. -Will continue with pain control. - consulted Dr. Jarrell; stable from orthopaedic surgery. = R3.5 today. We will partially reverse INR with 1 mg vitamin K today. = 01/26. INR 1.5 today. Due to ecchymosis and subcutaneous hematoma of lower back, as well as hematuria, will hold off on warfarin for now. = 01/27. INR 1.1. Restart warfarin. = 01/28. INR 1.1. Continue warfarin. //Acute encephalopathy //Possible ischemic stroke fall ( 01/23) -Appreciate neurology evaluation. Patient was not a candidate for TPA. -Patient's encephalopathy could also be related to pain. -MRI brain pending. -echo pending. -continue Coumadin ( hold today and repeat the INR tomorrow) -repeat UA today. 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 I discussed with radiology, reports no changes from admission. = 01/27. Likely metabolic encephalopathy secondary to infection. //CAD s/p CABG x 5 //Atrial fibrillation- s/p pacemaker placement //Hx of Mitral valve repair -Currently on Warfarin. -Will continue carvedilol 3.125 mg p.o. twice daily, sotalol 120 mg p.o. twice daily. -Patient follows up with risk investigator Dr. Jackson. -Continue aspirin 81 mg, Lipitor . = Appreciate cardiology assistance //Hypokalemia. Potassium 3.1. Replace. Monitor. //Hypothyroidism //GERD -continue levothyroxine 25 mcg p.o. daily. -Continue Protonix 20 mg p.o. q. other day. //Hematuria; urology consulted- coumadin on hold = 01/26. Follow-up urology recommendations. BMP pending. Appreciate assistance. = 01/27. Hematuria appears to have resolved. Repeat urine pending. = 01/28. Hematuria much improved. Still with some urinary incontinence. will need to follow-up with urology as outpatient. //Full code. DVT prophy. INR 1.5. Discharge Planning: Continues inpatient treatment for sepsis with gram-negative bacteremia (4) Altered mental status Qualifiers: Altered mental status type: unspecified Qualified Code(s): R41.82 - Altered mental status, unspecified
[2018-01-28] MEDS ORDERED: Promethazine 12.5 MG Supp RECTAL ONE (16:50)
[2018-01-28] MEDS ORDERED: Pantoprazole Inj 40 MG Vial IV.PUSH ONE (17:19)
[2018-01-28] MEDS ORDERED: Potassium Chlor 20 mEq Premix 20 MEQ/100 ML PIGGYBACK IV.SIG ONE (17:20)
[2018-01-28] MEDS ORDERED: Warfarin Consult Pharmacy OTHER PRN (17:54)
[2018-01-28] MEDS ORDERED: Diatrizoate Meglum/Diatrizoate Sod Liq 9 ML UDC PO ONE (18:15)
[2018-01-28 18:18] LABS: Anion Gap 8 meq/L (5-15); Aspartate Aminotransferase 22 U/L (15-37); Blood Urea Nitrogen 9 mg/dL (7-18); Calcium 8.1 mg/dL (8.5-10.1); Carbon Dioxide 29.9 meq/L (21.0-32.0); Chloride 95 meq/L (98-107); Glomerular Filtration Rate Greater Than 89 mL/min (>89); Glucose,Random 118 mg/dL (74-106); Potassium 3.1 meq/L (3.5-5.1); Sodium 133 meq/L (136-145)
[2018-01-28 18:20] LABS: Alanine Aminotransferase 27 U/L (12-78); Alkaline Phosphatase 51 U/L (45-117); Total Protein 5.9 g/dL (6.4-8.2)
--- NOTE | 2018-01-28 20:24 | CT ---
EXAM DATE: 01/28/2018 7:50 PM EDT AGE/SEX: 82 years / Male INDICATIONS: Right upper quadrant pain. CLINICAL DATA: This is the patient's initial encounter. Patient reports that signs and symptoms have been present for 1 day and indicates a pain score of 10/10. MEDICAL/SURGICAL HISTORY: Cardiovascular disease. Hypertension. Cerebrovascular disease. CABG . Defibrillator. Prostatectomy. Colon resection Lumbar fusion ORAL CONTRAST: No oral contrast ingested. RADIATION DOSE: 16.48 CTDI (mGy) COMPARISON: [facility] [place], CT ABDOMEN & PELVIS W CONTRAST, 01/21/2018. . TECHNIQUE: Multiple contiguous axial images were obtained through the abdomen and pelvis following b olus infusion of 90 ml Omnipaque 350 (iohexol) nonionic water-soluble contrast as a single exam dos e. No oral contrast ingested. Using automated exposure control and adjustment of the mA and/or kV ac cording to patient size, radiation dose was kept as low as reasonably achievable to obtain optimal di agnostic quality images. DICOM format image data is available electronically for review and comparis on. FINDINGS: Mildly distended gallbladder. No perceptible stones or wall thickening. No ductal dilatation. CT appearance of the liver, spleen, pancreas and adrenal glands within normal limits. Bilateral benig n renal cysts are again seen. There is severe diverticulosis of the sigmoid colon but no acute diverticulitis. Small hiatal hernia. Tiny left pleural effusion, new. Mild infiltrate seen of the lung bases, mostly on the left. [place] er enlargement are again noted. No evidence of an acute bony abnormality. CONCLUSION: 1. Other than mild distention, CT appearance of the gallbladder is within normal limits. No ductal d ilatation. 2. No obstruction or acute inflammatory changes of the gastrointestinal tract. Severe diverticulosis of the sigmoid colon is again noted. 3. Small hiatal hernia. 4. Small effusion and mild parenchymal consolidation of the left lung base. Electronically signed by: Rolando Martinez MD 01/28/2018 8:22 PM EDT
--- NOTE | 2018-01-28 20:59 | P.PNNEU ---
Subjective Subjective Comments: no new sx Active Medications: Active Medications Acetaminophen (Tylenol) 650 mg PO Q4H PRN PRN Reason: Headache, fever, pain 1-4 Last Admin: 01/28/18 09:26 Dose: 650 mg Hydrocodone Bitart/Acetaminophen ([place] 5/325) 1 tab PO Q6H PRN PRN Reason: Pain 5-10 Last Admin: 01/23/18 21:10 Dose: 1 tab Al Hydroxide/Mg Hydroxide (Milk Of Magnesia Liq) 30 ml PO Q12H PRN PRN Reason: Mild Constipation Atorvastatin Calcium (Lipitor) 20 mg PO DAILY [facility] Last Admin: 01/28/18 09:24 Dose: 20 mg Bisacodyl (Dulcolax Supp) 10 mg RECTAL DAILY PRN PRN Reason: SEVERE CONSITIPATION Calcium/Vitamin D (Oscal With D 250/125 Mg) 2 tab PO DAILY [facility] Last Admin: 01/28/18 09:25 Dose: 2 tab Carvedilol (Coreg) 3.125 mg PO BID [facility] Last Admin: 01/28/18 09:23 Dose: 3.125 mg Hydromorphone HCl (Dilaudid Pf Inj) 0.5 mg IV.PUSH Q4H PRN PRN Reason: BREAKTHROUGH PAIN Last Admin: 01/27/18 03:15 Dose: 0.5 mg Sodium Chloride (Ns Inj) 1,000 mls @ 84 mls/hr IV.CONT .[id number] [facility] Last Admin: 01/28/18 14:30 Dose: 84 mls/hr Piperacillin/Tazobactam/Dextrose (Zosyn 3.375 Gm Premix) 50 mls @ 100 mls/hr IV.SIG Q6H [facility] Last Infusion: 01/28/18 18:06 Dose: Infused Acetaminophen (Ofirmev Inj) 650 mg in 65 mls @ 400 mls/hr IV.SIG Q6H PRN PRN Reason: PAIN SCALE 1 TO 10 Last Infusion: 01/27/18 12:41 Dose: Infused Vancomycin HCl 1,000 mg/ (Sodium Chloride) 250 mls @ 250 mls/hr IV.SIG Q12H [facility] Last Infusion: 01/28/18 14:55 Dose: Infused Lactulose (Lactulose Liq) 30 ml PO DAILY PRN PRN Reason: SEVERE CONSITIPATION Levothyroxine Sodium (Synthroid) 25 mcg PO DAILY@0600 [facility] Last Admin: 01/28/18 05:10 Dose: 25 mcg Magnesium Oxide (Mag-Ox) 400 mg PO BID [facility] Last Admin: 01/28/18 09:24 Dose: 400 mg Miscellaneous (Pill Splitter) 1 each OTHER DAILY [facility] Last Admin: 01/28/18 09:26 Dose: 1 each Miscellaneous Information ([facility] Ordered Lab Info) 0 each OTHER ONCE ONE Stop: 01/29/18 01:46 Ondansetron HCl (Zofran Inj) 4 mg IV.PUSH Q6H PRN PRN Reason: NAUSEA OR VOMITING Last Admin: 01/28/18 15:13 Dose: 4 mg Pantoprazole Sodium (Protonix) 20 mg PO EVERY OTHER DAY [facility] Last Admin: 01/27/18 10:39 Dose: Not Given Pharmacy Profile Note (Vancomycin Consult Pharmacy) 1 each OTHER UNSCH PRN PRN Reason: Pharmacy to dose Pharmacy Profile Note (Coumadin Consult Pharmacy) 1 each OTHER UNSCH PRN PRN Reason: PHARMACY DOCUMENTATION Sennosides (Senokot) 17.2 mg PO Q12H PRN PRN Reason: Moderate Constipation Sodium Chloride (Ns Flush) 2 ml IV.FLUSH PRN PRN PRN Reason: FLUSH AFTER USING IV ACCESS Sodium Chloride (Ns Flush) 2 ml IV.FLUSH BID [facility] Last Admin: 01/28/18 09:25 Dose: 2 ml Sotalol HCl (Betapace) 120 mg PO BID [facility] Last Admin: 01/28/18 09:22 Dose: 120 mg Warfarin Sodium (Coumadin) 5 mg PO DAILY@1600 [facility] Last Admin: 01/23/18 16:09 Dose: 5 mg Allergies/Adverse Reactions: Allergies Allergy/AdvReac Type Severity Reaction Status Date / Time morphine Allergy Severe Confusion Verified 01/21/18 11:27 Physical Exam Vital signs: Vital Signs 01/28/18 00:00 01/28/18 04:00 01/28/18 08:00 Temperature 97.5 F L 99.5 F 99.9 F H Pulse Rate 79 82 85 Respiratory Rate 18 18 22 Blood Pressure 107/68 144/68 H 121/65 Pulse Oximetry 98 97 98 01/28/18 12:00 01/28/18 16:00 01/28/18 17:39 Temperature 98.9 F Pulse Rate 76 79 Respiratory Rate 23 Blood Pressure 115/65 Pulse Oximetry 98 98 Intake & Output 01/28/18 01/28/18 01/29/18 06:59 18:59 06:59 Intake Total 1790 / 1790 1350 / 1350 Output Total 400 / 400 Balance 1390 / 1390 1350 / 1350 Weight 74.3 kg Intake: IV 1350 / 1350 1350 / 1350 NS Inj 1,000 ML @ 84 mls/hr IV. 1000 / 1000 1000 / 1000 CONT .[id number] YANNA Rx#:[id number] Zosyn 3.375 GM Premix 50 ML @ 100 / 100 100 / 100 100 mls/hr IV.SIG Q6H YANNA Rx#: [id number] Vancomycin Inj 1,000 MG In NS 250 / 250 250 / 250 Inj 250 ML @ 250 mls/hr IV.SIG Q12H YANNA Rx#:[id number] Oral 440 / 440 Output: Urine 400 / 400 Other: Date of Last Bowel Movement 01/27/18 # Bowel Movements 0 - Routine Neurological Exam lethargic arousable and follow commands cn intact neck supple without meningismus - Urinary Catheter Management Straight Cath placed during this visit: yes Reason for continuing: Acute urinary retention Insertion date: 01/21/18 Insertion time: 14:10 Indwelling Urethral Catheter Cath placed during this visit: yes, but has since been removed by the nurse Reason for continuing: Acute urinary retention Insertion date: 01/23/18 Insertion time: 22:45 Removal date: 01/24/18 Removal time: 04:30 Objective Laboratory Results - last 24 hr 01/28/18 01/28/18 01/28/18 06:50 06:50 06:50 WBC 4.0 RBC 3.81 L Hgb 11.8 L Hct 33.8 L MCV 88.8 MCH 31.1 MCHC 35.0 RDW 15.5 Plt Count 173 MPV 7.4 Neut % (Auto) 78.7 H Lymph % (Auto) 10.3 [place] % (Auto) 10.7 H Eos % (Auto) 0.1 Baso % (Auto) 0.2 Neut # (Auto) 3.1 Lymph # (Auto) 0.4 L [place] # (Auto) 0.4 Eos # (Auto) 0.0 Baso # (Auto) 0.0 WBC Differential . Differential Comment Auto diff final PT 11.4 INR 1.1 Sodium 130 L Potassium 3.1 L Chloride 92 L Carbon Dioxide 28.1 Anion Gap 10 BUN 8 Creatinine 0.81 Estimated GFR Greater than 89 Random Glucose 92 Calcium 8.5 Phosphorus 2.9 Magnesium 1.6 Total Bilirubin Direct Bilirubin Indirect Bilirubin AST ALT Alkaline Phosphatase Troponin I Total Protein Albumin 3.2 L Lipase 01/28/18 01/28/18 01/28/18 17:17 17:17 17:17 WBC RBC Hgb Hct MCV MCH MCHC RDW Plt Count MPV Neut % (Auto) Lymph % (Auto) [place] % (Auto) Eos % (Auto) Baso % (Auto) Neut # (Auto) Lymph # (Auto) [place] # (Auto) Eos # (Auto) Baso # (Auto) WBC Differential Differential Comment PT INR Sodium 133 L Potassium 3.1 L Chloride 95 L Carbon Dioxide 29.9 Anion Gap 8 BUN 9 Creatinine 0.71 Estimated GFR Greater than 89 Random Glucose 118 H Calcium 8.1 L Phosphorus Magnesium Total Bilirubin 1.2 H 1.3 H Direct Bilirubin 0.4 H Indirect Bilirubin 0.9 H AST 22 ALT 27 Alkaline Phosphatase 51 Troponin I Total Protein 5.9 L Albumin 3.0 L Lipase 436 H 01/28/18 17:17 WBC RBC Hgb Hct MCV MCH MCHC RDW Plt Count MPV Neut % (Auto) Lymph % (Auto) [place] % (Auto) Eos % (Auto) Baso % (Auto) Neut # (Auto) Lymph # (Auto) [place] # (Auto) Eos # (Auto) Baso # (Auto) WBC Differential Differential Comment PT INR Sodium Potassium Chloride Carbon Dioxide Anion Gap BUN Creatinine Estimated GFR Random Glucose Calcium Phosphorus Magnesium Total Bilirubin Direct Bilirubin Indirect Bilirubin AST ALT Alkaline Phosphatase Troponin I Less than 0.02 L Total Protein Albumin Lipase Microbiology 01/27/18 10:57 Aerobic Blood Culture - Preliminary Blood - Peripheral Pseudomonas aeruginosa Anaerobic Blood Culture - Preliminary No growth in 1 day 01/27/18 10:50 Aerobic Blood Culture - Preliminary Blood - Peripheral gram negative rods Anaerobic Blood Culture - Preliminary No growth in 1 day Review/Management - Diagnosis (1) CVA (cerebral vascular accident) Code(s): I63.9 - Cerebral infarction, unspecified Status: Acute Current Visit: Yes - Review/Management Plan: encephalopathy--due to sepsis (BC positive). denies BERGERON and no nuchal rigidity . I agree with cancelling LP
[2018-01-28] MEDS ORDERED: Heparin 10,000 UNITS/10 ML Vial (for IV use) IV.PUSH STA (21:13)
[2018-01-28] MEDS ORDERED: Heparin Drip 25,000 UNIT/250 ML BAG IV.CONT PRN (21:13)
--- NOTE | 2018-01-28 22:22 | P.PNID ---
Subjective Remarks: Mr. Arteaga is in 82-year-old male with past medical history significant for recent history of laminectomy approximately 2 weeks prior to admission. Patient also has a history of mitral valve repair, CABG x5, atrial fibrillation. With this background patient presents to the emergency department for evaluation of back pain. Per triage patient was initially alert and oriented. However during his stay he was found to have word finding difficulties and speaking in full sentences. He has had expressive dysphasia- like symptoms as well. A stroke alert was activated. Neurologist saw the patient and it was determined patient was not a candidate for TPA. Patient underwent CT of the brain which did not reveal any acute hemorrhage. Patient's was in the room and reports that patient had a fall recently has not had bruising and hematoma on the back close to the surgical site. Patient' s INR was 2.5 at admission. Patient underwent workup for sepsis and currently all cultures are pending. At the time of my evaluation patient wakes up on verbal commands but is not very cooperative. He was able to identify his son as well as his . It was a little difficult to arouse but once awake was able to answer some of these questions. She was being treated for possible UTI and subsequently he still had fevers and therefore infectious disease was consulted. Upon discussion with patient's as well as the nurse it appears that patient had retention of urine initially requiring Rene catheterization which was traumatic at one point. Patient's son reports that he had some blood-tinged urine off and on. Patient has been evaluated by Dr. Jarrell of orthopedics and at the present time there is no plan for further surgical intervention. Overnight events reviewed. Delayed entry patient seen at approx 1 pm. No fevers no rash Much more alert and talkative today. No neck pain or back pain. Antibiotics: Zosyn IV Vanco IV Lines: Lines ok Past Medical History: reviewed Allergies/Adverse Reactions: Allergies morphine Allergy (Severe, Verified 01/21/18 11:27) Confusion Objective Vital Signs 01/28/18 00:00 01/28/18 04:00 01/28/18 08:00 Temperature 97.5 F L 99.5 F 99.9 F H Pulse Rate 79 82 85 Respiratory Rate 18 18 22 Blood Pressure 107/68 144/68 H 121/65 Pulse Oximetry 98 97 98 01/28/18 12:00 01/28/18 16:00 01/28/18 17:39 Temperature 98.9 F Pulse Rate 76 79 Respiratory Rate 23 Blood Pressure 115/65 Pulse Oximetry 98 98 01/28/18 20:00 Temperature 99.6 F Pulse Rate 80 Respiratory Rate 18 Blood Pressure 134/66 Pulse Oximetry 98 Intake & Output 01/28/18 01/28/18 01/29/18 06:59 18:59 06:59 Intake Total 1790 / 1790 1350 / 1350 Output Total 400 / 400 Balance 1390 / 1390 1350 / 1350 Weight 74.3 kg Intake: IV 1350 / 1350 1350 / 1350 NS Inj 1,000 ML @ 84 mls/hr IV. 1000 / 1000 1000 / 1000 CONT .[id number] [facility] Rx#:[id number] Zosyn 3.375 GM Premix 50 ML @ 100 / 100 100 / 100 100 mls/hr IV.SIG Q6H [facility] Rx#: [id number] Vancomycin Inj 1,000 MG In NS 250 / 250 250 / 250 Inj 250 ML @ 250 mls/hr IV.SIG Q12H [facility] Rx#:[id number] Oral 440 / 440 Output: Urine 400 / 400 Other: Date of Last Bowel Movement 01/27/18 # Bowel Movements 0 01/28/18 10:55 Blood - Peripheral Aerobic Blood Culture - Pending 01/28/18 10:55 Blood - Peripheral Anaerobic Blood Culture - Pending 01/28/18 11:01 Blood - Peripheral Aerobic Blood Culture - Pending 01/28/18 11:01 Blood - Peripheral Anaerobic Blood Culture - Pending 01/27/18 10:57 Blood - Peripheral Aerobic Blood Culture - Preliminary Pseudomonas aeruginosa 01/27/18 10:57 Blood - Peripheral Anaerobic Blood Culture - Preliminary No growth in 1 day 01/27/18 10:50 Blood - Peripheral Aerobic Blood Culture - Preliminary gram negative rods 01/27/18 10:50 Blood - Peripheral Anaerobic Blood Culture - Preliminary No growth in 1 day 01/24/18 22:30 Clean Catch Urine Urine Culture - Final Enterococcus faecalis Lab - Hematology Results 01/27/18 01/28/18 10:57 06:50 WBC 5.5 4.0 RBC 3.73 L 3.81 L Hgb 11.6 L 11.8 L Hct 33.1 L 33.8 L MCV 88.5 88.8 MCH 31.2 31.1 MCHC 35.2 35.0 RDW 15.2 15.5 Plt Count 168 173 MPV 7.0 7.4 Neut % (Auto) 78.7 H Lymph % (Auto) 10.3 [place] % (Auto) 10.7 H Eos % (Auto) 0.1 Baso % (Auto) 0.2 Neut # (Auto) 3.1 Lymph # (Auto) 0.4 L [place] # (Auto) 0.4 Eos # (Auto) 0.0 Baso # (Auto) 0.0 WBC Differential . Differential Comment Auto diff final Lab - Chemistry Results 01/27/18 01/27/18 01/27/18 05:22 10:57 10:57 Sodium 131 L Potassium 3.4 L Chloride 94 L Carbon Dioxide 25.6 Anion Gap 11 BUN 8 Creatinine 0.66 Estimated GFR Greater than 89 Random Glucose 90 Lactic Acid 1.0 Calcium 8.4 L Phosphorus 2.6 Magnesium 1.4 L Total Bilirubin 1.3 H Direct Bilirubin Indirect Bilirubin AST 22 ALT 25 Alkaline Phosphatase 56 Troponin I Total Protein 6.4 D Albumin 3.2 L Lipase 01/28/18 01/28/18 01/28/18 06:50 17:17 17:17 Sodium 130 L 133 L Potassium 3.1 L 3.1 L Chloride 92 L 95 L Carbon Dioxide 28.1 29.9 Anion Gap 10 8 BUN 8 9 Creatinine 0.81 0.71 Estimated GFR Greater than 89 Greater than 89 Random Glucose 92 118 H Lactic Acid Calcium 8.5 8.1 L Phosphorus 2.9 Magnesium 1.6 Total Bilirubin 1.2 H Direct Bilirubin Indirect Bilirubin AST 22 ALT 27 Alkaline Phosphatase 51 Troponin I Total Protein 5.9 L Albumin 3.2 L 3.0 L Lipase 436 H 01/28/18 01/28/18 17:17 17:17 Sodium Potassium Chloride Carbon Dioxide Anion Gap BUN Creatinine Estimated GFR Random Glucose Lactic Acid Calcium Phosphorus Magnesium Total Bilirubin 1.3 H Direct Bilirubin 0.4 H Indirect Bilirubin 0.9 H AST ALT Alkaline Phosphatase Troponin I Less than 0.02 L Total Protein Albumin Lipase Imaging: ITS Impressions Lumbar Spine CT 01/21/18 11:39 CONCLUSION: 1. Previous lumbar fusion across the L4-5 level stable compared to previous. 2. Mild compression fractures involving T12, L1, L2, L3, L4 and L5. These are all stable compared to previous examination dated 09/13/2010. 3. Degenerated disc with facet arthritis and disc bulges as above. Head CTA 01/21/18 12:01 CONCLUSION: Intracranial vessels are all patent without aneurysmal or embolic disease. Neck CTA 01/21/18 12:01 CONCLUSION: 1. No hemodynamically significant carotid artery stenosis identified. 2. Diminutive left vertebral which terminates in a PICA. Head CT 01/25/18 00:00 CONCLUSION: 1. Moderate periventricular and subcortical white matter small vessel ischemic changes bilaterally. 2. Diffuse cerebral atrophy. 3. 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 4. Mild mucosal thickening within maxillary sinuses bilaterally. . Chest X-Ray 01/27/18 00:00 CONCLUSION: Pacemaker cardiomegaly. I don't see significant failure. Gallbladder Ultrasound 01/27/18 00:00 CONCLUSION: 1. Sludge and debris in gallbladder without gallstones or gallbladder wall thickening. 2. Normal common duct Abdomen/Pelvis CT 01/28/18 00:00 CONCLUSION: 1. Other than mild distention, CT appearance of the gallbladder is within normal limits. No ductal dilatation. 2. No obstruction or acute inflammatory changes of the gastrointestinal tract. Severe diverticulosis of the sigmoid colon is again noted. 3. Small hiatal hernia. 4. Small effusion and mild parenchymal consolidation of the left lung base. Physical Exam: GENERAL: Well-nourished well-developed, not in acute distress SKIN: Cool and dry, no generalized rash HEAD: Atraumatic. Normocephalic. No temporal or scalp tenderness. EYES: Pupils equal round and reactive. Scleral icterus. No injection or drainage. No petechia ENT: Nothing abnormal detected NECK: Trachea midline. Supple, nontender, no meningeal signs. CARDIOVASCULAR: HS audible. RESPIRATORY: Clear to auscultation bilaterally. GASTROINTESTINAL: Abdomen soft nontender. MUSCULOSKELETAL: Extremities without clubbing, cyanosis. NEUROLOGICAL: Confused. Nonfocal. Back examination surgical site intact but there was a large area of ecchymosis on his back at the site of surgical site. Psych cooperative IV line sites ok. Assessment and Plan - Plan Possible sepsis Gram negative bacteremia ? urinary source. UTI. H/o traumatic cath while pt had retention of urine. Source likely secondary to UTI history of transient catheterization History of retention of urine Enterococcus faecalis UTI History of laminectomy at risk for secondary infection Recommendations: Continue Zosyn IV Continue Vanco IV target trough 15-20 for now pending further stabilization and culture results. Follow cultures Follow clinically Discussed with palliative care no need for LP at present time as possible alternative source if UTI.
[2018-01-28 23:26] LABS: Bilirubin,Urine Negative (Negative); Clarity,Urine Clear (Clear); Color,Urine Yellow (Yellw/Straw); Glucose,Urine (UA) Negative (Negative); Leukocyte Esterase,Urine Negative (Negative); Mucus,Urine Few /lpf (Occasional); Nitrite,Urine Negative (Negative); Specific Gravity,Urine 1.045 (1.002-1.035)
[2018-01-29 01:41] LABS: Activated Partial Thrombo Time 30.6 sec (24.3-30.1); INR 1.1 Ratio; Prothrombin Time 11.1 sec (9.8-11.6)
[2018-01-29] MEDS ORDERED: Pharmacy Ordered Lab Info OTHER ONE (01:45)
[2018-01-29] MEDS: Vancomycin Inj 1,000 MG in Sodium Chlor 0.9% Inj 250 ML IV.SIG SCH (02:20)
[2018-01-29] MEDS: Sod Chloride 0.9% Inj 1,000 ML IV.CONT SCH ×2 (02:36→16:50)
[2018-01-29] MEDS: Piperacil/Tazo 3.375 GM Premix 50 ML IV.SIG SCH ×2 (04:49→11:37)
[2018-01-29] MEDS: Acetaminophen 325 MG Tablet PO PRN (06:27)
--- NOTE | 2018-01-29 08:07 | P.PNOP ---
Subjective Interval history: Looks good. Still somewhat confused. No complaints of pain. No leg pain. Mild low back pain Physical Exam Vital signs: Vital Signs 01/28/18 12:00 01/28/18 16:00 01/28/18 17:39 Temperature 98.9 F Pulse Rate 76 79 Respiratory Rate 23 Blood Pressure 115/65 Pulse Oximetry 98 98 01/28/18 20:00 01/29/18 00:00 01/29/18 04:00 Temperature 99.6 F 99.4 F 98.1 F Pulse Rate 80 103 H 79 Respiratory Rate 18 18 18 Blood Pressure 134/66 156/78 H 137/69 Pulse Oximetry 98 94 L 97 Intake & Output 01/28/18 01/29/18 01/29/18 18:59 06:59 18:59 Intake Total 1350 / 1350 1411.3 / 1411.3 Output Total 175 / 175 Balance 1350 / 1350 1236.3 / 1236.3 Weight 76.4 kg Intake: IV 1350 / 1350 1291.3 / 1291.3 Heparin/D5W 25,000 U/250 mL 25, 58.3 / 58.3 000 unit In 250 ml @ Per Protocol IV.CONT TITRATE PRN Rx #:[id number] NS Inj 1,000 ML @ 84 mls/hr IV. 1000 / 1000 783 / 783 CONT .[id number] [facility] Rx#:[id number] Zosyn 3.375 GM Premix 50 ML @ 100 / 100 100 / 100 100 mls/hr IV.SIG Q6H [facility] Rx#: [id number] KCl 20 mEq Premix Inj 20 meq In 100 / 100 100 ml @ 50 mls/hr IV.SIG ONCE ONE Rx#:[id number] Vancomycin Inj 1,000 MG In NS 250 / 250 250 / 250 Inj 250 ML @ 250 mls/hr IV.SIG Q12H [facility] Rx#:[id number] Oral 120 / 120 Output: Urine 175 / 175 Other: # Bowel Movements 0 Narrative: Lumbar incision appears benign. Mild swelling. No redness. No warmth. Area of hematoma appears resolving. Ecchymosis resolving. Legs: Motor examination almost normal. No leg pain. - Urinary Catheter Management Straight Cath placed during this visit: yes Reason for continuing: Acute urinary retention Insertion date: 01/21/18 Insertion time: 14:10 Indwelling Urethral Catheter Cath placed during this visit: yes, but has since been removed by the nurse Reason for continuing: Acute urinary retention Insertion date: 01/23/18 Insertion time: 22:45 Removal date: 01/24/18 Removal time: 04:30 Results - Labs CBC & Chem 7: 01/28/18 06:50 01/28/18 17:17 Laboratory Results - last 24 hr 01/28/18 01/28/18 01/28/18 06:50 06:50 06:50 WBC 4.0 RBC 3.81 L Hgb 11.8 L Hct 33.8 L MCV 88.8 MCH 31.1 MCHC 35.0 RDW 15.5 Plt Count 173 MPV 7.4 Neut % (Auto) 78.7 H Lymph % (Auto) 10.3 [place] % (Auto) 10.7 H Eos % (Auto) 0.1 Baso % (Auto) 0.2 Neut # (Auto) 3.1 Lymph # (Auto) 0.4 L [place] # (Auto) 0.4 Eos # (Auto) 0.0 Baso # (Auto) 0.0 WBC Differential . Differential Comment Auto diff final PT 11.4 INR 1.1 APTT Sodium 130 L Potassium 3.1 L Chloride 92 L Carbon Dioxide 28.1 Anion Gap 10 BUN 8 Creatinine 0.81 Estimated GFR Greater than 89 Random Glucose 92 Lactic Acid Calcium 8.5 Phosphorus 2.9 Magnesium 1.6 Total Bilirubin Direct Bilirubin Indirect Bilirubin AST ALT Alkaline Phosphatase Troponin I Total Protein Albumin 3.2 L Lipase Urine Color Urine Clarity Urine pH Ur Specific [place] Urine Protein Urine Glucose (UA) Urine Ketones Urine Occult Blood Urine Nitrate Urine Bilirubin Urine Urobilinogen Ur Leukocyte Esterase Urine RBC Urine WBC Urine Mucus Micro UA Comment Ur Microscopic Review Urine Culture Comments Vancomycin Trough 01/28/18 01/28/18 01/28/18 17:17 17:17 17:17 WBC RBC Hgb Hct MCV MCH MCHC RDW Plt Count MPV Neut % (Auto) Lymph % (Auto) [place] % (Auto) Eos % (Auto) Baso % (Auto) Neut # (Auto) Lymph # (Auto) [place] # (Auto) Eos # (Auto) Baso # (Auto) WBC Differential Differential Comment PT INR APTT Sodium 133 L Potassium 3.1 L Chloride 95 L Carbon Dioxide 29.9 Anion Gap 8 BUN 9 Creatinine 0.71 Estimated GFR Greater than 89 Random Glucose 118 H Lactic Acid Calcium 8.1 L Phosphorus Magnesium Total Bilirubin 1.2 H 1.3 H Direct Bilirubin 0.4 H Indirect Bilirubin 0.9 H AST 22 ALT 27 Alkaline Phosphatase 51 Troponin I Total Protein 5.9 L Albumin 3.0 L Lipase 436 H Urine Color Urine Clarity Urine pH Ur Specific [place] Urine Protein Urine Glucose (UA) Urine Ketones Urine Occult Blood Urine Nitrate Urine Bilirubin Urine Urobilinogen Ur Leukocyte Esterase Urine RBC Urine WBC Urine Mucus Micro UA Comment Ur Microscopic Review Urine Culture Comments Vancomycin Trough 01/28/18 01/28/18 01/29/18 17:17 21:53 00:19 WBC RBC Hgb Hct MCV MCH MCHC RDW Plt Count MPV Neut % (Auto) Lymph % (Auto) [place] % (Auto) Eos % (Auto) Baso % (Auto) Neut # (Auto) Lymph # (Auto) [place] # (Auto) Eos # (Auto) Baso # (Auto) WBC Differential Differential Comment PT INR APTT Sodium Potassium Chloride Carbon Dioxide Anion Gap BUN Creatinine Estimated GFR Random Glucose Lactic Acid Calcium Phosphorus Magnesium Total Bilirubin Direct Bilirubin Indirect Bilirubin AST ALT Alkaline Phosphatase Troponin I Less than 0.02 L Total Protein Albumin Lipase Urine Color Yellow Urine Clarity Clear Urine pH 5.0 Ur Specific [place] 1.045 H Urine Protein 30 H Urine Glucose (UA) Negative Urine Ketones 20 Urine Occult Blood Moderate H Urine Nitrate Negative Urine Bilirubin Negative Urine Urobilinogen Less than 2 Ur Leukocyte Esterase Negative Urine RBC 6 H Urine WBC 1 Urine Mucus Few H Micro UA Comment Culture not ind Ur Microscopic Review Not Reportable Urine Culture Comments Culture not ind Vancomycin Trough 10.4 H 01/29/18 01/29/18 01/29/18 00:19 00:19 01:16 WBC RBC Hgb Hct MCV MCH MCHC RDW Plt Count MPV Neut % (Auto) Lymph % (Auto) [place] % (Auto) Eos % (Auto) Baso % (Auto) Neut # (Auto) Lymph # (Auto) [place] # (Auto) Eos # (Auto) Baso # (Auto) WBC Differential Differential Comment PT 11.1 INR 1.1 APTT 30.6 H Sodium Potassium Chloride Carbon Dioxide Anion Gap BUN Creatinine Estimated GFR Random Glucose Lactic Acid 1.1 Calcium Phosphorus Magnesium Total Bilirubin Direct Bilirubin Indirect Bilirubin AST ALT Alkaline Phosphatase Troponin I 0.02 Total Protein Albumin Lipase Urine Color Urine Clarity Urine pH Ur Specific [place] Urine Protein Urine Glucose (UA) Urine Ketones Urine Occult Blood Urine Nitrate Urine Bilirubin Urine Urobilinogen Ur Leukocyte Esterase Urine RBC Urine WBC Urine Mucus Micro UA Comment Ur Microscopic Review Urine Culture Comments Vancomycin Trough Microbiology 01/27/18 10:57 Blood - Peripheral Aerobic Blood Culture - Preliminary Pseudomonas aeruginosa 01/27/18 10:57 Blood - Peripheral Anaerobic Blood Culture - Preliminary No growth in 1 day 01/27/18 10:50 Blood - Peripheral Aerobic Blood Culture - Preliminary gram negative rods 01/27/18 10:50 Blood - Peripheral Anaerobic Blood Culture - Preliminary No growth in 1 day - Imaging Impressions Abdomen/Pelvis CT 01/28/18 00:00 CONCLUSION: 1. Other than mild distention, CT appearance of the gallbladder is within normal limits. No ductal dilatation. 2. No obstruction or acute inflammatory changes of the gastrointestinal tract. Severe diverticulosis of the sigmoid colon is again noted. 3. Small hiatal hernia. 4. Small effusion and mild parenchymal consolidation of the left lung base. Assessment and Plan - Assessment and Plan Status post lumbar laminectomy L2-3 and L3-4, stable. Coumadin coagulopathy. History of atrial fibrillation. Likely TIA versus CVA. PLAN: Would prefer to keep INR at 2.0. Ecchymosis and swelling and back pain is related to Coumadin coagulopathy. Out of bed with brace. Dressing change daily. Blood culture growing Pseudomonas. Lumbar spine not likely the source but is possible. No clinical signs of infection of lumbar spine at this time. Orthopedically stable
[2018-01-29] MEDS: Magnesium Oxide 400 MG Tablet PO SCH ×2 (08:23→20:39)
[2018-01-29] MEDS: Pantoprazole Sodium 20 MG DR Tablet PO SCH (08:23)
[2018-01-29] MEDS: Calcium/Vitamin D 250/125 MG Tablet PO SCH (08:24)
[2018-01-29 08:53] LABS: Hematocrit 28.9 % (39.0-51.0); Hemoglobin 10.2 gm/dL (13.0-17.0); Mean Corpuscular HGB Conc 35.4 % (32.0-36.0); Mean Corpuscular Hemoglobin 31.3 pg (27.0-34.0); Mean Corpuscular Volume 88.4 fL (80.0-100.0); Mean Platelet Volume 7.4 fL (7.0-11.0); Platelet Count 158 th/mm3 (150-450); Red Blood Count 3.27 mil/mm3 (4.50-5.90); White Blood Count 4.2 th/mm3 (4.0-11.0)
[2018-01-29] MEDS: Sodium Chloride 0.9% 2 ML Flush BID IV.FLUSH SCH ×2 (10:14→20:39)
[2018-01-29 11:10] LABS: Hematocrit 27.9 % (39.0-51.0); Mean Corpuscular HGB Conc 35.7 % (32.0-36.0); Mean Corpuscular Hemoglobin 31.6 pg (27.0-34.0); Mean Corpuscular Volume 88.5 fL (80.0-100.0); Mean Platelet Volume 7.6 fL (7.0-11.0); Platelet Count 152 th/mm3 (150-450); Red Blood Count 3.15 mil/mm3 (4.50-5.90); Red Cell Distribution Width 15.3 % (11.6-17.2); White Blood Count 3.9 th/mm3 (4.0-11.0)
--- NOTE | 2018-01-29 11:10 | P.PNIM ---
Subjective Interval history: Patient says he is feeling better today. Denies any chest pain or shortness of breath. Denies abdominal pain. Physical Exam Vital signs: Vital Signs 01/28/18 12:00 01/28/18 16:00 01/28/18 17:39 Temperature 98.9 F Pulse Rate 76 79 Respiratory Rate 23 Blood Pressure 115/65 Pulse Oximetry 98 98 01/28/18 20:00 01/29/18 00:00 01/29/18 04:00 Temperature 99.6 F 99.4 F 98.1 F Pulse Rate 80 103 H 79 Respiratory Rate 18 18 18 Blood Pressure 134/66 156/78 H 137/69 Pulse Oximetry 98 94 L 97 01/29/18 08:00 Temperature 98.2 F Pulse Rate 81 Respiratory Rate 20 Blood Pressure 150/69 H Pulse Oximetry 95 Intake & Output 01/28/18 01/29/18 01/29/18 18:59 06:59 18:59 Intake Total 1350 / 1350 1411.3 / 1411.3 217 / 217 Output Total 175 / 175 Balance 1350 / 1350 1236.3 / 1236.3 217 / 217 Weight 76.4 kg Intake: IV 1350 / 1350 1291.3 / 1291.3 217 / 217 Heparin/D5W 25,000 U/250 mL 25, 58.3 / 58.3 000 unit In 250 ml @ Per Protocol IV.CONT TITRATE PRN Rx #:[id number] NS Inj 1,000 ML @ 84 mls/hr IV. 1000 / 1000 783 / 783 217 / 217 CONT .[id number] [facility] Rx#:[id number] Zosyn 3.375 GM Premix 50 ML @ 100 / 100 100 / 100 100 mls/hr IV.SIG Q6H [facility] Rx#: [id number] KCl 20 mEq Premix Inj 20 meq In 100 / 100 100 ml @ 50 mls/hr IV.SIG ONCE ONE Rx#:[id number] Vancomycin Inj 1,000 MG In NS 250 / 250 250 / 250 Inj 250 ML @ 250 mls/hr IV.SIG Q12H [facility] Rx#:[id number] Oral 120 / 120 Output: Urine 175 / 175 Other: # Bowel Movements 0 Narrative: GENERAL: Patient sitting up in bed. Appears comfortable. He is alert and oriented x3. SKIN: Warm and dry. HEAD: Normocephalic. EYES: No scleral icterus. No injection or drainage. NECK: Supple, trachea midline. No JVD or lymphadenopathy. CARDIOVASCULAR: Regular rate and rhythm without murmurs, gallops, or rubs. RESPIRATORY: Breath sounds equal bilaterally. No accessory muscle use. GASTROINTESTINAL: Abdomen soft, non-tender, nondistended. No rebound or guarding. MUSCULOSKELETAL: No cyanosis, or edema. BACK: Nontender without obvious deformity. No CVA tenderness. - Urinary Catheter Management Straight Cath placed during this visit: yes Reason for continuing: Acute urinary retention Insertion date: 01/21/18 Insertion time: 14:10 Indwelling Urethral Catheter Cath placed during this visit: yes, but has since been removed by the nurse Reason for continuing: Acute urinary retention Insertion date: 01/23/18 Insertion time: 22:45 Removal date: 01/24/18 Removal time: 04:30 Results - Labs CBC & Chem 7: 01/29/18 08:17 01/28/18 17:17 Laboratory Results - last 24 hr 01/28/18 01/28/18 01/28/18 17:17 17:17 17:17 WBC RBC Hgb Hct MCV MCH MCHC RDW Plt Count MPV PT INR APTT Sodium 133 L Potassium 3.1 L Chloride 95 L Carbon Dioxide 29.9 Anion Gap 8 BUN 9 Creatinine 0.71 Estimated GFR Greater than 89 Random Glucose 118 H Lactic Acid Calcium 8.1 L Total Bilirubin 1.2 H 1.3 H Direct Bilirubin 0.4 H Indirect Bilirubin 0.9 H AST 22 ALT 27 Alkaline Phosphatase 51 Troponin I Total Protein 5.9 L Albumin 3.0 L Lipase 436 H Urine Color Urine Clarity Urine pH Ur Specific [place] Urine Protein Urine Glucose (UA) Urine Ketones Urine Occult Blood Urine Nitrate Urine Bilirubin Urine Urobilinogen Ur Leukocyte Esterase Urine RBC Urine WBC Urine Mucus Micro UA Comment Ur Microscopic Review Urine Culture Comments Vancomycin Trough 01/28/18 01/28/18 01/29/18 17:17 21:53 00:19 WBC RBC Hgb Hct MCV MCH MCHC RDW Plt Count MPV PT INR APTT Sodium Potassium Chloride Carbon Dioxide Anion Gap BUN Creatinine Estimated GFR Random Glucose Lactic Acid Calcium Total Bilirubin Direct Bilirubin Indirect Bilirubin AST ALT Alkaline Phosphatase Troponin I Less than 0.02 L Total Protein Albumin Lipase Urine Color Yellow Urine Clarity Clear Urine pH 5.0 Ur Specific [place] 1.045 H Urine Protein 30 H Urine Glucose (UA) Negative Urine Ketones 20 Urine Occult Blood Moderate H Urine Nitrate Negative Urine Bilirubin Negative Urine Urobilinogen Less than 2 Ur Leukocyte Esterase Negative Urine RBC 6 H Urine WBC 1 Urine Mucus Few H Micro UA Comment Culture not ind Ur Microscopic Review Not Reportable Urine Culture Comments Culture not ind Vancomycin Trough 10.4 H 01/29/18 01/29/18 01/29/18 00:19 00:19 01:16 WBC RBC Hgb Hct MCV MCH MCHC RDW Plt Count MPV PT 11.1 INR 1.1 APTT 30.6 H Sodium Potassium Chloride Carbon Dioxide Anion Gap BUN Creatinine Estimated GFR Random Glucose Lactic Acid 1.1 Calcium Total Bilirubin Direct Bilirubin Indirect Bilirubin AST ALT Alkaline Phosphatase Troponin I 0.02 Total Protein Albumin Lipase Urine Color Urine Clarity Urine pH Ur Specific [place] Urine Protein Urine Glucose (UA) Urine Ketones Urine Occult Blood Urine Nitrate Urine Bilirubin Urine Urobilinogen Ur Leukocyte Esterase Urine RBC Urine WBC Urine Mucus Micro UA Comment Ur Microscopic Review Urine Culture Comments Vancomycin Trough 01/29/18 01/29/18 08:17 08:17 WBC 4.2 RBC 3.27 L Hgb 10.2 L Hct 28.9 L MCV 88.4 MCH 31.3 MCHC 35.4 RDW 15.0 Plt Count 158 MPV 7.4 PT INR APTT 54.8 H D Sodium Potassium Chloride Carbon Dioxide Anion Gap BUN Creatinine Estimated GFR Random Glucose Lactic Acid Calcium Total Bilirubin Direct Bilirubin Indirect Bilirubin AST ALT Alkaline Phosphatase Troponin I Total Protein Albumin Lipase Urine Color Urine Clarity Urine pH Ur Specific [place] Urine Protein Urine Glucose (UA) Urine Ketones Urine Occult Blood Urine Nitrate Urine Bilirubin Urine Urobilinogen Ur Leukocyte Esterase Urine RBC Urine WBC Urine Mucus Micro UA Comment Ur Microscopic Review Urine Culture Comments Vancomycin Trough Microbiology 01/27/18 10:50 Blood - Peripheral Aerobic Blood Culture - Preliminary Pseudomonas aeruginosa 01/27/18 10:50 Blood - Peripheral Anaerobic Blood Culture - Preliminary No growth in 2 days 01/27/18 10:57 Blood - Peripheral Aerobic Blood Culture - Preliminary Pseudomonas aeruginosa 01/27/18 10:57 Blood - Peripheral Anaerobic Blood Culture - Preliminary No growth in 2 days - Imaging Impressions Abdomen/Pelvis CT 01/28/18 00:00 CONCLUSION: 1. Other than mild distention, CT appearance of the gallbladder is within normal limits. No ductal dilatation. 2. No obstruction or acute inflammatory changes of the gastrointestinal tract. Severe diverticulosis of the sigmoid colon is again noted. 3. Small hiatal hernia. 4. Small effusion and mild parenchymal consolidation of the left lung base. Assessment and Plan - Assessment (1) Atrial fibrillation Code(s): I48.91 - Unspecified atrial fibrillation Status: Acute (2) CAD (coronary artery disease) Code(s): I25.10 - Atherosclerotic heart disease of [place] coronary artery without angina pectoris Status: Acute (3) Lumbar spinal stenosis Code(s): M48.061 - Spinal stenosis, lumbar region without neurogenic claudication Status: Acute (4) Altered mental status Code(s): R41.82 - Altered mental status, unspecified Status: Acute - Plan //Suspected sepsis //Gram-negative bacteremia //Pseudomonas bacteremia -Heart rate in the 90s. Fever of 102. Stat labs ordered. Chest x-ray and repeat urinalysis, blood cultures ordered. -Patient with positive enterococcus on urine. -Patient with no meningeal signs. = We will start on broad-spectrum antibiotics with vancomycin and Zosyn. Will consult infectious disease. =01/28. Pseudomonas positive in blood. Repeat cultures pending. Follow-up sensitivities. Continue broad-spectrum antibiotics as per infectious disease. Appreciate assistance. Patient without any meningeal signs. Will cancel lumbar puncture. = 01/29. Repeat CT scan due to abdominal tenderness yesterday shows distended gallbladder but no signs of cholecystitis. Elevated bilirubin. Elevated lipase in the 400s. Probably not pancreatitis. Will consult gastroenterology due to abdominal pain yesterday, as well as history of colon polyp with APC. Follow-up Pseudomonas cultures and sensitivities. Patient is afebrile over the past 24 hours. //Enterococcus UTI Started on antibiotics 01/26. Switch to broad-spectrum antibiotics due to fever on 01/27. Follow-up cultures and sensitivities. = Continue on antibiotics as per infectious disease. //Acute intractable pain -Recent laminectomy. -Pt is allergic to Morphine. on Dilaudid 0.5mg IV now. -Will continue with pain control. - consulted Dr. Jarrell; katerin from orthopaedic surgery. = R3.5 today. We will partially reverse INR with 1 mg vitamin K today. = 01/26. INR 1.5 today. Due to ecchymosis and subcutaneous hematoma of lower back, as well as hematuria, will hold off on warfarin for now. = 01/27. INR 1.1. Restart warfarin. = 01/28. INR 1.1. Continue warfarin. = 01/29. INR 1.1 still. I did start on a heparin drip yesterday due to concern for possible ischemic bowel secondary to atrial fibrillation, however lactate within normal limits. Now patient with return of hematuria. Will stop heparin drip. We will continue to let warfarin trend up slowly. //Acute encephalopathy //Possible ischemic stroke fall ( 01/23) -Appreciate neurology evaluation. Patient was not a candidate for TPA. -Patient's encephalopathy could also be related to pain. -MRI brain pending. -echo pending. -continue Coumadin ( hold today and repeat the INR tomorrow) -repeat UA today. 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 I discussed with radiology, reports no changes from admission. = 01/27. Likely metabolic encephalopathy secondary to infection. = 01/29. Much improved. Likely secondary to infection. Unknown source at this time. Infectious disease assistance appreciated. //CAD s/p CABG x 5 //Atrial fibrillation- s/p pacemaker placement //Hx of Mitral valve repair -Currently on Warfarin. -Will continue carvedilol 3.125 mg p.o. twice daily, sotalol 120 mg p.o. twice daily. -Patient follows up with spanish teacher Dr. Jackson. -Continue aspirin 81 mg, Lipitor . = Appreciate cardiology assistance //Hypokalemia. Potassium 3.1. Replace. Monitor. = 01/29. Follow-up labs today. //Hypothyroidism //GERD -continue levothyroxine 25 mcg p.o. daily. -Continue Protonix 20 mg p.o. q. other day. //Hematuria; urology consulted- coumadin on hold = 01/26. Follow-up urology recommendations. BMP pending. Appreciate assistance. = 01/27. Hematuria appears to have resolved. Repeat urine pending. = 01/28. Hematuria much improved. Still with some urinary incontinence. will need to follow-up with urology as outpatient. = 01/29. Hematuria returned likely secondary to heparin drip. Heparin drip discontinued. Will need to follow-up with urology as outpatient. //Full code. DVT prophy. SCDs Discharge Planning: Continues inpatient treatment for sepsis with gram-negative bacteremia (4) Altered mental status Qualifiers: Altered mental status type: unspecified Qualified Code(s): R41.82 - Altered mental status, unspecified
[2018-01-29 11:32] LABS: Albumin 2.6 g/dL (3.4-5.0); Anion Gap 9 meq/L (5-15); Aspartate Aminotransferase 25 U/L (15-37); Blood Urea Nitrogen 6 mg/dL (7-18); Calcium 7.9 mg/dL (8.5-10.1); Chloride 96 meq/L (98-107); Glomerular Filtration Rate Greater Than 89 mL/min (>89); Glucose,Random 90 mg/dL (74-106); Potassium 3.3 meq/L (3.5-5.1); Sodium 132 meq/L (136-145)
[2018-01-29 11:36] LABS: Alanine Aminotransferase 26 U/L (12-78); Alkaline Phosphatase 49 U/L (45-117); Total Protein 5.4 g/dL (6.4-8.2)
--- NOTE | 2018-01-29 11:37 | P.PNWCN ---
Wound Care Nurse Consult Description: Received consult for possible pressure injury to sacrum from Doctor Bassem Communicated with: Spoke with Antonieta minor and call placed to Doctor Luevano. Recommendation: Please continue to turn patient every 2 hours and PRN for comfort and offloading of pressure from devang prominences Apply Calazime skin protectant paste to erythema on buttocks. Reconsult wound care for open skin or wound over, or near devang prominence. Additional information: Patient not seen by wound care today. Spoke with ROSSY minor, who assessed patient's skin as intact skin with non blanchable erythema to buttock area.Antonieta BLAIR is describing a possible stage I pressure injury, which is treated and prevented by turning patient off devang prominences. There is no need for wound care to be consulted at this time.Recommend patient be turned off devang prominences every 2 hours and skin protectant paste be applied to erythema. Per ROSSY Fung, patient is refusing to be repositioned off devang prominence. RN to explain to patient why he needs to be repositioned and possible complications of not repositioning. Please reconsult wound care for open skin or a wound.
--- NOTE | 2018-01-29 11:52 | ECG ---
Date Performed: 01/28/2018 Time Performed: 17:53:27 PTAGE: 82 years EKG: ELECTRONIC ATRIAL PACEMAKER ELECTRONIC VENTRICULAR PACEMAKER ABNORMAL RHYTHM ECG PREVIOUS TRACING : 01/28/2018 17.05 DOCTOR: Alhaji Lomas Interpretating Date/Time 02/01/2018 07:14:17
[2018-01-29 11:55] LABS: Eosinophils 1 % (0-4); Lymphocytes 8 % (9-44); Monocytes 8 % (0-8); Platelet Estimate Normal (Normal); Platelet Morphology Normal (Normal)
[2018-01-29] MEDS ORDERED: Vancomycin Inj 1,250 MG in Sodium Chlor 0.9% Inj 250 ML IV.SIG SCH (12:00)
--- NOTE | 2018-01-29 12:06 | P.CONGI ---
History of Present Illness Consult date: 01/29/18 Consult reason: Nausea vomiting, possible cholecystitis, sessile polyp with history of APC Chief complaint: ams History of Present Illness: Mr. Arteaga is an 82-year-old patient with a recent history of having had laminectomy, mitral valve repair, CABG x5 and atrial fibrillation. Patient presented to the emergency department on 01/21/2018 for evaluation of lower back pain. Per history and physical patient arrived alert and oriented speaking in full sentences. Shortly thereafter a stroke alert was activated as patient started to have difficulty finding words. CT brain did not reveal any acute hemorrhage and patient's INR was 2.5 as he was taking warfarin for atrial fibrillation diagnosis. GI has been consulted for nausea vomiting, possible cholecystitis with history of sessile polyp with APC in the past. According to patient's nurse, patient was given 5 pills in a medication cup yesterday. She states about an hour later patient had multiple episodes of nausea and vomiting. Patient states he thinks it was the amount of medication given to him at once that caused the symptoms. Upon examination today patient denies any abdominal pain, denies nausea or vomiting. Cardiac diet at bedside. Gallbladder ultrasound done on 01/27/2018 revealed the following -.Sludge and debris in gallbladder without gallstones or gallbladder wall thickening. Normal common duct. CT scan done on 2017 revealed-Other than mild distention, CT appearance of the gallbladder is within normal limits. No ductal dilatation. No obstruction or acute inflammatory changes of the gastrointestinal tract. Severe diverticulosis of the sigmoid colon is again noted.Small hiatal hernia. Small effusion and mild parenchymal consolidation of the left lung base. 2017 labs reveal total bilirubin of 1.2 AST 25 ALT 26 alk phos 49 lipase 436 hemoglobin 10.2 hematocrit 28.9. Patient denies nausea or vomiting at this time, denies abdominal pain with negative Ortiz sign on exam. Patient states last colonoscopy with EGD was done 2 years ago. At this time patient denies any discomfort with the exception of lower back pain post laminectomy. With symptoms resolved at this point we will continue to monitor closely. <Kylie Jane - Last Filed: 01/29/18 11:40> Review of Systems All other systems reviewed negative except as stated in HPI <Kylie Jane - Last Filed: 01/29/18 11:40> PMFSH - History History Provided By: Patient, Medical Record - Medical History Medical History: Medical History (Last Reviewed 01/28/18 @ 08:57 by Cydney Bauer) Atrial fibrillation GERD (gastroesophageal reflux disease) Hearing loss History of Clostridium difficile infection History of cellulitis History of sepsis Hypercholesteremia Hypothyroid Osteoarthritis - Surgical History Surgical History: Surgical History (Last Reviewed 01/28/18 @ 08:57 by Cydney Bauer) H/O heart bypass surgery History of arthroscopic knee surgery History of back surgery History of cataract extraction with lens replacement History of colon resection History of prostatectomy Hx of CABG S/P hip replacement - Family History Family History: Family History (Last Updated 01/25/18 @ 13:04 by Sylvia Ortega) Brother Heart attack Sister Pancreatic cancer Alcohol abuse Father Kidney disease - Tobacco History Second Hand Smoke Exposure: No Smoking Status: Never smoker - Alcohol History How Often Do You Have a Drink Containing Alcohol: 4 or more times a week (has not drank since 2 weeks prior to back surgery) - Substance Use History Substance History: No History of Abuse - Travel History Recent Travel in the [place] Within the Last 8 Weeks: No Recent Travel Out of the Country Within the Last 8 Weeks: No - Immunization History Tetanus Immunization: >5 Years Hx Influenza Vaccine This Season: Yes <Kylie Jane - Last Filed: 01/29/18 11:40> - Medical History Medical History: Medical History (Last Reviewed 01/28/18 @ 08:57 by Cydney Bauer) Atrial fibrillation GERD (gastroesophageal reflux disease) Hearing loss History of Clostridium difficile infection History of cellulitis History of sepsis Hypercholesteremia Hypothyroid Osteoarthritis - Surgical History Surgical History: Surgical History (Last Reviewed 01/28/18 @ 08:57 by Cydney Bauer) H/O heart bypass surgery History of arthroscopic knee surgery History of back surgery History of cataract extraction with lens replacement History of colon resection History of prostatectomy Hx of CABG S/P hip replacement - Family History Family History: Family History (Last Updated 01/25/18 @ 13:04 by Sylvia Ortega) Brother Heart attack Sister Pancreatic cancer Alcohol abuse Father Kidney disease <Will Tom - Last Filed: 01/29/18 17:07> Medications and Allergies Active Medications: Active Medications Acetaminophen (Tylenol) 650 mg PO Q4H PRN PRN Reason: Headache, fever, pain 1-4 Last Admin: 01/29/18 06:27 Dose: 650 mg Hydrocodone Bitart/Acetaminophen (Strong 5/325) 1 tab PO Q6H PRN PRN Reason: Pain 5-10 Last Admin: 01/23/18 21:10 Dose: 1 tab Al Hydroxide/Mg Hydroxide (Milk Of Magnaniceto Liq) 30 ml PO Q12H PRN PRN Reason: Mild Constipation Atorvastatin Calcium (Lipitor) 20 mg PO DAILY [facility] Last Admin: 01/29/18 08:23 Dose: 20 mg Bisacodyl (Dulcolax Supp) 10 mg RECTAL DAILY PRN PRN Reason: SEVERE CONSITIPATION Calcium/Vitamin D (Oscal With D 250/125 Mg) 2 tab PO DAILY [facility] Last Admin: 01/29/18 08:24 Dose: 2 tab Carvedilol (Coreg) 3.125 mg PO BID [facility] Last Admin: 01/29/18 08:22 Dose: 3.125 mg Hydromorphone HCl (Dilaudid Pf Inj) 0.5 mg IV.PUSH Q4H PRN PRN Reason: BREAKTHROUGH PAIN Last Admin: 01/27/18 03:15 Dose: 0.5 mg Sodium Chloride (Ns Inj) 1,000 mls @ 84 mls/hr IV.CONT .[id number] [facility] Last Infusion: 01/29/18 08:36 Dose: Infused Piperacillin/Tazobactam/Dextrose (Zosyn 3.375 Gm Premix) 50 mls @ 100 mls/hr IV.SIG Q6H [facility] Last Admin: 01/29/18 11:37 Dose: 100 mls/hr Acetaminophen (Ofirmev Inj) 650 mg in 65 mls @ 400 mls/hr IV.SIG Q6H PRN PRN Reason: PAIN SCALE 1 TO 10 Last Infusion: 01/27/18 12:41 Dose: Infused Heparin Sodium/Dextrose (Heparin/D5w 25,000 U/250 Ml) 25,000 unit in 250 mls @ 0 mls/hr IV.CONT TITRATE PRN; Protocol PRN Reason: Per Protocol Last Titration: 01/29/18 06:00 Dose: 1,200 units/hr, 12 mls/hr Vancomycin HCl 1,250 mg/ (Sodium Chloride) 262.5 mls @ 250 mls/hr IV.SIG Q12H [facility] Lactulose (Lactulose Liq) 30 ml PO DAILY PRN PRN Reason: SEVERE CONSITIPATION Levothyroxine Sodium (Synthroid) 25 mcg PO DAILY@0600 [facility] Last Admin: 01/29/18 06:26 Dose: 25 mcg Magnesium Oxide (Mag-Ox) 400 mg PO BID [facility] Last Admin: 01/29/18 08:23 Dose: 400 mg Miscellaneous (Pill Splitter) 1 each OTHER DAILY [facility] Last Admin: 01/29/18 10:14 Dose: 1 each Miscellaneous Information ([facility] Ordered [facility] Info) 0 each OTHER ONCE ONE Stop: 01/30/18 23:46 Ondansetron HCl (Zofran Inj) 4 mg IV.PUSH Q6H PRN PRN Reason: NAUSEA OR VOMITING Last Admin: 01/28/18 15:13 Dose: 4 mg Pantoprazole Sodium (Protonix) 20 mg PO EVERY OTHER DAY [facility] Last Admin: 01/29/18 08:23 Dose: 20 mg Pharmacy Profile Note (Vancomycin Consult Pharmacy) 1 each OTHER UNSCH PRN PRN Reason: Pharmacy to dose Pharmacy Profile Note (Coumadin Consult Pharmacy) 1 each OTHER UNSCH PRN PRN Reason: PHARMACY DOCUMENTATION Sennosides (Senokot) 17.2 mg PO Q12H PRN PRN Reason: Moderate Constipation Sodium Chloride (Ns Flush) 2 ml IV.FLUSH PRN PRN PRN Reason: FLUSH AFTER USING IV ACCESS Last Admin: 01/29/18 10:01 Dose: 2 ml Sodium Chloride (Ns Flush) 2 ml IV.FLUSH BID [facility] Last Admin: 01/29/18 10:14 Dose: 2 ml Sotalol HCl (Betapace) 120 mg PO BID [facility] Last Admin: 01/29/18 08:21 Dose: 120 mg Warfarin Sodium (Coumadin) 5 mg PO DAILY@1600 [facility] Last Admin: 01/23/18 16:09 Dose: 5 mg <Kylie Jane - Last Filed: 01/29/18 11:40> Active Medications: Active Medications Acetaminophen (Tylenol) 650 mg PO Q4H PRN PRN Reason: Headache, fever, pain 1-4 Last Admin: 01/29/18 06:27 Dose: 650 mg Hydrocodone Bitart/Acetaminophen (Strong 5/325) 1 tab PO Q6H PRN PRN Reason: Pain 5-10 Last Admin: 01/23/18 21:10 Dose: 1 tab Al Hydroxide/Mg Hydroxide (Milk Of Magnesia Liq) 30 ml PO Q12H PRN PRN Reason: Mild Constipation Atorvastatin Calcium (Lipitor) 20 mg PO DAILY [facility] Last Admin: 01/29/18 08:23 Dose: 20 mg Bisacodyl (Dulcolax Supp) 10 mg RECTAL DAILY PRN PRN Reason: SEVERE CONSITIPATION Calcium/Vitamin D (Oscal With D 250/125 Mg) 2 tab PO DAILY [facility] Last Admin: 01/29/18 08:24 Dose: 2 tab Carvedilol (Coreg) 3.125 mg PO BID [facility] Last Admin: 01/29/18 08:22 Dose: 3.125 mg Hydromorphone HCl (Dilaudid Pf Inj) 0.5 mg IV.PUSH Q4H PRN PRN Reason: BREAKTHROUGH PAIN Last Admin: 01/27/18 03:15 Dose: 0.5 mg Sodium Chloride (Ns Inj) 1,000 mls @ 84 mls/hr IV.CONT .[id number] [facility] Last Admin: 01/29/18 16:50 Dose: 84 mls/hr Acetaminophen (Ofirmev Inj) 650 mg in 65 mls @ 400 mls/hr IV.SIG Q6H PRN PRN Reason: PAIN SCALE 1 TO 10 Last Infusion: 01/27/18 12:41 Dose: Infused Heparin Sodium/Dextrose (Heparin/D5w 25,000 U/250 Ml) 25,000 unit in 250 mls @ 0 mls/hr IV.CONT TITRATE PRN; Protocol PRN Reason: Per Protocol Last Titration: 01/29/18 06:00 Dose: 1,200 units/hr, 12 mls/hr Vancomycin HCl 1,250 mg/ (Sodium Chloride) 262.5 mls @ 250 mls/hr IV.SIG Q12H [facility] Last Infusion: 01/29/18 13:48 Dose: Infused Cefepime HCl 2,000 mg/ Sodium (Chloride) 100 mls @ 200 mls/hr IV.SIG Q8H [facility] Last Admin: 01/29/18 16:41 Dose: 200 mls/hr Lactulose (Lactulose Liq) 30 ml PO DAILY PRN PRN Reason: SEVERE CONSITIPATION Levothyroxine Sodium (Synthroid) 25 mcg PO DAILY@0600 [facility] Last Admin: 01/29/18 06:26 Dose: 25 mcg Magnesium Oxide (Mag-Ox) 400 mg PO BID [facility] Last Admin: 01/29/18 08:23 Dose: 400 mg Miscellaneous (Pill Splitter) 1 each OTHER DAILY [facility] Last Admin: 01/29/18 10:14 Dose: 1 each Miscellaneous Information ([facility] Ordered [facility] Info) 0 each OTHER ONCE ONE Stop: 01/30/18 23:46 Ondansetron HCl (Zofran Inj) 4 mg IV.PUSH Q6H PRN PRN Reason: NAUSEA OR VOMITING Last Admin: 01/28/18 15:13 Dose: 4 mg Pantoprazole Sodium (Protonix) 20 mg PO EVERY OTHER DAY [facility] Last Admin: 01/29/18 08:23 Dose: 20 mg Pharmacy Profile Note (Vancomycin Consult Pharmacy) 1 each OTHER UNSCH PRN PRN Reason: Pharmacy to dose Pharmacy Profile Note (Coumadin Consult Pharmacy) 1 each OTHER UNSCH PRN PRN Reason: PHARMACY DOCUMENTATION Sennosides (Senokot) 17.2 mg PO Q12H PRN PRN Reason: Moderate Constipation Sodium Chloride (Ns Flush) 2 ml IV.FLUSH PRN PRN PRN Reason: FLUSH AFTER USING IV ACCESS Last Admin: 01/29/18 10:01 Dose: 2 ml Sodium Chloride (Ns Flush) 2 ml IV.FLUSH BID [facility] Last Admin: 01/29/18 10:14 Dose: 2 ml Sotalol HCl (Betapace) 120 mg PO BID [facility] Last Admin: 01/29/18 08:21 Dose: 120 mg Warfarin Sodium (Coumadin) 5 mg PO DAILY@1600 [facility] Last Admin: 01/29/18 16:43 Dose: 5 mg <Will Tom E - Last Filed: 01/29/18 17:07> Allergies Allergy/AdvReac Type Severity Reaction Status Date / Time morphine Allergy Severe Confusion Verified 01/21/18 11:27 Home Medications Medication Instructions Recorded Confirmed Type aspirin 81 mg PO DAILY 01/01/18 01/21/18 History atorvastatin 20 mg PO DAILY 01/01/18 01/21/18 History carvedilol 3.125 mg PO BID 01/01/18 01/21/18 History levothyroxine 25 mcg PO DAILY 01/01/18 01/21/18 History multivitamin 1 tab PO DAILY 01/01/18 01/21/18 History sotalol 120 mg PO BID 01/01/18 01/21/18 History calcium carbonate-vitamin D3 1 tab PO DAILY 01/12/18 01/21/18 History [Calcium 600 + D(3)] [id number] oil [[place]-3 1 cap PO DAILY 01/12/18 01/21/18 History Fish Oil] omeprazole 20 mg PO 3XW 01/12/18 01/21/18 History warfarin [Coumadin] 3 mg PO 2XWEEK 01/12/18 01/21/18 History warfarin [Coumadin] 6 mg PO [id number] 01/12/18 01/21/18 History Exam Vital signs: Vital Signs 01/28/18 12:00 01/28/18 16:00 01/28/18 17:39 Temperature 98.9 F Pulse Rate 76 79 Respiratory Rate 23 Blood Pressure 115/65 Pulse Oximetry 98 98 01/28/18 20:00 01/29/18 00:00 01/29/18 04:00 Temperature 99.6 F 99.4 F 98.1 F Pulse Rate 80 103 H 79 Respiratory Rate 18 18 18 Blood Pressure 134/66 156/78 H 137/69 Pulse Oximetry 98 94 L 97 01/29/18 08:00 Temperature 98.2 F Pulse Rate 81 Respiratory Rate 20 Blood Pressure 150/69 H Pulse Oximetry 95 Intake & Output 01/28/18 01/29/18 01/29/18 18:59 06:59 18:59 Intake Total 1350 / 1350 1411.3 / 1411.3 217 / 217 Output Total 175 / 175 Balance 1350 / 1350 1236.3 / 1236.3 217 / 217 Weight 76.4 kg Intake: IV 1350 / 1350 1291.3 / 1291.3 217 / 217 Heparin/D5W 25,000 U/250 mL 25, 58.3 / 58.3 000 unit In 250 ml @ Per Protocol IV.CONT TITRATE PRN Rx #:[id number] NS Inj 1,000 ML @ 84 mls/hr IV. 1000 / 1000 783 / 783 217 / 217 CONT .[id number] [facility] Rx#:[id number] Zosyn 3.375 GM Premix 50 ML @ 100 / 100 100 / 100 100 mls/hr IV.SIG Q6H [facility] Rx#: [id number] KCl 20 mEq Premix Inj 20 meq In 100 / 100 100 ml @ 50 mls/hr IV.SIG ONCE ONE Rx#:[id number] Vancomycin Inj 1,000 MG In NS 250 / 250 250 / 250 Inj 250 ML @ 250 mls/hr IV.SIG Q12H [facility] Rx#:[id number] Oral 120 / 120 Output: Urine 175 / 175 Other: # Bowel Movements 0 - Constitutional no acute distress - Routine HEENT Exam Head: Present: normocephalic - Routine Neck Exam Present: supple, full ROM - Routine Respiratory Exam Present: CTA bilaterally. Absent: accessory muscle use, respiratory distress - Routine Cardiovascular Exam Comments: atrial/ventricular paced - Routine Abdominal Exam Present: soft, normoactive bowel sounds. Absent: tenderness, distended, guarding, firm Comments: patient reporting soft formed stools this am - Routine Extremities Exam Present: full ROM, pulses intact. Absent: cyanosis, edema - Routine Skin Exam Present: dry, warm. Absent: jaundice - Routine Neurological Exam Present: alert, moving all extremities, normal speech oriented to person and place - Routine Psychiatric Exam Present: normal affect, cooperative <JaneKylie - Last Filed: 01/29/18 11:40> Vital signs: Vital Signs 01/28/18 17:39 01/28/18 20:00 01/29/18 00:00 Temperature 99.6 F 99.4 F Pulse Rate 80 103 H Respiratory Rate 18 18 Blood Pressure 134/66 156/78 H Pulse Oximetry 98 98 94 L 01/29/18 04:00 01/29/18 08:00 01/29/18 12:00 Temperature 98.1 F 98.2 F 98.0 F Pulse Rate 79 81 79 Respiratory Rate 18 20 20 Blood Pressure 137/69 150/69 H 145/60 H Pulse Oximetry 97 97 95 01/29/18 16:00 Temperature Pulse Rate 85 Respiratory Rate Blood Pressure Pulse Oximetry Intake & Output 01/28/18 01/29/18 01/29/18 18:59 06:59 18:59 Intake Total 1350 / 1350 1411.3 / 1411.3 529.5 / 529.5 Output Total 175 / 175 Balance 1350 / 1350 1236.3 / 1236.3 529.5 / 529.5 Weight 76.4 kg 76.4 kg Intake: IV 1350 / 1350 1291.3 / 1291.3 529.5 / 529.5 Heparin/D5W 25,000 U/250 mL 25, 58.3 / 58.3 000 unit In 250 ml @ Per Protocol IV.CONT TITRATE PRN Rx #:[id number] NS Inj 1,000 ML @ 84 mls/hr IV. 1000 / 1000 783 / 783 217 / 217 CONT .[id number] [facility] Rx#:[id number] Zosyn 3.375 GM Premix 50 ML @ 100 / 100 100 / 100 50 / 50 100 mls/hr IV.SIG Q6H [facility] Rx#: [id number] KCl 20 mEq Premix Inj 20 meq In 100 / 100 100 ml @ 50 mls/hr IV.SIG ONCE ONE Rx#:[id number] Vancomycin Inj 1,000 MG In NS 250 / 250 250 / 250 Inj 250 ML @ 250 mls/hr IV.SIG Q12H [facility] Rx#:[id number] Vancomycin Inj 1,250 MG In NS 262.5 / 262.5 Inj 250 ML @ 250 mls/hr IV.SIG Q12H [facility] Rx#:[id number] Oral 120 / 120 Output: Urine 175 / 175 Other: # Bowel Movements 0 <Will Tom E - Last Filed: 01/29/18 17:07> Results - Labs CBC & Chem 7: 01/29/18 10:10 01/29/18 10:10 Labs: Laboratory Results - last 24 hr 01/28/18 01/28/18 01/28/18 17:17 17:17 17:17 WBC RBC Hgb Hct MCV MCH MCHC RDW Plt Count MPV Prelim Diff (Auto) Differential Comment PT INR APTT Sodium 133 L Potassium 3.1 L Chloride 95 L Carbon Dioxide 29.9 Anion Gap 8 BUN 9 Creatinine 0.71 Estimated GFR Greater than 89 Random Glucose 118 H Lactic Acid Calcium 8.1 L Total Bilirubin 1.2 H 1.3 H Direct Bilirubin 0.4 H Indirect Bilirubin 0.9 H AST 22 ALT 27 Alkaline Phosphatase 51 Troponin I Total Protein 5.9 L Albumin 3.0 L Lipase 436 H Urine Color Urine Clarity Urine pH Ur Specific [place] Urine Protein Urine Glucose (UA) Urine Ketones Urine Occult Blood Urine Nitrate Urine Bilirubin Urine Urobilinogen Ur Leukocyte Esterase Urine RBC Urine WBC Urine Mucus Micro UA Comment Ur Microscopic Review Urine Culture Comments Vancomycin Trough 01/28/18 01/28/18 01/29/18 17:17 21:53 00:19 WBC RBC Hgb Hct MCV MCH MCHC RDW Plt Count MPV Prelim Diff (Auto) Differential Comment PT INR APTT Sodium Potassium Chloride Carbon Dioxide Anion Gap BUN Creatinine Estimated GFR Random Glucose Lactic Acid Calcium Total Bilirubin Direct Bilirubin Indirect Bilirubin AST ALT Alkaline Phosphatase Troponin I Less than 0.02 L Total Protein Albumin Lipase Urine Color Yellow Urine Clarity Clear Urine pH 5.0 Ur Specific [place] 1.045 H Urine Protein 30 H Urine Glucose (UA) Negative Urine Ketones 20 Urine Occult Blood Moderate H Urine Nitrate Negative Urine Bilirubin Negative Urine Urobilinogen Less than 2 Ur Leukocyte Esterase Negative Urine RBC 6 H Urine WBC 1 Urine Mucus Few H Micro UA Comment Culture not ind Ur Microscopic Review Not Reportable Urine Culture Comments Culture not ind Vancomycin Trough 10.4 H 01/29/18 01/29/18 01/29/18 00:19 00:19 01:16 WBC RBC Hgb Hct MCV MCH MCHC RDW Plt Count MPV Prelim Diff (Auto) Differential Comment PT 11.1 INR 1.1 APTT 30.6 H Sodium Potassium Chloride Carbon Dioxide Anion Gap BUN Creatinine Estimated GFR Random Glucose Lactic Acid 1.1 Calcium Total Bilirubin Direct Bilirubin Indirect Bilirubin AST ALT Alkaline Phosphatase Troponin I 0.02 Total Protein Albumin Lipase Urine Color Urine Clarity Urine pH Ur Specific [place] Urine Protein Urine Glucose (UA) Urine Ketones Urine Occult Blood Urine Nitrate Urine Bilirubin Urine Urobilinogen Ur Leukocyte Esterase Urine RBC Urine WBC Urine Mucus Micro UA Comment Ur Microscopic Review Urine Culture Comments Vancomycin Trough 01/29/18 01/29/18 01/29/18 08:17 08:17 10:10 WBC 4.2 3.9 L RBC 3.27 L 3.15 L Hgb 10.2 L 10.0 L Hct 28.9 L 27.9 L MCV 88.4 88.5 MCH 31.3 31.6 MCHC 35.4 35.7 RDW 15.0 15.3 Plt Count 158 152 MPV 7.4 7.6 Prelim Diff (Auto) Manual diff required Differential Comment . PT INR APTT 54.8 H D Sodium Potassium Chloride Carbon Dioxide Anion Gap BUN Creatinine Estimated GFR Random Glucose Lactic Acid Calcium Total Bilirubin Direct Bilirubin Indirect Bilirubin AST ALT Alkaline Phosphatase Troponin I Total Protein Albumin Lipase Urine Color Urine Clarity Urine pH Ur Specific [place] Urine Protein Urine Glucose (UA) Urine Ketones Urine Occult Blood Urine Nitrate Urine Bilirubin Urine Urobilinogen Ur Leukocyte Esterase Urine RBC Urine WBC Urine Mucus Micro UA Comment Ur Microscopic Review Urine Culture Comments Vancomycin Trough 01/29/18 10:10 WBC RBC Hgb Hct MCV MCH MCHC RDW Plt Count MPV Prelim Diff (Auto) Differential Comment PT INR APTT Sodium 132 L Potassium 3.3 L Chloride 96 L Carbon Dioxide 27.0 Anion Gap 9 BUN 6 L Creatinine 0.67 Estimated GFR Greater than 89 Random Glucose 90 Lactic Acid Calcium 7.9 L Total Bilirubin 1.2 H Direct Bilirubin Indirect Bilirubin AST 25 ALT 26 Alkaline Phosphatase 49 Troponin I Total Protein 5.4 L Albumin 2.6 L Lipase Urine Color Urine Clarity Urine pH Ur Specific [place] Urine Protein Urine Glucose (UA) Urine Ketones Urine Occult Blood Urine Nitrate Urine Bilirubin Urine Urobilinogen Ur Leukocyte Esterase Urine RBC Urine WBC Urine Mucus Micro UA Comment Ur Microscopic Review Urine Culture Comments Vancomycin Trough - Imaging Impressions Abdomen/Pelvis CT 01/28/18 00:00 CONCLUSION: 1. Other than mild distention, CT appearance of the gallbladder is within normal limits. No ductal dilatation. 2. No obstruction or acute inflammatory changes of the gastrointestinal tract. Severe diverticulosis of the sigmoid colon is again noted. 3. Small hiatal hernia. 4. Small effusion and mild parenchymal consolidation of the left lung base. <Kylie Jane - Last Filed: 01/29/18 11:40> - Labs CBC & Chem 7: 01/29/18 10:10 01/29/18 10:10 Labs: Laboratory Results - last 24 hr 01/28/18 01/28/18 01/28/18 17:17 17:17 17:17 WBC RBC Hgb Hct MCV MCH MCHC RDW Plt Count MPV Prelim Diff (Auto) WBC Differential Seg Neuts % (Manual) Band Neuts % (Manual) Lymphocytes % (Manual) Monocytes % (Manual) Eosinophils % (Manual) Abs Neuts (Manual) Differential Comment Platelet Estimate Platelet Morphology PT INR APTT Sodium 133 L Potassium 3.1 L Chloride 95 L Carbon Dioxide 29.9 Anion Gap 8 BUN 9 Creatinine 0.71 Estimated GFR Greater than 89 Random Glucose 118 H Lactic Acid Calcium 8.1 L Total Bilirubin 1.2 H 1.3 H Direct Bilirubin 0.4 H Indirect Bilirubin 0.9 H AST 22 ALT 27 Alkaline Phosphatase 51 Troponin I Total Protein 5.9 L Albumin 3.0 L Lipase 436 H Urine Color Urine Clarity Urine pH Ur Specific [place] Urine Protein Urine Glucose (UA) Urine Ketones Urine Occult Blood Urine Nitrate Urine Bilirubin Urine Urobilinogen Ur Leukocyte Esterase Urine RBC Urine WBC Urine Mucus Micro UA Comment Ur Microscopic Review Urine Culture Comments Vancomycin Trough 01/28/18 01/28/18 01/29/18 17:17 21:53 00:19 WBC RBC Hgb Hct MCV MCH MCHC RDW Plt Count MPV Prelim Diff (Auto) WBC Differential Seg Neuts % (Manual) Band Neuts % (Manual) Lymphocytes % (Manual) Monocytes % (Manual) Eosinophils % (Manual) Abs Neuts (Manual) Differential Comment Platelet Estimate Platelet Morphology PT INR APTT Sodium Potassium Chloride Carbon Dioxide Anion Gap BUN Creatinine Estimated GFR Random Glucose Lactic Acid Calcium Total Bilirubin Direct Bilirubin Indirect Bilirubin AST ALT Alkaline Phosphatase Troponin I Less than 0.02 L Total Protein Albumin Lipase Urine Color Yellow Urine Clarity Clear Urine pH 5.0 Ur Specific [place] 1.045 H Urine Protein 30 H Urine Glucose (UA) Negative Urine Ketones 20 Urine Occult Blood Moderate H Urine Nitrate Negative Urine Bilirubin Negative Urine Urobilinogen Less than 2 Ur Leukocyte Esterase Negative Urine RBC 6 H Urine WBC 1 Urine Mucus Few H Micro UA Comment Culture not ind Ur Microscopic Review Not Reportable Urine Culture Comments Culture not ind Vancomycin Trough 10.4 H 01/29/18 01/29/18 01/29/18 00:19 00:19 01:16 WBC RBC Hgb Hct MCV MCH MCHC RDW Plt Count MPV Prelim Diff (Auto) WBC Differential Seg Neuts % (Manual) Band Neuts % (Manual) Lymphocytes % (Manual) Monocytes % (Manual) Eosinophils % (Manual) Abs Neuts (Manual) Differential Comment Platelet Estimate Platelet Morphology PT 11.1 INR 1.1 APTT 30.6 H Sodium Potassium Chloride Carbon Dioxide Anion Gap BUN Creatinine Estimated GFR Random Glucose Lactic Acid 1.1 Calcium Total Bilirubin Direct Bilirubin Indirect Bilirubin AST ALT Alkaline Phosphatase Troponin I 0.02 Total Protein Albumin Lipase Urine Color Urine Clarity Urine pH Ur Specific [place] Urine Protein Urine Glucose (UA) Urine Ketones Urine Occult Blood Urine Nitrate Urine Bilirubin Urine Urobilinogen Ur Leukocyte Esterase Urine RBC Urine WBC Urine Mucus Micro UA Comment Ur Microscopic Review Urine Culture Comments Vancomycin Trough 01/29/18 01/29/18 01/29/18 08:17 08:17 10:10 WBC 4.2 3.9 L RBC 3.27 L 3.15 L Hgb 10.2 L 10.0 L Hct 28.9 L 27.9 L MCV 88.4 88.5 MCH 31.3 31.6 MCHC 35.4 35.7 RDW 15.0 15.3 Plt Count 158 152 MPV 7.4 7.6 Prelim Diff (Auto) Manual diff required WBC Differential Manual diff final Seg Neuts % (Manual) 79 H Band Neuts % (Manual) 4 Lymphocytes % (Manual) 8 L Monocytes % (Manual) 8 Eosinophils % (Manual) 1 Abs Neuts (Manual) 3.2 Differential Comment . Platelet Estimate Normal Platelet Morphology Normal PT INR APTT 54.8 H D Sodium Potassium Chloride Carbon Dioxide Anion Gap BUN Creatinine Estimated GFR Random Glucose Lactic Acid Calcium Total Bilirubin Direct Bilirubin Indirect Bilirubin AST ALT Alkaline Phosphatase Troponin I Total Protein Albumin Lipase Urine Color Urine Clarity Urine pH Ur Specific [place] Urine Protein Urine Glucose (UA) Urine Ketones Urine Occult Blood Urine Nitrate Urine Bilirubin Urine Urobilinogen Ur Leukocyte Esterase Urine RBC Urine WBC Urine Mucus Micro UA Comment Ur Microscopic Review Urine Culture Comments Vancomycin Trough 01/29/18 01/29/18 01/29/18 10:10 10:10 13:51 WBC RBC Hgb Hct MCV MCH MCHC RDW Plt Count MPV Prelim Diff (Auto) WBC Differential Seg Neuts % (Manual) Band Neuts % (Manual) Lymphocytes % (Manual) Monocytes % (Manual) Eosinophils % (Manual) Abs Neuts (Manual) Differential Comment Platelet Estimate Platelet Morphology PT INR APTT 30.8 H D Sodium 132 L Potassium 3.3 L Chloride 96 L Carbon Dioxide 27.0 Anion Gap 9 BUN 6 L Creatinine 0.67 Estimated GFR Greater than 89 Random Glucose 90 Lactic Acid Calcium 7.9 L Total Bilirubin 1.2 H Direct Bilirubin Indirect Bilirubin AST 25 ALT 26 Alkaline Phosphatase 49 Troponin I Total Protein 5.4 L Albumin 2.6 L Lipase 306 Cancelled Urine Color Urine Clarity Urine pH Ur Specific [place] Urine Protein Urine Glucose (UA) Urine Ketones Urine Occult Blood Urine Nitrate Urine Bilirubin Urine Urobilinogen Ur Leukocyte Esterase Urine RBC Urine WBC Urine Mucus Micro UA Comment Ur Microscopic Review Urine Culture Comments Vancomycin Trough - Imaging Impressions Abdomen/Pelvis CT 01/28/18 00:00 CONCLUSION: 1. Other than mild distention, CT appearance of the gallbladder is within normal limits. No ductal dilatation. 2. No obstruction or acute inflammatory changes of the gastrointestinal tract. Severe diverticulosis of the sigmoid colon is again noted. 3. Small hiatal hernia. 4. Small effusion and mild parenchymal consolidation of the left lung base. <Will Tom - Last Filed: 01/29/18 17:07> Assessment and Plan (1) Nausea & vomiting Status: Acute Code(s): R11.2 - Nausea with vomiting, unspecified - Plan Mr. Arteaga is an 82-year-old patient with a recent history of having had laminectomy, mitral valve repair, CABG x5 and atrial fibrillation. Patient presented to the emergency department on 01/21/2018 for evaluation of lower back pain. Per history and physical patient arrived alert and oriented speaking in full sentences. Shortly thereafter a stroke alert was activated as patient started to have difficulty finding words. CT brain did not reveal any acute hemorrhage and patient's INR was 2.5 as he was taking warfarin for atrial fibrillation diagnosis. GI has been consulted for nausea vomiting, possible cholecystitis with history of sessile polyp with APC in the past. According to patient's nurse, patient was given 5 pills in a medication cup yesterday. She states about an hour later patient had multiple episodes of nausea and vomiting. Patient states he thinks it was the amount of medication given to him at once that caused the symptoms. Upon examination today patient denies any abdominal pain, denies nausea or vomiting. Cardiac diet at bedside. Gallbladder ultrasound done on 01/27/2018 revealed the following -.Sludge and debris in gallbladder without gallstones or gallbladder wall thickening. Normal common duct. CT scan done on 2017 revealed-Other than mild distention, CT appearance of the gallbladder is within normal limits. No ductal dilatation. No obstruction or acute inflammatory changes of the gastrointestinal tract. Severe diverticulosis of the sigmoid colon is again noted.Small hiatal hernia. Small effusion and mild parenchymal consolidation of the left lung base. 2017 labs reveal total bilirubin of 1.2 AST 25 ALT 26 alk phos 49 lipase 436 hemoglobin 10.2 hematocrit 28.9. Patient denies any rectal bleeding, reports soft brown stool this a.m. with no noted bleeding. Patient denies nausea or vomiting at this time, denies abdominal pain with negative Ortiz sign on exam. Patient states last colonoscopy with EGD was done 2 years ago. At this time patient denies any discomfort with the exception of lower back pain post laminectomy. With symptoms resolved at this point we will continue to monitor closely. Nausea and vomiting-Denies nausea and there is no active vomiting at this time.Tolerating cardiac diet well without abdominal pain. Gallbladder and CT results as noted above. Lipase elevated as noted may indicate passing of a stone. Plan: -N.p.o. after midnight -Possible need for EGD in the a.m. -Anti-emetics as ordered -Continue PPI -Monitor labs -Supportive care -Further recommendations to follow This patient has been seen by myself and Dr. Tom and this note is written on his behalf. - Attending Attestation Dr. Tom <Kylie Jane - Last Filed: 01/29/18 11:40> (1) Nausea & vomiting Status: Acute Code(s): R11.2 - Nausea with vomiting, unspecified - Plan Patient seen and examined Continue with current supportive care Monitor labs Apparently patient had one episode of nausea and vomiting following heavy dose of potassium chloride orally and has had no further episodes since then which was yesterday and is feeling much better at this point and has no complaints I doubt that the patient has any gallbladder issues and at this point not much to pursue from a GI perspective I will defer to patient's primary GI service and I will be transferring to Dr. Finn <Will Tom - Last Filed: 01/29/18 17:07>
--- NOTE | 2018-01-29 12:17 | ECG ---
Date Performed: 01/28/2018 Time Performed: 19:22:11 PTAGE: 82 years EKG: ELECTRONIC ATRIAL PACEMAKER ELECTRONIC VENTRICULAR PACEMAKER ABNORMAL RHYTHM ECG PREVIOUS TRACING : 01/28/2018 17.53 Since the previous tracing, no significant change noted DOCTOR: Alhaji Lomas Interpretating Date/Time 01/29/2018 12:17:35
[2018-01-29 12:27] LABS: Lipase 306 U/L (73-393)
--- NOTE | 2018-01-29 14:17 | P.DCO ---
- Diagnosis (1) Generalized weakness Status: Acute (2) Lumbar spinal stenosis Status: Acute (3) Altered mental status Status: Acute - Physical Therapy Order: Evaluate and treat - Home Health Nursing Order: Nursing assessment with vital signs Instructions: home health nurse for medication management. - Case Management Consult Yes - Certification I have seen patient Rolando Arteaga on 01/29/18. My clinical findings support the need for the requested home health care services because: Limited mobility due to disease progression I certify that my clinical findings support that this patient is homebound because: Unsafe to leave home unassisted (3) Altered mental status Qualifiers: Altered mental status type: unspecified Qualified Code(s): R41.82 - Altered mental status, unspecified
--- NOTE | 2018-01-29 14:51 | ECG ---
Date Performed: 01/28/2018 Time Performed: 17:05:34 PTAGE: 82 years EKG: Atrial fibrillation with PVC(s) or aberrant ventricular conduction Right axis deviation IV conduction defect Inferior ST-T changes are nonspecific When compared to previous tracing, atrial and ventricular Pacing is no longer noted. Abnormal ECG PREVIOUS TRACING : 01/27/2018 06.51 DOCTOR: Alhaji Lomas Interpretating Date/Time 01/29/2018 14:49:38
--- NOTE | 2018-01-29 15:22 | P.DCO ---
Post Hospital Infusion Therapy - Infusion Therapy Location of Infusion Therapy: Home Health Care IV Infusion Order Appointment Date: 01/29/18 - Patient Information Patient Weight: 76.4 kg - Diagnosis (1) Bacteremia due to Pseudomonas Code(s): R78.81 - Bacteremia (2) Infective discitis Code(s): M46.40 - Discitis, unspecified, site unspecified - Administer Medication Cefepime Dose: 2 grams IV Directions: q 8 hours (Prefer IV infusion pump) Start Treatment: 01/29/18 Stop Treatment: 03/13/18 - Additional Information Venous Access: PICC Line Additional Instructions: [x] Peripheral flush and dressing changes per protocol [x] Implanted port and central slack line yarder: * Implanted port: 10 ml Normal Saline followed by 5 ml Heparin 100 units/ml Heparin flush after each use and monthly to maintain. [] May leave port accessed during therapy. [] May leave peripheral site accessed for duration of therapy. [x] If patient has SOB or respiratory distress, check oxygen saturation. If less than 90% or clinical signs of respiratory distress, administer oxygen at 2 L/min. via nasal cannula and notify physician. [x] Anaphylaxis/Reaction orders: * Stop infusion. * Keep IV line open with saline flush. * Notify physician. * Monitor vital signs every 15 minutes until symptoms resolve. * Check Oxygen saturation; Oxygen at 2 L/min. via nasal cannula if less than 90% or clinical signs of respiratory distress. * Administer diphenhydramine (Benadryl) 25 mg IV STAT, (unless patient has received as pre-med). May repeat once, if necessary. * Solu-Cortef 250 mg IVP over 30-60 seconds, use 100 mg vials for each dissolution. * Epinephrine (1mg/1 ml) 0.3 mg subcutaneously or IVP now with any signs of respiratory distress. * Check with physician for new additional pre-med orders if patient is re- challenged or re-treated. [x] May remove PICC line when treatment complete, after confirming with Physician. [x] If the patient is admitted to the hospital, the ED, or transferred via [facility] , complete transfer form including medication reconciliation order sheet. Weekly Labs: CBC w/diff, Creatinine, CRP, LFTs (Hepatic Function Test) Case Management Consult: Yes Additional Information: Please draw weekly labs and fax to numbers below. Call with abnormal labs or change in clinical condition to number below. Dr.Reba Langley office: Address: [address] [place] [address] - Patient Information Allergies morphine Allergy (Severe, Verified 01/21/18 11:27) Confusion
--- NOTE | 2018-01-29 17:02 | P.PNPAL ---
Reason for Visit Reason for visit: a. To assist with evaluation and management of symptoms including: Altered mental status, pain b. To assist medical decision maker(s) with: better understanding of current medical conditions; weighing benefits/burdens of medical treatment options; making medical treatment decisions. Subjective Subjective/Interval History: Follow-up medically necessary for symptom management. Patient is sitting up in a recliner chair in his room. Patient spouse and his son in room visiting with patient. Patient states that he knows he will always have back pain but at this time it is tolerable. He denies nausea. Wound care nurse was consulted to evaluate patient for possible pressure injury to sacrum, recommended repositioning and using skin protectant. Patient had an episode of nausea and vomiting on 01/28/18. CT abdomen on 01/28/18 revealed no obstruction or acute inflammatory changes of the gastrointestinal tract. Severe diverticulosis of the sigmoid colon, small hiatal hernia and small effusion and mild parenchymal consolidation of the left lung base. GI consulted on 01/29/18 to evaluate patient who has had nausea and vomiting with possible cholecystitis. Patient patient's spouse, GI Dr. Tom was just in the room and no procedure will be done at this time. Family looking forward to having patient discharged home with home health care services including home health care infusion orders. Patient spouse agreeable with patient being discharged home. Family/Friend Interactions: See interval note. Advance Directives Living Will: Copy in medical record Health Care Surrogate: Copy in medical record Durable Power of Gold Tooler: Copy in medical record Advance Directives Date on File: 06/21/15 Health Care Surrogate Name and Number: EMMANUELLE-Rocío Arteaga(spouse)[phone] Alt:Rolando Arteaga(son)[phone] Objective Vital Signs: Vital Signs 01/28/18 17:39 01/28/18 20:00 01/29/18 00:00 Temperature 99.6 F 99.4 F Pulse Rate 80 103 H Respiratory Rate 18 18 Blood Pressure 134/66 156/78 H Pulse Oximetry 98 98 94 L 01/29/18 04:00 01/29/18 08:00 01/29/18 12:00 Temperature 98.1 F 98.2 F 98.0 F Pulse Rate 79 81 79 Respiratory Rate 18 20 20 Blood Pressure 137/69 150/69 H 145/60 H Pulse Oximetry 97 97 95 Intake & Output 01/28/18 01/29/18 01/29/18 18:59 06:59 18:59 Intake Total 1350 / 1350 1411.3 / 1411.3 529.5 / 529.5 Output Total 175 / 175 Balance 1350 / 1350 1236.3 / 1236.3 529.5 / 529.5 Weight 76.4 kg 76.4 kg Intake: IV 1350 / 1350 1291.3 / 1291.3 529.5 / 529.5 Heparin/D5W 25,000 U/250 mL 25, 58.3 / 58.3 000 unit In 250 ml @ Per Protocol IV.CONT TITRATE PRN Rx #:[id number] NS Inj 1,000 ML @ 84 mls/hr IV. 1000 / 1000 783 / 783 217 / 217 CONT .[id number] [facility] Rx#:[id number] Zosyn 3.375 GM Premix 50 ML @ 100 / 100 100 / 100 50 / 50 100 mls/hr IV.SIG Q6H [facility] Rx#: [id number] KCl 20 mEq Premix Inj 20 meq In 100 / 100 100 ml @ 50 mls/hr IV.SIG ONCE ONE Rx#:[id number] Vancomycin Inj 1,000 MG In NS 250 / 250 250 / 250 Inj 250 ML @ 250 mls/hr IV.SIG Q12H [facility] Rx#:[id number] Vancomycin Inj 1,250 MG In NS 262.5 / 262.5 Inj 250 ML @ 250 mls/hr IV.SIG Q12H [facility] Rx#:[id number] Oral 120 / 120 Output: Urine 175 / 175 Other: # Bowel Movements 0 Physical Exam: CONSTITUTIONAL/GENERAL: This is an adequately nourished patient, in no acute distress. TUBES/LINES/DRAINS:PIV SKIN: No jaundice, rashes, or lesions. Ecchymoses on upper extremities and to posterior lower back. Posterior Surgical wound to lower back with dressing intact. EYES: PERRLA. Extraocular motions intact. No scleral icterus. No injection or drainage. Fundi not examined. ENT: Hearing grossly normal. Nose without bleeding or purulent drainage. Moist oral mucosa. CARDIOVASCULAR: Irregular rate and rhythm without murmurs, gallops, or rubs. No JVD. Peripheral pulses symmetric. RESPIRATORY/CHEST: Symmetric, unlabored respirations. Clear to auscultation. No wheezing or rhonchi. GASTROINTESTINAL: Abdomen soft, non-tender, nondistended. No guarding. Bowel sounds present. GENITOURINARY: Without palpable bladder distension. Hematuria noted MUSCULOSKELETAL: Extremities without clubbing, cyanosis, or edema. No joint tenderness or effusion noted. NEUROLOGICAL: Awake, alert and oriented to self, place and situation. Motor and sensory grossly within normal limits. Follows commands. Moves all extremities. PSYCHIATRIC: No obvious anxiety/depression. no apparent hallucinations or other psychotic thought process. Diagnostic Tests Laboratory: Laboratory Results - last 72 hr 01/27/18 01/27/18 01/27/18 05:22 05:22 10:16 WBC RBC Hgb Hct MCV MCH MCHC RDW Plt Count MPV Prelim Diff (Auto) Neut % (Auto) Lymph % (Auto) [place] % (Auto) Eos % (Auto) Baso % (Auto) Neut # (Auto) Lymph # (Auto) [place] # (Auto) Eos # (Auto) Baso # (Auto) WBC Differential Seg Neuts % (Manual) Band Neuts % (Manual) Lymphocytes % (Manual) Monocytes % (Manual) Eosinophils % (Manual) Abs Neuts (Manual) Differential Comment Platelet Estimate Platelet Morphology PT 11.5 INR 1.1 APTT Sodium Potassium Chloride Carbon Dioxide Anion Gap BUN Creatinine Estimated GFR Random Glucose Lactic Acid Calcium Phosphorus 2.6 Magnesium 1.4 L Total Bilirubin Direct Bilirubin Indirect Bilirubin AST ALT Alkaline Phosphatase Troponin I Total Protein Albumin Lipase Urine Color Yellow Urine Clarity Clear Urine pH 6.0 Ur Specific [place] 1.010 Urine Protein Negative Urine Glucose (UA) Negative Urine Ketones Negative Urine Occult Blood Moderate H Urine Nitrate Negative Urine Bilirubin Negative Urine Urobilinogen 4 or greater Ur Leukocyte Esterase Negative Urine RBC 54 H Urine WBC 13 H Ur Squamous Epith Cells <1 Urine Mucus Few H Micro UA Comment Ur Microscopic Review Not Reportable Urine Culture Comments Vancomycin Trough 01/27/18 01/27/18 01/27/18 10:57 10:57 10:57 WBC 5.5 RBC 3.73 L Hgb 11.6 L Hct 33.1 L MCV 88.5 MCH 31.2 MCHC 35.2 RDW 15.2 Plt Count 168 MPV 7.0 Prelim Diff (Auto) Neut % (Auto) Lymph % (Auto) [place] % (Auto) Eos % (Auto) Baso % (Auto) Neut # (Auto) Lymph # (Auto) [place] # (Auto) Eos # (Auto) Baso # (Auto) WBC Differential Seg Neuts % (Manual) Band Neuts % (Manual) Lymphocytes % (Manual) Monocytes % (Manual) Eosinophils % (Manual) Abs Neuts (Manual) Differential Comment Platelet Estimate Platelet Morphology PT INR APTT Sodium 131 L Potassium 3.4 L Chloride 94 L Carbon Dioxide 25.6 Anion Gap 11 BUN 8 Creatinine 0.66 Estimated GFR Greater than 89 Random Glucose 90 Lactic Acid 1.0 Calcium 8.4 L Phosphorus Magnesium Total Bilirubin 1.3 H Direct Bilirubin Indirect Bilirubin AST 22 ALT 25 Alkaline Phosphatase 56 Troponin I Total Protein 6.4 D Albumin 3.2 L Lipase Urine Color Urine Clarity Urine pH Ur Specific [place] Urine Protein Urine Glucose (UA) Urine Ketones Urine Occult Blood Urine Nitrate Urine Bilirubin Urine Urobilinogen Ur Leukocyte Esterase Urine RBC Urine WBC Ur Squamous Epith Cells Urine Mucus Micro UA Comment Ur Microscopic Review Urine Culture Comments Vancomycin Trough 01/28/18 01/28/18 01/28/18 06:50 06:50 06:50 WBC 4.0 RBC 3.81 L Hgb 11.8 L Hct 33.8 L MCV 88.8 MCH 31.1 MCHC 35.0 RDW 15.5 Plt Count 173 MPV 7.4 Prelim Diff (Auto) Neut % (Auto) 78.7 H Lymph % (Auto) 10.3 [place] % (Auto) 10.7 H Eos % (Auto) 0.1 Baso % (Auto) 0.2 Neut # (Auto) 3.1 Lymph # (Auto) 0.4 L [place] # (Auto) 0.4 Eos # (Auto) 0.0 Baso # (Auto) 0.0 WBC Differential . Seg Neuts % (Manual) Band Neuts % (Manual) Lymphocytes % (Manual) Monocytes % (Manual) Eosinophils % (Manual) Abs Neuts (Manual) Differential Comment Auto diff final Platelet Estimate Platelet Morphology PT 11.4 INR 1.1 APTT Sodium 130 L Potassium 3.1 L Chloride 92 L Carbon Dioxide 28.1 Anion Gap 10 BUN 8 Creatinine 0.81 Estimated GFR Greater than 89 Random Glucose 92 Lactic Acid Calcium 8.5 Phosphorus 2.9 Magnesium 1.6 Total Bilirubin Direct Bilirubin Indirect Bilirubin AST ALT Alkaline Phosphatase Troponin I Total Protein Albumin 3.2 L Lipase Urine Color Urine Clarity Urine pH Ur Specific [place] Urine Protein Urine Glucose (UA) Urine Ketones Urine Occult Blood Urine Nitrate Urine Bilirubin Urine Urobilinogen Ur Leukocyte Esterase Urine RBC Urine WBC Ur Squamous Epith Cells Urine Mucus Micro UA Comment Ur Microscopic Review Urine Culture Comments Vancomycin Trough 01/28/18 01/28/18 01/28/18 17:17 17:17 17:17 WBC RBC Hgb Hct MCV MCH MCHC RDW Plt Count MPV Prelim Diff (Auto) Neut % (Auto) Lymph % (Auto) [place] % (Auto) Eos % (Auto) Baso % (Auto) Neut # (Auto) Lymph # (Auto) [place] # (Auto) Eos # (Auto) Baso # (Auto) WBC Differential Seg Neuts % (Manual) Band Neuts % (Manual) Lymphocytes % (Manual) Monocytes % (Manual) Eosinophils % (Manual) Abs Neuts (Manual) Differential Comment Platelet Estimate Platelet Morphology PT INR APTT Sodium 133 L Potassium 3.1 L Chloride 95 L Carbon Dioxide 29.9 Anion Gap 8 BUN 9 Creatinine 0.71 Estimated GFR Greater than 89 Random Glucose 118 H Lactic Acid Calcium 8.1 L Phosphorus Magnesium Total Bilirubin 1.2 H 1.3 H Direct Bilirubin 0.4 H Indirect Bilirubin 0.9 H AST 22 ALT 27 Alkaline Phosphatase 51 Troponin I Total Protein 5.9 L Albumin 3.0 L Lipase 436 H Urine Color Urine Clarity Urine pH Ur Specific [place] Urine Protein Urine Glucose (UA) Urine Ketones Urine Occult Blood Urine Nitrate Urine Bilirubin Urine Urobilinogen Ur Leukocyte Esterase Urine RBC Urine WBC Ur Squamous Epith Cells Urine Mucus Micro UA Comment Ur Microscopic Review Urine Culture Comments Vancomycin Trough 01/28/18 01/28/18 01/29/18 17:17 21:53 00:19 WBC RBC Hgb Hct MCV MCH MCHC RDW Plt Count MPV Prelim Diff (Auto) Neut % (Auto) Lymph % (Auto) [place] % (Auto) Eos % (Auto) Baso % (Auto) Neut # (Auto) Lymph # (Auto) [place] # (Auto) Eos # (Auto) Baso # (Auto) WBC Differential Seg Neuts % (Manual) Band Neuts % (Manual) Lymphocytes % (Manual) Monocytes % (Manual) Eosinophils % (Manual) Abs Neuts (Manual) Differential Comment Platelet Estimate Platelet Morphology PT INR APTT Sodium Potassium Chloride Carbon Dioxide Anion Gap BUN Creatinine Estimated GFR Random Glucose Lactic Acid Calcium Phosphorus Magnesium Total Bilirubin Direct Bilirubin Indirect Bilirubin AST ALT Alkaline Phosphatase Troponin I Less than 0.02 L Total Protein Albumin Lipase Urine Color Yellow Urine Clarity Clear Urine pH 5.0 Ur Specific [place] 1.045 H Urine Protein 30 H Urine Glucose (UA) Negative Urine Ketones 20 Urine Occult Blood Moderate H Urine Nitrate Negative Urine Bilirubin Negative Urine Urobilinogen Less than 2 Ur Leukocyte Esterase Negative Urine RBC 6 H Urine WBC 1 Ur Squamous Epith Cells Urine Mucus Few H Micro UA Comment Culture not ind Ur Microscopic Review Not Reportable Urine Culture Comments Culture not ind Vancomycin Trough 10.4 H 01/29/18 01/29/18 01/29/18 00:19 00:19 01:16 WBC RBC Hgb Hct MCV MCH MCHC RDW Plt Count MPV Prelim Diff (Auto) Neut % (Auto) Lymph % (Auto) [place] % (Auto) Eos % (Auto) Baso % (Auto) Neut # (Auto) Lymph # (Auto) [place] # (Auto) Eos # (Auto) Baso # (Auto) WBC Differential Seg Neuts % (Manual) Band Neuts % (Manual) Lymphocytes % (Manual) Monocytes % (Manual) Eosinophils % (Manual) Abs Neuts (Manual) Differential Comment Platelet Estimate Platelet Morphology PT 11.1 INR 1.1 APTT 30.6 H Sodium Potassium Chloride Carbon Dioxide Anion Gap BUN Creatinine Estimated GFR Random Glucose Lactic Acid 1.1 Calcium Phosphorus Magnesium Total Bilirubin Direct Bilirubin Indirect Bilirubin AST ALT Alkaline Phosphatase Troponin I 0.02 Total Protein Albumin Lipase Urine Color Urine Clarity Urine pH Ur Specific [place] Urine Protein Urine Glucose (UA) Urine Ketones Urine Occult Blood Urine Nitrate Urine Bilirubin Urine Urobilinogen Ur Leukocyte Esterase Urine RBC Urine WBC Ur Squamous Epith Cells Urine Mucus Micro UA Comment Ur Microscopic Review Urine Culture Comments Vancomycin Trough 01/29/18 01/29/18 01/29/18 08:17 08:17 10:10 WBC 4.2 3.9 L RBC 3.27 L 3.15 L Hgb 10.2 L 10.0 L Hct 28.9 L 27.9 L MCV 88.4 88.5 MCH 31.3 31.6 MCHC 35.4 35.7 RDW 15.0 15.3 Plt Count 158 152 MPV 7.4 7.6 Prelim Diff (Auto) Manual diff required Neut % (Auto) Lymph % (Auto) [place] % (Auto) Eos % (Auto) Baso % (Auto) Neut # (Auto) Lymph # (Auto) [place] # (Auto) Eos # (Auto) Baso # (Auto) WBC Differential Manual diff final Seg Neuts % (Manual) 79 H Band Neuts % (Manual) 4 Lymphocytes % (Manual) 8 L Monocytes % (Manual) 8 Eosinophils % (Manual) 1 Abs Neuts (Manual) 3.2 Differential Comment . Platelet Estimate Normal Platelet Morphology Normal PT INR APTT 54.8 H D Sodium Potassium Chloride Carbon Dioxide Anion Gap BUN Creatinine Estimated GFR Random Glucose Lactic Acid Calcium Phosphorus Magnesium Total Bilirubin Direct Bilirubin Indirect Bilirubin AST ALT Alkaline Phosphatase Troponin I Total Protein Albumin Lipase Urine Color Urine Clarity Urine pH Ur Specific [place] Urine Protein Urine Glucose (UA) Urine Ketones Urine Occult Blood Urine Nitrate Urine Bilirubin Urine Urobilinogen Ur Leukocyte Esterase Urine RBC Urine WBC Ur Squamous Epith Cells Urine Mucus Micro UA Comment Ur Microscopic Review Urine Culture Comments Vancomycin Trough 01/29/18 01/29/18 01/29/18 10:10 10:10 13:51 WBC RBC Hgb Hct MCV MCH MCHC RDW Plt Count MPV Prelim Diff (Auto) Neut % (Auto) Lymph % (Auto) [place] % (Auto) Eos % (Auto) Baso % (Auto) Neut # (Auto) Lymph # (Auto) [place] # (Auto) Eos # (Auto) Baso # (Auto) WBC Differential Seg Neuts % (Manual) Band Neuts % (Manual) Lymphocytes % (Manual) Monocytes % (Manual) Eosinophils % (Manual) Abs Neuts (Manual) Differential Comment Platelet Estimate Platelet Morphology PT INR APTT 30.8 H D Sodium 132 L Potassium 3.3 L Chloride 96 L Carbon Dioxide 27.0 Anion Gap 9 BUN 6 L Creatinine 0.67 Estimated GFR Greater than 89 Random Glucose 90 Lactic Acid Calcium 7.9 L Phosphorus Magnesium Total Bilirubin 1.2 H Direct Bilirubin Indirect Bilirubin AST 25 ALT 26 Alkaline Phosphatase 49 Troponin I Total Protein 5.4 L Albumin 2.6 L Lipase 306 Cancelled Urine Color Urine Clarity Urine pH Ur Specific [place] Urine Protein Urine Glucose (UA) Urine Ketones Urine Occult Blood Urine Nitrate Urine Bilirubin Urine Urobilinogen Ur Leukocyte Esterase Urine RBC Urine WBC Ur Squamous Epith Cells Urine Mucus Micro UA Comment Ur Microscopic Review Urine Culture Comments Vancomycin Trough Result Diagrams: 01/29/18 10:10 01/29/18 10:10 Microbiology: Microbiology 01/28/18 10:55 Aerobic Blood Culture - Preliminary Blood - Peripheral No growth in 1 day Anaerobic Blood Culture - Preliminary No growth in 1 day 01/28/18 11:01 Aerobic Blood Culture - Preliminary Blood - Peripheral No growth in 1 day Anaerobic Blood Culture - Preliminary No growth in 1 day 01/27/18 10:50 Aerobic Blood Culture - Preliminary Blood - Peripheral Pseudomonas aeruginosa Anaerobic Blood Culture - Preliminary No growth in 2 days 01/27/18 10:57 Aerobic Blood Culture - Preliminary Blood - Peripheral Pseudomonas aeruginosa Anaerobic Blood Culture - Preliminary No growth in 2 days 01/24/18 22:30 Urine Culture - Final Clean Catch Urine Enterococcus faecalis Imaging: Lumbar Spine CT 01/21/18 11:39 CONCLUSION: 1. Previous lumbar fusion across the L4-5 level stable compared to previous. 2. Mild compression fractures involving T12, L1, L2, L3, L4 and L5. These are all stable compared to previous examination dated 09/13/2010. 3. Degenerated disc with facet arthritis and disc bulges as above. Head CTA 01/21/18 12:01 CONCLUSION: Intracranial vessels are all patent without aneurysmal or embolic disease. Neck CTA 01/21/18 12:01 CONCLUSION: 1. No hemodynamically significant carotid artery stenosis identified. 2. Diminutive left vertebral which terminates in a PICA. Head CT 01/25/18 00:00 CONCLUSION: 1. Moderate periventricular and subcortical white matter small vessel ischemic changes bilaterally. 2. Diffuse cerebral atrophy. 3. 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 4. Mild mucosal thickening within maxillary sinuses bilaterally. . Chest X-Ray 01/27/18 00:00 CONCLUSION: Pacemaker cardiomegaly. I don't see significant failure. Gallbladder Ultrasound 01/27/18 00:00 CONCLUSION: 1. Sludge and debris in gallbladder without gallstones or gallbladder wall thickening. 2. Normal common duct Abdomen/Pelvis CT 01/28/18 00:00 CONCLUSION: 1. Other than mild distention, CT appearance of the gallbladder is within normal limits. No ductal dilatation. 2. No obstruction or acute inflammatory changes of the gastrointestinal tract. Severe diverticulosis of the sigmoid colon is again noted. 3. Small hiatal hernia. 4. Small effusion and mild parenchymal consolidation of the left lung base. Assessment and Plan - Disease Oriented Problem List (1) Lumbar spinal stenosis (2) Atrial fibrillation (3) CAD (coronary artery disease) (4) Hypertension (5) Hypothyroidism - Symptom Scale (1) Pain 0-10 Scale: 3 Comment: Recent laminectomy on 01/14/18. Patient complaining of achy lower back pain. (2) Altered mental status 0-10 Scale: Unable to quantify Comment: Developed altered mentation in the emergency room. 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 Pertinent Non-Medical Issues: Psychosocial:Patient is originally from [place]. 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 He moved to [place] temporarily in 1991 and permanently in 2001. Patient has been to his Rocío Arteaga for 60 years. They have 3 adult children 2 daughters and 1 son. Patient served in the [employer]. Patient enjoys playing golf. Spiritual: Patient is Zoroastrianism-Family would like a lumber puller to visit with patient during hospitalization. Legal:Per , patient has Durable Power of Gold Tooler including Healthcare. Ethical issues impacting care: None identified at this time Important Contacts: Spouse- DPOA- Rocío Arteaga [phone] home/[phone] cellphone Son- Alternate DPOA-Rolando Arteaga [phone] Prognosis: Mr. Arteaga is a 82-year-old male with a medical history of atrial fibrillation on Coumadin, coronary artery disease S/P CABG x5 vessels, mitral valve repair and pacemaker, hypertension, cellulitis, history of colon cancer, prostate cancer, hypothyroidism and hearing loss. Patient recently underwent laminectomy surgery in his lower back by Dr. Garza on January 14, 2018 and his Coumadin was stopped at that time for procedure. Patient presented to the emergency room on 01/21/18 complaining of back pain. Clinical course complicated with altered mental status, slurred speech and pain. Given multiple ongoing comorbidities, patient remains at risk for further complications, deterioration and decline. Code Status: No Code DNR Plan: PLAN: Legal decision maker: Patient is currently oriented to self and partly situation with some confusion. At this time it is unknown if he will regain capacity to participate in medical decision making. Patient's self stated DPOA is his spouse Rocío Arteaga and his alternate DPOA is his son Rolando Arteaga. Goals: Remain aggressive short of no code. [facility] DNR. Plan is for patient to be discharged home with home health care and home health care infusion therapy. Patient spouse agreeable with plan. CODE STATUS: No code DNR/DNI. [facility] DNR signed and placed on patient. SYMPTOMS: * Altered mental status: Patient developed altered mentation in the emergency room after coming in with a complain of back pain s/p laminectomy on 01/14. 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 MRI brain pending. Patient is more confused today compared to yesterday. Significant change in mentation on 01/27/18. ID consulted. Mentation has significantly improved. Patient is alert, oriented to self, place and situation. Resolved. * Pain: Patient recently had laminectomy surgery on 01/14/18. Developed achy pain to his back. 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 Pain managed with Hydrocodone/acetaminophen 5/ 325 every 6 hours as needed pain. Patient complaining of pain which is mostly exacerbated with movement. Rating pain is 3 out of 10. Pain appears to be adequately managed at this time. Palliative care will continue to follow the patient during hospital course as condition evolves, to assist patient/decision-maker with understanding of their medical conditions, weighing benefits/burdens of treatment options, for clarification of goals of treatment. Additionally will assist with any symptoms of palliative concern Attestation Attestation: To help prompt me to consider important information that might be impacting today's encounter and assessment, information from prior notes written by myself or my colleagues may have been "brought forward" into today's note. My signature on this note, however, is an attestation that I personally performed the exam, history, and/or decision-making noted today, and, unless otherwise indicated, the interactions with patient, family, and staff as well as the review of records all occurred today. I also attest that the listed assessment and stated plan reflect my best clinical judgment today based on the combination of historical information, prior notes, and today's exam/ interactions. When time spent is documented, it refers only to time spent today by the signer, or if indicated, combined time spent today by collaborating physician/nurse practitioner.
--- NOTE | 2018-01-29 18:17 | P.PNID ---
Subjective Remarks: Mr. Arteaga is in 82-year-old male with past medical history significant for recent history of laminectomy approximately 2 weeks prior to admission. Patient also has a history of mitral valve repair, CABG x5, atrial fibrillation. With this background patient presents to the emergency department for evaluation of back pain. Per triage patient was initially alert and oriented. However during his stay he was found to have word finding difficulties and speaking in full sentences. He has had expressive dysphasia- like symptoms as well. A stroke alert was activated. Neurologist saw the patient and it was determined patient was not a candidate for TPA. Patient underwent CT of the brain which did not reveal any acute hemorrhage. Patient's was in the room and reports that patient had a fall recently has not had bruising and hematoma on the back close to the surgical site. Patient' s INR was 2.5 at admission. Patient underwent workup for sepsis and currently all cultures are pending. At the time of my evaluation patient wakes up on verbal commands but is not very cooperative. He was able to identify his son as well as his . It was a little difficult to arouse but once awake was able to answer some of these questions. She was being treated for possible UTI and subsequently he still had fevers and therefore infectious disease was consulted. Upon discussion with patient's as well as the nurse it appears that patient had retention of urine initially requiring Rene catheterization which was traumatic at one point. Patient's son reports that he had some blood-tinged urine off and on. Patient has been evaluated by Dr. Jarrell of orthopedics and at the present time there is no plan for further surgical intervention. Overnight events reviewed. Delayed entry patient seen at approx 2 pm. No fevers no rash Sitting in chair. According to he is more lethargic today. No neck pain or back pain. Antibiotics: Zosyn IV Vanco IV Lines: Lines ok Past Medical History: reviewed Allergies/Adverse Reactions: Allergies morphine Allergy (Severe, Verified 01/21/18 11:27) Confusion Objective Vital Signs 01/28/18 20:00 01/29/18 00:00 01/29/18 04:00 Temperature 99.6 F 99.4 F 98.1 F Pulse Rate 80 103 H 79 Respiratory Rate 18 18 18 Blood Pressure 134/66 156/78 H 137/69 Pulse Oximetry 98 94 L 97 01/29/18 08:00 01/29/18 12:00 01/29/18 16:00 Temperature 98.2 F 98.0 F 98.1 F Pulse Rate 81 79 82 Respiratory Rate 20 20 20 Blood Pressure 150/69 H 145/60 H 109/61 Pulse Oximetry 97 95 97 Intake & Output 01/28/18 01/29/18 01/29/18 18:59 06:59 18:59 Intake Total 1350 / 1350 1411.3 / 1411.3 629.5 / 629.5 Output Total 175 / 175 Balance 1350 / 1350 1236.3 / 1236.3 629.5 / 629.5 Weight 76.4 kg 76.4 kg Intake: IV 1350 / 1350 1291.3 / 1291.3 629.5 / 629.5 Heparin/D5W 25,000 U/250 mL 25, 58.3 / 58.3 000 unit In 250 ml @ Per Protocol IV.CONT TITRATE PRN Rx #:[id number] NS Inj 1,000 ML @ 84 mls/hr IV. 1000 / 1000 783 / 783 217 / 217 CONT .[id number] [facility] Rx#:[id number] Maxipime Inj 2,000 MG In NS Inj 100 / 100 100 ML @ 200 mls/hr IV.SIG Q8H [facility] Rx#:[id number] Zosyn 3.375 GM Premix 50 ML @ 100 / 100 100 / 100 50 / 50 100 mls/hr IV.SIG Q6H [facility] Rx#: [id number] KCl 20 mEq Premix Inj 20 meq In 100 / 100 100 ml @ 50 mls/hr IV.SIG ONCE ONE Rx#:[id number] Vancomycin Inj 1,000 MG In NS 250 / 250 250 / 250 Inj 250 ML @ 250 mls/hr IV.SIG Q12H [facility] Rx#:[id number] Vancomycin Inj 1,250 MG In NS 262.5 / 262.5 Inj 250 ML @ 250 mls/hr IV.SIG Q12H [facility] Rx#:[id number] Oral 120 / 120 Output: Urine 175 / 175 Other: # Bowel Movements 0 01/28/18 10:55 Blood - Peripheral Aerobic Blood Culture - Preliminary No growth in 1 day 01/28/18 10:55 Blood - Peripheral Anaerobic Blood Culture - Preliminary No growth in 1 day 01/28/18 11:01 Blood - Peripheral Aerobic Blood Culture - Preliminary No growth in 1 day 01/28/18 11:01 Blood - Peripheral Anaerobic Blood Culture - Preliminary No growth in 1 day 01/27/18 10:50 Blood - Peripheral Aerobic Blood Culture - Preliminary Pseudomonas aeruginosa 01/27/18 10:50 Blood - Peripheral Anaerobic Blood Culture - Preliminary No growth in 2 days 01/27/18 10:57 Blood - Peripheral Aerobic Blood Culture - Preliminary Pseudomonas aeruginosa 01/27/18 10:57 Blood - Peripheral Anaerobic Blood Culture - Preliminary No growth in 2 days 01/24/18 22:30 Clean Catch Urine Urine Culture - Final Enterococcus faecalis Lab - Hematology Results 01/28/18 01/29/18 01/29/18 06:50 08:17 10:10 WBC 4.0 4.2 3.9 L RBC 3.81 L 3.27 L 3.15 L Hgb 11.8 L 10.2 L 10.0 L Hct 33.8 L 28.9 L 27.9 L MCV 88.8 88.4 88.5 MCH 31.1 31.3 31.6 MCHC 35.0 35.4 35.7 RDW 15.5 15.0 15.3 Plt Count 173 158 152 MPV 7.4 7.4 7.6 Prelim Diff (Auto) Manual diff required Neut % (Auto) 78.7 H Lymph % (Auto) 10.3 [place] % (Auto) 10.7 H Eos % (Auto) 0.1 Baso % (Auto) 0.2 Neut # (Auto) 3.1 Lymph # (Auto) 0.4 L [place] # (Auto) 0.4 Eos # (Auto) 0.0 Baso # (Auto) 0.0 WBC Differential . Manual diff final Seg Neuts % (Manual) 79 H Band Neuts % (Manual) 4 Lymphocytes % (Manual) 8 L Monocytes % (Manual) 8 Eosinophils % (Manual) 1 Abs Neuts (Manual) 3.2 Differential Comment Auto diff final . Platelet Estimate Normal Platelet Morphology Normal Lab - Chemistry Results 01/28/18 01/28/18 01/28/18 06:50 17:17 17:17 Sodium 130 L 133 L Potassium 3.1 L 3.1 L Chloride 92 L 95 L Carbon Dioxide 28.1 29.9 Anion Gap 10 8 BUN 8 9 Creatinine 0.81 0.71 Estimated GFR Greater than 89 Greater than 89 Random Glucose 92 118 H Lactic Acid Calcium 8.5 8.1 L Phosphorus 2.9 Magnesium 1.6 Total Bilirubin 1.2 H Direct Bilirubin Indirect Bilirubin AST 22 ALT 27 Alkaline Phosphatase 51 Troponin I Total Protein 5.9 L Albumin 3.2 L 3.0 L Lipase 436 H 01/28/18 01/28/18 01/29/18 17:17 17:17 00:19 Sodium Potassium Chloride Carbon Dioxide Anion Gap BUN Creatinine Estimated GFR Random Glucose Lactic Acid Calcium Phosphorus Magnesium Total Bilirubin 1.3 H Direct Bilirubin 0.4 H Indirect Bilirubin 0.9 H AST ALT Alkaline Phosphatase Troponin I Less than 0.02 L 0.02 Total Protein Albumin Lipase 01/29/18 01/29/18 01/29/18 00:19 10:10 10:10 Sodium 132 L Potassium 3.3 L Chloride 96 L Carbon Dioxide 27.0 Anion Gap 9 BUN 6 L Creatinine 0.67 Estimated GFR Greater than 89 Random Glucose 90 Lactic Acid 1.1 Calcium 7.9 L Phosphorus Magnesium Total Bilirubin 1.2 H Direct Bilirubin Indirect Bilirubin AST 25 ALT 26 Alkaline Phosphatase 49 Troponin I Total Protein 5.4 L Albumin 2.6 L Lipase 306 Cancelled Imaging: ITS Impressions Lumbar Spine CT 01/21/18 11:39 CONCLUSION: 1. Previous lumbar fusion across the L4-5 level stable compared to previous. 2. Mild compression fractures involving T12, L1, L2, L3, L4 and L5. These are all stable compared to previous examination dated 09/13/2010. 3. Degenerated disc with facet arthritis and disc bulges as above. Head CTA 01/21/18 12:01 CONCLUSION: Intracranial vessels are all patent without aneurysmal or embolic disease. Neck CTA 01/21/18 12:01 CONCLUSION: 1. No hemodynamically significant carotid artery stenosis identified. 2. Diminutive left vertebral which terminates in a PICA. Head CT 01/25/18 00:00 CONCLUSION: 1. Moderate periventricular and subcortical white matter small vessel ischemic changes bilaterally. 2. Diffuse cerebral atrophy. 3. 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 4. Mild mucosal thickening within maxillary sinuses bilaterally. . Chest X-Ray 01/27/18 00:00 CONCLUSION: Pacemaker cardiomegaly. I don't see significant failure. Gallbladder Ultrasound 01/27/18 00:00 CONCLUSION: 1. Sludge and debris in gallbladder without gallstones or gallbladder wall thickening. 2. Normal common duct Abdomen/Pelvis CT 01/28/18 00:00 CONCLUSION: 1. Other than mild distention, CT appearance of the gallbladder is within normal limits. No ductal dilatation. 2. No obstruction or acute inflammatory changes of the gastrointestinal tract. Severe diverticulosis of the sigmoid colon is again noted. 3. Small hiatal hernia. 4. Small effusion and mild parenchymal consolidation of the left lung base. Physical Exam: GENERAL: Well-nourished well-developed, not in acute distress SKIN: Cool and dry, no generalized rash HEAD: Atraumatic. Normocephalic. No temporal or scalp tenderness. EYES: Pupils equal round and reactive. Scleral icterus. No injection or drainage. No petechia ENT: Nothing abnormal detected NECK: Trachea midline. Supple, nontender, no meningeal signs. CARDIOVASCULAR: HS audible. RESPIRATORY: Clear to auscultation bilaterally. GASTROINTESTINAL: Abdomen soft nontender. MUSCULOSKELETAL: Extremities without clubbing, cyanosis. NEUROLOGICAL: Confused. Nonfocal. Back examination surgical site intact but there was a large area of ecchymosis on his back at the site of surgical site. Psych cooperative IV line sites ok. Assessment and Plan (1) Bacteremia due to Pseudomonas Status: Acute Code(s): R78.81 - Bacteremia (2) Infective discitis Status: Acute Code(s): M46.40 - Discitis, unspecified, site unspecified - Plan Possible sepsis Pseudomonas bacteremia. Urine culture negative and no e/o pseudomonas at any point in the urine. Acute metabolic encephalopathy: metabolic, ? meningitis related to infected discitis. Recent History of laminectomy at risk for secondary infection and seeding of hardware. H/o transient catheterization, traumatic for retention of urine. Enterococcus faecalis UTI vs contamination. Will observe off treatment for E.faecalis. Recommendations: DC Zosyn IV DC Vanco IV Start Cefepime IV (assuming this is likely going to be Susceptible will transition and observe over night pending susceptibility results. Follow cultures. If blood cultures negative at 72 hours and clinically improved will consider PICC placement and discharge home with home health. If blood cultures are positive 2nd time will need DONALD To rule out lead infection. sonya Ramires. Follow susceptibility of PSAE to see if Cefepime appropriate. If Intermediate or resistant will need new post hospital infusion form completed. Completed a post hospital infusion order form for [facility] to try obtain authorization for IV antibiotics filipe for a Cefepime IV Pump. Sonya Ralph office: needs follow up in 2 weeks, repeat imaging of spine at site of laminectomy. Follow clinically: especially mentation as appears to be fluctuating. dw Patients , son and daughter in room. Due to presence of pacemaker, recent h/o laminectomy, h/o AMS on admission with falls, concern for Infective discitis or pacer infection. Discussed pros and cons of aggressive workup such as LP, Bone biopsy which will increase chances of new infection and will likely not change the management. They chose the non aggressive route of proceeding with IV Cefepime for 6 weeks and repeat imaging in 2 weeks. Dw them home health , IV antibiotics, PICC line care, handling and storage of infusion products etc. Extensive discussion, answered all questions to their satisfaction. Spent in excess of 40 mins explaining plan. Spent additional 20 mins with [facility] and about the plan implementation as above.
[2018-01-30] MEDS: Sod Chloride 0.9% Inj 1,000 ML IV.CONT SCH ×3 (02:26→17:15)
--- NOTE | 2018-01-30 07:54 | P.PNOP ---
Subjective Interval history: No complaints of pain. Confused Physical Exam Vital signs: Vital Signs 01/29/18 08:00 01/29/18 12:00 01/29/18 16:00 Temperature 98.2 F 98.0 F 98.1 F Pulse Rate 81 79 82 Respiratory Rate 20 20 20 Blood Pressure 150/69 H 145/60 H 109/61 Pulse Oximetry 97 95 97 01/29/18 20:00 01/29/18 22:50 01/30/18 04:00 Temperature 98.2 F 98 F 97.9 F Pulse Rate 76 75 77 Respiratory Rate 18 18 18 Blood Pressure 136/53 L 132/59 L 116/60 Pulse Oximetry 99 96 94 L Intake & Output 01/29/18 01/30/18 01/30/18 18:59 06:59 18:59 Intake Total 1109.5 / 1109.5 1523.7 / 1523.7 Output Total 600 / 600 700 / 700 Balance 509.5 / 509.5 823.7 / 823.7 Weight 76.4 kg 79.8 kg Intake: IV 629.5 / 629.5 1463.7 / 1463.7 Heparin/D5W 25,000 U/250 mL 25, 119.7 / 119.7 000 unit In 250 ml @ Per Protocol IV.CONT TITRATE PRN Rx #:[id number] NS Inj 1,000 ML @ 84 mls/hr IV. 217 / 217 1234 / 1234 CONT .[id number] [facility] Rx#:[id number] Maxipime Inj 2,000 MG In NS Inj 100 / 100 110 / 110 100 ML @ 200 mls/hr IV.SIG Q8H [facility] Rx#:[id number] Zosyn 3.375 GM Premix 50 ML @ 50 / 50 100 mls/hr IV.SIG Q6H [facility] Rx#: [id number] Vancomycin Inj 1,250 MG In NS 262.5 / 262.5 Inj 250 ML @ 250 mls/hr IV.SIG Q12H [facility] Rx#:[id number] Oral 480 / 480 60 / 60 Output: Urine 600 / 600 700 / 700 Other: # Voids 1 Date of Last Bowel Movement 01/29/18 # Bowel Movements 1 Narrative: Lumbar spine: Evolving ecchymosis. Swelling decreasing. No redness or warmth. No fluid collections Lower extremity: Motor examination almost normal. Straight leg raise negative - Urinary Catheter Management Straight Cath placed during this visit: yes Reason for continuing: Acute urinary retention Insertion date: 01/21/18 Insertion time: 14:10 Indwelling Urethral Catheter Cath placed during this visit: yes, but has since been removed by the nurse Reason for continuing: Acute urinary retention Insertion date: 01/23/18 Insertion time: 22:45 Removal date: 01/24/18 Removal time: 04:30 Results - Labs CBC & Chem 7: 01/29/18 10:10 01/29/18 10:10 Laboratory Results - last 24 hr 01/29/18 01/29/18 01/29/18 08:17 08:17 10:10 WBC 4.2 3.9 L RBC 3.27 L 3.15 L Hgb 10.2 L 10.0 L Hct 28.9 L 27.9 L MCV 88.4 88.5 MCH 31.3 31.6 MCHC 35.4 35.7 RDW 15.0 15.3 Plt Count 158 152 MPV 7.4 7.6 Prelim Diff (Auto) Manual diff required WBC Differential Manual diff final Seg Neuts % (Manual) 79 H Band Neuts % (Manual) 4 Lymphocytes % (Manual) 8 L Monocytes % (Manual) 8 Eosinophils % (Manual) 1 Abs Neuts (Manual) 3.2 Differential Comment . Platelet Estimate Normal Platelet Morphology Normal APTT 54.8 H D Sodium Potassium Chloride Carbon Dioxide Anion Gap BUN Creatinine Estimated GFR Random Glucose Calcium Total Bilirubin AST ALT Alkaline Phosphatase Total Protein Albumin Lipase 01/29/18 01/29/18 01/29/18 10:10 10:10 13:51 WBC RBC Hgb Hct MCV MCH MCHC RDW Plt Count MPV Prelim Diff (Auto) WBC Differential Seg Neuts % (Manual) Band Neuts % (Manual) Lymphocytes % (Manual) Monocytes % (Manual) Eosinophils % (Manual) Abs Neuts (Manual) Differential Comment Platelet Estimate Platelet Morphology APTT 30.8 H D Sodium 132 L Potassium 3.3 L Chloride 96 L Carbon Dioxide 27.0 Anion Gap 9 BUN 6 L Creatinine 0.67 Estimated GFR Greater than 89 Random Glucose 90 Calcium 7.9 L Total Bilirubin 1.2 H AST 25 ALT 26 Alkaline Phosphatase 49 Total Protein 5.4 L Albumin 2.6 L Lipase 306 Cancelled Microbiology 01/28/18 10:55 Blood - Peripheral Aerobic Blood Culture - Preliminary No growth in 1 day 01/28/18 10:55 Blood - Peripheral Anaerobic Blood Culture - Preliminary No growth in 1 day 01/28/18 11:01 Blood - Peripheral Aerobic Blood Culture - Preliminary No growth in 1 day 01/28/18 11:01 Blood - Peripheral Anaerobic Blood Culture - Preliminary No growth in 1 day 01/27/18 10:50 Blood - Peripheral Aerobic Blood Culture - Preliminary Pseudomonas aeruginosa 01/27/18 10:50 Blood - Peripheral Anaerobic Blood Culture - Preliminary No growth in 2 days 01/27/18 10:57 Blood - Peripheral Aerobic Blood Culture - Preliminary Pseudomonas aeruginosa 01/27/18 10:57 Blood - Peripheral Anaerobic Blood Culture - Preliminary No growth in 2 days Assessment and Plan - Assessment and Plan Status post lumbar laminectomy L2-3 and L3-4, stable History of lumbar fusion L4-5, remote. Coumadin coagulopathy. History of atrial fibrillation. Likely TIA versus CVA. PLAN: Would prefer to keep INR at 2.0. Ecchymosis and swelling and back pain is related to Coumadin coagulopathy. Out of bed with brace. No dressing change necessary. Wound has healed Blood culture growing Pseudomonas. Lumbar spine not likely the source but is possible. No clinical signs of infection of lumbar spine at this time. Patient's recent surgery is for laminectomy only. Patient had lumbar spinal fusion with instrumentation in the past by another physician. The instrumentation is unrelated to the recent surgery, which is at L2-3 and L3-4. Previous fusion was at L4-5 Orthopedically stable
[2018-01-30 08:06] LABS: Hematocrit 26.9 % (39.0-51.0); Hemoglobin 9.7 gm/dL (13.0-17.0); Mean Corpuscular HGB Conc 35.9 % (32.0-36.0); Mean Corpuscular Hemoglobin 31.3 pg (27.0-34.0); Mean Corpuscular Volume 87.2 fL (80.0-100.0); Mean Platelet Volume 7.4 fL (7.0-11.0); Platelet Count 166 th/mm3 (150-450); Red Blood Count 3.09 mil/mm3 (4.50-5.90); Red Cell Distribution Width 15.1 % (11.6-17.2); White Blood Count 3.7 th/mm3 (4.0-11.0)
[2018-01-30 08:14] LABS: INR 1.2 Ratio; Prothrombin Time 12.4 sec (9.8-11.6)
[2018-01-30] MEDS ORDERED: Sodium Chloride 0.9% 2 ML Flush PRN IV.FLUSH (08:29)
[2018-01-30] MEDS: Calcium/Vitamin D 250/125 MG Tablet PO SCH ×2 (09:01→09:04)
[2018-01-30] MEDS: Magnesium Oxide 400 MG Tablet PO SCH ×2 (09:03→22:01)
[2018-01-30] MEDS: Sodium Chloride 0.9% 2 ML Flush BID IV.FLUSH SCH ×2 (09:03→22:02)
--- NOTE | 2018-01-30 11:51 | P.PNIM ---
Subjective Interval history: Patient says he is feeling all right. Still confused. Agreeable however. Physical Exam Vital signs: Vital Signs 01/29/18 12:00 01/29/18 16:00 01/29/18 20:00 Temperature 98.0 F 98.1 F 98.2 F Pulse Rate 79 82 79 Respiratory Rate 20 20 18 Blood Pressure 145/60 H 109/61 136/53 L Pulse Oximetry 95 97 99 01/29/18 22:50 01/30/18 00:00 01/30/18 04:00 Temperature 98 F 97.9 F Pulse Rate 75 77 80 Respiratory Rate 18 18 Blood Pressure 132/59 L 116/60 Pulse Oximetry 96 94 L 01/30/18 08:00 Temperature 99.3 F Pulse Rate 82 Respiratory Rate 18 Blood Pressure 131/72 Pulse Oximetry 97 Intake & Output 01/29/18 01/30/18 01/30/18 18:59 06:59 18:59 Intake Total 1109.5 / 1109.5 1523.7 / 1523.7 Output Total 600 / 600 700 / 700 Balance 509.5 / 509.5 823.7 / 823.7 Weight 76.4 kg 79.8 kg Intake: IV 629.5 / 629.5 1463.7 / 1463.7 Heparin/D5W 25,000 U/250 mL 25, 119.7 / 119.7 000 unit In 250 ml @ Per Protocol IV.CONT TITRATE PRN Rx #:[id number] NS Inj 1,000 ML @ 84 mls/hr IV. 217 / 217 1234 / 1234 CONT .[id number] YANNA Rx#:[id number] Maxipime Inj 2,000 MG In NS Inj 100 / 100 110 / 110 100 ML @ 200 mls/hr IV.SIG Q8H YANNA Rx#:[id number] Zosyn 3.375 GM Premix 50 ML @ 50 / 50 100 mls/hr IV.SIG Q6H YANNA Rx#: [id number] Vancomycin Inj 1,250 MG In NS 262.5 / 262.5 Inj 250 ML @ 250 mls/hr IV.SIG Q12H YANNA Rx#:[id number] Oral 480 / 480 60 / 60 Output: Urine 600 / 600 700 / 700 Other: # Voids 1 Date of Last Bowel Movement 01/29/18 # Bowel Movements 1 Narrative: GENERAL: Patient observed sitting in bed, walking in [place]. Appears comfortable. SKIN: Warm and dry. HEAD: Normocephalic. EYES: No scleral icterus. No injection or drainage. NECK: Supple, trachea midline. No JVD. CARDIOVASCULAR: Regular rate and rhythm without murmurs, gallops, or rubs. RESPIRATORY: Breath sounds equal bilaterally. No accessory muscle use. GASTROINTESTINAL: Abdomen soft, non-tender, nondistended. MUSCULOSKELETAL: No cyanosis, or edema. BACK: Nontender without obvious deformity. No CVA tenderness. - Urinary Catheter Management Straight Cath placed during this visit: yes Reason for continuing: Acute urinary retention Insertion date: 01/21/18 Insertion time: 14:10 Indwelling Urethral Catheter Cath placed during this visit: yes, but has since been removed by the nurse Reason for continuing: Acute urinary retention Insertion date: 01/23/18 Insertion time: 22:45 Removal date: 01/24/18 Removal time: 04:30 Results - Labs CBC & Chem 7: 01/30/18 07:25 01/29/18 10:10 Laboratory Results - last 24 hr 01/29/18 01/29/18 01/29/18 10:10 10:10 10:10 WBC 3.9 L RBC 3.15 L Hgb 10.0 L Hct 27.9 L MCV 88.5 MCH 31.6 MCHC 35.7 RDW 15.3 Plt Count 152 MPV 7.6 Prelim Diff (Auto) Manual diff required WBC Differential Manual diff final Seg Neuts % (Manual) 79 H Band Neuts % (Manual) 4 Lymphocytes % (Manual) 8 L Monocytes % (Manual) 8 Eosinophils % (Manual) 1 Abs Neuts (Manual) 3.2 Differential Comment . Platelet Estimate Normal Platelet Morphology Normal PT INR APTT Sodium 132 L Potassium 3.3 L Chloride 96 L Carbon Dioxide 27.0 Anion Gap 9 BUN 6 L Creatinine 0.67 Estimated GFR Greater than 89 Random Glucose 90 Calcium 7.9 L Total Bilirubin 1.2 H AST 25 ALT 26 Alkaline Phosphatase 49 Total Protein 5.4 L Albumin 2.6 L Lipase 306 Cancelled 01/29/18 01/30/18 01/30/18 13:51 07:25 07:25 WBC 3.7 L RBC 3.09 L Hgb 9.7 L Hct 26.9 L MCV 87.2 MCH 31.3 MCHC 35.9 RDW 15.1 Plt Count 166 MPV 7.4 Prelim Diff (Auto) WBC Differential Seg Neuts % (Manual) Band Neuts % (Manual) Lymphocytes % (Manual) Monocytes % (Manual) Eosinophils % (Manual) Abs Neuts (Manual) Differential Comment Platelet Estimate Platelet Morphology PT 12.4 H INR 1.2 APTT 30.8 H D Sodium Potassium Chloride Carbon Dioxide Anion Gap BUN Creatinine Estimated GFR Random Glucose Calcium Total Bilirubin AST ALT Alkaline Phosphatase Total Protein Albumin Lipase Microbiology 01/28/18 10:55 Blood - Peripheral Aerobic Blood Culture - Preliminary No growth in 2 days 01/28/18 10:55 Blood - Peripheral Anaerobic Blood Culture - Preliminary No growth in 2 days 01/28/18 11:01 Blood - Peripheral Aerobic Blood Culture - Preliminary No growth in 2 days 01/28/18 11:01 Blood - Peripheral Anaerobic Blood Culture - Preliminary No growth in 2 days 01/27/18 10:50 Blood - Peripheral Aerobic Blood Culture - Final Pseudomonas aeruginosa 01/27/18 10:50 Blood - Peripheral Anaerobic Blood Culture - Preliminary No growth in 3 days 01/27/18 10:57 Blood - Peripheral Aerobic Blood Culture - Final Pseudomonas aeruginosa 01/27/18 10:57 Blood - Peripheral Anaerobic Blood Culture - Preliminary No growth in 3 days Assessment and Plan - Assessment (1) Generalized weakness Code(s): R53.1 - Weakness Status: Acute (2) Lumbar spinal stenosis Code(s): M48.061 - Spinal stenosis, lumbar region without neurogenic claudication Status: Acute (3) Altered mental status Code(s): R41.82 - Altered mental status, unspecified Status: Acute (4) Atrial fibrillation Code(s): I48.91 - Unspecified atrial fibrillation Status: Acute (5) CAD (coronary artery disease) Code(s): I25.10 - Atherosclerotic heart disease of [place] coronary artery without angina pectoris Status: Acute - Plan //Suspected sepsis //Gram-negative bacteremia //Pseudomonas bacteremia -Heart rate in the 90s. Fever of 102. Stat labs ordered. Chest x-ray and repeat urinalysis, blood cultures ordered. -Patient with positive enterococcus on urine. -Patient with no meningeal signs. = We will start on broad-spectrum antibiotics with vancomycin and Zosyn. Will consult infectious disease. =01/28. Pseudomonas positive in blood. Repeat cultures pending. Follow-up sensitivities. Continue broad-spectrum antibiotics as per infectious disease. Appreciate assistance. Patient without any meningeal signs. Will cancel lumbar puncture. = 01/29. Repeat CT scan due to abdominal tenderness yesterday shows distended gallbladder but no signs of cholecystitis. Elevated bilirubin. Elevated lipase in the 400s. Probably not pancreatitis. Will consult gastroenterology due to abdominal pain yesterday, as well as history of colon polyp with APC. Follow-up Pseudomonas cultures and sensitivities. Patient is afebrile over the past 24 hours. = 01/30. Per discussion with family yesterday, family not interested in EGD. Cultures negative times 2 days. Family would like to take patient home, say he is not doing well in the hospital which I agree with. Will discuss with infectious disease if we can discharge home with only 2 days negative. Family is very involved with care and could be contacted if repeat cultures turn positive. once I can confirm antibiotics will be available at home. //Enterococcus UTI Started on antibiotics 01/26. Switch to broad-spectrum antibiotics due to fever on 01/27. Follow-up cultures and sensitivities. = Continue on antibiotics as per infectious disease. //Acute intractable pain -Recent laminectomy. -Pt is allergic to Morphine. on Dilaudid 0.5mg IV now. -Will continue with pain control. - consulted Dr. Jarrell; katerin from orthopaedic surgery. = R3.5 today. We will partially reverse INR with 1 mg vitamin K today. = 01/26. INR 1.5 today. Due to ecchymosis and subcutaneous hematoma of lower back, as well as hematuria, will hold off on warfarin for now. = 01/27. INR 1.1. Restart warfarin. = 01/28. INR 1.1. Continue warfarin. = 01/29. INR 1.1 still. I did start on a heparin drip yesterday due to concern for possible ischemic bowel secondary to atrial fibrillation, however lactate within normal limits. Now patient with return of hematuria. Will stop heparin drip. We will continue to let warfarin trend up slowly. == 01/30. INR 1.2. Continue on warfarin for slow uptrend. //Acute encephalopathy //Possible ischemic stroke fall ( 01/23) -Appreciate neurology evaluation. Patient was not a candidate for TPA. -Patient's encephalopathy could also be related to pain. -MRI brain pending. -echo pending. -continue Coumadin ( hold today and repeat the INR tomorrow) -repeat UA today. 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 I discussed with radiology, reports no changes from admission. = 01/27. Likely metabolic encephalopathy, delirium secondary to infection. //CAD s/p CABG x 5 //Atrial fibrillation- s/p pacemaker placement //Hx of Mitral valve repair -Currently on Warfarin. -Will continue carvedilol 3.125 mg p.o. twice daily, sotalol 120 mg p.o. twice daily. -Patient follows up with staining machine operator Dr. Jackson. -Continue aspirin 81 mg, Lipitor . = Appreciate cardiology assistance //Hypokalemia. Potassium 3.1. Replace. Monitor. = 01/29. Follow-up labs today. 01/30. Potassium 3.3 yesterday. //Hypothyroidism //GERD -continue levothyroxine 25 mcg p.o. daily. -Continue Protonix 20 mg p.o. q. other day. //Hematuria; urology consulted- coumadin on hold = 01/26. Follow-up urology recommendations. BMP pending. Appreciate assistance. = 01/27. Hematuria appears to have resolved. Repeat urine pending. = 01/28. Hematuria much improved. Still with some urinary incontinence. will need to follow-up with urology as outpatient. = 01/29. Hematuria returned likely secondary to heparin drip. Heparin drip discontinued. Will need to follow-up with urology as outpatient. //Full code. DVT prophy. SCDs Discharge Planning: Continues inpatient treatment for sepsis with gram-negative bacteremia (3) Altered mental status Qualifiers: Altered mental status type: unspecified Qualified Code(s): R41.82 - Altered mental status, unspecified
[2018-01-30] MEDS: Potassium Chlor 10 mEq Premix 10 MEQ/100 ML PIGGYBACK IV.SIG SCH ×2 (12:49→14:41)
[2018-01-30] MEDS ORDERED: Pharmacy Ordered Lab Info OTHER ONE (23:45)
[2018-01-31] MEDS: Sod Chloride 0.9% Inj 1,000 ML IV.CONT SCH (06:35)
[2018-01-31 08:02] LABS: Baso % (Auto) 0.4 % (0.0-2.0); Hematocrit 29.2 % (39.0-51.0); Hemoglobin 10.2 gm/dL (13.0-17.0); Lymph # (Auto) 0.6 th/mm3 (1.0-4.8); Lymph % (Auto) 16.9 % (9.0-44.0); Mean Corpuscular HGB Conc 34.8 % (32.0-36.0); Mean Corpuscular Hemoglobin 31.1 pg (27.0-34.0); Mean Corpuscular Volume 89.3 fL (80.0-100.0); Mean Platelet Volume 7.8 fL (7.0-11.0); Mono # (Auto) 0.6 th/mm3 (0.0-0.9); Mono % (Auto) 18.5 % (0.0-8.0); Neut # (Auto) 2.1 th/mm3 (1.8-7.7); Neut % (Auto) 63.2 % (16.0-70.0); Platelet Count 175 th/mm3 (150-450); Red Blood Count 3.27 mil/mm3 (4.50-5.90); Red Cell Distribution Width 15.5 % (11.6-17.2); White Blood Count 3.3 th/mm3 (4.0-11.0)
[2018-01-31 08:13] LABS: INR 1.4 Ratio; Prothrombin Time 14.3 sec (9.8-11.6)
[2018-01-31 08:27] LABS: Albumin 2.5 g/dL (3.4-5.0); Anion Gap 10 meq/L (5-15); Blood Urea Nitrogen 3 mg/dL (7-18); Calcium 7.6 mg/dL (8.5-10.1); Carbon Dioxide 25.6 meq/L (21.0-32.0); Chloride 99 meq/L (98-107); Glomerular Filtration Rate Greater Than 89 mL/min (>89); Glucose,Random 83 mg/dL (74-106); Magnesium 1.6 mg/dL (1.5-2.5); Phosphorus 2.7 mg/dL (2.5-4.9); Potassium 3.4 meq/L (3.5-5.1); Sodium 135 meq/L (136-145)
[2018-01-31] MEDS: Magnesium Oxide 400 MG Tablet PO SCH (08:30)
[2018-01-31] MEDS: Pantoprazole Sodium 20 MG DR Tablet PO SCH (08:31)
[2018-01-31] MEDS: Calcium/Vitamin D 250/125 MG Tablet PO SCH (08:31)
[2018-01-31] MEDS: Sodium Chloride 0.9% 2 ML Flush BID IV.FLUSH SCH (08:31)
[2018-01-31 09:00] VITALS: TEMP 98.6
--- NOTE | 2018-01-31 09:13 | P.PNIM ---
Subjective Interval history: Patient sleeping, wakes up for exam. Denies any chest pain or shortness of breath. Says he is eager to go home today Physical Exam Vital signs: Vital Signs 01/30/18 12:00 01/30/18 12:58 01/30/18 16:00 Temperature 98.7 F 98.9 F Pulse Rate 116 H 79 Respiratory Rate 18 18 Blood Pressure 137/90 141/67 H Pulse Oximetry 97 95 97 01/30/18 20:00 01/31/18 00:00 01/31/18 04:00 Temperature 98.3 F 98.1 F 97.9 F Pulse Rate 84 79 82 Respiratory Rate 22 18 18 Blood Pressure 164/80 H 141/65 H 138/65 Pulse Oximetry 97 94 L 97 01/31/18 08:00 Temperature 98.6 F Pulse Rate 80 Respiratory Rate 21 Blood Pressure 154/81 H Pulse Oximetry 98 Intake & Output 01/30/18 01/31/18 01/31/18 18:59 06:59 18:59 Intake Total 2656 / 2656 1780 / 1780 Output Total 1075 / 1075 1000 / 1000 Balance 1581 / 1581 780 / 780 Weight 79.3 kg Intake: IV 2176 / 2176 1100 / 1100 NS Inj 1,000 ML @ 84 mls/hr IV. 1766 / 1766 1000 / 1000 CONT .[id number] YANNA Rx#:[id number] Maxipime Inj 2,000 MG In NS Inj 210 / 210 100 / 100 100 ML @ 200 mls/hr IV.SIG Q8H YANNA Rx#:[id number] KCl 10 mEq Premix Inj 10 meq In 200 / 200 100 ml @ 50 mls/hr IV.SIG Q1H YANNA Rx#:[id number] Oral 480 / 480 680 / 680 Output: Urine 1075 / 1075 1000 / 1000 Other: Date of Last Bowel Movement 01/30/18 Narrative: GENERAL: Patient sleeping, wakes up for exam. Appears comfortable. SKIN: Warm and dry. HEAD: Normocephalic. EYES: No scleral icterus. No injection or drainage. NECK: Supple, trachea midline. No JVD. CARDIOVASCULAR: Regular rate and rhythm without murmurs, gallops, or rubs. RESPIRATORY: Breath sounds equal bilaterally. No accessory muscle use. GASTROINTESTINAL: Abdomen soft, non-tender, nondistended. MUSCULOSKELETAL: No cyanosis, or edema. BACK: Nontender without obvious deformity. No CVA tenderness. - Urinary Catheter Management Straight Cath placed during this visit: yes Reason for continuing: Acute urinary retention Insertion date: 01/21/18 Insertion time: 14:10 Indwelling Urethral Catheter Cath placed during this visit: yes, but has since been removed by the nurse Reason for continuing: Acute urinary retention Insertion date: 01/23/18 Insertion time: 22:45 Removal date: 01/24/18 Removal time: 04:30 Results - Labs CBC & Chem 7: 01/31/18 06:15 01/31/18 06:45 Laboratory Results - last 24 hr 01/31/18 01/31/18 01/31/18 06:15 06:45 06:45 WBC 3.3 L RBC 3.27 L Hgb 10.2 L Hct 29.2 L MCV 89.3 MCH 31.1 MCHC 34.8 RDW 15.5 Plt Count 175 MPV 7.8 Neut % (Auto) 63.2 Lymph % (Auto) 16.9 [place] % (Auto) 18.5 H Eos % (Auto) 1.0 Baso % (Auto) 0.4 Neut # (Auto) 2.1 Lymph # (Auto) 0.6 L [place] # (Auto) 0.6 Eos # (Auto) 0.0 Baso # (Auto) 0.0 WBC Differential . Differential Comment Auto diff final PT 14.3 H INR 1.4 Sodium 135 L Potassium 3.4 L Chloride 99 Carbon Dioxide 25.6 Anion Gap 10 BUN 3 L Creatinine 0.51 L Estimated GFR Greater than 89 Random Glucose 83 Calcium 7.6 L Phosphorus 2.7 Magnesium 1.6 Albumin 2.5 L Microbiology 01/28/18 10:55 Blood - Peripheral Aerobic Blood Culture - Preliminary No growth in 2 days 01/28/18 10:55 Blood - Peripheral Anaerobic Blood Culture - Preliminary No growth in 2 days 01/28/18 11:01 Blood - Peripheral Aerobic Blood Culture - Preliminary No growth in 2 days 01/28/18 11:01 Blood - Peripheral Anaerobic Blood Culture - Preliminary No growth in 2 days 01/27/18 10:50 Blood - Peripheral Aerobic Blood Culture - Final Pseudomonas aeruginosa 01/27/18 10:50 Blood - Peripheral Anaerobic Blood Culture - Preliminary No growth in 3 days 01/27/18 10:57 Blood - Peripheral Aerobic Blood Culture - Final Pseudomonas aeruginosa 01/27/18 10:57 Blood - Peripheral Anaerobic Blood Culture - Preliminary No growth in 3 days Assessment and Plan - Assessment (1) Generalized weakness Code(s): R53.1 - Weakness Status: Acute (2) Lumbar spinal stenosis Code(s): M48.061 - Spinal stenosis, lumbar region without neurogenic claudication Status: Acute (3) Altered mental status Code(s): R41.82 - Altered mental status, unspecified Status: Acute (4) Atrial fibrillation Code(s): I48.91 - Unspecified atrial fibrillation Status: Acute (5) CAD (coronary artery disease) Code(s): I25.10 - Atherosclerotic heart disease of [place] coronary artery without angina pectoris Status: Acute - Plan //Suspected sepsis //Gram-negative bacteremia //Pseudomonas bacteremia -Heart rate in the 90s. Fever of 102. Stat labs ordered. Chest x-ray and repeat urinalysis, blood cultures ordered. -Patient with positive enterococcus on urine. -Patient with no meningeal signs. = We will start on broad-spectrum antibiotics with vancomycin and Zosyn. Will consult infectious disease. =01/28. Pseudomonas positive in blood. Repeat cultures pending. Follow-up sensitivities. Continue broad-spectrum antibiotics as per infectious disease. Appreciate assistance. Patient without any meningeal signs. Will cancel lumbar puncture. = 01/29. Repeat CT scan due to abdominal tenderness yesterday shows distended gallbladder but no signs of cholecystitis. Elevated bilirubin. Elevated lipase in the 400s. Probably not pancreatitis. Will consult gastroenterology due to abdominal pain yesterday, as well as history of colon polyp with APC. Follow-up Pseudomonas cultures and sensitivities. Patient is afebrile over the past 24 hours. = 01/30. Per discussion with family yesterday, family not interested in EGD. Cultures negative times 2 days. Family would like to take patient home, say he is not doing well in the hospital which I agree with. Will discuss with infectious disease if we can discharge home with only 2 days negative. Family is very involved with care and could be contacted if repeat cultures turn positive. once I can confirm antibiotics will be available at home. = 01/31. PICC line will be placed at 11 AM after cultures negative times 3 days. Discharge home with home health for IV cefepime. Patient will need to follow-up with infectious disease, primary care as outpatient. //Leukopenia. Likely secondary to recent Zosyn. slow downtrending. neutrophils acceptable. Awaiting risks and benefits of keeping patient in the hospital just to monitor his white blood cell count, I think it best to let him go home and follow-up with primary care for these labs. //Enterococcus UTI Started on antibiotics 01/26. Switch to broad-spectrum antibiotics due to fever on 01/27. Follow-up cultures and sensitivities. = Continue on antibiotics as per infectious disease. //Acute intractable pain -Recent laminectomy. -Pt is allergic to Morphine. on Dilaudid 0.5mg IV now. -Will continue with pain control. - consulted Dr. Jarrell; stable from orthopaedic surgery. = R3.5 today. We will partially reverse INR with 1 mg vitamin K today. = 01/26. INR 1.5 today. Due to ecchymosis and subcutaneous hematoma of lower back, as well as hematuria, will hold off on warfarin for now. = 01/27. INR 1.1. Restart warfarin. = 01/28. INR 1.1. Continue warfarin. = 01/29. INR 1.1 still. I did start on a heparin drip yesterday due to concern for possible ischemic bowel secondary to atrial fibrillation, however lactate within normal limits. Now patient with return of hematuria. Will stop heparin drip. We will continue to let warfarin trend up slowly. == 01/30. INR 1.2. Continue on warfarin for slow uptrend. //Acute encephalopathy //Possible ischemic stroke fall ( 01/23) -Appreciate neurology evaluation. Patient was not a candidate for TPA. -Patient's encephalopathy could also be related to pain. -MRI brain pending. -echo pending. -continue Coumadin ( hold today and repeat the INR tomorrow) -repeat UA today. 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 I discussed with radiology, reports no changes from admission. = 01/27. Likely metabolic encephalopathy, delirium secondary to infection. = 01/31. INR 1.4. Continue warfarin as outpatient. Follow-up with primary care. //CAD s/p CABG x 5 //Atrial fibrillation- s/p pacemaker placement //Hx of Mitral valve repair -Currently on Warfarin. -Will continue carvedilol 3.125 mg p.o. twice daily, sotalol 120 mg p.o. twice daily. -Patient follows up with senior systems administrator Dr. Jackson. -Continue aspirin 81 mg, Lipitor . = Appreciate cardiology assistance //Hypokalemia. Potassium 3.1. Replace. Monitor. = 01/29. Follow-up labs today. 01/30. Potassium 3.3 yesterday. //Hypothyroidism //GERD -continue levothyroxine 25 mcg p.o. daily. -Continue Protonix 20 mg p.o. q. other day. //Hematuria; urology consulted- coumadin on hold = 01/26. Follow-up urology recommendations. BMP pending. Appreciate assistance. = 01/27. Hematuria appears to have resolved. Repeat urine pending. = 01/28. Hematuria much improved. Still with some urinary incontinence. will need to follow-up with urology as outpatient. = 01/29. Hematuria returned likely secondary to heparin drip. Heparin drip discontinued. Will need to follow-up with urology as outpatient. //Full code. DVT prophy. SCDs Discharge Planning: Plan for PICC line discharge home with home health. (3) Altered mental status Qualifiers: Altered mental status type: unspecified Qualified Code(s): R41.82 - Altered mental status, unspecified
--- NOTE | 2018-01-31 09:21 | P.DS ---
Date of admission: 01/22/18 15:09 Primary care physician: Corazon Peck MD Anticipated date of discharge: 01/31/18 Brief History from admission: Mr. Arteaga is an 82-year-old male with a recent history of laminectomy, mitral valve repair, CABG x5, atrial fibrillation who presents to the emergency department for back pain evaluation. Per [facility], patient was initially alert and oriented. However, later on patient was found to have difficulty finding words and speaking in full sentences. He had expressive dysphasia. Stroke alert was activated. Patient was evaluated by neurologist. Patient is not a candidate for TPA administration. Patient underwent CT studies which did not reveal any acute hemorrhage. Patient's INR is 2.5. Other studies including UA , chest x-ray are unremarkable for any acute findings. At the time of this interview, patient wakes up on verbal commands but not very cooperative. He is somewhat annoyed by my questions. However he follows commands appropriately. No chest pain, shortness of breath, fever or chills. No changes in bowel or bladder habits. Past medical history: CAD status post CABG x5, mitral valve repair, atrial fibrillation, colon cancer, prostate cancer. Past surgical history: Mitral valve repair, colon cancer surgery, prostate cancer surgery, hip replacement. Social history: Patient denies using tobacco. He drinks about 1-2 drinks per night per his . No illicit drug use. Family history: No family history of Alzheimer's or Parkinson's. DS: Diagnosis - Discharge Diagnosis (1) Generalized weakness Status: Acute (2) Lumbar spinal stenosis Status: Acute (3) Altered mental status Status: Acute (4) Atrial fibrillation Status: Acute (5) CAD (coronary artery disease) Status: Acute DS: Medications - Discharge Medications Prescriptions: Lactobacillus acidoph-L.bulgar [Floranex] 1 gm PO TID 30 Days each warfarin [Coumadin] 3 mg PO DAILY 30 Days #15 tab DS: Summary Hospital Course: Patient presented with altered mental status. Infectious workup negative on admission, including negative urinalysis, chest x-ray with only some basilar atelectasis. Due to recent back surgery, CT abdomen and pelvis was ordered which showed no acute findings. Please see report below. Head CT with no acute findings. Neurology was consulted on admission due to altered mental status. EEG with only encephalopathy. No signs of seizure and no evidence of acute stroke although findings of old infarct on MRI. Hospitalization was complicated by patient pulling out Rene catheter resulting in hematuria, as well as mild incontinence. Urinalysis showed hematuria, however did grow enterococcus which is suspected to be contaminant. Urology was consulted, and will see patient as outpatient. Anticoagulation was held. Due to atrial fibrillation with what appears to be history of stroke, tried to start back on heparin drip with return of hematuria. Will discharge patient on warfarin with plan for slow uptrend, close follow-up with primary. On 01/27 elevated and developed fever of 102.2, and blood cultures positive for Pseudomonas. Urinalysis with hematuria, did grow enterococcus. Infectious disease was consulted, patient was treated with broad-spectrum antibiotics with resolution of fevers and improvement in mental status. No meningismal signs. Echocardiogram on admission with no vegetations, however patient has multiple possible sources of infection not of which show obvious acute infection - pacer , bioprosthetic heart valve, recent laminectomy.repeat blood cultures negative. PICC line was placed. Patient will continue on 6 weeks of antibiotics as per infectious disease. Will need close follow-up as outpatient. For problem-based summary from most recent progress note, please see below. //Suspected sepsis //Gram-negative bacteremia //Pseudomonas bacteremia -Heart rate in the 90s. Fever of 102. Stat labs ordered. Chest x-ray and repeat urinalysis, blood cultures ordered. -Patient with positive enterococcus on urine. -Patient with no meningeal signs. = We will start on broad-spectrum antibiotics with vancomycin and Zosyn. Will consult infectious disease. =01/28. Pseudomonas positive in blood. Repeat cultures pending. Follow-up sensitivities. Continue broad-spectrum antibiotics as per infectious disease. Appreciate assistance. Patient without any meningeal signs. Will cancel lumbar puncture. = 01/29. Repeat CT scan due to abdominal tenderness yesterday shows distended gallbladder but no signs of cholecystitis. Elevated bilirubin. Elevated lipase in the 400s. Probably not pancreatitis. Will consult gastroenterology due to abdominal pain yesterday, as well as history of colon polyp with APC. Follow-up Pseudomonas cultures and sensitivities. Patient is afebrile over the past 24 hours. = 01/30. Per discussion with family yesterday, family not interested in EGD. Cultures negative times 2 days. Family would like to take patient home, say he is not doing well in the hospital which I agree with. Will discuss with infectious disease if we can discharge home with only 2 days negative. Family is very involved with care and could be contacted if repeat cultures turn positive. once I can confirm antibiotics will be available at home. = 01/31. PICC line will be placed at 11 AM after cultures negative times 3 days. Discharge home with home health for IV cefepime. Patient will need to follow-up with infectious disease, primary care as outpatient. //Leukopenia. Likely secondary to recent Zosyn. slow downtrending. neutrophils acceptable. Awaiting risks and benefits of keeping patient in the hospital just to monitor his white blood cell count, I think it best to let him go home and follow-up with primary care for these labs. //Enterococcus UTI Started on antibiotics 01/26. Switch to broad-spectrum antibiotics due to fever on 01/27. Follow-up cultures and sensitivities. = Continue on antibiotics as per infectious disease. //Acute intractable pain -Recent laminectomy. -Pt is allergic to Morphine. on Dilaudid 0.5mg IV now. -Will continue with pain control. - consulted Dr. Jarrell; stable from orthopaedic surgery. = R3.5 today. We will partially reverse INR with 1 mg vitamin K today. = 01/26. INR 1.5 today. Due to ecchymosis and subcutaneous hematoma of lower back, as well as hematuria, will hold off on warfarin for now. = 01/27. INR 1.1. Restart warfarin. = 01/28. INR 1.1. Continue warfarin. = 01/29. INR 1.1 still. I did start on a heparin drip yesterday due to concern for possible ischemic bowel secondary to atrial fibrillation, however lactate within normal limits. Now patient with return of hematuria. Will stop heparin drip. We will continue to let warfarin trend up slowly. == 01/30. INR 1.2. Continue on warfarin for slow uptrend. //Acute encephalopathy //Possible ischemic stroke fall ( 01/23) -Appreciate neurology evaluation. Patient was not a candidate for TPA. -Patient's encephalopathy could also be related to pain. -MRI brain pending. -echo pending. -continue Coumadin ( hold today and repeat the INR tomorrow) -repeat UA today. 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 I discussed with radiology, reports no changes from admission. = 01/27. Likely metabolic encephalopathy, delirium secondary to infection. = 01/31. INR 1.4. Continue warfarin as outpatient. Follow-up with primary care. //CAD s/p CABG x 5 //Atrial fibrillation- s/p pacemaker placement //Hx of Mitral valve repair -Currently on Warfarin. -Will continue carvedilol 3.125 mg p.o. twice daily, sotalol 120 mg p.o. twice daily. -Patient follows up with international manager Dr. Jackson. -Continue aspirin 81 mg, Lipitor . = Appreciate cardiology assistance //Hypokalemia. Potassium 3.1. Replace. Monitor. = 01/29. Follow-up labs today. 01/30. Potassium 3.3 yesterday. //Hypothyroidism //GERD -continue levothyroxine 25 mcg p.o. daily. -Continue Protonix 20 mg p.o. q. other day. //Hematuria; urology consulted- coumadin on hold = 01/26. Follow-up urology recommendations. BMP pending. Appreciate assistance. = 01/27. Hematuria appears to have resolved. Repeat urine pending. = 01/28. Hematuria much improved. Still with some urinary incontinence. will need to follow-up with urology as outpatient. = 01/29. Hematuria returned likely secondary to heparin drip. Heparin drip discontinued. Will need to follow-up with urology as outpatient. //Full code. DVT prophy. SCDs Discharge Planning: Plan for PICC line discharge home with home health. - Time Spent with Patient Total time spent providing and/or coordinating discharge services: Greater than 30 minutes - Quality: Stroke Last date observed well: 01/21/18 Last time observed well: 10:30 - Quality: VTE Deep Vein Thrombosis/Pulmonary Embolism Present on Admission: No Exam Vital signs: Vital Signs 01/30/18 12:00 01/30/18 12:58 01/30/18 16:00 Temperature 98.7 F 98.9 F Pulse Rate 116 H 79 Respiratory Rate 18 18 Blood Pressure 137/90 141/67 H Pulse Oximetry 97 95 97 01/30/18 20:00 01/31/18 00:00 01/31/18 04:00 Temperature 98.3 F 98.1 F 97.9 F Pulse Rate 84 79 82 Respiratory Rate 22 18 18 Blood Pressure 164/80 H 141/65 H 138/65 Pulse Oximetry 97 94 L 97 01/31/18 08:00 Temperature 98.6 F Pulse Rate 80 Respiratory Rate 21 Blood Pressure 154/81 H Pulse Oximetry 98 Intake & Output 01/30/18 01/31/18 01/31/18 18:59 06:59 18:59 Intake Total 2656 / 2656 1780 / 1780 Output Total 1075 / 1075 1000 / 1000 Balance 1581 / 1581 780 / 780 Weight 79.3 kg Intake: IV 2176 / 2176 1100 / 1100 NS Inj 1,000 ML @ 84 mls/hr IV. 1766 / 1766 1000 / 1000 CONT .[id number] YANNA Rx#:[id number] Maxipime Inj 2,000 MG In NS Inj 210 / 210 100 / 100 100 ML @ 200 mls/hr IV.SIG Q8H YANNA Rx#:[id number] KCl 10 mEq Premix Inj 10 meq In 200 / 200 100 ml @ 50 mls/hr IV.SIG Q1H YANNA Rx#:[id number] Oral 480 / 480 680 / 680 Output: Urine 1075 / 1075 1000 / 1000 Other: Date of Last Bowel Movement 01/30/18 Results Procedures completed during hospitalization: PICC line placement Labs on day of discharge: Labs from last 24 hours 01/31/18 01/31/18 01/31/18 06:45 06:45 06:15 WBC 3.3 L RBC 3.27 L Hgb 10.2 L Hct 29.2 L MCV 89.3 MCH 31.1 MCHC 34.8 RDW 15.5 Plt Count 175 MPV 7.8 Neut % (Auto) 63.2 Lymph % (Auto) 16.9 [place] % (Auto) 18.5 H Eos % (Auto) 1.0 Baso % (Auto) 0.4 Neut # (Auto) 2.1 Lymph # (Auto) 0.6 L [place] # (Auto) 0.6 Eos # (Auto) 0.0 Baso # (Auto) 0.0 WBC Differential . Differential Comment Auto diff final PT 14.3 H INR 1.4 Sodium 135 L Potassium 3.4 L Chloride 99 Carbon Dioxide 25.6 Anion Gap 10 BUN 3 L Creatinine 0.51 L Estimated GFR Greater than 89 Random Glucose 83 Calcium 7.6 L Phosphorus 2.7 Magnesium 1.6 Albumin 2.5 L Preliminary micro results at discharge 01/28/18 10:55 Aerobic Blood Culture - Preliminary Blood - Peripheral No growth in 2 days Anaerobic Blood Culture - Preliminary No growth in 2 days 01/28/18 11:01 Aerobic Blood Culture - Preliminary Blood - Peripheral No growth in 2 days Anaerobic Blood Culture - Preliminary No growth in 2 days 01/27/18 10:50 Anaerobic Blood Culture - Preliminary Blood - Peripheral No growth in 3 days 01/27/18 10:57 Anaerobic Blood Culture - Preliminary Blood - Peripheral No growth in 3 days - Impressions ITS Impressions Lumbar Spine CT 01/21/18 11:39 CONCLUSION: 1. Previous lumbar fusion across the L4-5 level stable compared to previous. 2. Mild compression fractures involving T12, L1, L2, L3, L4 and L5. These are all stable compared to previous examination dated 09/13/2010. 3. Degenerated disc with facet arthritis and disc bulges as above. Head CTA 01/21/18 12:01 CONCLUSION: Intracranial vessels are all patent without aneurysmal or embolic disease. Neck CTA 01/21/18 12:01 CONCLUSION: 1. No hemodynamically significant carotid artery stenosis identified. 2. Diminutive left vertebral which terminates in a PICA. Head CT 01/25/18 00:00 CONCLUSION: 1. Moderate periventricular and subcortical white matter small vessel ischemic changes bilaterally. 2. Diffuse cerebral atrophy. 3. 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 4. Mild mucosal thickening within maxillary sinuses bilaterally. . Chest X-Ray 01/27/18 00:00 CONCLUSION: Pacemaker cardiomegaly. I don't see significant failure. Gallbladder Ultrasound 01/27/18 00:00 CONCLUSION: 1. Sludge and debris in gallbladder without gallstones or gallbladder wall thickening. 2. Normal common duct Abdomen/Pelvis CT 01/28/18 00:00 CONCLUSION: 1. Other than mild distention, CT appearance of the gallbladder is within normal limits. No ductal dilatation. 2. No obstruction or acute inflammatory changes of the gastrointestinal tract. Severe diverticulosis of the sigmoid colon is again noted. 3. Small hiatal hernia. 4. Small effusion and mild parenchymal consolidation of the left lung base. Discharge Plan - Discharge Disposition Patient Disposition: /Home Health Service - Discharge Condition Condition: Good - Discharge Order Discharge Orders: Discharge Order (Routine); Ordered 01/31/18 Ordered By: Eric Luevano - Discharge Details Anticipated Discharge Date: 01/31/18 Discharge Comment: Date of discharge when PICC line is in, and home health has been set up by case management. - Physicians Team Primary Care Provider: Corazon Peck Attending Provider: Eric Luevano Other Providers: Zelalem Ryder MD, PhD ; Rehan Sullivan MD ; Andrea Menard MD ; Liat Kimble MD ; Sebastián Franz MD ; Elisha Davila MD ; Will Tom MD
--- NOTE | 2018-01-31 09:52 | P.PNOP ---
Subjective Interval history: He appears improved today. Very little confusion compared to 3-4 days ago. No new leg pain though he has some left thigh aching. Appetite poor as he was nauseated today. No other concerns. Physical Exam Vital signs: Vital Signs 01/30/18 12:00 01/30/18 12:58 01/30/18 16:00 Temperature 98.7 F 98.9 F Pulse Rate 116 H 79 Respiratory Rate 18 18 Blood Pressure 137/90 141/67 H Pulse Oximetry 97 95 97 01/30/18 20:00 01/31/18 00:00 01/31/18 04:00 Temperature 98.3 F 98.1 F 97.9 F Pulse Rate 84 79 82 Respiratory Rate 22 18 18 Blood Pressure 164/80 H 141/65 H 138/65 Pulse Oximetry 97 94 L 97 01/31/18 08:00 Temperature 98.6 F Pulse Rate 80 Respiratory Rate 21 Blood Pressure 154/81 H Pulse Oximetry 98 Intake & Output 01/30/18 01/31/18 01/31/18 18:59 06:59 18:59 Intake Total 2656 / 2656 1780 / 1780 Output Total 1075 / 1075 1000 / 1000 Balance 1581 / 1581 780 / 780 Weight 79.3 kg Intake: IV 2176 / 2176 1100 / 1100 NS Inj 1,000 ML @ 84 mls/hr IV. 1766 / 1766 1000 / 1000 CONT .[id number] YANNA Rx#:[id number] Maxipime Inj 2,000 MG In NS Inj 210 / 210 100 / 100 100 ML @ 200 mls/hr IV.SIG Q8H YANNA Rx#:[id number] KCl 10 mEq Premix Inj 10 meq In 200 / 200 100 ml @ 50 mls/hr IV.SIG Q1H YANNA Rx#:[id number] Oral 480 / 480 680 / 680 Output: Urine 1075 / 1075 1000 / 1000 Other: Date of Last Bowel Movement 01/30/18 Narrative: Sitting up in chair Eating breakfast NAD Answer most questions appropriately L/S Incision well approximated and almost healed, slight fluctuance and swelling, no erythema No drainage, Ecchymosis resolving +motor distal intact, +sens, +nvi - Urinary Catheter Management Straight Cath placed during this visit: yes Reason for continuing: Acute urinary retention Insertion date: 01/21/18 Insertion time: 14:10 Indwelling Urethral Catheter Cath placed during this visit: yes, but has since been removed by the nurse Reason for continuing: Acute urinary retention Insertion date: 01/23/18 Insertion time: 22:45 Removal date: 01/24/18 Removal time: 04:30 Results - Labs CBC & Chem 7: 01/31/18 06:15 01/31/18 06:45 Laboratory Results - last 24 hr 01/31/18 01/31/18 01/31/18 06:15 06:45 06:45 WBC 3.3 L RBC 3.27 L Hgb 10.2 L Hct 29.2 L MCV 89.3 MCH 31.1 MCHC 34.8 RDW 15.5 Plt Count 175 MPV 7.8 Neut % (Auto) 63.2 Lymph % (Auto) 16.9 [place] % (Auto) 18.5 H Eos % (Auto) 1.0 Baso % (Auto) 0.4 Neut # (Auto) 2.1 Lymph # (Auto) 0.6 L [place] # (Auto) 0.6 Eos # (Auto) 0.0 Baso # (Auto) 0.0 WBC Differential . Differential Comment Auto diff final PT 14.3 H INR 1.4 Sodium 135 L Potassium 3.4 L Chloride 99 Carbon Dioxide 25.6 Anion Gap 10 BUN 3 L Creatinine 0.51 L Estimated GFR Greater than 89 Random Glucose 83 Calcium 7.6 L Phosphorus 2.7 Magnesium 1.6 Albumin 2.5 L Microbiology 01/28/18 10:55 Blood - Peripheral Aerobic Blood Culture - Preliminary No growth in 2 days 01/28/18 10:55 Blood - Peripheral Anaerobic Blood Culture - Preliminary No growth in 2 days 01/28/18 11:01 Blood - Peripheral Aerobic Blood Culture - Preliminary No growth in 2 days 01/28/18 11:01 Blood - Peripheral Anaerobic Blood Culture - Preliminary No growth in 2 days 01/27/18 10:50 Blood - Peripheral Aerobic Blood Culture - Final Pseudomonas aeruginosa 01/27/18 10:50 Blood - Peripheral Anaerobic Blood Culture - Preliminary No growth in 3 days 01/27/18 10:57 Blood - Peripheral Aerobic Blood Culture - Final Pseudomonas aeruginosa 01/27/18 10:57 Blood - Peripheral Anaerobic Blood Culture - Preliminary No growth in 3 days - Procedures PICC line placement Assessment and Plan - Assessment and Plan Status post lumbar laminectomy L2-3 and L3-4, stable History of lumbar fusion L4-5, remote. Coumadin coagulopathy. History of atrial fibrillation. Likely TIA versus CVA. PLAN: Pain controlled. Appetite poor today. No other complaints. Ortho stable. Incision appears to be healing well. Less swelling Would prefer to keep INR at 2.0. Ecchymosis and swelling and back pain is related to Coumadin coagulopathy. INR 1.4 today. Out of bed with brace. No dressing change necessary. Blood culture growing Pseudomonas. Lumbar spine not likely the source but is possible. No clinical signs of infection of lumbar spine at this time. Patient's recent surgery is for laminectomy only. Patient had lumbar spinal fusion with instrumentation in the past by another physician. The instrumentation is unrelated to the recent surgery, which is at L2-3 and L3-4. Previous fusion was at L4-5 Ok for d/c when med cleared.
[2018-01-31 12:14] VITALS: BP 130/68; RESP 20; O2SAT 95
[2018-01-31 12:27] VITALS: PULSE 92
[2018-01-31] MEDS ORDERED: Heparin Central Flush 100 UNIT/ML 5 ML Vial IV.FLUSH PRN (12:47)
--- NOTE | 2018-01-31 13:09 | XR ---
EXAM DATE: 01/31/2018 12:35 PM EDT AGE/SEX: 82 years / Male INDICATIONS: PICC line placement. CLINICAL DATA: This is the patient's initial encounter. Patient reports that signs and symptoms have been present for 1 day and indicates a pain score of 0/10. MEDICAL/SURGICAL HISTORY: Hypertension. AFIB. CABG. Pacemaker. COMPARISON: [facility], CHEST 1V SINGLE AP, 01/27/2018. . FINDINGS: On today's examination there is a right-sided PICC line in place. PICC line appears to be in good pos ition. There is no pneumothorax. There is a pacemaker overlying the left chest. There is stable cardi omegaly compared to the prior exam. Some mild pulmonary venous congestion. Otherwise, the lungs are g rossly clear. No significant pleural effusions. CONCLUSION: 1. Right-sided PICC line in good position. 2. No evidence of pneumothorax. Electronically signed by: Michael Souza MD 01/31/2018 1:07 PM EDT
[2018-02-01] MEDS ORDERED: Heparin Central Flush 100 UNIT/ML 5 ML Vial IV.FLUSH SCH (09:00)
== END 2018-01-31 13:34 | disposition home health service (06) ==
LOC: NEDA 10:38 → NEPE 10:38 → N04 18:25
PROVIDERS: ADMIT Internal Medicine; ATTEND Internal Medicine